=== PATIENT | female | born 1960 | race Caucasian/White ===

== ENCOUNTER 2016-09-03 09:36 | Outpatient (CLI) | payer MEDICAID | END 2016-09-03 23:59 | DX: E11.9 Type 2 diabetes mellitus without complications (principal); Z79.4 Long term (current) use of insulin; E78.5 Hyperlipidemia, unspecified; E03.9 Hypothyroidism, unspecified ==

== ENCOUNTER 2016-09-18 08:30 | Outpatient (CLI) | payer MEDICAID | END 2016-09-18 08:45 | disposition home or self-care (01) | DX: I20.8 Other forms of angina pectoris (principal); I10 Essential (primary) hypertension ==

== ENCOUNTER 2016-09-28 10:34 | Outpatient (CLI) | payer MEDICAID | END 2016-09-28 10:35 | disposition home or self-care (01) | DX: R19.7 Diarrhea, unspecified (principal) ==

== ENCOUNTER 2016-09-29 04:00 | Outpatient (CLI) | payer MEDICAID | END 2016-09-29 04:01 | disposition home or self-care (01) | LOC: LAB.R 04:00 | PROVIDERS: ATTEND Nurse Practitioner Gerontology | DX: R19.7 Diarrhea, unspecified (principal) | CPT/HCPCS: 83630; 87015; 87045; 87046; 87077; 87272; 87329; 87493 ==

== ENCOUNTER 2016-10-26 10:52 | Outpatient (CLI) | payer MEDICAID | END 2016-10-26 10:53 | disposition home or self-care (01) | LOC: LAB.N 10:52 | PROVIDERS: ATTEND Nurse Practitioner Gerontology | DX: E03.9 Hypothyroidism, unspecified (principal) | CPT/HCPCS: 36415; 84443 ==

== ENCOUNTER 2016-12-25 10:28 | Outpatient (CLI) | payer MEDICAID ==
--- NOTE | 2016-12-25 12:38 | XRAY Report ---
THREE-VIEW RIGHT SHOULDER: 12/25/2016 CLINICAL INDICATION: Pain. FINDINGS: Internal and external rotational views and a scapular Y view of the right shoulder demonst rate no evidence of fracture or dislocation. The joint spaces are preserved. No radiopaque foreign body is seen in the soft tissues. IMPRESSION: NORMAL RIGHT SHOULDER. JOB #: [id number] EXT JOB #:[id number]
== END 2016-12-25 10:29 | disposition home or self-care (01) ==
LOC: DI.N 10:28
PROVIDERS: ATTEND Family Medicine
DX: M25.511 Pain in right shoulder (principal)

== ENCOUNTER 2017-02-01 09:11 | Outpatient (CLI) | payer MEDICAID ==
[2017-02-01 13:57] LABS: BASOPHILS % (AUTO) 0.7 %; EOSINOPHILS # (AUTO) 0.3 10^3/uL (0.0-0.7); EOSINOPHILS % (AUTO) 5.1 %; HCT - HEMATOCRIT 36.2 % (37.0-47.0); HGB - HEMOGLOBIN 12.1 g/dL (12.0-16.0); LYMPHOCYTES # (AUTO) 1.8 10^3/uL (1.5-3.5); LYMPHOCYTES % (AUTO) 28.2 %; MEAN CORPUSCULAR HEMOGLOBIN 30.5 pg (27.0-31.0); MEAN CORPUSCULAR HGB CONC 33.4 g/dL (32.0-36.0); MEAN CORPUSCULAR VOLUME 91.3 fL (81.0-99.0); MEAN PLATELET VOLUME 8.4 fL (7.9-10.8); MONOCYTES # (AUTO) 0.6 10^3/uL (0.0-1.0); MONOCYTES % (AUTO) 9.1 %; NEUTROPHILS # (AUTO) 3.6 10^3/uL (1.5-6.6); NEUTROPHILS % (AUTO) 56.9 %; NUCLEATED RED BLOOD CELLS AUTO 0.1 /100WBC; RED BLOOD COUNT 3.96 10^6/uL (4.20-5.40); RED CELL DISTRIBUTION WIDTH 14.7 % (12.0-15.0); UNCORRECTED WHITE BLOOD COUNT 6.4 x10^3/uL; WHITE BLOOD COUNT 6.4 x10^3/uL (4.8-10.8)
[2017-02-01 14:13] LABS: BUN - BLOOD UREA NITROGEN 20 mg/dL (6-20); CALCIUM 8.9 mg/dL (8.5-10.3); CARBON DIOXIDE - CO2 21 mmol/L (21-32); CHLORIDE 109 mmol/L (101-111); CHOL/HDL RATIO 4.1 (<4.4); CHOLESTEROL 157 mg/dL; CREATININE 1.1 mg/dL (0.4-1.0); GFR - MDRD 52 (>89); GLUCOSE 125 mg/dL (70-100); HDL CHOLESTEROL 38 mg/dL; LDL/HDL RATIO 2.1 (<4.4); POTASSIUM 3.9 mmol/L (3.5-5.0); SODIUM 139 mmol/L (135-145); TRIGLYCERIDES 190 mg/dL; VLDL CHOLESTEROL 38 mg/dL
[2017-02-01 14:15] LABS: HEMOGLOBIN A1C 0.56 g/dL
== END 2017-02-01 09:12 | disposition home or self-care (01) ==
LOC: LAB.N 09:11
PROVIDERS: ATTEND Internal Medicine Cardiovascular Disease
DX: I10 Essential (primary) hypertension (principal); R07.9 Chest pain, unspecified; E11.319 Type 2 diabetes mellitus with unspecified diabetic retinopathy without macular edema; Z79.4 Long term (current) use of insulin; E78.5 Hyperlipidemia, unspecified; F17.200 Nicotine dependence, unspecified, uncomplicated; R00.2 Palpitations
CPT/HCPCS: 36415; 80048; 80061; 82043; 82570; 83036; 85025

== ENCOUNTER 2017-02-19 09:04 | Outpatient (CLI) | payer MEDICAID | END 2017-02-19 09:05 | disposition EMS.NT | LOC: EMS 09:04 | PROVIDERS: ATTEND Surgery | DX: E16.2 Hypoglycemia, unspecified (principal) ==

== ENCOUNTER 2017-06-15 03:00 | Outpatient (CLI) | payer MEDICAID ==
[2017-06-15 13:18] LABS: H. PYLORIS ANTIGEN STL NEGATIVE (Negative)
== END 2017-06-15 03:01 | disposition home or self-care (01) ==
LOC: LAB.R 03:00
PROVIDERS: ATTEND Nurse Practitioner Gerontology
DX: K21.9 Gastro-esophageal reflux disease without esophagitis (principal)
CPT/HCPCS: 87338

== ENCOUNTER 2017-06-18 10:12 | Outpatient (CLI) | payer MEDICAID ==
[2017-06-18 12:46] LABS: BASOPHILS # (AUTO) 0.1 10^3/uL (0.0-0.1); BASOPHILS % (AUTO) 1.1 %; EOSINOPHILS # (AUTO) 0.2 10^3/uL (0.0-0.7); EOSINOPHILS % (AUTO) 3.1 %; HGB - HEMOGLOBIN 13.1 g/dL (12.0-16.0); LYMPHOCYTES # (AUTO) 1.7 10^3/uL (1.5-3.5); MEAN CORPUSCULAR HEMOGLOBIN 30.2 pg (27.0-31.0); MEAN CORPUSCULAR HGB CONC 33.8 g/dL (32.0-36.0); MEAN CORPUSCULAR VOLUME 89.3 fL (81.0-99.0); MONOCYTES # (AUTO) 0.5 10^3/uL (0.0-1.0); MONOCYTES % (AUTO) 9.4 %; NEUTROPHILS # (AUTO) 3.3 10^3/uL (1.5-6.6); NEUTROPHILS % (AUTO) 57.4 %; PLT - PLATELET COUNT 170 10^3/uL (130-450); RED BLOOD COUNT 4.34 10^6/uL (4.20-5.40); RED CELL DISTRIBUTION WIDTH 15.1 % (12.0-15.0); WHITE BLOOD COUNT 5.8 x10^3/uL (4.8-10.8)
[2017-06-18 13:19] LABS: ALBUMIN 4.3 g/dL (3.2-5.5); ALBUMIN/GLOBULIN RATIO 1.2 (1.0-2.2); ALKALINE PHOSPHATASE 75 IU/L (42-121); ALT ALANINE AMINOTRANSFERASE 16 IU/L (10-60); AST ASPARTATE AMINOTRANSFERASE 20 IU/L (10-42); BILIRUBIN,TOTAL 0.4 mg/dL (0.2-1.0); BUN - BLOOD UREA NITROGEN 15 mg/dL (6-20); CALCIUM 8.8 mg/dL (8.5-10.3); CARBON DIOXIDE - CO2 21 mmol/L (21-32); CHLORIDE 109 mmol/L (101-111); CHOL/HDL RATIO 2.6 (<4.4); CHOLESTEROL 135 mg/dL; CREATININE 0.9 mg/dL (0.4-1.0); GFR - MDRD 65 (>89); GLUCOSE 98 mg/dL (70-100); HDL CHOLESTEROL 52 mg/dL; LDL CHOLESTEROL,CALCULATED 74 mg/dL; LDL/HDL RATIO 1.4 (<4.4); SODIUM 136 mmol/L (135-145); TOTAL PROTEIN 7.9 g/dL (6.7-8.2); VLDL CHOLESTEROL 9 mg/dL
[2017-06-18 13:26] LABS: HB2 TOTAL 14.6 g/dL; HEMOGLOBIN A1C 0.65 g/dL; HEMOGLOBIN A1C % 6.2 % (4.6-6.2)
== END 2017-06-18 10:13 | disposition home or self-care (01) ==
LOC: LAB.N 10:12
PROVIDERS: ATTEND Nurse Practitioner Gerontology
DX: I10 Essential (primary) hypertension (principal); E78.5 Hyperlipidemia, unspecified; E11.9 Type 2 diabetes mellitus without complications; E03.9 Hypothyroidism, unspecified
CPT/HCPCS: 36415; 80053; 80061; 83036; 83721; 84443; 85025

== ENCOUNTER 2017-07-28 10:49 | Emergency (ER) | payer MEDICAID ==
--- NOTE | 2017-07-28 12:38 | ED Physician Documentation ---
PD HPI UPPER EXT INJURY - Stated complaint Stated Complaint: R SHOULDER PX - Chief complaint Chief Complaint: Ext Problem - History obtained from History obtained from: Patient, Friend - History of Present Illness Location: Right, Shoulder Type of injury: Other (For the last 6 weeks and to a lesser extent even longer she has had pinching right shoulder pain that is worse with any motion. She had x-rays in December that were negative. She points to basically the whole right side of the neck and shoulder as the source of her pain. She was on Vicodin which helped but not completely. Despite being listed as an allergy she is not allergic to gabapentin she says. She actually takes it on a daily basis. Her blood sugars have been well controlled. She denies fevers or shortness of breath.) Review of Systems Constitutional: denies: Fever, Chills Cardiac: denies: Chest pain / pressure, Palpitations Respiratory: denies: Dyspnea, Cough PD PAST MEDICAL HISTORY - Past Medical History Cardiovascular: High cholesterol Respiratory: Other Neuro: Seizure disorder Endocrine/Autoimmune: Type 2 diabetes GI: GERD, Hiatal hernia, Chronic diarrhea, Chronic constipation, Pancreatitis, Hepatitis : Incontinence, Nocturia, Frequency HEENT: Glaucoma, Dental implants Psych: Depression, Anxiety Musculoskeletal: Osteoarthritis - Past Surgical History Past Surgical History: Yes General: 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 hernia 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 Cardiovascular: Lobectomy - Present Medications Home Medications: Ambulatory Orders Medication Instructions Recorded Confirmed Oxybutynin [Ditropan] 20 mg PO BID 01/19/13 03/22/17 Simvastatin 20 mg PO DAILY 01/19/13 03/22/17 Levothyroxine [Synthroid] 50 mcg PO DAILY 12/03/13 03/22/17 Lisinopril 5 mg PO DAILY 01/25/14 03/22/17 Alendronate Sodium 5 mg PO Q7D 03/18/15 03/22/17 Omeprazole 20 mg PO QPM 03/18/15 03/22/17 Gabapentin 400 mg PO TID 06/19/15 03/22/17 Insulin Glulisine [Apidra] 1 - 11 unit SQ TID PRN 06/19/15 03/22/17 Insulin Glargine [Lantus Solostar] 20 unit SUBQ BID 10/31/15 03/22/17 Empagliflozin [Jardiance] 10 mg PO DAILY 03/23/16 03/22/17 Topiramate 200 mg PO BID 03/23/16 03/22/17 Gabapentin 600 mg PO TID #30 tablet 07/28/17 HYDROcod/ACETAM 5/325 [[place] 5/325] 1 - 2 ea PO Q6H PRN #15 tablet 07/28/17 - Allergies Allergies/Adverse Reactions: Allergies Allergy/AdvReac Type Severity Reaction Status Date / Time hydromorphone HCl * Allergy Intermediate Edema Verified 08/24/14 09:00 [From Dilaudid] metformin Allergy Intermediate vomiting Verified 08/24/14 09:00 and diarrhea Penicillins Allergy Intermediate Rash Verified 08/24/14 09:00 Sulfa (Sulfonamide Allergy Intermediate Rash Verified 08/24/14 09:00 Antibiotics) carbamazepine [From Tegretol] Allergy Mild Rash Verified 08/24/14 09:00 amoxicillin [Amoxicillin] Allergy Rash Verified 08/24/14 09:00 gabapentin [From Neurontin] AdvReac Intermediate Nausea Verified 07/28/17 10:59 - Social History Does the pt smoke?: Yes Smoking Status: Current every day smoker Does the pt drink ETOH?: No Does the pt have substance abuse?: No - Immunizations Immunizations are current?: Yes - POLST Patient has POLST: No PD ED PE NORMAL - Vitals Vital signs reviewed: Yes - General General: Alert and oriented X 3, No acute distress - Neck Neck: Other (About the right side of the neck, shoulder, and upper back she has basically diffuse tenderness kind of in a fibromyalgia type pattern. She can only abduct about 10 and has pain with internal and external rotation as well. She does have diminished sensation in the C7-C8 distribution on the right. I am really unable to check strength because of limitations due to pain.) - Neuro Neuro: Alert and oriented X 3, Normal speech Results - Vitals Vitals: Vital Signs - 24 hr 07/28/17 10:55 Temperature 36 C L Heart Rate 91 Respiratory 16 Rate Blood Pressure 120/80 O2 Saturation 95 Oxygen O2 Source Room air Departure - Departure Disposition: 01 Home, Self Care Clinical Impression: Cervical radiculopathy at C8 Condition: Good Record reviewed to determine appropriate education?: Yes Instructions: ED Cervical Radiculopathy Prescriptions: Gabapentin 600 mg PO TID #30 tablet HYDROcod/ACETAM 5/325 [[place] 5/325] 1 - 2 ea PO Q6H PRN #15 tablet PRN Reason: Pain Comments: As discussed your history and physical exam suggests that the problem is actually radiated from your neck. Talk with your doctor about an MRI of your neck if this continues. Return if worse or if new symptoms develop.
[2017-07-28 12:46] VITALS: BP 126/107
== END 2017-07-28 12:52 | disposition home or self-care (01) ==
LOC: ED 10:49
DX: M54.12 Radiculopathy, cervical region (principal); F17.200 Nicotine dependence, unspecified, uncomplicated; E78.00 Pure hypercholesterolemia, unspecified; E11.9 Type 2 diabetes mellitus without complications; Z79.4 Long term (current) use of insulin
CPT/HCPCS: 99283

== ENCOUNTER 2017-08-04 09:45 | Emergency (ER) | payer MEDICAID ==
[2017-08-04] MEDS ORDERED: LIDOCAINE PATCH 5% TOP STA (10:07)
[2017-08-04] MEDS ORDERED: KETOROLAC 60 MG/2 ML VIAL IM STA (10:07)
--- NOTE | 2017-08-04 10:11 | ED Physician Documentation ---
History of Present Illness - Stated complaint Stated Complaint: RT SHOULDER PX - Chief complaint Chief Complaint: Ext Problem - Additonal information Additional information: hx from pt 57 f hx stage 1 lunhg cancer 2009 txed surgically followed at [facility] for annual surveillance s recurrence this far to ER today for R shoulder pain - pain from R side of neck into her shoulder with radiation down the lateral upper arm and numbness to her hand diffusely - no weakness seen for same in ED last week - seen by Dr Erickson who txed sx and rec pt fup PMD to discuss MRI pt states she cannot get in to see her PMD and sx persist also states she has had diarrhea and sig wt loss over last 6 months - has seen PMD about that, had stool studies which were reportedly neg, and pMD is considering a colonoscopy no fever cough Review of Systems Constitutional: denies: Fever Respiratory: denies: Dyspnea, Cough GI: reports: Diarrhea. denies: Abdominal Pain Musculoskeletal: reports: Neck pain, Joint pain Neurologic: reports: Numbness. 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 Cardiovascular: Lobectomy - Present Medications Home Medications: Ambulatory Orders Medication Instructions Recorded Confirmed Oxybutynin [Ditropan] 20 mg PO BID 01/19/13 03/22/17 Simvastatin 20 mg PO DAILY 01/19/13 03/22/17 Levothyroxine [Synthroid] 50 mcg PO DAILY 12/03/13 03/22/17 Lisinopril 5 mg PO DAILY 01/25/14 03/22/17 Alendronate Sodium 5 mg PO Q7D 03/18/15 03/22/17 Omeprazole 20 mg PO QPM 03/18/15 03/22/17 Gabapentin 400 mg PO TID 06/19/15 03/22/17 Insulin Glulisine [Apidra] 1 - 11 unit SQ TID PRN 06/19/15 03/22/17 Insulin Glargine [Lantus Solostar] 20 unit SUBQ BID 10/31/15 03/22/17 Empagliflozin [Jardiance] 10 mg PO DAILY 03/23/16 03/22/17 Topiramate 200 mg PO BID 03/23/16 03/22/17 Gabapentin 600 mg PO TID #30 tablet 07/28/17 HYDROcod/ACETAM 5/325 [[place] 5/325] 1 - 2 ea PO Q6H PRN #15 tablet 07/28/17 Lidocaine Patch 5% [Lidoderm Patch] 1 each TOP DAILY PRN #10 patch 08/04/17 predniSONE [Deltasone] 20 mg PO [id number] #21 tab 08/04/17 - Allergies Allergies/Adverse Reactions: Allergies Allergy/AdvReac Type Severity Reaction Status Date / Time hydromorphone HCl * Allergy Intermediate Edema Verified 08/24/14 09:00 [From Dilaudid] metformin Allergy Intermediate vomiting Verified 08/24/14 09:00 and diarrhea Penicillins Allergy Intermediate Rash Verified 08/24/14 09:00 Sulfa (Sulfonamide Allergy Intermediate Rash Verified 08/24/14 09:00 Antibiotics) carbamazepine [From Tegretol] Allergy Mild Rash Verified 08/24/14 09:00 amoxicillin [Amoxicillin] Allergy Rash Verified 08/24/14 09:00 - Social History Does the pt smoke?: Yes Smoking Status: Current every day smoker Does the pt drink ETOH?: No Does the pt have substance abuse?: No - Immunizations Immunizations are current?: Yes - POLST Patient has POLST: No PD ED PE NORMAL - Vitals Vital signs reviewed: Yes - General General: Alert and oriented X 3 - HEENT HEENT: PERRL - Neck Neck: No bony TTP - Cardiac Cardiac: RRR - Respiratory Respiratory: No respiratory distress, Clear bilaterally - Abdomen Abdomen: Soft, Non tender - Derm Derm: Normal color - Extremities Extremities: Other (R shoulder in a sling, no deformity, no redness no warmth, limited ROM 2/2 pain nicole ABD and ext, pt has dec sensation to hand, good 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 No: No sensory deficit Results - Vitals Vitals: Vital Signs - 24 hr 08/04/17 09:50 Temperature 36.7 C Heart Rate 91 Respiratory 18 Rate Blood Pressure 128/65 O2 Saturation 96 Oxygen O2 Source Room air - Labs Labs: Laboratory Tests 08/04/17 08/04/17 10:48 10:48 WBC 6.6 RBC 4.38 Hgb 13.5 Hct 40.1 MCV 91.5 MCH 30.8 MCHC 33.6 RDW 15.2 H Plt Count 161 MPV 7.6 L Neut # 4.1 Lymph # 1.8 [place] # 0.5 Eos # 0.2 Baso # 0.1 Absolute Nucleated RBC 0.00 Nucleated RBC % 0.0 Sodium 136 Potassium 3.8 Chloride 108 Carbon Dioxide 19 L Anion Gap 9.0 BUN 10 Creatinine 0.8 Estimated GFR (MDRD) 74 L Glucose 68 L Calcium 8.9 PD MEDICAL DECISION MAKING - ED course ED course: MRI has an opening in schedule today and with a hx of cancer and new radiculopathy this is a prudent test to get done so ordered from the ER Departure - Departure Disposition: Home, Self Care Clinical Impression: Cervical radiculopathy Shoulder pain, right Qualifiers: Chronicity: chronic Qualified Code(s): M25.511 - Pain in right shoulder; G89.29 - Other chronic pain; G89.29 - Other chronic pain Condition: Good Instructions: ED Cervical Radiculopathy Follow-Up: Jhonny Love MD [Provider Admit Priv/Credential] - Prescriptions: Lidocaine Patch 5% [Lidoderm Patch] 1 each TOP DAILY PRN #10 patch PRN Reason: Pain predniSONE [Deltasone] 20 mg PO [id number] #21 tab Comments: The MRI of your neck was fine - no sign of recurrent cancer. There are some degenerative changes but nothing severe The xray of your chest was fine - no pneumonia or cancer to cause shoulder pain And the shoulder xray was fine too I am not sure why the shoulder is hurting but it seems to be nerve pain. I recommend your try a course of tapering steroids to decrease nerve inflammation and lidocaine patches. You can wear the sling if needed but be sure to take your arm out and do range of motion exercises at least every 4 hours If you have had diarrhea for 6 months and lost a lot of weight you need a colonoscopy - I have referred you to the surgical office to arrange that procedure
[2017-08-04] MEDS ORDERED: GADOBUTROL 7.5 MMOL/7.5 ML VIAL ONE (10:35)
--- NOTE | 2017-08-04 10:51 | XRAY Report ---
EXAM: RIGHT SHOULDER RADIOGRAPHY EXAM DATE: 08/04/2017 10:34 AM. CLINICAL HISTORY: Hx lung cancer R shoulder pain. COMPARISON: None. TECHNIQUE: 3 views. FINDINGS: Bones: Normal. No fracture or bone lesion. Joints: The glenohumeral and acromioclavicular joints are anatomically aligned. No significant degene rative changes.. Soft tissues: The included hemithorax is unremarkable. No soft tissue calcification. IMPRESSION: Unremarkable right shoulder radiography. [facility] Referring Provider Line: [phone] SITE ID: [id number]
[2017-08-04 10:55] LABS: BASOPHILS # (AUTO) 0.1 10^3/uL (0.0-0.1); EOSINOPHILS # (AUTO) 0.2 10^3/uL (0.0-0.7); EOSINOPHILS % (AUTO) 2.5 %; HGB - HEMOGLOBIN 13.5 g/dL (12.0-16.0); LYMPHOCYTES # (AUTO) 1.8 10^3/uL (1.5-3.5); LYMPHOCYTES % (AUTO) 27.9 %; MEAN CORPUSCULAR HEMOGLOBIN 30.8 pg (27.0-31.0); MEAN CORPUSCULAR HGB CONC 33.6 g/dL (32.0-36.0); MEAN CORPUSCULAR VOLUME 91.5 fL (81.0-99.0); MEAN PLATELET VOLUME 7.6 fL (7.9-10.8); MONOCYTES # (AUTO) 0.5 10^3/uL (0.0-1.0); MONOCYTES % (AUTO) 7.2 %; NEUTROPHILS # (AUTO) 4.1 10^3/uL (1.5-6.6); NEUTROPHILS % (AUTO) 61.4 %; PLT - PLATELET COUNT 161 10^3/uL (130-450); RED BLOOD COUNT 4.38 10^6/uL (4.20-5.40); RED CELL DISTRIBUTION WIDTH 15.2 % (12.0-15.0); WHITE BLOOD COUNT 6.6 x10^3/uL (4.8-10.8)
--- NOTE | 2017-08-04 10:55 | XRAY Report ---
EXAM: CHEST RADIOGRAPHY EXAM DATE: 08/04/2017 10:32 AM. CLINICAL HISTORY: Hx cancer, R shoulder pain. COMPARISON: 03/19/2017 chest x-ray and chest CT 03/24/2016. TECHNIQUE: 2 views. FINDINGS: Lungs/Pleura: Postsurgical changes left upper lobe. No focal opacities evident. No pleural effusion. No pneumothorax. Normal volumes. Mediastinum: Heart and mediastinal contours are unremarkable. Other: Surgical clips right upper quadrant. Slight height loss one midthoracic vertebral body. IMPRESSION: No acute findings 2-view chest radiography. Stable left upper lobe postsurgical change. [facility] Referring Provider Line: [phone] SITE ID: [id number]
[2017-08-04 11:03] LABS: CALCIUM 8.9 mg/dL (8.5-10.3); CREATININE 0.8 mg/dL (0.4-1.0)
[2017-08-04] MEDS ORDERED: oxyCODONE 5 MG TABLET PO STA (11:21)
[2017-08-04] MEDS ORDERED: GADOBUTROL 7.5 MMOL/7.5 ML VIAL IVP ONE (11:48)
--- NOTE | 2017-08-04 12:12 | MRI Report ---
EXAM: MRI CERVICAL SPINE WITHOUT AND WITH CONTRAST EXAM DATE: 08/04/2017 11:52 AM. CLINICAL HISTORY: Hx lung cancer new R arm radiculopathy. COMPARISON: None. TECHNIQUE: Multiplanar, multisequence T1-weighted and fluid-sensitive sequences of the cervical spine before and after administration of intravenous contrast. Other: None. IV contrast: 7.5 cc gadavist. FINDINGS: Neurologic Structures: The visualized posterior fossa structures are unremarkable. No signal abnormal ity in the visualized spinal cord. Alignment: No scoliosis or spondylolisthesis. Bone Marrow: No gross fractures or bone lesions. Small amount of endplate edema at C6-C7 anteriorly. No destructive bone lesions. Interspace Levels/Facets: C1-C2: Unremarkable. C2-C3: Unremarkable. C3-C4: Unremarkable. C4-C5: Small broad-based central, left paracentral and foraminal disk protrusion. Mild facet arthropa thy. Mild central canal stenosis. Mild left foraminal stenosis. Annular fissure. C5-C6: Annular disk bulge with broad-based central protrusion. Mild central canal stenosis. Mild left foraminal narrowing. C6-C7: Disk height loss. Annular disk bulge with broad-based central protrusion and facet hypertrophy . Mild facet arthropathy. Mild central canal stenosis. Moderate left and mild right foraminal stenosi s. C7-T1: Unremarkable. No stenosis. Spinal Canal: No enhancing lesions within the spinal canal. No epidural abscess. Musculature: Normal. No edema, enhancement, or fatty atrophy. Other: The paravertebral and prevertebral soft tissues are normal. IMPRESSION: 1. No evidence of metastatic disease within the [id number]. 2. Mild cervical degenerative disk and facet arthropathy. 3. C4-C5 mild central canal stenosis. Mild left foraminal stenosis. 4. C5-C6 mild central canal stenosis. Mild left foraminal narrowing. 5. C6-C7 mild central canal stenosis. Moderate left and mild right foraminal stenosis. [facility] Referring Provider Line: [phone] SITE ID: [id number]
--- NOTE | 2017-08-04 12:12 | MRI Preliminary Report ---
Exam: MRI CERVICAL SPINE W/WO IMPRESSION: 1. No evidence of metastatic disease within the [id number]. 2. Mild cervical degenerative disk and facet arthropathy. 3. C4-C5 mild central canal stenosis. Mild left foraminal stenosis. 4. C5-C6 mild central canal stenosis. Mild left foraminal narrowing. 5. C6-C7 mild central canal stenosis. Moderate left and mild right foraminal stenosis. [facility] SITE ID: [id number]
[2017-08-04 13:42] VITALS: BP 114/67
== END 2017-08-04 13:32 | disposition home or self-care (01) ==
LOC: ED 09:45
DX: M54.12 Radiculopathy, cervical region (principal); M25.511 Pain in right shoulder; G89.29 Other chronic pain; E78.00 Pure hypercholesterolemia, unspecified; Z85.118 Personal history of other malignant neoplasm of bronchus and lung; F17.200 Nicotine dependence, unspecified, uncomplicated
CPT/HCPCS: 36415; 71046; 72156; 73030; 80048; 85025; 96372; 99283; A9270; A9585

== ENCOUNTER 2017-08-17 11:06 | Outpatient (CLI) | payer MEDICAID ==
[2017-08-17 18:51] LABS: ALBUMIN 4.2 g/dL (3.2-5.5); ALBUMIN/GLOBULIN RATIO 1.3 (1.0-2.2); ALKALINE PHOSPHATASE 58 IU/L (42-121); ALT ALANINE AMINOTRANSFERASE 16 IU/L (10-60); AST ASPARTATE AMINOTRANSFERASE 16 IU/L (10-42); BILIRUBIN,TOTAL 0.6 mg/dL (0.2-1.0); BUN - BLOOD UREA NITROGEN 24 mg/dL (6-20); CALCIUM 8.8 mg/dL (8.5-10.3); CARBON DIOXIDE - CO2 24 mmol/L (21-32); CHLORIDE 106 mmol/L (101-111); CREATININE 0.9 mg/dL (0.4-1.0); GFR - MDRD 65 (>89); GLUCOSE 107 mg/dL (70-100); SODIUM 136 mmol/L (135-145); TOTAL PROTEIN 7.4 g/dL (6.7-8.2)
[2017-08-17 19:19] LABS: HB2 TOTAL 13.7 g/dL; HEMOGLOBIN A1C 0.61 g/dL; HEMOGLOBIN A1C % 6.2 % (4.6-6.2)
== END 2017-08-17 11:07 | disposition home or self-care (01) ==
LOC: LAB.N 11:06
PROVIDERS: ATTEND Nurse Practitioner Gerontology
DX: E11.9 Type 2 diabetes mellitus without complications (principal); E03.9 Hypothyroidism, unspecified
CPT/HCPCS: 36415; 80053; 83036; 84443

== ENCOUNTER 2017-09-01 08:00 | Outpatient (CLI) | payer MEDICAID | END 2017-09-01 23:59 | LOC: LAB.WCP 08:00 | PROVIDERS: ATTEND Physician Assistant | DX: R63.4 Abnormal weight loss (principal); R19.7 Diarrhea, unspecified | CPT/HCPCS: 81599; 82270; 83630; 87045; 87046; 87177; 87209; 87329; 87493 ==

== ENCOUNTER 2017-09-03 08:00 | Outpatient (CLI) | payer MEDICAID | END 2017-09-03 08:01 | disposition home or self-care (01) | LOC: LAB.WCP 08:00 | PROVIDERS: ATTEND Physician Assistant | DX: R19.7 Diarrhea, unspecified (principal); R63.4 Abnormal weight loss | CPT/HCPCS: 83630; 87493 ==

== ENCOUNTER 2017-09-07 05:58 | Day surgery (SDC) | payer MEDICAID ==
[2017-09-07] MEDS: LACTATED RINGERS 1,000 ML IV ONE (06:28)
[2017-09-07 06:33] VITALS: BP 106/63
== END 2017-09-07 05:59 | disposition home or self-care (01) ==
LOC: SDS 05:58
PROVIDERS: ATTEND Orthopaedic Surgery
DX: Z53.8 Procedure and treatment not carried out for other reasons (principal); M75.01 Adhesive capsulitis of right shoulder

== ENCOUNTER 2017-09-08 10:05 | Outpatient (CLI) | payer MEDICAID ==
--- NOTE | 2017-09-09 16:40 | Mammography Report ---
DIGITAL SCREENING MAMMOGRAM: 09/08/2017 CLINICAL INDICATION: A 57-year-old for screening. COMPARISON: 01/2014, 05/2011, 11/2009. TECHNIQUE: Routine CC and MLO projections were obtained of the breasts. Positioning on the right is limited by the patient's right shoulder immobility. FINDINGS: The breasts demonstrate fatty replacement bilaterally. Coarse and punctate, typically benign calcifications are present. No suspicious masses, clustered microcalcifications, or regions of architectural distortion are identified. IMPRESSION: BENIGN FINDINGS. RECOMMENDATION: Routine annual screening unless otherwise clinically indicated. BIRADS CATEGORY 2 BENIGN FINDINGS. STANDARD QUALIFYING STATEMENTS: 1. This examination was reviewed with the aid of Computer-Aided Detection (CAD). 2. A negative or benign imaging report should not delay biopsy if clinically suspicious findings are present. Consider surgical consultation if warranted. More than 5% of cancers are not identified by imaging. 3. Dense breasts may obscure an underlying neoplasm. TD: 09/09/2017 16:38
== END 2017-09-08 10:06 | disposition home or self-care (01) ==
LOC: DI.N 10:05
PROVIDERS: ATTEND Nurse Practitioner Gerontology
DX: Z12.39 Encounter for other screening for malignant neoplasm of breast (principal)
CPT/HCPCS: 77067

== ENCOUNTER 2017-09-16 08:36 | Outpatient (CLI) | payer MEDICAID ==
--- NOTE | 2017-09-16 11:33 | Ultrasound Report ---
COMPLETE ABDOMINAL ULTRASOUND: 09/16/2017 CLINICAL INDICATION: Weight loss, history of lung cancer. COMPARISON: 10/01/2014. TECHNIQUE: Real-time scanning was performed with field representatives director static images obtained. FINDINGS: The liver measures 14.9 cm. Hepatic echogenicity is normal. No intrahepatic biliary dilatation or focal parenchymal lesion is appreciated. The common bile duct measures 4 mm. The patient is status post cholecystectomy. The pancreas is obscured by bowel gas. The kidneys are normal, with the right measuring 10.0 cm and the left measuring 10.4 cm. The spleen measures 9.9 cm, and demonstrates normal echotexture. The abdominal aorta is normal in caliber. The inferior vena cava is unremarkable. No free fluid is present. IMPRESSION: CHANGES OF CHOLECYSTECTOMY. NO SIGNIFICANT INTERVAL CHANGE. IF THERE IS A CONCERN FOR A PALPABLE ABNORMALITY IN THE LEFT LOWER QUADRANT, CT WOULD PROVIDE A BETTER EVALUATION. TD: 09/16/2017 11:32
== END 2017-09-16 08:37 | disposition home or self-care (01) ==
LOC: DI 08:36
PROVIDERS: ATTEND Physician Assistant
DX: R19.04 Left lower quadrant abdominal swelling, mass and lump (principal); R63.4 Abnormal weight loss
CPT/HCPCS: 76700

== ENCOUNTER 2017-10-07 06:38 | Day surgery (SDC) | payer MEDICAID ==
[2017-10-07] MEDS ORDERED: LACTATED RINGERS 1,000 ML IV ONE ×2 (06:51→09:56)
[2017-10-07] MEDS ORDERED: LIDO GARGLE 30 ML BOTTLE ONE (07:19)
[2017-10-07] MEDS ORDERED: fentaNYL 250 MCG/5 ML VIAL IVP ONE (08:30)
[2017-10-07] MEDS ORDERED: MIDAZOLAM 2 MG/2 ML VIAL IVP ONE (08:30)
[2017-10-07] MEDS ORDERED: LIDO GARGLE 30 ML BOTTLE TOP ONE (08:35)
[2017-10-07 09:57] VITALS: BP 124/68
== END 2017-10-07 06:39 | disposition home or self-care (01) ==
LOC: SDS 06:38
PROVIDERS: ATTEND Internal Medicine Gastroenterology
PROC: 0DB68ZX Excision of Stomach, Via Natural or Artificial Opening Endoscopic, Diagnostic (ICD-10-PCS; 2017-10-07)
PROC: 0DB38ZX Excision of Lower Esophagus, Via Natural or Artificial Opening Endoscopic, Diagnostic (ICD-10-PCS; 2017-10-07)
PROC: 0DBP8ZX Excision of Rectum, Via Natural or Artificial Opening Endoscopic, Diagnostic (ICD-10-PCS; principal; 2017-10-07 08:00)
PROC: 0DB98ZX Excision of Duodenum, Via Natural or Artificial Opening Endoscopic, Diagnostic (ICD-10-PCS; 2017-10-07 08:00)
DX: K62.1 Rectal polyp (principal); R19.7 Diarrhea, unspecified; K57.30 Diverticulosis of large intestine without perforation or abscess without bleeding; K22.70 Barrett's esophagus without dysplasia; K31.9 Disease of stomach and duodenum, unspecified; K63.89 Other specified diseases of intestine; K29.50 Unspecified chronic gastritis without bleeding; E11.9 Type 2 diabetes mellitus without complications; Z79.4 Long term (current) use of insulin; Z79.82 Long term (current) use of aspirin
CPT/HCPCS: 43239; 45380; 87081; A9270; J3010; J7120

== ENCOUNTER 2017-11-01 | Outpatient (CLI) | END 2017-11-01 03:18 | disposition critical access hospital (66) | CPT/HCPCS: A0425; A0429 ==

== ENCOUNTER 2017-11-01 03:31 | Emergency (ER) | payer MEDICAID ==
--- NOTE | 2017-11-01 03:56 | ED Physician Documentation ---
PD HPI LOWER EXT INJURY - Stated complaint Stated Complaint: RIGHT FOOT CRAMP - Chief complaint Chief Complaint: Trauma Ext - History obtained from History obtained from: Patient - History of Present Illness PD HPI LOW EXT INJURY LOCATION: Right, Ankle Type of injury: Twist Where injury occurred: Home Timing - onset: Today Timing - details: Abrupt onset, Still present Improved by: Immobilization Worsened by: Moving, Palpating Associated symptoms: Swelling, Discolored Contributing factors: No: Anticoagulated Similar symptoms before: Has not had sx before Recently seen: Not recently seen - Additional information Additional information: Patient is a 57 year old female with multiple medical problems including osteoporosis who is presenting to the emergency department for ankle pain. patient states that she felt like her leg was cramping so she tried to stretch out her ankle, In stretching her ankle she felt it pop. Patient called ems who brought the patient in. there is tenderness and swelling to medial and lateral maleolus regions. 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 Cardiovascular: Lobectomy - Present Medications Home Medications: Ambulatory Orders Medication Instructions Recorded Confirmed Oxybutynin [Ditropan] 20 mg PO BID 01/19/13 11/01/17 Simvastatin 20 mg PO DAILY 01/19/13 11/01/17 Levothyroxine [Synthroid] 50 mcg PO DAILY 12/03/13 11/01/17 Lisinopril 5 mg PO DAILY 01/25/14 11/01/17 Alendronate Sodium 5 mg PO Q7D 03/18/15 10/07/17 Insulin Glulisine [Apidra] 1 - 11 unit SQ TID PRN MDD 30 06/19/15 11/01/17 Insulin Glargine [Lantus Solostar] 20 unit SUBQ BID 10/31/15 11/01/17 Topiramate 200 mg PO BID 03/23/16 11/01/17 Aspirin 81 mg PO DAILY 09/06/17 11/01/17 Cholecalciferol (Vitamin D3) 2,000 unit PO DAILY 09/06/17 11/01/17 [Vitamin D] Gabapentin 300 mg PO TID 09/06/17 11/01/17 lamoTRIgine [LaMICtal] 100 mg PO BID 09/06/17 11/01/17 Hydrocodone/Acetaminophen [Vicodin 1 each PO Q6H PRN #10 tablet 11/01/17 5-300 mg Tablet] - Allergies Allergies/Adverse Reactions: Allergies Allergy/AdvReac Type Severity Reaction Status Date / Time hydromorphone HCl * Allergy Intermediate Edema Verified 11/01/17 03:35 [From Dilaudid] metformin Allergy Intermediate vomiting Verified 11/01/17 03:35 and diarrhea Penicillins Allergy Intermediate Rash Verified 11/01/17 03:35 Sulfa (Sulfonamide Allergy Intermediate Rash Verified 11/01/17 03:35 Antibiotics) carbamazepine [From Tegretol] Allergy Mild Rash Verified 11/01/17 03:35 amoxicillin [Amoxicillin] Allergy Rash Verified 11/01/17 03:35 - Social History Does the pt smoke?: Yes Smoking Status: Current every day smoker Does the pt drink ETOH?: No Does the pt have substance abuse?: No - Immunizations Immunizations are current?: Yes - POLST Patient has POLST: No PD ED PE NORMAL - Vitals Vital signs reviewed: Yes - General General: Alert and oriented X 3 - HEENT HEENT: Atraumatic - Cardiac Cardiac: RRR - Respiratory Respiratory: No respiratory distress - Abdomen Abdomen: Non distended - Neuro Eye Opening: Spontaneous PD ED PE EXPANDED - Cardiac Cardiac: Radial strong equal - Extremities Extremities: Right ankle (tenderness and swelling of right ankle), Pedal Pulses Present, Sensory intact, Vascular intact. 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 patient was found to have bilateral maleolus fractures but good alignment. Case was discussed with proposal consultant ortho who recommended posterior and sugar tong splints. Splints were made. Patient required no further inpatient work up and was stable for discharge with outpatient follow up. - Sepsis Event Vital Signs: Vital Signs - 24 hr 11/01/17 11/01/17 03:40 05:21 Temperature 36.8 C Heart Rate 89 88 Respiratory 18 18 Rate Blood Pressure 104/59 L 110/60 O2 Saturation 94 96 Oxygen O2 Source Room air Departure - Departure Disposition: Home, Self Care Clinical Impression: Bimalleolar ankle fracture Condition: Good Instructions: ED Fx Ankle Lateral Malleolus Follow-Up: Eric Shay MD [Provider Admit Priv/Credential] - Tomorrow Prescriptions: Hydrocodone/Acetaminophen [Vicodin 5-300 mg Tablet] 1 each PO Q6H PRN #10 tablet PRN Reason: Pain Comments: Your symptoms today are being caused by ankle fracture. You have fractures in two different parts of your ankle. You will need to ice your ankle at least 4 times a day and keep it elevated. You have been placed in a temporary splint today but will need to follow up with the orthopedic doctor (Dr. Shay) for more definitive care. You can take tylenol for pain and vicodin for breakthrough pain. You should not take it with any other sedatives and you should not drive or operate heavy machinery while taking it. Discharge Date/Time: 11/01/17 05:21
--- NOTE | 2017-11-01 04:31 | XRAY Report ---
Procedure Date: 11/01/2017 Accession Number: [id number] / [id number] Procedure: XR - Ankle 3 View RT CPT Code: FULL RESULT: EXAM: RIGHT ANKLE RADIOGRAPHY EXAM DATE: 11/01/2017 04:06 AM. CLINICAL HISTORY: Ankle pain and swelling. COMPARISON: None. TECHNIQUE: 3 views. FINDINGS: Bones: Fractures of the medial and lateral malleoli, possibly subacute. There is demineralization which is most pronounced in the distal fibula. This could represent localized osteopenia but underlying lytic or permeative process not excluded. Joints: No dislocation seen. No joint effusion. Soft Tissues: Soft tissue swelling. IMPRESSION: 1. Fractures of the medial and lateral malleoli, possibly subacute. 2. Cannot exclude underlying lytic process, especially in the distal fibula. Consider MRI if clinically indicated. [facility]
[2017-11-01] MEDS ORDERED: HYDROcod/ACET 5/325 Prepack 4 PO STA (04:53)
[2017-11-01] MEDS ORDERED: HYDROcod/ACETAM 5/325 MG TABLET PO STA (04:53)
[2017-11-01 05:23] VITALS: BP 110/60
== END 2017-11-01 05:21 | disposition home or self-care (01) ==
LOC: EDUNIT# → ED 03:31
DX: S82.841A Displaced bimalleolar fracture of right lower leg, initial encounter for closed fracture (principal); X50.1XXA Overexertion from prolonged static or awkward postures, initial encounter; Y92.009 Unspecified place in unspecified non-institutional (private) residence as the place of occurrence of the external cause; M81.0 Age-related osteoporosis without current pathological fracture; E78.00 Pure hypercholesterolemia, unspecified; E11.9 Type 2 diabetes mellitus without complications; Z79.4 Long term (current) use of insulin; I10 Essential (primary) hypertension; R52 Pain, unspecified; K21.9 Gastro-esophageal reflux disease without esophagitis; K75.9 Inflammatory liver disease, unspecified; M19.90 Unspecified osteoarthritis, unspecified site; Z79.82 Long term (current) use of aspirin; F17.200 Nicotine dependence, unspecified, uncomplicated
CPT/HCPCS: 36415; 73610; 80053; 83735; 85025; 99283; A9270; 84550

== ENCOUNTER 2017-11-01 09:49 | Outpatient (CLI) | payer MEDICAID ==
[2017-11-01 12:38] LABS: BASOPHILS # (AUTO) 0.1 10^3/uL (0.0-0.1); BASOPHILS % (AUTO) 0.4 %; EOSINOPHILS # (AUTO) 0.1 10^3/uL (0.0-0.7); EOSINOPHILS % (AUTO) 0.9 %; HGB - HEMOGLOBIN 13.6 g/dL (12.0-16.0); LYMPHOCYTES # (AUTO) 2.3 10^3/uL (1.5-3.5); MEAN CORPUSCULAR HEMOGLOBIN 31.7 pg (27.0-31.0); MEAN CORPUSCULAR HGB CONC 33.4 g/dL (32.0-36.0); MEAN CORPUSCULAR VOLUME 95.1 fL (81.0-99.0); MEAN PLATELET VOLUME 8.6 fL (7.9-10.8); MONOCYTES # (AUTO) 1.1 10^3/uL (0.0-1.0); MONOCYTES % (AUTO) 8.4 %; NEUTROPHILS # (AUTO) 9.1 10^3/uL (1.5-6.6); NEUTROPHILS % (AUTO) 72.3 %; PLT - PLATELET COUNT 206 10^3/uL (130-450); RED BLOOD COUNT 4.29 10^6/uL (4.20-5.40); RED CELL DISTRIBUTION WIDTH 14.2 % (12.0-15.0); WHITE BLOOD COUNT 12.6 x10^3/uL (4.8-10.8)
[2017-11-01 12:51] LABS: ALBUMIN 4.5 g/dL (3.2-5.5); ALBUMIN/GLOBULIN RATIO 1.2 (1.0-2.2); BILIRUBIN,TOTAL 0.5 mg/dL (0.2-1.0); CALCIUM 9.4 mg/dL (8.5-10.3); CREATININE 1.5 mg/dL (0.4-1.0); MAGNESIUM 2.4 mg/dL (1.7-2.8); TOTAL PROTEIN 8.3 g/dL (6.7-8.2)
== END 2017-11-01 09:50 | disposition home or self-care (01) ==
LOC: LAB.WCP 09:49
PROVIDERS: ATTEND Physician Assistant
DX: E11.9 Type 2 diabetes mellitus without complications (principal); I10 Essential (primary) hypertension; R52 Pain, unspecified
CPT/HCPCS: 36415; 80053; 83735; 84550; 85025

== ENCOUNTER 2017-11-05 11:19 | Outpatient (CLI) | payer MEDICAID ==
[2017-11-05 19:16] LABS: CALCIUM 8.5 mg/dL (8.5-10.3); CREATININE 0.9 mg/dL (0.4-1.0)
== END 2017-11-05 11:20 | disposition home or self-care (01) ==
LOC: LAB.WCP 11:19
PROVIDERS: ATTEND Physician Assistant
DX: R94.4 Abnormal results of kidney function studies (principal)
CPT/HCPCS: 36415; 80048

== ENCOUNTER 2017-11-08 15:00 | Outpatient (CLI) | END 2017-11-08 15:01 | disposition home or self-care (01) ==

== ENCOUNTER 2017-11-11 12:07 | Outpatient (CLI) | payer MEDICAID ==
--- NOTE | 2017-11-12 11:52 | DEXA Report ---
Procedure Date: 11/11/2017 Accession Number: [id number] / [id number] Procedure: DEX - Dexa Spine and/or Hip CPT Code: FULL RESULT: EXAM: Dexa Spine and/or Hip DATE: 11/11/2017 12:50 PM CLINICAL HISTORY: OSTEOPOROSIS TECHNIQUE: Dual energy x-ray absorptiometry (DXA) was performed on a Lumeta System. Regions measured are the AP Spine, femoral neck, and if needed forearm. COMPARISON: None. In accordance with the International Society for Clinical Densitometry (ISCD) guidelines, data from previous exams may be reanalyzed using current recommendations and techniques. This is done to allow a more accurate basis for comparison with the current study. FINDINGS: The data for the lumbar spine is as follows: BMD (g/cm/cm) T-SCORE Z-SCORE REGION L1 0.983 -1.2 -0.4 L2 0.959 -2.0 -1.2 L3 0.972 -1.9 -1.1 L4 1.049 -1.3 -0.4 TOTAL 0.995 -1.5 -0.7 NOTE: All evaluable vertebrae are used for classification The data for the hip is as follows: BMD (g/cm/cm) T-SCORE Z-SCORE REGION Neck 0.836 -1.4 -0.4 TOTAL 0.857 -1.2 -0.5 NOTE: The femoral neck or total proximal femur, whichever is lowest, is used for classification. IMPRESSION: THE WHO CLASSIFICATION BASED ON THE INTERNATIONAL REFERENCE STANDARD IS OSTEOPENIA. THE FRACTURE RISK IS INCREASED. RECOMMENDATION: Patients with diagnosis of osteoporosis or osteopenia should have regular bone mineral density assessment. For those eligible for Medicare, routine testing is allowed once every 2 years. Testing frequency can be increased for patients who have rapidly progressing disease or for those who are receiving medical therapy to restore bone mass. COMMENT: World Health Organization (WHO) definitions for osteoporosis and osteopenia: NORMAL BMD: T-score at -1.0 or higher, fracture risk is low OSTEOPENIA BMD: T-score between -1.0 and -2.5, fracture risk is increased. OSTEOPOROSIS BMD: T-score at -2.5 or lower, fracture risk is high. National Osteoporosis Foundation recommends: 1. Obtain adequate dietary calcium (at least 1200 mg per day) and vitamin D (400-800 international units per day). 2. Participate, as appropriate, in regular weightbearing and muscle-strengthening exercise. 3. Avoid tobacco use and reduce alcohol and caffeine intake. 4. For more detailed information see the website at www.NOF.org.
== END 2017-11-11 12:08 | disposition home or self-care (01) ==
LOC: DI 12:07
PROVIDERS: ATTEND Physician Assistant
DX: M85.89 Other specified disorders of bone density and structure, multiple sites (principal)
CPT/HCPCS: 77080

== ENCOUNTER 2017-12-03 09:54 | Outpatient (CLI) | payer MEDICAID ==
[2017-12-03] MEDS ORDERED: IOPAMIDOL-300 100 ML VIAL ONE (10:10)
[2017-12-03] MEDS ORDERED: IOPAMIDOL-300 50 ML VIAL ONE (10:10)
[2017-12-03] MEDS: IOPAMIDOL-300 100 ML VIAL IVP ONE (11:02)
[2017-12-03] MEDS: IOPAMIDOL-300 50 ML VIAL PO ONE (11:03)
--- NOTE | 2017-12-03 17:11 | CT Report ---
Procedure Date: 12/03/2017 Accession Number: [id number] / [id number] Procedure: CT - Abdomen/Pelvis W/ CPT Code: FULL RESULT: EXAM: Chest W/, Abdomen/Pelvis W/ DATE: 12/03/2017 11:05 AM CLINICAL HISTORY: WEIGHT LOSS ABNORMAL COMPARISON: CT chest 03/24/2016. TECHNIQUE: Routine helical CT imaging was performed through the chest. IV contrast: 100 mL Isovue 300. Reconstructions: Coronal and sagittal. In accordance with CT protocol optimization, one or more of the following dose reduction techniques were utilized for this exam: automated exposure control, adjustment of mA and/or KV based on patient size, or use of iterative reconstructive technique. FINDINGS: CHEST: Lungs/Pleura: Postoperative changes in the left upper lobe, stable. Upper lobe predominant emphysematous changes. No new lung nodules or masses. Mediastinum: Normal. No adenopathy or masses. The heart and great vessels are normal. Bones: No aggressive osseous lesions. Visualized Abdomen: Unremarkable. Other: Sliding hiatal hernia. ABDOMEN/PELVIS: The patient is status post cholecystectomy. The pancreas is atrophied with calcifications, correlate to chronic pancreatitis. The liver, spleen, adrenal glands, right and left kidney are unremarkable with the exception of a right renal cortical defect. There is no bowel obstruction, extraintestinal gas or free fluid. There is no pelvic mass. There is no abdominal, pelvic or retroperitoneal lymphadenopathy. IMPRESSION: No evidence of metastatic disease. Stable postoperative changes of the lung. Pancreatic atrophy. RADIA
--- NOTE | 2017-12-03 17:11 | CT Report ---
Procedure Date: 12/03/2017 Accession Number: [id number] / [id number] Procedure: CT - Chest W/ CPT Code: FULL RESULT: EXAM: Chest W/, Abdomen/Pelvis W/ DATE: 12/03/2017 11:05 AM CLINICAL HISTORY: WEIGHT LOSS ABNORMAL COMPARISON: CT chest 03/24/2016. TECHNIQUE: Routine helical CT imaging was performed through the chest. IV contrast: 100 mL Isovue 300. Reconstructions: Coronal and sagittal. In accordance with CT protocol optimization, one or more of the following dose reduction techniques were utilized for this exam: automated exposure control, adjustment of mA and/or KV based on patient size, or use of iterative reconstructive technique. FINDINGS: CHEST: Lungs/Pleura: Postoperative changes in the left upper lobe, stable. Upper lobe predominant emphysematous changes. No new lung nodules or masses. Mediastinum: Normal. No adenopathy or masses. The heart and great vessels are normal. Bones: No aggressive osseous lesions. Visualized Abdomen: Unremarkable. Other: Sliding hiatal hernia. ABDOMEN/PELVIS: The patient is status post cholecystectomy. The pancreas is atrophied with calcifications, correlate to chronic pancreatitis. The liver, spleen, adrenal glands, right and left kidney are unremarkable with the exception of a right renal cortical defect. There is no bowel obstruction, extraintestinal gas or free fluid. There is no pelvic mass. There is no abdominal, pelvic or retroperitoneal lymphadenopathy. IMPRESSION: No evidence of metastatic disease. Stable postoperative changes of the lung. Pancreatic atrophy. RADIA
== END 2017-12-03 09:55 | disposition home or self-care (01) ==
LOC: DI 09:54
PROVIDERS: ATTEND Physician Assistant
DX: K86.89 Other specified diseases of pancreas (principal)
CPT/HCPCS: 71260; 74177; Q9967

== ENCOUNTER 2018-02-23 10:21 | Outpatient (CLI) | payer MEDICAID ==
--- NOTE | 2018-02-27 15:20 | Ultrasound Report ---
Reason: ELEVATED CREATININE Procedure Date: 02/23/2018 Accession Number: [id number] / [id number] Procedure: US - Retroperitoneal CPT Code: FULL RESULT: EXAM: RENAL ULTRASOUND EXAM DATE: 02/23/2018 11:59 AM. CLINICAL HISTORY: ELEVATED CREATININE. COMPARISON: ABDOMEN COMPLETE 09/16/2017 8:39 AM. TECHNIQUE: Real-time scanning was performed with static images obtained. FINDINGS: Right Kidney: 10.4 x 3.2 x 5.2 cm. Normal echotexture with no stones, contour-deforming masses, or hydronephrosis. Left Kidney: 10.6 x 4.9 x 5.1 cm. Normal echotexture with no stones, contour-deforming masses, or hydronephrosis. Bladder: Bilateral jets seen. The prevoid bladder volume was 382 cc. The postvoid bladder volume was 65 cc. Other: None. IMPRESSION: Normal renal ultrasound. RADIA
== END 2018-02-23 10:22 | disposition home or self-care (01) ==
LOC: DI 10:21
PROVIDERS: ATTEND Physician Assistant
DX: R79.89 Other specified abnormal findings of blood chemistry (principal)
CPT/HCPCS: 76770

== ENCOUNTER 2018-04-26 05:54 | Day surgery (SDC) | payer MEDICAID ==
[2018-04-26] MEDS ORDERED: LACTATED RINGERS 1,000 ML IV ONE ×2 (07:00→09:08)
--- NOTE | 2018-04-26 07:06 | ANESTHESIA ---
Pre-Anesthesia VS, & Labs - Diagnosis right bimalleolar ankle fracture - Procedure orif of right ankle bimalleolar fx Vital Signs: Temp Pulse Resp BP Pulse Ox 36.8 C 82 16 106/67 96 04/26/18 06:43 04/26/18 06:43 04/26/18 06:43 04/26/18 06:43 04/26/18 06:43 Height 5 ft 5 in Weight (kg) 64.5 kg Body Mass Index 25.8 - NPO >8 hours - Is Patient ?: Not Applicable Home Medications and Allergies Oxybutynin [Ditropan] 20 mg PO BID 01/19/13 Simvastatin 20 mg PO DAILY 01/19/13 Levothyroxine [Synthroid] 50 mcg PO DAILY 12/03/13 Lisinopril 5 mg PO DAILY 01/25/14 Alendronate Sodium 5 mg PO Q7D 03/18/15 Insulin Glulisine [Apidra] 1 - 11 unit SQ TID PRN MDD 30 06/19/15 Insulin Glargine [Lantus Solostar] 10 unit SUBQ BID 10/31/15 Topiramate 200 mg PO BID 03/23/16 Aspirin 81 mg PO DAILY 09/06/17 Cholecalciferol (Vitamin D3) [Vitamin D] 2,000 unit PO DAILY 09/06/17 Gabapentin 300 mg PO TID 09/06/17 lamoTRIgine [LaMICtal] 100 mg PO BID 09/06/17 Allergies/Adverse Reactions: Allergies Allergy/AdvReac Type Severity Reaction Status Date / Time hydromorphone HCl * Allergy Intermediate Edema Verified 04/25/18 11:08 [From Dilaudid] metformin Allergy Intermediate vomiting Verified 04/25/18 11:08 and diarrhea Penicillins Allergy Intermediate Rash Verified 04/25/18 11:08 Sulfa (Sulfonamide Allergy Intermediate Rash Verified 04/25/18 11:08 Antibiotics) carbamazepine [From Tegretol] Allergy Mild Rash Verified 04/25/18 11:08 amoxicillin [Amoxicillin] Allergy Rash Verified 04/25/18 11:08 Anes History & Medical History - Anesthetic History Anesthesia Complications: reports: No previous complications Family history of Anesthesia Complications: Denies Family history of Malignant Hyperthermia: Denies - Medical History Cardiovascular: reports: Hypertension, High cholesterol Pulmonary: reports: Emphysema, Shortness of breath Gastrointestinal: reports: GERD, Hiatal hernia, Chronic diarrhea, Chronic constipation, Pancreatitis, Hepatitis, Cholelithiasis Urinary: reports: Incontinence, Nocturia, Frequency Musculoskeletal: reports: Osteoarthritis Endocrine/Autoimmune: reports: Type 2 diabetes, HyPOthyroidism Skin: reports: None Smoking Status: Current every day smoker - Surgical History General: Cholecystectomy, Hiatal hernia repair Eyes Ears Nose Throat (EENT): Tonsil/Adenoidectomy Cardiothoracic:  Gynecologic: section Orthopedic: Other Exam General: Alert, Oriented x3, Cooperative, No acute distress Dental: Dentures full Upper Mouth Openin Fingerbreadth Neck Mobility: Normal Mallampati classification: II Thyromental Distance: greater than 6 cm Respiratory: Lungs clear, Normal breath sounds, No respiratory distress, No accessory muscle use Cardiovascular: Regular rate, Normal S1, Normal S2, No murmurs Plan Anesthesia Type: General Regional Block: Per Surgeon's request for Post Op pain control Consent for Procedure(s) Verified and Reviewed: Yes Code Status: Attempt Resuscitation ASA classification: 2-Mild systemic disease Is this case an emergency?: No
--- NOTE | 2018-04-26 07:47 | ANESTHESIA PROCEDURE NOTE ---
Procedure: Right adductor canal block Consent for Procedure(s) Verified and Reviewed: Yes Height and Weight: Height 5 ft 5 in Weight (kg) 64.5 kg Body Mass Index 25.8 Vital Signs: Temp Pulse Resp BP Pulse Ox 36.8 C 82 16 106/67 96 04/26/18 06:43 04/26/18 06:43 04/26/18 06:43 04/26/18 06:43 04/26/18 06:43 Allergies hydromorphone HCl * [From Dilaudid] Allergy (Intermediate, Verified 04/25/18 11:08) Edema could't talk metformin Allergy (Intermediate, Verified 04/25/18 11:08) vomiting and diarrhea Penicillins Allergy (Intermediate, Verified 04/25/18 11:08) Rash Sulfa (Sulfonamide Antibiotics) Allergy (Intermediate, Verified 04/25/18 11:08) Rash carbamazepine [From Tegretol] Allergy (Mild, Verified 04/25/18 11:08) Rash reno with sun exposure. amoxicillin [Amoxicillin] Allergy (Verified 04/25/18 11:08) Rash Requesting Provider: Dr. Cordoba requested for post-op pain ASA classification: 2-Mild systemic disease Is this case an emergency?: No Anes. Monitoring and Equipment: Pulse oximetery Anes. Procedure Start Time: 07:18 Anes. Procedure Stop Time: 07:28 Procedure Notes: Risks and benefits of adductor canal block were discussed with patient and she agrees to proceed. Patient was placed in a supine position and the right thigh was prepped with chloroprep. A total of 2mg versed and 100mcg fentanyl was given for sedation and meaningful contact was maintained throughout. The right adductor canal was visualized and a 22G stimiplex was guided to the canal using ultrasound. A total of 20ml of 0.5% Ropivicaine with 4mg decadron was injected and adequate spread was visualized. Patient tolerated well. Full evaluation was pending.
[2018-04-26] MEDS ORDERED: LIDOCAINE 1%-EPI 1:100000 20 ML MDV SUBQ ONE ×2 (08:12)
[2018-04-26] MEDS ORDERED: MIDAZOLAM 2 MG/2 ML VIAL IVP ONE (08:24)
[2018-04-26] MEDS ORDERED: PHENYLEPHRINE 50 MG/5 ML VIAL IV ONE (08:24)
[2018-04-26] MEDS ORDERED: ePHEDrine 50 MG/ML VIAL IVP ONE (08:24)
[2018-04-26] MEDS ORDERED: fentaNYL 100 MCG/2 ML VIAL IVP ONE (08:24)
[2018-04-26] MEDS ORDERED: ROPIVACAINE 0.5% PF 20 ML AMPULE EP ONE (08:24)
[2018-04-26] MEDS ORDERED: DEXAMETHASONE 4 MG/ML VIAL IVP ONE (08:24)
[2018-04-26] MEDS ORDERED: PROPOFOL 200 MG/20 ML VIAL IVP ONE (08:24)
[2018-04-26] MEDS ORDERED: SODIUM CHLORIDE 0.9% 10 ML VIAL IV ONE (08:24)
[2018-04-26] MEDS ORDERED: HYDROcod/ACETAM 5/325 MG TABLET PO PRN (08:50)
[2018-04-26] MEDS ORDERED: ONDANSETRON 4 MG/2 ML VIAL IVP PRN (08:50)
[2018-04-26] MEDS: fentaNYL 100 MCG/2 ML VIAL ONE ×2 (08:58→09:06)
[2018-04-26] MEDS ORDERED: HYDROcod/ACETAM 5/325 MG TABLET ONE ×2 (09:38→11:37)
[2018-04-26] MEDS ORDERED: KETOROLAC 30 MG/ML VIAL ONE (10:00)
[2018-04-26 10:24] VITALS: BP 106/68
--- NOTE | 2018-04-26 11:25 | XRAY Report ---
Reason: RIGHT ANKLE FRACTURE Procedure Date: 04/26/2018 Accession Number: [id number] / [id number] Procedure: FL - OR C-Arm Procedure CPT Code: FULL RESULT: EXAM: FLUOROSCOPIC GUIDANCE EXAM DATE: 04/26/2018 08:30 AM. CLINICAL HISTORY: RIGHT ANKLE FRACTURE. COMPARISON: None. FINDINGS: No images are submitted for review. IMPRESSION: Fluoroscopic guidance provided for operative internal fixation of the right ankle. Total fluoroscopy time: 0.4 minutes. Number of images: 0. RADIA
--- NOTE | 2018-04-26 22:32 | OPERATIVE REPORT ---
DATE OF SERVICE: 04/26/2018 Physician: Iker Cordoba MD PREOPERATIVE DIAGNOSIS: Right ankle nonunion of medial malleolus. POSTOPERATIVE DIAGNOSIS: Right ankle nonunion of medial malleolus. PROCEDURE: Operative open reduction internal fixation of right ankle fracture. OPERATING SURGEON: Iker Cordoba MD ANESTHESIA: General by Vidal. INDICATIONS FOR SURGERY: The patient is a 57-year-old female who is approximately four months status post a closed fracture of her right ankle, which has been managed with cast fixation with originally a nondisplaced medial malleolus fracture and a type B fibula fracture. The patient's fibula has uni neyda. The patient's medial side remains suspicious for a nonunion. Recommendation is that she underg o surgical open reduction internal fixation. FINDINGS AT SURGERY: The patient's ankle was examined while she was under anesthesia and the C-arm i mages confirmed that the patient had gross instability of her medial malleolus and no instability of her fibula. With this evidence, open surgery was indicated for debridement and screw fixation. DESCRIPTION OF OPERATIVE PROCEDURE: The patient was taken to the operating room and was given a gene ral anesthetic, after in a supine position. The patient's ankle was examined and the C-arm was moved into position and valgus stress produced a gapping of the medial malleolus fragment without any gross instability of the syndesmosis. The fibula appeared healed to exam. Following this, the limb was s terilely prepped and draped in standard fashion. The surgical timeout was held. The incision area a long the medial malleolus was infiltrated with 1% lidocaine with epinephrine followed by inflation of the tourniquet and then a skin incision and dissection down to the patient's bone. The ankle joint was entered with a medial arthrotomy. The sural vein was protected. The nonunion site was identifie d, taken down and curetted and a rongeur was used to clean the fragments, which then were fitted back into place and fixed with K wires, followed by 4 mm partially threaded screws. The fixation gain wa s excellent with the screws engaging the far tibial cortex. Following this, the ankle was again plac ed through stress and examined and was stable. The wound was irrigated, tourniquet was deflated. Carlene sure was with interrupted Vicryl subcutaneous and with Monocryl suture in the skin. Sterile dressing s were applied, after which the patient was put in a well-padded posterior leg splint and taken to [facility] recovery room in stable condition. The estimated blood loss for the procedure was minimal. COMPLICATIONS: None. COUNTS: Sponge and needle counts correct. TD: 04/26/2018 14:03
== END 2018-04-26 05:55 | disposition home or self-care (01) ==
LOC: SDS 05:54
PROVIDERS: ATTEND Orthopaedic Surgery
PROC: 0QSG04Z Reposition Right Tibia with Internal Fixation Device, Open Approach (ICD-10-PCS; principal; 2018-04-26 07:30)
DX: S82.51XK Displaced fracture of medial malleolus of right tibia, subsequent encounter for closed fracture with nonunion (principal); G40.909 Epilepsy, unspecified, not intractable, without status epilepticus; I10 Essential (primary) hypertension; E11.319 Type 2 diabetes mellitus with unspecified diabetic retinopathy without macular edema; E11.40 Type 2 diabetes mellitus with diabetic neuropathy, unspecified; J43.9 Emphysema, unspecified; F17.210 Nicotine dependence, cigarettes, uncomplicated; Z79.4 Long term (current) use of insulin; Z79.899 Other long term (current) drug therapy
CPT/HCPCS: 27720; A9270; J7120

== ENCOUNTER 2019-04-19 11:47 | Outpatient (CLI) | payer MEDICAID ==
--- NOTE | 2019-04-20 18:51 | CT Report ---
Reason: LUNG CA Procedure Date: 04/19/2019 Accession Number: [id number] / [id number] Procedure: CT - CHEST WO CPT Code: Final Report FULL RESULT: EXAM: CT CHEST EXAM DATE: 04/19/2019 12:28 PM. CLINICAL HISTORY: Lung carcinoma. Posttreatment. Follow-up COMPARISONS: CHEST W/O 04/06/2018 11:25 AM. TECHNIQUE: Routine helical CT imaging was performed through the chest. IV contrast: None. Reconstructions: Coronal and sagittal. In accordance with CT protocol optimization, one or more of the following dose reduction techniques were utilized for this exam: automated exposure control, adjustment of mA and/or KV based on patient size, or use of iterative reconstructive technique. FINDINGS: Lungs/Pleura: 1. There is a left apical scar, consistent with prior surgery, unchanged since the prior study. There are no new lung nodules to suggest disease recurrence. There is moderate centrilobular emphysema. There is bilateral lower lobe subpleural, wedge-shaped foci of groundglass change suggestive of superimposed infection. Mediastinum: Normal. No adenopathy or masses. The heart and great vessels are normal. Bones: Unremarkable. Visualized Abdomen: There is a line of surgical clips at the gastroesophageal junction, which may indicate prior fundoplication. Prior cholecystectomy. The liver, adrenal glands, pancreas and spleen appear unremarkable. Other: None. IMPRESSION: 1. Bilateral subpleural groundglass change suggestive of superimposed infection. 2. No new lesions to suggest neoplastic recurrence or metastases. RADIA
== END 2019-04-19 11:48 | disposition home or self-care (01) ==
LOC: DI 11:47
PROVIDERS: ATTEND Internal Medicine Hematology & Oncology
DX: C34.90 Malignant neoplasm of unspecified part of unspecified bronchus or lung (principal)
CPT/HCPCS: 71250

== ENCOUNTER 2019-07-14 09:30 | Outpatient (CLI) | payer MEDICAID ==
--- NOTE | 2019-07-14 15:55 | XRAY Report ---
Reason: LEFT SHOULDER PAIN Procedure Date: 07/14/2019 Accession Number: [id number] / [id number] Procedure: WCP - Shoulder 3 View LT CPT Code: Final Report FULL RESULT: EXAM: LEFT SHOULDER RADIOGRAPHY 3 VIEWS EXAM DATE: 07/14/2019. CLINICAL HISTORY: Left shoulder pain. COMPARISON: None. TECHNIQUE: AP internal and external rotation and scapular Y views. Very little difference in position between the internal and the external rotation views. FINDINGS: Bones: Normal. No fracture or bone lesion. Joints: The glenohumeral and acromioclavicular joints appear normal. Soft tissues: No calcifications. Multiple surgical clips in the left upper lung. IMPRESSION: Normal examination of the left shoulder. RADIA
== END 2019-07-14 23:59 | disposition home or self-care (01) ==
LOC: DI.WCP 09:30
PROVIDERS: ATTEND Physician Assistant
DX: M25.512 Pain in left shoulder (principal)

== ENCOUNTER 2019-10-20 07:00 | Outpatient (CLI) | payer MEDICAID ==
[2019-10-20 12:17] LABS: ALBUMIN 4.5 g/dL (3.2-5.5); ALBUMIN/GLOBULIN RATIO 1.2 (1.0-2.2); ALKALINE PHOSPHATASE 71 IU/L (42-121); ALT ALANINE AMINOTRANSFERASE 17 IU/L (10-60); AST ASPARTATE AMINOTRANSFERASE 18 IU/L (10-42); BILIRUBIN,TOTAL 0.6 mg/dL (0.2-1.0); BUN - BLOOD UREA NITROGEN 36 mg/dL (6-20); CALCIUM 9.1 mg/dL (8.5-10.3); CARBON DIOXIDE - CO2 23 mmol/L (21-32); CHLORIDE 108 mmol/L (101-111); CHOL/HDL RATIO 3.1 (<4.4); CHOLESTEROL 208 mg/dL; GLUCOSE 155 mg/dL (70-100); HDL CHOLESTEROL 68 mg/dL; LDL CHOLESTEROL,CALCULATED 127 mg/dL; LDL/HDL RATIO 1.9 (<4.4); SODIUM 138 mmol/L (135-145); TOTAL PROTEIN 8.2 g/dL (6.7-8.2); VLDL CHOLESTEROL 13 mg/dL
[2019-10-20 12:19] LABS: HB2 TOTAL 13.5 g/dL; HEMOGLOBIN A1C 0.93 g/dL; HEMOGLOBIN A1C % 8.5 % (4.6-6.2)
== END 2019-10-20 23:59 | disposition home or self-care (01) ==
LOC: LAB.WCP 07:00
PROVIDERS: ATTEND Nurse Practitioner Family
DX: E11.9 Type 2 diabetes mellitus without complications (principal); E03.9 Hypothyroidism, unspecified
CPT/HCPCS: 36415; 80053; 80061; 82043; 83036; 83721; 84443

== ENCOUNTER 2019-10-23 09:00 | Outpatient (CLI) | payer MEDICAID | END 2019-10-23 23:59 | disposition home or self-care (01) | LOC: LAB.R 09:00 | PROVIDERS: ATTEND Nurse Practitioner Family | DX: E11.9 Type 2 diabetes mellitus without complications (principal) | CPT/HCPCS: 82043 ==

== ENCOUNTER 2020-01-24 13:30 | Outpatient (CLI) | payer MEDICAID ==
--- NOTE | 2020-01-24 15:21 | MRI Report ---
PROCEDURE: Shoulder LT W/O INDICATIONS: PAIN IN LT SHOULDER TECHNIQUE: Noncontrast oblique coronal T2 fast spin echo with fat saturation, oblique sagittal T1 spin echo and T2 fast spin echo with fat saturation, axial T1 spin echo and T2 fast spin echo with fat saturation t hrough the shoulder. COMPARISON: None. FINDINGS: Image quality: Excellent. Rotator cuff: Tendinosis and low-grade articular and bursal surface partial-thickness tear involving distal supraspinatus at its insertion on the humeral head is seen extending to the musculotendinous j unction. Distal infraspinatus and subscapularis tendons are grossly intact. Mild supraspinatus muscle atrophy is seen on sagittal images. Bones and bursae: No bone marrow contusions or fractures. Mild to moderate acromioclavicular joint o steoarthritic changes are seen with downward osteophyte formation depressing on the musculotendinous junction of supraspinatus. No pathologic subacromial/subdeltoid bursal fluid is present. Capsule and soft tissues: In the absence of intra-articular contrast, the labrum and glenohumeral li gaments appear intact. The long head of the biceps tendon demonstrates normal location and morpholog y. The rotator interval appears normal, without fibrosis. The coracohumeral ligament is normal in t hickness. IMPRESSION: 1. Tendinosis and low-grade articular and bursal surface partial-thickness tear involving distal supr aspinatus extending to musculotendinous junction. No full-thickness rotator cuff tendon rupture. Mild supraspinatus muscle atrophy. 2. Mild to moderate acromioclavicular joint osteoarthritis. 3. No evidence of focal labral tear. Reviewed by: Estrada Colbert MD on 01/24/2020 3:20 PM PDT Approved by: Estrada Colbert MD on 01/24/2020 3:20 PM PDT Station ID: [id number]
== END 2020-01-24 13:31 | disposition home or self-care (01) ==
LOC: DI 13:30
PROVIDERS: ATTEND Physician Assistant
DX: S46.012A Strain of muscle(s) and tendon(s) of the rotator cuff of left shoulder, initial encounter (principal); M19.012 Primary osteoarthritis, left shoulder

== ENCOUNTER 2020-02-20 13:57 | Outpatient (CLI) | payer MEDICAID | END 2020-02-20 13:58 | disposition home or self-care (01) | LOC: COV 13:57 | PROVIDERS: ATTEND Physician Assistant | DX: Z01.812 Encounter for preprocedural laboratory examination (principal); Z20.828 Contact with and (suspected) exposure to other viral communicable diseases ==

== ENCOUNTER 2020-03-05 09:19 | Outpatient (CLI) | payer MEDICAID ==
--- NOTE | 2020-03-06 12:01 | Mammography Report ---
BILATERAL DIGITAL SCREENING MAMMOGRAM 3D/2D: 03/05/2020 CLINICAL: Routine screening. Comparison is made to exams dated: 09/08/2017 mammogram and 09/07/2013 mammogram - [facility]. There are scattered fibroglandular elements in both breasts. No significant masses, calcifications, or other findings are seen in either breast. There has been no significant interval change. IMPRESSION: NEGATIVE There is no mammographic evidence of malignancy. A 1 year screening mammogram is recommended. This exam was interpreted at Station ID: [id number]. NOTE: For mammograms, a report in lay terms will be sent to the patient. Approximately 15% of breast malignancies will not be visualized mammographically. In the management of a palpable breast mass, a negative mammogram must not discourage biopsy of a clinically suspicious lesion. Electronically Signed By: Breezy eli/singh:03/05/2020 10:06:12 ACR BI-RADS Category 1: Negative 3341F PARENCHYMAL PATTERN: (A) - The breast(s) demonstrate(s) scattered fibroglandular densities. BI-RADS CATEGORY: (1) - 1 RECOMMENDATION: (ANNUAL) - Recommend routine annual screening mammography. [id number] 1 year screening LATERALITY: (B)
== END 2020-03-05 09:20 | disposition home or self-care (01) ==
LOC: DI.N 09:19
DX: Z12.31 Encounter for screening mammogram for malignant neoplasm of breast (principal)
CPT/HCPCS: 77063; 77067

== ENCOUNTER 2020-03-28 11:14 | Outpatient (CLI) | payer MEDICAID ==
[2020-03-28] MEDS ORDERED: IOVERSOL 320 100 ML VIAL IVP ONE (11:25)
[2020-03-28] MEDS ORDERED: IOVERSOL 320 50 ML VIAL ONE (11:25)
[2020-03-28 11:54] LABS: CALCIUM 9.8 mg/dL (8.5-10.3)
--- NOTE | 2020-03-28 17:45 | CT Report ---
PROCEDURE: CHEST W INDICATIONS: WEIGHT LOSS, HX OF LUNG CA CONTRAST: IV CONTRAST: Optiray 320 ml: 100 PO CONTRAST: Optiray 320 ml50 TECHNIQUE: After the administration of intravenous contrast, 5 mm thick sections acquired from the pulmonary api bert to the posterior costophrenic angles. 7 mm thick coronal MIP reformats were acquired. For radia tion dose reduction, the following was used: automated exposure control, adjustment of mA and/or kV according to patient size. COMPARISON: None. FINDINGS: Image quality: Excellent. Lungs and pleura: No acute air space opacities. The lungs have centrilobular emphysematous changes. Left apical scarring with calcifications are unchanged, consistent with prior surgery. There are no new lung nodules. No pleural effusions or pneumothorax. Central and peripheral airways are patent an d normal in caliber. Mediastinum: Heart size is normal. No pericardial effusion. No mediastinal or hilar adenopathy by size criteria. Thoracic aorta and central pulmonary arteries are normal in size. Bones and chest wall: No suspicious bony lesions. No vertebral body compression fractures. No axil thad or supraclavicular adenopathy by size criteria. The thyroid gland has a normal appearance. Abdomen: Visualized upper abdominal solid organs appear normal. Upper abdominal bowel loops are nor mal in caliber. Surgical clips at the gastroesophageal junction are seen. IMPRESSION: 1. Postoperative changes in the left upper lobe with no evidence of recurrent neoplasm or metastasis. 2. Centrilobular emphysema. Reviewed by: Zack Thompson on 03/28/2020 5:43 PM PST Approved by: Zack Thompson on 03/28/2020 5:43 PM PST Station ID: [id number]
--- NOTE | 2020-03-28 17:55 | CT Report ---
PROCEDURE: Abdomen/Pelvis W INDICATIONS: WEIGHT LOSS, HX OF LUNG CA CONTRAST: IV CONTRAST: Optiray 320 ml: 100 PO CONTRAST: Optiray 320 ml50 TECHNIQUE: After the administration of iodine contrast, 5 mm thick sections acquired from the diaphragms to the symphysis. 5 mm thick coronal and sagittal reformats were acquired. For radiation dose reduction, the following was used: automated exposure control, adjustment of mA and/or kV according to patient size. COMPARISON: None. FINDINGS: Image quality: Excellent. ABDOMEN: Lung bases: Lung bases are clear. Heart size is normal. Solid organs: Liver and spleen are normal in size and enhancement. The patient is status post mary ann cystectomy. The pancreas is atrophic with calcifications, possibly due to prior pancreatitis. Biliar y system is non dilated. No adrenal nodules. Kidneys demonstrate normal size and enhancement, witho ut hydronephrosis. Peritoneum and bowel: Postoperative changes in the Bowel loops demonstrate normal wall thickness and caliber. No free fluid or air. Nodes and vessels: No retroperitoneal or mesenteric adenopathy by size criteria. The aorta has ather osclerotic calcifications with no aneurysmal dilatation. PELVIS: Genitourinary: Bladder wall thickness is normal. Miscellaneous: No inguinal hernias or adenopathy. Bones: No suspicious bony lesions. No vertebral body compression fractures. IMPRESSION: 1. No evidence of metastatic disease to the abdomen or pelvis. 2. Pancreatic atrophy. Reviewed by: Zack Thompson on 03/28/2020 5:53 PM PST Approved by: Zack Thompson on 03/28/2020 5:53 PM PST Station ID: [id number]
== END 2020-03-28 11:15 | disposition home or self-care (01) ==
LOC: LAB 11:14 → DI 11:15
PROVIDERS: ATTEND Physician Assistant
DX: J43.2 Centrilobular emphysema (principal); K86.9 Disease of pancreas, unspecified; Z90.49 Acquired absence of other specified parts of digestive tract; R63.4 Abnormal weight loss; Z85.118 Personal history of other malignant neoplasm of bronchus and lung
CPT/HCPCS: 36415; 71260; 74177; 80048; Q9967

== ENCOUNTER 2020-04-10 10:52 | Outpatient (CLI) | payer MEDICAID ==
--- NOTE | 2020-04-10 14:20 | XRAY Report ---
PROCEDURE: Cervical Spine 2 View INDICATIONS: NECK PX TECHNIQUE: 2 view(s) of the cervical spine were acquired. COMPARISON: None. FINDINGS: Bones: No fractures or dislocations to the T1 level. No odontoid view provided. C1 not assessed. No suspicious bony lesions. There is multilevel spondylitic change. There is chronic disc height loss a t C6-C7 with uncovertebral joint hypertrophy. There is multilevel facet arthropathy, left greater christiano n right. Soft tissues: No prevertebral soft tissue swelling. IMPRESSION: Cervical spondylitic change. Comment: Cervical spine MRI may potentially be helpful Reviewed by: Elliot Muñoz MD on 04/10/2020 2:19 PM PST Approved by: Elliot Muñoz MD on 04/10/2020 2:19 PM PST Station ID: [id number]
== END 2020-04-10 10:53 | disposition home or self-care (01) ==
LOC: DI.N 10:52
PROVIDERS: ATTEND Physician Assistant
DX: M47.812 Spondylosis without myelopathy or radiculopathy, cervical region (principal); M50.323 Other cervical disc degeneration at C6-C7 level
CPT/HCPCS: 72040

== ENCOUNTER 2020-09-09 10:55 | Outpatient (CLI) | payer MEDICAID ==
--- NOTE | 2020-09-09 17:18 | DEXA Report ---
PROCEDURE: Dexa Spine and/or Hip INDICATIONS: OSTEOPENIA. It is noted forearm was imaged secondary to hyperparathyroidism. TECHNIQUE: Dual energy x-ray absorptiometry (DXA) was performed on a [employer] System. Regions measur ed are the AP Spine, femoral neck, and if needed forearm. COMPARISON: DEXA 11/11/2017. FINDINGS: Lumbar Spine: Bone Mineral Density 0.949 g/cm/cm,T score -1.9, compared to -1.5 Left Hip: Bone Mineral Density 0.810 g/cm/cm,T score -1.6, compared to -1.2 Left Femoral Neck: Bone Mineral Density 0.842 g/cm/cm, T score -1.4, compared to -1.4 Left forearm: Bone Mineral Density 0.628 g/cm/cm, T score -0.8, without priors available for comparison. (T score greater or equal to -1.0: NORMAL) (T score from -1.1 to -2.4: OSTEOPENIA) (T score less than or equal to -2.5 to: OSTEOPOROSIS) Impression: 1. Progressive osteopenia within the lumbar spine and left hip as above. 2. Normal bone mineral density within the left forearm. Patients with diagnosis of osteoporosis or osteopenia should have regular bone mineral density assess ment. For those eligible for Medicare, routine testing is allowed once every 2 years. Testing frequ ency can be increased for patients who have rapidly progressing disease or for those who are receivin g medical therapy to restore bone mass. Reviewed by: Fariba Fernando MD on 09/09/2020 4:16 PM SABAS Approved by: Fariba Fernando MD on 09/09/2020 4:16 PM SABAS Station ID: [id number]
== END 2020-09-09 10:56 | disposition home or self-care (01) ==
LOC: DI 10:55
PROVIDERS: ATTEND Physician Assistant
DX: M85.89 Other specified disorders of bone density and structure, multiple sites (principal)

== ENCOUNTER 2020-10-09 15:25 | Outpatient (CLI) | payer MEDICAID ==
--- NOTE | 2020-10-09 15:37 | ONCOLOGY CONSULT ---
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 status post wedge excision in 2008 who presents for further follow-up and establishment of care and for lung cancer surveillance Patient was originally diagnosed in 2008 after being evaluated for upper respiratory tract symptoms and a persistent dry cough with chest x-ray revealing a left upper lobe nodule Subsequent CT scan revealed a nodule measuring 11 mm x 12 mm in the left upper lobe which was biopsy positive for adenocarcinoma She underwent wedge resection on 05/14/2009 with pathology confirming a 1.3 x 1.2 x 1.2 cm mass, adenocarcinoma, acinar type, pT1a, N0MX She has been followed annually with CT chest sense with no evidence of recurrence on most recent report of CT chest abdomen pelvis from 03/2020 which continue to show no evidence of recurrent neoplasm or metastasis in the lung draper with centrilobular emphysema and no evidence of metastatic disease in the abdomen or pelvis The patient was previously seen in the [facility] clinic by Dr. Walker Stevenson, last seen 04/24/2019 for initial consultation but has not had any follow-up since Patient presents back to clinic for initial consultation due to unintentional weight loss over the course of the last several months to a year, as well as persistent shortness of breath with central chest tightness which she feels has been going on for the last 4 years at least She is unable to note whether or not there has been a significant worsening of her symptoms over the last several months, and she continues to smoke due to her underlying mental health issues She recently had a colonoscopy and endoscopy per patient report due to diarrhea and constipation and other GI issues with no concerning findings per patient Oncology History: 1. Stage I adenocarcinoma of left upper lobe of lung since 2008 -Status post left upper lobe wedge excision 04/2009 -On expectant management with yearly CT scans Review of Systems: All other systems negative. ECO-1 Past Medical/Surgical/Family/Social History: Past medical history significant for epilepsy, insulin-dependent diabetes, history of hepatitis, bipolar disease, chronic Galdino, IBS Past surgical history is significant for left upper lobe wedge resection 2008 Social history: Patient lives alone, but has a caregiver who comes in several times per week she manages her ADLs and IADLs, however does not cook very much and generally does not eat well. She continues to smoke daily and has been a l pooja-term smoker, has children but does not speak to them Physical Examination: General: No acute distress. HEENT: No sclera icterus. Extremities: No cyanosis, clubbing; legs no pitting edema. Skeletal: Nontender to percussion and palpation over spine, ribs, costovertebral angle.. Skin: No petechiae, or purpura. No Rash. Neuro: Alert, oriented, appropriate, able to participate in discussion and decisions. Cranial nerves 3, 4, 6, 7, 9, 10, 11, and 12 intact. Gait normal. LAB/PATHOLOGY REVIEW: Available labs/pathology reviewed. Pathology Gender: F Age: 48 Date of : 1960 CASE: [id number] PATIENT: Chery Rodriguez FINAL DIAGNOSIS: A. Lung, Left Upper Lobe, Wedge Excision: Adenocarcinoma of lung, with the following features: Histologic type: Acinar type. Size: 1.3 x 1.2 x 1.2 cm. Histologic Grade: Moderately differentiated (G2). Extent of Invasion: Lung parenchyma invasion: Present Visceral pleura invasion: Absent (tumor is 0.3 cm from pleura). Margins: Negative (tumor is 2.5 cm from staple line margin). Lymphovascular Invasion: Absent. Regional Lymph Nodes: See part B below. Pathological Stage: pT1a , pN0, pMX (AJCC/UICC 7th edition) Additional Findings: Emphysema. B. Lymph Node, Level 5, Excisional Biopsy: No metastatic carcinoma identified in any of the lymph node pieces. CLINICAL INFORMATION: Left upper lobe cancer. ICD-9 Code: 162.3. GROSS DESCRIPTION: A. Received in formalin, labeled "Chery Rodriguez", and designated "wedge left upper lobe lung", is a 50-gram, 8.5 x 5.5 x 4.5 cm wedge of pulmonary tissue. There are multiple surgical staple lines along one edge. The staple lines are removed and the tissue directly beneath them is inked black. The pleura is dusky with streaks of anthracosis. The cut surfaces are red and spongy. There is a 1.3 x 1.2 x 1.2 cm ill-defined, stark tumor 2.5 cm from the staple margin and 0.3 cm from the pleura. One edge of the tumor is partially hemorrhagic/cystic. No other nodules are identified. The parenchyma does have scattered cystic areas (approximately 3-5% of parenchyma). These cystic spaces are up to 1 cm. Manager [employer] sections are submitted as follows: A1-A4 ??? tumor; A5 ??? cystic parenchyma; A6 ??? market survey representative staple line. B. Received in formalin, labeled "Chery Rodriguez", and designated "level 5 lymph node", are two irregular pieces of black-stark tissue 1 x 0.7 x 0.4 cm, and 0.9 x 0.8 x 0.5 cm. Each piece is differentially inked and bisected. The tissue is entirely submitted in B1. ([facility]) IMAGING: Available imaging reviewed. ASSESSMENT AND PLAN: 1. History of left upper lobe adenocarcinoma status post left upper lobe wedge resection-patient's most recent imaging from 03/2020 shows ongoing evidence of centrilobular emphysema but no other evidence of recurrent disease. While she is well over 5 years out from initial time of recurrence with lower risk of relapse of her original cancer, as she is an ongoing active smoker, she is at risk for further lung malignancy and as such should be screened at least annually with CT imaging. Given the patient's subacute constitutional symptoms with weight loss and ongoing shortness of breath symptoms would be prudent to repeat imaging now -Order CT chest abdomen pelvis -Could consider brain MRI depending on findings on CT chest 2. Tobacco dependence-- Strongly recommend quitting smoking, with patient reporting fear that if she quit smoking her cancer will come back. We discussed today that regardless of whether she quit smoking or not today, her risk of a new lung cancer is much higher compared to the average population and that quitting smoking would be beneficial to improve her general health, manage future cardiovascular risk, and if she were to develop another lung cancer, would allow her to tolerate therapy better -Could consider Chantix for therapy 3. Intermittent dizziness-patient seen by neurology, diagnosed with diabetic neuropathy, could have autonomic dysfunction in the setting of poorly controlled diabetes, unclear what her A1c is -Consider MRI brain depending on other findings from CT chest as above TIME SPENT: E/M code was selected based on 60 minutes spent on the date of encounter reviewing pertinent history and previous diagnostics, performing medically appropriate examination and evaluation, ordering diagnostic tests and/or medications, counseling and education to patient/family/caregiver. This excludes activities performed by clinical staff Clinical Data: Allergies hydromorphone HCl * [From Dilaudid] Allergy (Intermediate, Verified 04/24/19 10:25) Edema metformin Allergy (Intermediate, Verified 04/24/19 10:25) vomiting and diarrhea Penicillins Allergy (Intermediate, Verified 04/24/19 10:25) Rash Sulfa (Sulfonamide Antibiotics) Allergy (Intermediate, Verified 04/24/19 10:25) Rash carbamazepine [From Tegretol] Allergy (Mild, Verified 04/24/19 10:25) Rash amoxicillin [Amoxicillin] Allergy (Verified 04/24/19 10:25) Rash Home Medications Oxybutynin [Ditropan] 20 mg PO BID 01/19/13 [History Last Taken 04/25/18] Simvastatin 20 mg PO DAILY 01/19/13 [History Last Taken 04/25/18] Levothyroxine [Synthroid] 50 mcg PO DAILY 12/03/13 [History Last Taken 04/25/18] lisinopriL [Lisinopril] 5 mg PO DAILY 01/25/14 [History Last Taken 04/25/18] Alendronate Sodium 5 mg PO Q7D 03/18/15 [History Last Taken 04/25/18] Insulin Glulisine [Apidra] 1 - 11 unit SQ TID PRN MDD 30 06/19/15 [History Last Taken 04/25/18 22:00] Insulin Glargine [Lantus Solostar] 10 unit SUBQ BID 10/31/15 [History Last Taken 04/25/18] Topiramate 200 mg PO BID 03/23/16 [History Last Taken 04/25/18] Aspirin 81 mg PO DAILY 09/06/17 [History Last Taken 04/23/18] Cholecalciferol (Vitamin D3) [Vitamin D] 2,000 unit PO DAILY 09/06/17 [History Last Taken 04/25/18] Gabapentin 300 mg PO TID 09/06/17 [History Last Taken 04/25/18] lamoTRIgine [LaMICtal] 100 mg PO BID 09/06/17 [History Last Taken 04/25/18]
[2020-10-09 15:57] VITALS: BP 115/64
== END 2020-10-09 15:26 | disposition home or self-care (01) ==
LOC: MAC.MOP 15:25
PROVIDERS: ATTEND Internal Medicine
DX: Z08 Encounter for follow-up examination after completed treatment for malignant neoplasm (principal); Z85.118 Personal history of other malignant neoplasm of bronchus and lung; R63.4 Abnormal weight loss; R06.02 Shortness of breath; R07.89 Other chest pain; J43.2 Centrilobular emphysema; F17.200 Nicotine dependence, unspecified, uncomplicated; E11.40 Type 2 diabetes mellitus with diabetic neuropathy, unspecified; F31.9 Bipolar disorder, unspecified; Z79.4 Long term (current) use of insulin; Z79.899 Other long term (current) drug therapy; Z90.2 Acquired absence of lung [part of]; Z68.1 Body mass index [BMI] 19.9 or less, adult
CPT/HCPCS: 99205; 99212

== ENCOUNTER 2020-10-16 13:59 | Outpatient (CLI) | payer MEDICAID ==
[2020-10-16] MEDS ORDERED: IOPAMIDOL-300 50 ML VIAL ONE (14:10)
[2020-10-16] MEDS ORDERED: IOVERSOL 320 100 ML VIAL IVP ONE ×2 (14:10→21:26)
[2020-10-16 14:25] LABS: CREATININE 1.3 mg/dL (0.4-1.0)
--- NOTE | 2020-10-16 15:52 | CT Report ---
PROCEDURE: Abdomen/Pelvis W INDICATIONS: LUNG CA CONTRAST: IV CONTRAST: Optiray 320 ml: 100 PO CONTRAST: Isovue 300 ml50 TECHNIQUE: After the administration of IV and oral contrast, 5 mm thick sections acquired from the diaphragms to the symphysis. 5 mm thick coronal and sagittal reformats were acquired. For radiation dose reducti on, the following was used: automated exposure control, adjustment of mA and/or kV according to yazan ent size. COMPARISON: 03/28/2020 CT FINDINGS: Image quality: Excellent. ABDOMEN: Lung bases: Lung bases are clear. Heart size is normal. Solid organs: Liver and spleen are normal in size and enhancement. Gallbladder is surgically absent Biliary system is non dilated. Pancreas is atrophic and images multiple calcifications, as before. No adrenal nodules. Kidneys demonstrate normal size and enhancement, without hydronephrosis. Peritoneum and bowel: Bowel loops demonstrate normal wall thickness and caliber. No free fluid or a ir. Nodes and vessels: No retroperitoneal or mesenteric adenopathy by size criteria. Aorta and inferior vena cava are normal in size. There are portosystemic venous collaterals within the anterior abdome n and upper pelvis. Miscellaneous: No ventral hernias. PELVIS: Genitourinary: Bladder wall thickness is normal. Miscellaneous: No inguinal hernias or adenopathy. Bones: No suspicious bony lesions. No vertebral body compression fractures. IMPRESSION: 1. No evidence of malignancy. 2. Chronic pancreatitis sequelae. 3. Portal hypertension. Reviewed by: Dionisio Borja MD on 10/16/2020 3:51 PM PDT Approved by: Dionisio Borja MD on 10/16/2020 3:51 PM PDT Station ID: [id number]
--- NOTE | 2020-10-16 16:02 | CT Report ---
PROCEDURE: CHEST W INDICATIONS: LUNG CA CONTRAST: IV CONTRAST: Optiray 320 ml: 100 PO CONTRAST: Isovue 300 ml50 TECHNIQUE: After the administration of intravenous contrast, 5 mm thick sections acquired from the pulmonary api bert to the posterior costophrenic angles. 7 mm thick coronal MIP reformats were acquired. For radia tion dose reduction, the following was used: automated exposure control, adjustment of mA and/or kV according to patient size. COMPARISON: 03/28/2020 CT examination FINDINGS: Image quality: Excellent. Lungs and pleura: No acute air space opacities. Scarring within the left upper lung posteriorly. Mo derate apical predominant emphysema. There is a new multilobular mass within the right lower lobe med ially measuring 17 mm. No pleural effusions or pneumothorax. Central and peripheral airways are salter nt and normal in caliber. Mediastinum: Heart size is normal. No pericardial effusion. No mediastinal or hilar adenopathy by size criteria. Thoracic aorta and central pulmonary arteries are normal in size. Esophagus is sully l in caliber. No hiatal hernia. Bones and chest wall: No suspicious bony lesions. No vertebral body compression fractures. No axil thad or supraclavicular adenopathy by size criteria. The thyroid is normal in size and there are no incidental findings.. Abdomen: Visualized portions of the upper abdomen demonstrate portosystemic collateral vessels as we ll as pancreatic calcifications and atrophy. Upper abdominal bowel loops are normal in caliber. IMPRESSION: 1. New right lower lobe nodular density, suspicious for malignancy. PET/CT examination is recommended for further assessment. 2. Postsurgical sequelae. CLINICAL RECOMMENDATION STATEMENTS: In patients <35 years with an ITN detected on CT, MRI, or extrathyroidal ultrasound, the Committee re commends further evaluation with dedicated thyroid ultrasound if the nodule is ?1 cm and has no suspi cious imaging features, and if the patient has normal life expectancy. In patients ?35 years with an ITN detected on CT, MRI, or extrathyroidal ultrasound, the Committee re commends further evaluation with dedicated thyroid ultrasound if the nodule is ?1.5 cm and has no analilia picious imaging features, and if the patient has normal life expectancy. (ACR, 2014) Reviewed by: Dionisio Borja MD on 10/16/2020 4:00 PM PDT Approved by: Dionisio Borja MD on 10/16/2020 4:00 PM PDT Station ID: [id number]
[2020-10-16] MEDS ORDERED: IOPAMIDOL-300 50 ML VIAL PO ONE (21:27)
== END 2020-10-16 14:00 | disposition home or self-care (01) ==
LOC: LAB 13:59
PROVIDERS: ATTEND Internal Medicine
DX: Z85.118 Personal history of other malignant neoplasm of bronchus and lung (principal)
CPT/HCPCS: 36415; 71260; 74177; 82565; Q9967

== ENCOUNTER 2020-11-19 12:40 | Outpatient (CLI) | payer MEDICAID ==
[2020-11-19] MEDS ORDERED: GADOBUTROL 10 MMOL/10 ML VIAL ONE (13:07)
--- NOTE | 2020-11-19 14:42 | MRI Report ---
PROCEDURE: Brain W/WO INDICATIONS: Lung cancer staging CONTRAST: IV CONTRAST: Gadavist ml: 5 TECHNIQUE: Noncontrast axial T1 spin echo, axial T2 fast spin echo, sagittal and axial FLAIR, coronal T2 fast sp in echo, axial gradient echo, axial diffusion and ADC through the brain. After the administration of contrast, axial and coronal T1 spin echo with fat saturation through the brain. COMPARISON: MRI brain 04/05/2017 FINDINGS: Image quality: Excellent. CSF spaces: Basal cisterns are patent. No extra-axial fluid collections. Ventricles are normal in size and shape. Brain: No midline shift. No intracranial bleeds or masses. No abnormal intracranial enhancement. There is cerebral volume loss for age. There is periventricular white matter chronic small vessel is chemic change. The brainstem appears normal. Diffusion-weighted images demonstrate no acute ischemi c insults. No chronic ischemic insults. Normal intravascular flow voids are present. Skull and face: Calvarial marrow is normal in signal. Orbits appear normal. Sinuses: Sinuses and mastoids appear clear. IMPRESSION: No evidence of intracranial metastatic disease. Reviewed by: Edgardo Langley MD on 11/19/2020 2:41 PM PDT Approved by: Edgardo Langley MD on 11/19/2020 2:41 PM PDT Station ID: [id number]
[2020-11-19] MEDS ORDERED: GADOBUTROL 10 MMOL/10 ML VIAL IVP ONE (16:27)
== END 2020-11-19 12:41 | disposition home or self-care (01) ==
LOC: DI 12:40
PROVIDERS: ATTEND Internal Medicine
DX: C34.12 Malignant neoplasm of upper lobe, left bronchus or lung (principal)
CPT/HCPCS: 70553; A9585

== ENCOUNTER 2020-12-04 09:19 | Outpatient (CLI) | payer MEDICAID ==
[2020-12-04] MEDS ORDERED: ALBUTEROL 1 PUFF INH STA (11:12)
== END 2020-12-04 09:20 | disposition home or self-care (01) ==
LOC: RT 09:19
PROVIDERS: ATTEND Internal Medicine
DX: C34.91 Malignant neoplasm of unspecified part of right bronchus or lung (principal)
CPT/HCPCS: 94060; 94729

== ENCOUNTER 2021-01-01 09:43 | Emergency (ER) | payer MEDICAID ==
[2021-01-01 09:52] VITALS: BP 110/55
--- NOTE | 2021-01-01 11:11 | ED Physician Documentation ---
PD HPI UPPER EXT INJURY - Stated complaint Stated Complaint: LT FINGER INJ - Chief complaint Chief Complaint: Ext Problem - History obtained from History obtained from: Patient - Additonal information Additional information: Pt c/o L middle finger pain, swelling and bruising after twisting injury yesterday. No other injuries. No hand swelling. Review of Systems Ten Systems: 10 systems reviewed and negative Constitutional: reports: Reviewed and negative Eyes: reports: Reviewed and negative Ears: reports: Reviewed and negative Nose: reports: Reviewed and negative Throat: reports: Reviewed and negative Cardiac: reports: Reviewed and negative Respiratory: reports: Reviewed and negative GI: reports: Reviewed and negative : reports: Reviewed and negative Skin: reports: Reviewed and negative Musculoskeletal: reports: Joint pain, Joint swelling Neurologic: reports: Reviewed and negative Psychiatric: reports: Reviewed and negative Endocrine: reports: Reviewed and negative Immunocompromised: reports: Reviewed and negative PD PAST MEDICAL HISTORY - Past Medical History Cardiovascular: Hypertension, High cholesterol Respiratory: Emphysema, Shortness of breath Endocrine/Autoimmune: Type 2 diabetes, HyPOthyroidism GI: GERD, Hiatal hernia, Chronic diarrhea, Chronic constipation, Pancreatitis, Hepatitis, Cholelithiasis : Incontinence, Nocturia, Frequency HEENT: Glaucoma, Dental implants, Other Psych: Depression, Anxiety, Bipolar disorder Musculoskeletal: Osteoarthritis Derm: None - Past Surgical History Past Surgical History: Yes General: Cholecystectomy, Hiatal hernia repair 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: 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 Cardiovascular:  HEENT: Tonsil/Adenoidectomy - Present Medications Home Medications: Ambulatory Orders Medication Instructions Recorded Confirmed Oxybutynin [Ditropan] 20 mg PO BID 01/19/13 01/01/21 Simvastatin 1 tab PO DAILY 01/19/13 01/01/21 Levothyroxine [Synthroid] 50 mcg PO DAILY 12/03/13 01/01/21 lisinopriL [Lisinopril] 1 tab PO DAILY 01/25/14 01/01/21 Alendronate Sodium 5 mg PO Q7D 03/18/15 01/01/21 Insulin Glulisine [Apidra] 1 - 11 unit SQ TID PRN MDD 30 06/19/15 01/01/21 Insulin Glargine [Lantus Solostar] 10 unit SUBQ BID 10/31/15 01/01/21 Topiramate 2 tab PO BID 03/23/16 01/01/21 Aspirin 81 mg PO DAILY 09/06/17 01/01/21 Cholecalciferol (Vitamin D3) 2,000 unit PO DAILY 09/06/17 01/01/21 [Vitamin D] Gabapentin 300 mg PO TID 09/06/17 01/01/21 lamoTRIgine [LaMICtal] 200 mg PO DAILY 09/06/17 01/01/21 Empagliflozin [Jardiance] 25 mg PO DAILY 10/09/20 01/01/21 Quetiapine Fumarate [Seroquel] 300 mg PO DAILY 10/09/20 01/01/21 hydrOXYzine pamoate [Vistaril] 50 mg PO DAILY 10/09/20 01/01/21 - Allergies Allergies/Adverse Reactions: Allergies Allergy/AdvReac Type Severity Reaction Status Date / Time hydromorphone HCl * Allergy Intermediate Edema Verified 01/01/21 11:29 [From Dilaudid] metformin Allergy Intermediate vomiting Verified 01/01/21 11:29 and diarrhea Penicillins Allergy Intermediate Rash Verified 01/01/21 11:29 Sulfa (Sulfonamide Allergy Intermediate Rash Verified 01/01/21 11:29 Antibiotics) carbamazepine [From Tegretol] Allergy Mild Rash Verified 01/01/21 11:29 amoxicillin [Amoxicillin] Allergy Rash Verified 01/01/21 11:29 - Social History Does the pt smoke?: Yes Smoking Status: Current every day smoker Does the pt drink ETOH?: No Does the pt have substance abuse?: No - Immunizations Immunizations are current?: Yes - POLST Patient has POLST: No PD ED PE NORMAL - Vitals Vital signs reviewed: Yes - General General: Alert and oriented X 3, No acute distress, Well developed/nourished - HEENT HEENT: Atraumatic, PERRL, EOMI, Moist mucous membranes - Neck Neck: Supple, no meningeal sign - Cardiac Cardiac: Strong equal pulses - Respiratory Respiratory: No respiratory distress - Derm Derm: Normal color, Warm and dry, No rash - Extremities Extremities: No deformity, Other (moderate edema, contusion of L middle finger, especially at PIP joint. Limited ROM, secondary to pain.) - Neuro Neuro: Alert and oriented X 3 - Psych Psych: Normal mood, Normal affect Results - Vitals Vitals: Oxygen O2 Source Room air - Rads (name of study) XR digits L Radiology: Final report received, EMP read indepedently, See rad report (neg) PD MEDICAL DECISION MAKING - ED course Complexity details: reviewed results, re-evaluated patient, considered differential, d/w patient ED course: XR was obtained and negative. We have discussed removable splint for comfort and pt would like to do this. We have discussed the usual indications for return. Departure - Departure Disposition: 01 Home, Self Care Clinical Impression: Finger sprain Qualifiers: Encounter type: initial encounter Finger: middle finger Sprain of finger site: unspecified site Laterality: left Qualified Code(s): S63.613A - Unspecified sprain of left middle finger, initial encounter Condition: Stable Instructions: ED Sprain Finger Discharge Date/Time: 01/01/21 11:16
--- NOTE | 2021-01-01 11:22 | XRAY Report ---
PROCEDURE: Hand 3 View LT INDICATIONS: injury TECHNIQUE: 3 views of the hand(s) acquired. COMPARISON: None FINDINGS: Bones: Cortical irregularity at the base of the third middle phalanx is noted along the volar surface . The osseous structures are well mineralized and unremarkable. Soft tissues:Third digit soft tissue swelling without radiopaque foreign body. IMPRESSION: Cortical irregularity involving the base of the third middle phalanx with associated soft tissue swel ling. Correlate with point tenderness for traumatic injury Reviewed by: Carlin Vaca MD on 01/01/2021 10:21 AM SABAS Approved by: Carlin Vaca MD on 01/01/2021 10:21 AM AKCHERY[facility] Station ID: [id number]
== END 2021-01-01 11:16 | disposition home or self-care (01) ==
LOC: ED 09:43
DX: S63.613A Unspecified sprain of left middle finger, initial encounter (principal); X50.1XXA Overexertion from prolonged static or awkward postures, initial encounter; I10 Essential (primary) hypertension; E11.39 Type 2 diabetes mellitus with other diabetic ophthalmic complication; H42 Glaucoma in diseases classified elsewhere; Z79.4 Long term (current) use of insulin; F17.200 Nicotine dependence, unspecified, uncomplicated
CPT/HCPCS: 99282; 99283

== ENCOUNTER 2021-01-24 11:23 | Emergency (ER) | payer MEDICAID ==
--- NOTE | 2021-01-24 12:46 | XRAY Report ---
PROCEDURE: Chest 2 View X-Ray INDICATIONS: cough; recent pneumo TECHNIQUE: 2 view(s) of the chest. COMPARISON: CT chest 10/16/2020 FINDINGS: Surgical changes and devices: None. Lungs and pleura: Moderate right pleural effusion appears the right hemidiaphragm. Left lung and pleu ral space clear. Mediastinum: Mediastinal contours are normal. Heart size is normal. Bones and chest wall: No suspicious bony abnormalities. Soft tissues appear unremarkable. Surgical clips present right upper quadrant. IMPRESSION: Moderate right pleural effusion, new from the prior. Reviewed by: Carlin Vaca MD on 01/24/2021 11:44 AM SABAS Approved by: Carlin Vaca MD on 01/24/2021 11:44 AM SABAS Station ID: [id number]
--- NOTE | 2021-01-24 13:06 | ED Physician Documentation ---
History of Present Illness - Stated complaint Stated Complaint: SOA - Chief complaint Chief Complaint: General - Additonal information Additional information: 60-year-old female presents to the emergency department for evaluation of worsening shortness of air. 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 Followed with yearly CT scan. 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 She did undergo a right lobectomy 01/02/2021. That course was complicated by a right-sided pneumothorax. She has also been hospitalized again at [facility] for the right sided pneumothorax status post chest tube. She was discharged early January from that hospitalization. She is expecting to start a new round of chemotherapy in late January with the plan for a left chest port to be placed in a few weeks. She reports that over the last 2 days she has had increasing shortness of air. She has had subjective fevers and chills. Some dyspnea on exertion. Mild dry cough. She is also endorsing that she has had soft sometimes watery black stools. Also reports to this provider that her continuous glucose meter is reading sugars too high to register. She is a very poor and tangential historian. Much of the history obtained from the chart. Review of Systems Constitutional: reports: Chills, Myalgias Eyes: reports: Reviewed and negative Ears: reports: Reviewed and negative Nose: reports: Reviewed and negative Throat: reports: Reviewed and negative Cardiac: denies: Chest pain / pressure, Palpitations, Pedal edema, Calf pain Respiratory: reports: Dyspnea, Cough GI: reports: Diarrhea, Bloody / black stool. denies: Nausea, Vomiting : reports: Reviewed and negative Skin: reports: Reviewed and negative Musculoskeletal: denies: Neck pain, Back pain, Extremity pain Neurologic: reports: Reviewed and negative PD PAST MEDICAL HISTORY - Past Medical History Cardiovascular: Hypertension, High cholesterol Respiratory: Emphysema, Shortness of breath Endocrine/Autoimmune: Type 2 diabetes, HyPOthyroidism GI: GERD, Hiatal hernia, Chronic diarrhea, Chronic constipation, Pancreatitis, Hepatitis, Cholelithiasis : Incontinence, Nocturia, Frequency HEENT: Glaucoma, Dental implants, Other Psych: Depression, Anxiety, Bipolar disorder Musculoskeletal: Osteoarthritis Derm: None - Past Surgical History Past Surgical History: Yes General: Cholecystectomy, Hiatal hernia repair 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 Cardiovascular:  HEENT: Tonsil/Adenoidectomy - Present Medications Home Medications: Ambulatory Orders Medication Instructions Recorded Confirmed Oxybutynin [Ditropan] 5 mg PO BID 01/19/13 01/24/21 Simvastatin 1 tab PO DAILY 01/19/13 01/24/21 lisinopriL [Lisinopril] 1 tab PO DAILY 01/25/14 01/24/21 Alendronate Sodium 35 mg PO Q7D 03/18/15 01/24/21 Topiramate 2 tab PO BID 03/23/16 01/24/21 lamoTRIgine [LaMICtal] 200 mg PO DAILY 09/06/17 01/24/21 Empagliflozin [Jardiance] 25 mg PO DAILY 10/09/20 01/24/21 Quetiapine Fumarate [Seroquel] 300 mg PO DAILY 10/09/20 01/24/21 hydrOXYzine pamoate [Vistaril] 50 mg PO DAILY 10/09/20 01/24/21 Sertraline HCl 150 mg PO DAILY PM 01/24/21 01/24/21 - Allergies Allergies/Adverse Reactions: Allergies Allergy/AdvReac Type Severity Reaction Status Date / Time hydromorphone HCl * Allergy Intermediate Edema Verified 01/24/21 11:45 [From Dilaudid] metformin Allergy Intermediate vomiting Verified 01/24/21 11:45 and diarrhea Penicillins Allergy Intermediate Rash Verified 01/24/21 11:45 Sulfa (Sulfonamide Allergy Intermediate Rash Verified 01/24/21 11:45 Antibiotics) carbamazepine [From Tegretol] Allergy Mild Rash Verified 01/24/21 11:45 amoxicillin [Amoxicillin] Allergy Rash Verified 01/24/21 11:45 - Social History Does the pt smoke?: Yes Smoking Status: Current every day smoker Does the pt drink ETOH?: No Does the pt have substance abuse?: No - Immunizations Immunizations are current?: Yes - POLST Patient has POLST: No PD ED PE EXPANDED - General General: Alert, No acute distress, Other (Thin cachectic and chronically ill appearance) - Cardiac Cardiac: Regular Rate, Radial strong equal, Pedal strong equal, Cap refill < 2 sec - Respiratory Respiratory: Clear to ausultation julissa. No: Distress, Labored - Abdomen Abdomen: Normal Bowel sounds. No: Tender to palpation - Rectal Rectal: Flux Mixer present, Other (Digital rectal exam reveals brown stool in the vault. No hematochezia. No melena) - Back Back: Normal exam, Vertebral tenderness - Derm Derm: Normal color, Warm and dry. No: Rash - Neuro Neuro: Alert and Oriented X 3, CNII-XII intact, Normal gait, Normal speech - GCS Eye Opening: Spontaneous Motor: Obeys Commands Verbal: Oriented Total: 15 Results - Vitals Vitals: Vital Signs - 24 hr 01/24/21 01/24/21 01/24/21 11:38 13:30 15:00 Temperature 36.1 C L 36.7 C 36.6 C Heart Rate 83 66 73 Respiratory 16 22 20 Rate Blood Pressure 118/66 110/83 H 120/67 O2 Saturation 96 100 100 Oxygen O2 Source Room air - EKG (time done) 1309 Rate: Rate (enter#) (68) Rhythm: NSR [place]: Normal Intervals: Normal MT QRS: Normal Ischemia: Normal ST segments Compare to prior EKG: Old EKG unavailable Computer interpretation: Agree with computer - Labs Labs: Microbiology 01/24/21 13:06 Occult Blood - Final Stool Laboratory Tests 01/24/21 01/24/21 01/24/21 13:06 13:06 13:06 WBC 4.6 L RBC 3.65 L Hgb 11.5 L Hct 34.3 L MCV 94.0 MCH 31.5 H MCHC 33.5 RDW 13.3 Plt Count 211 MPV 10.0 Neut # (Auto) 2.9 Lymph # (Auto) 1.2 L Rhea # (Auto) 0.5 Eos # (Auto) 0.1 Baso # (Auto) 0.0 Absolute Nucleated RBC 0.00 Nucleated RBC % 0.0 Sodium 134 L Potassium 4.2 Chloride 101 Carbon Dioxide 21 Anion Gap 12.0 BUN 26 H Creatinine 0.8 Estimated GFR (MDRD) 73 L Glucose 380 H Calcium 9.4 Total Bilirubin 0.5 AST 23 ALT 28 Alkaline Phosphatase 79 B-Natriuretic Peptide 49 Total Protein 7.9 Albumin 4.4 Globulin 3.5 Albumin/Globulin Ratio 1.3 Lipase 28 Serum Ketones NEGATIVE - Rads (name of study) CXR Radiology: Final report received (Moderate right pleural effusion, new from the prior) CT angio chest Radiology: Final report received (No evidence of pulmonary embolism, aortic dissection or aneurysm. Moderate right pleural effusion with associated mild atelectasis/consolidation.) PD MEDICAL DECISION MAKING - ED course Complexity details: reviewed results, d/w patient, d/w property consultant (Susan Mayes Oncologist ) ED course: 60-year-old female who has a history of right lung adenocarcinoma status post wedge resection complicated by recurrent pneumothorax presents to the emergency department for evaluation of worsening shortness of air over the last 2 days. She was discharged from [facility] on 20 January after being treated for a pneumothorax. She has plans to begin chemotherapy at the end of this month with also plans to have a port placed in a few weeks to facilitate chemotherapy infusions. Patient's 2 view chest x-ray shows a moderate right pleural effusion. No previous for comparison. She is reporting shortness of air but clinically does not appear labored and there is no hypoxia. I discussed this case with her oncologist Dr. Carmel Mayes. He was able to review x-ray images from [facility] at the time of her discharge which indicated that she had a small right-sided pleural effusion which appears to have progressed to moderate effusion today. At this time given the lack of significant hypoxia or respiratory distress Dr. Mayes does not feel that she would benefit from a thoracentesis to drain this effusion. The patient is followed by Dr. Durant cardiothoracic surgeon at [facility] and will be seeing her in follow-up on the next week. Dr. Mayes did request a pulmonary angiogram to rule out a pulmonary embolus which was completed and does not show findings of such. We again do see the moderate right-sided effusion. Patient had also expressed concerned that she had melena or black stools. Screening hemoglobin is rather stable at 11. Digital rectal exam revealed brown stool in the vault which was guaiac negative. She had also reported hyperglycemia on her continuous glucose monitor and with recent treatments at [facility] has had difficulty managing her diabetes. Today her ketones were negative though her initial glucose here was 380. Patient was repleted with 1 L of IV fluids and given 10 units of regular insulin with a resultant decrease in blood glucose to 220. The plan and findings were discussed with the patient and her caregiver at length. Patient is advised that if she has worsening shortness of air before she sees her cardiothoracic surgeon she is to return immediately to the ER however we discussed that some of her care is likely best completed at [facility] where she has received all of her treatment to date. Departure - Departure Disposition: 01 Home, Self Care Clinical Impression: Pleural effusion on right, Adenocarcinoma, Poorly controlled diabetes mellitus Condition: Stable Record reviewed to determine appropriate education?: Yes Instructions: ED Effusion Pleural Follow-Up: Gris Cerda MD [Physician No Access] - CARMEL MAYES MD [Provider Admit Priv/Credential] - Comments: Chery albarran were seen in the emergency department today for increased shortness of air. The CT imaging of your chest as well as the chest x-ray shows a right-sided pleural effusion. This can cause the shortness of air. You will most definitely require treatment for this effusion over the next few weeks however we do not need to drain it today. It is very important that you discuss the development of this pleural effusion with Dr. Cerda your cardiothoracic surgeon. She may want to repeat a chest x- ray sooner than the 17th when you are scheduled to see her. If at any point over the weekend you are having increasing shortness of air and cannot catch her breath you can return to the emergency department. However as we discussed some of your care may be best completed at [facility] as they have the specialist there who have already treated you. Your glucose is very elevated today. It is important that you pay close attention to your blood sugars with a continuous glucose monitor and continue to use your sliding scale insulin. If at any point your blood sugars are higher than 425, you become weak, fatigued have difficulty breathing or uncontrolled vomiting or develop fevers then again please return immediately to the emergency department
[2021-01-24 13:15] LABS: BASOPHILS % (AUTO) 0.6 %; EOSINOPHILS # (AUTO) 0.1 10^3/uL (0.0-0.7); EOSINOPHILS % (AUTO) 1.3 %; HCT - HEMATOCRIT 34.3 % (37.0-47.0); HGB - HEMOGLOBIN 11.5 g/dL (12.0-16.0); LYMPHOCYTES # (AUTO) 1.2 10^3/uL (1.5-3.5); LYMPHOCYTES % (AUTO) 25.2 %; MEAN CORPUSCULAR HEMOGLOBIN 31.5 pg (27.0-31.0); MEAN CORPUSCULAR HGB CONC 33.5 g/dL (32.0-36.0); MONOCYTES # (AUTO) 0.5 10^3/uL (0.0-1.0); MONOCYTES % (AUTO) 9.7 %; NEUTROPHILS # (AUTO) 2.9 10^3/uL (1.5-6.6); PLT - PLATELET COUNT 211 10^3/uL (130-450); RED BLOOD COUNT 3.65 10^6/uL (4.20-5.40); RED CELL DISTRIBUTION WIDTH 13.3 % (12.0-15.0); WHITE BLOOD COUNT 4.6 x10^3/uL (4.8-10.8)
[2021-01-24] MEDS ORDERED: IOPAMIDOL-300 100 ML VIAL ONE (13:55)
[2021-01-24 13:58] LABS: KETONES, SERUM (ACETEST) NEGATIVE (NEGATIVE)
[2021-01-24 14:21] LABS: ALBUMIN 4.4 g/dL (3.2-5.5); ALBUMIN/GLOBULIN RATIO 1.3 (1.0-2.2); ALKALINE PHOSPHATASE 79 IU/L (42-121); ALT ALANINE AMINOTRANSFERASE 28 IU/L (10-60); AST ASPARTATE AMINOTRANSFERASE 23 IU/L (10-42); BILIRUBIN,TOTAL 0.5 mg/dL (0.2-1.0); BUN - BLOOD UREA NITROGEN 26 mg/dL (6-20); CALCIUM 9.4 mg/dL (8.5-10.3); CARBON DIOXIDE - CO2 21 mmol/L (21-32); CHLORIDE 101 mmol/L (101-111); CREATININE 0.8 mg/dL (0.4-1.0); GFR - MDRD 73 (>89); GLUCOSE 380 mg/dL (70-100); LIPASE 28 U/L (22-51); POTASSIUM 4.2 mmol/L (3.5-5.0); SODIUM 134 mmol/L (135-145); TOTAL PROTEIN 7.9 g/dL (6.7-8.2)
[2021-01-24] MEDS ORDERED: SODIUM CHLORIDE 0.9% 1,000 ML IV STA (14:22)
[2021-01-24] MEDS ORDERED: INSULIN REGULAR HUMAN 100 UNIT/1 ML 10 ML MDV IVP STA (14:22)
[2021-01-24] MEDS ORDERED: IOPAMIDOL-300 100 ML VIAL IVP ONE (14:40)
[2021-01-24 15:11] VITALS: BP 120/67
--- NOTE | 2021-01-24 15:14 | CT Report ---
PROCEDURE: ANGIO CHEST W/WO INDICATIONS: cancer; pleural effusion; r/o PE CONTRAST: IV CONTRAST: Isovue 300 ml: 80 PO CONTRAST: *NO PO CONTRAST TECHNIQUE: After the administration of intravenous contrast, images were acquired from the pulmonary apices to t he posterior costophrenic angles. 3-dimensional maximum intensity projection (MIP) coronal and sagit mounika reformats were then acquired through the thorax. For radiation dose reduction, the following was used: automated exposure control, adjustment of mA and/or kV according to patient size. COMPARISON: 10/16/2020 FINDINGS: Image quality: Excellent. Pulmonary arteries: Pulmonary arteries are normal in size, and demonstrate no intraluminal filling d efects to suggest central pulmonary embolism. Lungs and pleura: Emphysematous changes noted in both lung apices. There is scarring and calcificatio n in the left lung apex. There is a moderate right pleural effusion has an appearance of right lower lobe surgical intervention. Previous described mass in the right lower lobe in the azygous recess is no longer present. Mediastinum: Heart size is normal, without pericardial effusion. No mediastinal or hilar adenopathy . Thoracic aorta is normal in caliber and enhancement. Esophagus is normal in caliber, without hiat al hernia. Bones and chest wall: No suspicious bony lesions. Ribs and thoracic spine appear intact throughout. No axillary or supraclavicular adenopathy. The thyroid is normal in size and there are no incident al findings. Abdomen: Visualized upper abdominal solid organs appear normal in the early arterial phase of enhanc ement. IMPRESSION: 1. No evidence of pulmonary embolism, aortic dissection or aneurysm. 2. Moderate right pleural effusion with associated mild atelectasis/consolidation. There is evidence of prior surgical intervention, and the previously described right lower lobe mass lesion is no longe r identified. It is unclear if it has been resected or is obscured by right lower lobe effusion, atel ectasis and/or consolidation. 3. Moderate biapical pulmonary emphysema Reviewed by: Carlin Vaca MD on 01/24/2021 2:13 PM AKDT Approved by: Carlin Vaca MD on 01/24/2021 2:13 PM AKDT Station ID: [id number]
== END 2021-01-24 15:48 | disposition home or self-care (01) ==
LOC: ED 11:23
DX: J90 Pleural effusion, not elsewhere classified (principal); E11.65 Type 2 diabetes mellitus with hyperglycemia; Z79.84 Long term (current) use of oral hypoglycemic drugs; Z85.118 Personal history of other malignant neoplasm of bronchus and lung; Z90.2 Acquired absence of lung [part of]; J43.9 Emphysema, unspecified; F17.200 Nicotine dependence, unspecified, uncomplicated; I10 Essential (primary) hypertension
CPT/HCPCS: 36415; 71046; 71275; 80053; 82009; 82272; 83690; 83880; 85025; 93005; 96360; 99284; Q9967; 84484

== ENCOUNTER 2021-02-11 16:25 | Outpatient (CLI) | payer MEDICAID | END 2021-02-11 16:26 | disposition home or self-care (01) | LOC: COV 16:25 | PROVIDERS: ATTEND Surgery | DX: Z01.812 Encounter for preprocedural laboratory examination (principal); C34.91 Malignant neoplasm of unspecified part of right bronchus or lung; Z20.822 Contact with and (suspected) exposure to COVID-19 ==

== ENCOUNTER 2021-02-14 07:13 | Day surgery (SDC) | payer MEDICAID ==
[2021-02-14] MEDS ORDERED: LACTATED RINGERS 1,000 ML IV ONE ×2 (07:20→08:58)
[2021-02-14] MEDS ORDERED: LIDOCAINE-MPF 2% 5 ML VIAL ONE (07:59)
[2021-02-14] MEDS ORDERED: PROPOFOL 500 MG/50 ML 500 MG/50 ML VIAL ONE (07:59)
[2021-02-14] MEDS ORDERED: PROPOFOL 200 MG/20 ML VIAL IVP ONE (08:00)
[2021-02-14] MEDS ORDERED: BUPIVACAINE 0.5% PF 10 ML VIAL ONE (08:01)
[2021-02-14] MEDS ORDERED: LIDOCAINE 2%-EPI 1:100000 20 ML MDV ONE (08:01)
[2021-02-14] MEDS ORDERED: METOCLOPRAMIDE 10 MG/2 ML VIAL IVP PRN (08:03)
[2021-02-14] MEDS ORDERED: ATROPINE ABBOJECT 1 MG/10 ML SYRINGE IVP PRN (08:03)
[2021-02-14] MEDS ORDERED: ePHEDrine 50 MG/ML VIAL IVP PRN (08:03)
[2021-02-14] MEDS ORDERED: ONDANSETRON 4 MG/2 ML VIAL IVP PRN (08:03)
[2021-02-14] MEDS ORDERED: NALOXONE 0.4 MG/ML VIAL IVP PRN (08:03)
[2021-02-14] MEDS ORDERED: fentaNYL 100 MCG/2 ML VIAL IVP PRN (08:03)
--- NOTE | 2021-02-14 08:03 | ANESTHESIA ---
Pre-Anesthesia VS, & Labs - Diagnosis R lung CA - Procedure L port a cath placement Vital Signs: Temp Pulse Resp BP Pulse Ox 36.4 C L 85 18 107/59 L 98 02/14/21 07:25 02/14/21 07:25 02/14/21 07:25 02/14/21 07:25 02/14/21 07:25 Height: 5 ft 7 in Weight (kg): 46 kg Body Mass Index: 15.8 BMI Classification: Underweight - NPO >8 hours - Is Patient ?: No - Lab Results Current Lab Results: Laboratory Tests 02/14/21 07:43: POC Whole Bld Glucose 189 H Lab results reviewed: Yes Home Medications and Allergies Home Medications: Ambulatory Orders Insulin Glargine [Lantus Solostar] 20 units SQ DAILY 02/04/21 Insulin Lispro [Humalog] 4 unit SQ TID PRN MDD 24 units 02/04/21 Oxybutynin [Ditropan] 5 mg PO BID 01/19/13 Simvastatin 20 mg PO DAILY 01/19/13 lisinopriL [Lisinopril] 5 mg PO DAILY 01/25/14 Topiramate 200 mg PO BID 03/23/16 lamoTRIgine [LaMICtal] 200 mg PO DAILY 09/06/17 Empagliflozin [Jardiance] 25 mg PO DAILY 10/09/20 Quetiapine Fumarate [Seroquel] 300 mg PO DAILY 10/09/20 hydrOXYzine pamoate [Vistaril] 25 mg PO DAILY 10/09/20 Sertraline HCl 150 mg PO DAILY PM 01/24/21 Insulin Glargine [Lantus Solostar] 20 units SQ DAILY 02/04/21 Insulin Lispro [Humalog] 4 unit SQ TID PRN MDD 24 units 02/04/21 Allergies/Adverse Reactions: Allergies Allergy/AdvReac Type Severity Reaction Status Date / Time hydromorphone HCl * Allergy Intermediate Edema Verified 01/24/21 11:45 [From Dilaudid] metformin Allergy Intermediate vomiting Verified 01/24/21 11:45 and diarrhea Penicillins Allergy Intermediate Rash Verified 01/24/21 11:45 Sulfa (Sulfonamide Allergy Intermediate Rash Verified 01/24/21 11:45 Antibiotics) carbamazepine [From Tegretol] Allergy Mild Rash Verified 01/24/21 11:45 amoxicillin [Amoxicillin] Allergy Rash Verified 01/24/21 11:45 Anes History & Medical History - Anesthetic History Anesthesia Complications: reports: No previous complications Family history of Anesthesia Complications: Denies Family history of Malignant Hyperthermia: Denies - Medical History Cardiovascular: reports: Hypertension, High cholesterol Pulmonary: reports: Emphysema, Shortness of breath Gastrointestinal: reports: GERD, Hiatal hernia, Chronic diarrhea, Chronic constipation, Pancreatitis, Hepatitis, Cholelithiasis Urinary: reports: Incontinence, Nocturia, Frequency Musculoskeletal: reports: Osteoarthritis Endocrine/Autoimmune: reports: Type 2 diabetes, HyPOthyroidism Skin: reports: None Smoking Status: Current every day smoker - Surgical History General: reports: Cholecystectomy, Hiatal hernia repair Eyes Ears Nose Throat (EENT): reports: Tonsil/Adenoidectomy Cardiothoracic: Gynecologic: reports: section Orthopedic: reports: Other Exam General: Alert, Oriented x3, Cooperative Dental: Dentures full Upper, Dentures full Lower Mouth Openin Fingerbreadth Neck Mobility: Normal Mallampati classification: I Thyromental Distance: 4-6 cm Respiratory: Lungs clear, Normal breath sounds, No respiratory distress Cardiovascular: Regular rate Mental/Cognitive Status: Alert/Oriented X3, Normal for patient Cognitive Status: Within normal limits Plan Anesthesia Type: Total IV Consent for Procedure(s) Verified and Reviewed: Yes Code Status: Attempt Resuscitation ASA classification: 3-Severe systemic disease Is this case an emergency?: No
[2021-02-14] MEDS ORDERED: MIDAZOLAM 2 MG/2 ML VIAL ONE (08:23)
[2021-02-14] MEDS ORDERED: LIDOCAINE 2%-EPI 1:100000 20 ML MDV SUBQ ONE ×2 (08:26)
[2021-02-14] MEDS ORDERED: ePHEDrine 50 MG/ML VIAL IVP ONE (08:26)
[2021-02-14] MEDS ORDERED: BUPIVACAINE 0.5% PF 30 ML VIAL SUBQ ONE ×2 (08:26)
[2021-02-14] MEDS ORDERED: PHENYLEPHRINE 10 MG/ML VIAL ONE (08:37)
--- NOTE | 2021-02-14 08:54 | OPERATIVE REPORT ---
Operative Report - General Procedure Date: 02/14/21 Planned Procedure: Left subclavian Port-A-Cath Pre-Op Diagnosis: Right lower lobe lung cancer Procedure Performed: Left subclavian Port-A-Cath Post Op Diagnosis: Right lower lobe lung cancer - Procedure Note Primary Surgeon: Aiyana Anesthesia Provider: ANGIE Lujan Anesthesia Technique: MAC Pathology: None Estimated Blood Loss (mL): 5 Findings: Port in good position in the superior vena cava Complications: None apparent - Other Other Information/Narrative: After obtaining informed consent, the patient is brought to the operating room and placed in supine position on the operating table. Following successful induction of sedation with monitored anesthesia care and appropriate padding of all bony prominences, the left chest and neck were prepped and draped in the standard surgical fashion. A timeout was held per scope protocol. All elements of the surgical safety checklist were followed before, during, and after the p rocedure. Following infiltration with local anesthetic to create a field block, the left subclavian vein was accessed in the deltopectoral groove. The J-wire was gently placed into the vein. Fluoroscopy was used to confirm the position of the wire and in the subclavian vein. We anesthetized the existing healed scar in the area around it for placement of the port itself. An incision was created here and carried down through the skin and subcutaneous tissue. A pocket was created with blunt dissection. The port tubing was attached to the tunneling device and passed from the access site of the vein into the pocket. It was trimmed to an appropriate length and the port attached. The port was sewn into place in the pocket. The dilator and introducer were then passed over the J-wire that was in the subclavian vein. The J-wire and dilator were removed leaving only the introducer. The tubing was then passed through the introducer and the introducer cracked and removed per ferry boat captain's directions. The port was then checked for function and flushed and adalberto easily. Additional local anesthetic was applied to the chest wall. The port pocket was closed with interrupted Vicryl sutures and Monocryl stitches were placed in both skin incision sites. All sponge, needle, and instrument counts were correct at the conclusion of the case. Chest x-ray in the postanesthesia care unit revealed the port in good position in the superior vena cava without evidence of pneumothorax.
[2021-02-14] MEDS ORDERED: LACTATED RINGERS 1,000 ML IV SCH (09:00)
[2021-02-14 09:11] VITALS: BP 98/52
--- NOTE | 2021-02-14 09:26 | XRAY Report ---
PROCEDURE: Chest for Line Placement INDICATIONS: port TECHNIQUE: One view of the chest was acquired. COMPARISON: 01/24/2021 FINDINGS: Surgical changes and devices: Left chest wall Port-A-Cath tip is projecting in the expected location of SVC. Postsurgical changes are again seen in left upper lung field. Lungs and pleura: Small to moderate right pleural effusion is again seen not significantly changed fr om prior study. Right basilar atelectasis is noted. There is mild pulmonary vascular congestion. No p neumothorax. Mediastinum: Mediastinal contours appear normal. Heart size is normal. Bones and chest wall: No suspicious bony lesions. Overlying soft tissues appear unremarkable. IMPRESSION: Left chest wall Port-A-Cath tip is in the region of SVC. Persistent small to moderate right pleural effusion with right basilar atelectasis. No gross pneumoth orax. Reviewed by: Estrada Colbert MD on 02/14/2021 9:25 AM PDT Approved by: Estrada Colbert MD on 02/14/2021 9:25 AM PDT Station ID: [id number]
--- NOTE | 2021-02-14 09:29 | XRAY Report ---
PROCEDURE: OR Port-A-Cath INDICATIONS: port/ post port x-ray to follow TECHNIQUE: Single intraoperative fluoroscopic images of upper chest. COMPARISON: None. FINDINGS: Intraoperative fluoroscopic image of left upper chest shows left-sided central venous catheter placem ent. Exact catheter position cannot be determined based on the image given. IMPRESSION: Fluoroscopy guidance was provided intraoperatively for left chest wall Port-A-Cath placement. Reviewed by: Estrada Colbert MD on 02/14/2021 9:27 AM PDT Approved by: Estrada Colbert MD on 02/14/2021 9:27 AM PDT Station ID: [id number]
--- NOTE | 2021-02-14 10:28 | ANESTHESIA POST OP EVALUATION ---
Anesthesia Post Eval - Post Anesthesia Eval Vitals: Last Vital Signs Temp 36.9 C 02/14/21 09:10 Pulse 82 02/14/21 09:10 Resp 16 02/14/21 09:10 BP 98/52 L 02/14/21 09:10 Pulse Ox 99 02/14/21 09:10 CV Function Including HR & BP: Stable Pain Control: Satisfactory Nausea & Vomiting: Negative Mental Status: Baseline Respiratory Status: Airway Patent Hydration Status: Satisfactory Anesthesia Complications: None
== END 2021-02-14 07:14 | disposition home or self-care (01) ==
LOC: SDS 07:13
PROVIDERS: ATTEND Surgery
DX: C34.91 Malignant neoplasm of unspecified part of right bronchus or lung (principal); F17.210 Nicotine dependence, cigarettes, uncomplicated; J43.9 Emphysema, unspecified; I10 Essential (primary) hypertension
CPT/HCPCS: 36561; 71045; C1788; J7120

== ENCOUNTER 2021-02-19 08:34 | Outpatient (CLI) | payer MEDICAID ==
--- NOTE | 2021-02-19 15:41 | CONSULTATION NOTE ---
Palliative Care Consultation - Referral Referring Provider: Eri Flores PA-C Time of Visit: 10:00 75 min Referral setting: MAC Referral Reason: Medication adherence/Anxiety/Wt. loss/ - Information Sources Records reviewed: Previous records reviewed History/Review of Systems obtained from: Patient, Caregiver Exam limitations: Clinical condition (patient with mild cog deficits/anxiety) - History of Present Illness Brief History of Present Illness: This is a 60-year-old woman with a complex history in the context of new second primary lung cancer Of the right lung. She underwent a right lobectomy on 01/02/2021 with a course complicated for right-sided pneumothorax, s/p chest tube. 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 She has since had an ED visit for increased shortness of breath, found to have a moderate pleural effusion, given her history of pneumothorax, currently is on surveillance for this. She has received her first dose of chemotherapy of carboplatinum/etoposide last week. 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 Patient needs assist to navigate medical system, does not have any family or community support, is supported by [facility] and caregivers from the [employer] program. Patient does have a provider Taya [phone], who has known her over the years, recently has returned to the area and is helping her navigate, she and her sister are independent providers for [employer]. Patient does live alone with caregiver support, but complexity is high with patient's complicated diabetes, she has been on a continuous monitor, she reports this started about 2 months ago. Has been challenged with navigating her blood sugars, she is cachectic, anorexic, hypotensive, and with high anxiety. Patient is a poor historian, particularly in the context of putting together time to events. She did give me permission to speak with Taya, who has some awareness of patient's ongoing history. Taya identifies herself both as a friend, and an independent provider caregiver for [employer] program. What is first seen as a significant challenge will be her medication adherence. [facility] does oversee because of her meds for her bipolar and anxiety disorder, she does have med management. She does have poor memory though and when asked further about her antiemetics and how she is managing, unclear about her follow-through. Patient does not have 24-hour supervision, the caregivers do try and remind her to take her meds, she does have a med dispensing system. They do deliver her meds every 2 weeks, unfortunately her pill pack she brought in still has her lisinopril and it. She does not remember being instructed to stop this. I did reach out to [facility], they do have a prescriber who is providing medications, she has a PCP Ama Flores PA-C who recently reviewed her meds, will try and coordinate and make a home visit to reconcile and problem solve regarding this issue. She also receives medications from [facility], unclear how these are managed without being in the home. Medical/Surgical History - Past Medical History Cardiovascular: reports: Hypertension, High cholesterol Respiratory: reports: Emphysema, Shortness of breath, Other (lung cancer) Neuro: Seizure disorder, Other ([facility]) Endocrine/Autoimmune: reports: Type 2 diabetes, HyPOthyroidism GI: reports: GERD, Hiatal hernia, Chronic diarrhea, Chronic constipation, Pancreatitis, Hepatitis, Cholelithiasis : reports: Incontinence, Nocturia, Frequency HEENT: reports: Glaucoma, Dental implants, Other Psych: reports: Depression, Anxiety, Bipolar disorder Musculoskeletal: reports: Osteoarthritis, Osteoporosis, Fatigue Derm: reports: None MRSA Hx?: No - Past Surgical History General: reports: Cholecystectomy, Hiatal hernia repair, Other (portacath placement 02/14) Ortho: reports: Other (left rotator 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 She does have support through [facility] for her psychiatric issues, and medication management. She is serviced by [employer] [facility], her oil field caser is Layla. She does have 2 children, 1 son in [place], she does have a daughter nearby but is estranged. Family History - Family History Family History: Mother: , Father: Medications/Allergies - Medications Home Medications: Ambulatory Orders Medication Instructions Recorded Confirmed Oxybutynin [Ditropan] 5 mg PO BID 01/19/13 02/20/21 Simvastatin 20 mg PO DAILY 01/19/13 02/20/21 Topiramate 200 mg PO BID 03/23/16 02/20/21 lamoTRIgine [LaMICtal] 200 mg PO DAILY 09/06/17 02/20/21 Empagliflozin [Jardiance] 25 mg PO DAILY 10/09/20 02/20/21 Quetiapine Fumarate [Seroquel] 300 mg PO QPM 10/09/20 02/20/21 hydrOXYzine pamoate [Vistaril] 50 mg PO QPM 10/09/20 02/20/21 Sertraline HCl 150 mg PO DAILY 01/24/21 02/20/21 Insulin Glargine [Lantus Solostar] 20 units SQ BID 02/04/21 02/20/21 Insulin Lispro [Humalog] 4 unit SQ TID PRN MDD 24 units 02/04/21 02/20/21 Lidocaine/Prilocain 2.5% Cream 5 applic TOP UD #1 gm 02/11/21 02/20/21 [Emla 2.5% Cream] OLANZapine [Zyprexa] 5 mg PO UD #16 tablet 02/11/21 02/20/21 Ondansetron HCl [Zofran] 4 mg PO Q6HR PRN #30 tab 02/11/21 02/20/21 oxyCODONE [Roxicodone] 5 mg PO Q6H PRN #7 tablet 02/14/21 02/20/21 Acetaminophen [Acetaminophen Extra 1,000 mg PO TID PRN 02/20/21 02/20/21 Strength] Alendronate Sodium 35 mg PO .WEEKLY 02/20/21 02/20/21 Gabapentin [Neurontin] 600 mg PO . 1 AM 1 1400 1.5 PM MDD 02/20/21 02/20/21 2100 mg LORazepam [Lorazepam] 2 mg PO BID PRN 02/20/21 02/20/21 Levothyroxine Sodium 50 mcg PO DAILY 02/20/21 02/20/21 [Levothyroxine] Tiotropium Taylor [Spiriva 2 puffs INH DAILY 02/20/21 02/20/21 Respimat] - Allergies Allergies/Adverse Reactions: Allergies Allergy/AdvReac Type Severity Reaction Status Date / Time hydromorphone HCl * Allergy Intermediate Edema Verified 02/19/21 10:50 [From Dilaudid] metformin Allergy Intermediate vomiting Verified 02/19/21 10:50 and diarrhea Penicillins Allergy Intermediate Rash Verified 02/19/21 10:50 Sulfa (Sulfonamide Allergy Intermediate Rash Verified 02/19/21 10:50 Antibiotics) carbamazepine [From Tegretol] Allergy Mild Rash Verified 02/19/21 10:50 amoxicillin [Amoxicillin] Allergy Rash Verified 02/19/21 10:50 Review of Systems - Constitutional Constitutional: reports: Fatigue (worsening), Weakness, Weight loss (In speaking with caregiver, who met her in 2014, reports her weight was 250 at that time, in 2019 when she saw the oncologist it was 138, today she presents). denies: Fever, Chills - Eyes Eyes: reports: Vision loss - Ears, Nose & Throat Ears, Nose & Throat: reports: Hearing loss (mild), Dry mouth - Cardiovascular Cardiovascular: reports: Lightheadedness, Decr. exercise tolerance. denies: Chest pain - Respiratory Respiratory: reports: Cough (intermittent), SOB with exertion (feels is worse), Pleuritic pain (right side). denies: SOB at rest - Gastrointestinal Gastrointestinal: reports: Constipation, Diarrhea (describes alternating; cg reports with fecal/urinary incontinence), Reflux/heartburn, Poor appetite, Early satiety. denies: Nausea, Vomiting - Genitourinary Genitourinary: reports: Incontinence - Musculoskeletal Musculoskeletal: reports: Back pain, Muscle aches, Stiffness, Joint pain - Integumentary Integumentary: reports: Dryness, Hair changes (thinning) - Neurological Neurological: reports: General weakness, Memory problems - Psychiatric Psychiatric: reports: Depression, Anxiety - Endocrine Endocrine: reports: Diabetes type 2 (concern currently meter not working for 2 days; cg helping to correct;), Hypothyroidism - Hematologic/Lymphatic Hematologic/Lymph: reports: Anemia (8.8) - All Other Systems All Other Systems: reports: Other (patient poor historian) Physical Exam - Vital Signs Pulse Rate: 77 Respiratory Rate: 20 O2 Saturation: 100 Blood Pressure: 95/54 - Physical Exam General Appearance: positive: Alert, Anxious, Cachetic Eyes Bilateral: positive: Normal inspection Neck: positive: Trachea midline Cardiovascular: positive: Regular rate & rhythm Respiratory: positive: Diminished throughout, Rales (RLL dull to percussion 1/3 up; mild exp crackles right side;). negative: No respiratory distress (breathlessness with activity/conversation) Abdomen: positive: Soft Skin: positive: Pallor, Dryness Extremities: positive: No pedal edema Neurologic/Psychiatric: positive: Mood/affect nml, Disoriented to time Palliative Care - POLST Patient has POLST: No POLST Status: Full Code Pain: Pain worsening, Location (RLL; and multiple joints), Severity (3/10) Tiredness/Fatigue: Moderate (4-6) Drowsiness/Sedation: Moderate (4-6) Nausea: Moderate (4-6) Anorexia: Moderate (4-6) Dyspnea: Moderate (4-6) Depression: Moderate (4-6) Anxiety: Severe (7-10) Feelings of wellbeing/Perceived Quality of Life: Fair, Worsening Sleep: Sleeps poorly, Variable sleep pattern Constipation: Yes, Intermittent constipation Performance Status: Patient has had a decline in functional status, she is ambulatory though, does walk down to the mailbox which is about a half a block. She is able to manage her ADLs. She does get winded and does have significant fatigue. In follow-up with caregiver Taya, reports patient does fall frequently, she does have a lifeline. - Palliative Care Discussion: Patient is very much worried about her lung cancer, and about dying. She is very tangential and her history, and sharing of her concerns and worries. Unclear the extent of her understanding as far as processing her diagnosis, but is committed to taking treatment, but needing assistance to navigate. Unfortunately patient has a very complex mental health history as well of social history, and is unable to identify other than Taya, someone to be able to speak for her if she were unable to speak for herself. In follow-up with Taya, though she is a friend, she is independent provider she is unclear if she is able to be the advocate nor does she know if she wants that responsibility. Her observation is patient's status fluctuates, if she is consistent with her meds she does fairly well, if not she has increased paranoia and difficulty managing her mood swings. Results - Lab Results Lab results reviewed: Yes Impression and Recommendations - Palliative Care Impression: This is a 60-year-old woman with right lower lobe stage IIb lung cancer, receiving chemotherapy. Patient presents with failure to thrive, malignant cachexia, poor control diabetes, and complex mental health and social situation. Patient will need significant support over the next several months to navigate her treatment plan. Palliative care to provide support for symptom management, medication adherence, and anticipatory guidance. Recommendations/Counseling Done: 1. Medication adherence. Multiple phone calls to follow-up on how patient managing medications, [facility] does distribute them in bubble packs and patient has a medication dispenser. When asked about how she is managing as ne eded medications, particularly antiemetics prescribed by oncology, patient is somewhat flustered. Patient showed me a Medi-Pack, that does still have lisinopril in it. Instructed both patient and caregiver to remove lisinopril from packets, patient is hypotensive. Call into prescriber for accurate list and to coordinate care, will follow up with PCP as well. Plan for home visit next week to help reconcile medication management. 2. Dyspnea. This is multifactorial, patient did have a chest x-ray that does show continued moderate pleural effusion, and presents with anemia. Patient high risk for thoracentesis, currently is managing but is limited by her dyspnea. We will continue to monitor. 3. Anxiety. Patient with long-term bipolar disorder, complex social situation, and fluctuating anxiety. Patient presents is fairly tangential, difficult historian, but does have support from her caregivers, but unfortunately they are not able to be responsible ultimately. Counseling in the context of palliative care support, setting up of rapport, and will continue to work with patient to help navigate what she perceives is fairly overwhelming situation. 4. Cachexia. Patient with poor financial resources, having difficulty obtaining nutritional support supplements. Call into roll forming machine operator Layla, to help facilitate through Meals on Wheels. Patient does feel like she is doing better, but remains quite thin and with anorexia. 5. Diabetes type 2. Patient with new continuous monitor, does seem much overwhelmed by management, has not been doing corrective dosing in the context o f no numbers to work with, really in force need to follow-up on meter, caregiver to assist. Will follow up with home visit patient's current tracking system and hopefully can figure out what she is doing. 6. Generalized discomfort. Patient complaining of multiple joint pain, as well as right lower lobe discomfort. Reports she has no acetaminophen, will send prescription to [facility], unclear if will be covered by her insurance, will continue to follow-up with part of medication reconciliation. 7. Advanced care planning. Patient has been able to participate in decision- making, and clear in the context of the nuances of complex decision making if she understands. Does not have a DPOA, will continue to explore options regarding this. Patient is at high risk for sequela of complications from treatment, presents with high symptom burden, and complex psychosocial situation. 75 minutes review of chart, scans, labs, coordination of care with [facility], recheck to PCP, oncology. [id number] for evaluation and setting of rapport, and anticipatory guidance.
== END 2021-02-19 08:35 | disposition home or self-care (01) ==
LOC: PC 08:34
PROVIDERS: ATTEND Nurse Practitioner Adult Health
DX: Z51.5 Encounter for palliative care (principal); C34.31 Malignant neoplasm of lower lobe, right bronchus or lung; C7A.1 Malignant poorly differentiated neuroendocrine tumors; C77.1 Secondary and unspecified malignant neoplasm of intrathoracic lymph nodes; E11.9 Type 2 diabetes mellitus without complications; R64 Cachexia; R63.0 Anorexia; I95.9 Hypotension, unspecified; F41.9 Anxiety disorder, unspecified; F31.9 Bipolar disorder, unspecified; J43.9 Emphysema, unspecified; E03.9 Hypothyroidism, unspecified; R32 Unspecified urinary incontinence; R35.1 Nocturia; R35.0 Frequency of micturition; R53.83 Other fatigue; H54.7 Unspecified visual loss; H91.90 Unspecified hearing loss, unspecified ear; R06.00 Dyspnea, unspecified; J90 Pleural effusion, not elsewhere classified; D64.9 Anemia, unspecified; R52 Pain, unspecified; Z91.14 Patient's other noncompliance with medication regimen; Z79.4 Long term (current) use of insulin; Z79.899 Other long term (current) drug therapy
CPT/HCPCS: 99205

== ENCOUNTER 2021-02-28 10:15 | Outpatient (CLI) | payer MEDICAID ==
--- NOTE | 2021-02-28 14:13 | CONSULTATION NOTE ---
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 Patient is supported through [facility], but significant concerns regarding patient's medication adherence and understanding, Palliative care making home visit to try and navigate current situation. Patient is a poor historian, and is having difficulty understanding the complexity of her diagnosis and care. Patient lives alone with [place] [facility] support, but they cannot provide any medical oversight, assist with meds, but can do reminders. Patient is currently on a continuous monitor for her blood sugars, unfortunately this malfunction, has just come back into working condition over the last 2 or 3 days. In review of her sugars and records, she appears to have too high of baseline insulin, and was hypoglycemic on arrival with hypoglycemic episode that was symptomatic. He does appear she is "chasing" her blood sugars. Patient presents with fairly high symptom burden, has fairly severe peripheral neuropathy, does take gabapentin 600 mg, appears to be 3 times daily though these are not in her medications that she takes them "as needed" though does states she takes all 3 in a day. There is no way to really track this, she reports the pain gets very bad, and then uses acetaminophen though unfortunately her insurance does not pay for this, when ordered they only cover certain brand. We did find some in her home that had not . She is trying to maintain her weight, she has had significant weight loss over the last couple years, prior to my arrival she had just had an appointment with Dr. Cerda. She is quite confused whether she "has cancer or does not have cancer" as she told her she "got it all". Patient also has a history of stage I left upper lobe cancer 02/2019 with a VATS wedge resection, and had been receiving ongoing yearly lung cancer screening until over the last few years due to lack of a consistent caregiver. Patient does need some assistance in navigating the medical system, her friend/[place] [facility] provider Taya recently came back into the picture and has been helping her set appointments and navigate. Past Medical History: Hypertension, high cholesterol, emphysema, lung cancer, MCI, type 2 diabetes, hypothyroidism, GERD, hiatal hernia, chronic diarrhea, chronic constipation, pancreatitis, hepatitis, cholelithiasis, incontinence, nocturia, frequency, glaucoma, dental implants, depression, anxiety, bipolar disorder, osteoarthritis, osteoporosis, fatigue past surgical history cholecystectomy, hiatal hernia repair, Port-A-Cath placement 02/14/2021, left rotator cuff repair, section, tonsil/adenectomy Social History - Living Situation Living arrangement: At home Living Situation: Alone Support System: Patient lives at home in a ector apartment, it is quite clean and well-kept. She is quite dependent on her caregivers for managing her schedule and navigating her appointments. She does have support through [facility] for her psychiatric issues and they deliver her medications from [employer] a service which she pays for. She is serviced by [facility], her case work aide is Layla, she does have 2 children 1 son in [place] she does have a daughter nearby but they are estranged Medications/Allergies - Medications Home Medications: Ambulatory Orders Medication Instructions Recorded Confirmed Simvastatin 20 mg PO DAILY 01/19/13 02/28/21 Topiramate 200 mg PO BID 03/23/16 02/28/21 lamoTRIgine [LaMICtal] 200 mg PO DAILY 09/06/17 02/28/21 Empagliflozin [Jardiance] 25 mg PO DAILY 10/09/20 02/28/21 Quetiapine Fumarate [Seroquel] 300 mg PO QPM 10/09/20 02/28/21 hydrOXYzine pamoate [Vistaril] 50 mg PO QPM 10/09/20 02/28/21 Sertraline HCl 150 mg PO DAILY 01/24/21 02/28/21 Insulin Glargine [Lantus Solostar] 15 units SQ BID 02/04/21 02/28/21 Insulin Lispro [Humalog] 0 - 4 unit SQ TID PRN MDD 24 units 02/04/21 02/28/21 Lidocaine/Prilocain 2.5% Cream 5 applic TOP UD #1 gm 02/11/21 02/28/21 [Emla 2.5% Cream] OLANZapine [Zyprexa] 5 mg PO UD #16 tablet 02/11/21 02/28/21 Ondansetron HCl [Zofran] 4 mg PO Q6HR PRN #30 tab 02/11/21 02/28/21 Acetaminophen [Acetaminophen Extra 1,000 mg PO TID PRN 02/20/21 02/28/21 Strength] Alendronate Sodium 35 mg PO .WEEKLY 02/20/21 02/28/21 Gabapentin [Neurontin] 600 mg PO TID MDD 1800 02/20/21 02/28/21 Levothyroxine Sodium 50 mcg PO DAILY 02/20/21 02/28/21 [Levothyroxine] Tiotropium [place] [Spiriva 2 puffs INH DAILY 02/20/21 02/28/21 Respimat] - Allergies Allergies/Adverse Reactions: Allergies Allergy/AdvReac Type Severity Reaction Status Date / Time hydromorphone HCl * Allergy Intermediate Edema Verified 02/19/21 10:50 [From Dilaudid] metformin Allergy Intermediate vomiting Verified 02/19/21 10:50 and diarrhea Penicillins Allergy Intermediate Rash Verified 02/19/21 10:50 Sulfa (Sulfonamide Allergy Intermediate Rash Verified 02/19/21 10:50 Antibiotics) carbamazepine [From Tegretol] Allergy Mild Rash Verified 02/19/21 10:50 amoxicillin [Amoxicillin] Allergy Rash Verified 02/19/21 10:50 Review of Systems - Constitutional Constitutional: reports: Fatigue (improved), Weakness (with low blood sugar), Poor appetite, Weight loss. denies: Fever, Chills - Cardiovascular Cardiovascular: reports: Exertional dyspnea, Decr. exercise tolerance. denies: Chest pain, Edema - Respiratory Respiratory: reports: Cough (improved), SOB with exertion. denies: Wheezing, SOB at rest - Gastrointestinal Gastrointestinal: reports: Constipation, Diarrhea (alternating; inc at times), Bloating, Early satiety. denies: Nausea, Reflux/heartburn - Genitourinary Genitourinary: reports: Frequency, Incontinence - Musculoskeletal Musculoskeletal: reports: Muscle aches, Stiffness, Limited range of motion, Muscle weakness - Integumentary Integumentary: reports: Dryness, Hair changes (thinning) - Neurological Neurological: reports: General weakness, Numbness (hands and feet; shelter), Memory problems (poor historian) - Psychiatric Psychiatric: reports: Depression, Anxiety. denies: Suicidal - Endocrine Endocrine: reports: Diabetes type 2 (many low blood sugars on records/reader 63; eating in response then swings 200s+; does get symptomatic and had episode while present) - Hematologic/Lymphatic Hematologic/Lymph: reports: Anemia (8.8) - All Other Systems All Other Systems: reports: Other (lilmited ROS with patient's poor recall) Physical Exam - Vital Signs Temperature: 97.0 C Pulse Rate: 90 Respiratory Rate: 18 O2 Saturation: 99 (ra @ rest) Blood Pressure: 112/82 - Physical Exam General Appearance: positive: Alert, Anxious, Cachetic Eyes Bilateral: positive: Normal inspection ENT: positive: No signs of dehydration. negative: Oral lesions Neck: positive: Trachea midline Cardiovascular: positive: Regular rate & rhythm Respiratory: positive: Diminished throughout, Other (decreased RLL;). negative: Wheezes Abdomen: positive: Soft Skin: positive: Dryness Extremities: positive: No pedal edema Neurologic/Psychiatric: positive: Mood/affect nml, Disoriented to time Palliative Care - POLST Patient has POLST: No POLST Status: Full Code Pain: Pain unchanged, Severity (mod-severe peripheral neuropathy in hands and feet; 12/24) Feelings of wellbeing/Perceived Quality of Life: Fair, Acceptable, Improved Sleep: Variable sleep pattern Constipation: Yes, Intermittent constipation Performance Status: Patient is limited by her dyspnea as far as her activity tolerance. She can walk in her apartment without difficulty. She can only ambulate short distances of about 50 to 100 feet without needing to rest. She is able to bathe but needs supervision in the context of safety. She does need reminders to eat and take her medications. - Palliative Care Discussion: Patient has a ector apartment, seems more easily engaged in her own setting. She does get quite anxious around medical providers and trying to manage her medical affairs. She is also very dependent on Taya, and this may get complicated as she may no longer be able to be her catherine provider because of vaccination status. Taya is going to try and help her navigate though new [place] [facility] provider, and continued to help organize her as her friend. Patient's goals are to stay independent and in her apartment, had spoke with Layla regarding possible increased hours for supervision particularly around medications and meals. Patient is quite confused regarding prognosis, and intent of chemotherapy. Will get Dr. Marie's note and clarify with Dr. Mayes to be able to further help her navigate understanding regarding this. 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 Patient has presented with failure to thrive, malignant cachexia, and poorly controlled diabetes and complex mental health and social situation. Palliative care making home visit to assist with medication adherence, coordination of care, and help her navigate her treatment plan. We will continue to follow patient on a regular basis until more stable. Recommendations/Counseling Done: 1. Diabetes type 2. Unfortunately patient was having hypoglycemic episode during our appointment. She did take appropriate steps though needed cueing for eating, and continue to check. Call to Dr. PERDOMO, who is patient's mobile application developer. Discussed through nurse, and decreasing Lantus to 15 mg twice daily, and decreasing Humalog to less than 100 0 units, 101 to 152 units, 151 to 203 units, greater than 200 4 units. Update given to mobile application developer regarding home management. Patient is unable to share her program given the limitations and understanding of her smart phone. She is though able to query it and respond appropriately. Written instructions were provided. 2. Medication adherence patient receives a delivery of "packets" from [employer]. These do not contain all her medications, though in review it looks like the only one missing is the levothyroxine. She would prefer to take the gabapentin out of the bottle, though suspect she may be under overdosing with this. Found multiple loose bottles of sertraline, lamotrigine, simvastatin, patient supposedly taking her medications from the bottles, though some of the bottles are . Did speak with [employer], can add more medications to her packets. These do happen every 2 weeks, next is due 03/04. Will follow up with PCP regarding discontinuing oxybutynin, there were multiple bottles in home. Patient is not taking other than in Mediset, though does not feel it is helping. Suspect simplifying her decreasing pill burden more appropriate. Patient has ongoing leaking and incontinence, and has found no benefit. Did follow-up on acetaminophen, and [facility] not have the "brand" that insurance covers, will send prescription to [facility] was well, may be able to obtained covered medication. She does place the alendronate when Hanane from [facility] comes. Hanane comes and puts in her pill dispenser. Patient's pill dispenser still had lisinopril and, did remove this. Suspect this will take a few rounds to get more organized. Did have patient remove all bottles. Patient does have Spiriva on the shelf, though unclear if is taking it. As well as some proair though this appears . 3. Anxiety. Patient with long-term bipolar disorder, complex social situation, and fluctuating anxiety. Has been exacerbated with recent conversation Dr. Cerda. Patient is fairly tangential, and a difficult historian, will try and tease out information patient is seeking regarding long-term plan, treatment and prognosis. Will write this out for patient to be able to manage information. 4. Cachexia. Patient with poor financial resources, has had difficulty obtaining nutritional support supplements Layla is trying to facilitate this through [employer]. She remains quite thin with anorexia, though is getting more supervision around eating on a regular basis. 5. Peripheral neuropathy. Does sound like patient at baseline has peripheral neuropathy both in the context of pain and numbness. She does feel like the gabapentin helps, but is also having some joint discomfort. Did find a bottle of acetaminophen in home, will continue to evaluate how best to dispense this. 6. Advanced care planning. Did follow-up with Layla through the state, she does not know if they have available guardians if patient needed a DPOA. Taya thinks daughter may be the most appropriate, though has been estranged. We will continue to explore patient's resources and look at enlisting palliative care medical specialist when available. 7. Right lower lobe large cell neuroendocrine lung cancer, T1 N1 M0, stage IIb. Concern regarding patient's antiemetic regimen, is written out, patient able to identify olanzapine on ondansetron. Patient able to verbalize instructions, caregivers are calling to help remind her. We will continue to monitor. May need to do pill count to check adherence. 90 minutes with greater than 50% of this done in counseling and follow-up on medication adherence, calls with Ty, PCP, mobile application developer, and [facility]. We will continue to work on this. Patient at high risk for sequela of hypoglycemia, as well as concerns regarding appropriate use of medications.
== END 2021-02-28 10:16 | disposition home or self-care (01) ==
LOC: PC 10:15
PROVIDERS: ATTEND Nurse Practitioner Adult Health
DX: Z51.5 Encounter for palliative care (principal); C34.31 Malignant neoplasm of lower lobe, right bronchus or lung; C7A.1 Malignant poorly differentiated neuroendocrine tumors; R06.00 Dyspnea, unspecified; F31.9 Bipolar disorder, unspecified; F41.9 Anxiety disorder, unspecified; E11.42 Type 2 diabetes mellitus with diabetic polyneuropathy; E11.649 Type 2 diabetes mellitus with hypoglycemia without coma; J43.9 Emphysema, unspecified; E03.9 Hypothyroidism, unspecified; K59.09 Other constipation; K52.9 Noninfective gastroenteritis and colitis, unspecified; R35.0 Frequency of micturition; R32 Unspecified urinary incontinence; R62.7 Adult failure to thrive; R64 Cachexia; Z91.14 Patient's other noncompliance with medication regimen; Z79.4 Long term (current) use of insulin; Z79.899 Other long term (current) drug therapy
CPT/HCPCS: 99350

== ENCOUNTER 2021-03-03 14:43 | Outpatient (CLI) | payer MEDICAID ==
[2021-03-03] MEDS ORDERED: IOVERSOL 320 100 ML VIAL IVP ONE ×2 (15:00→20:07)
[2021-03-03] MEDS ORDERED: IOVERSOL 320 50 ML VIAL ONE (15:00)
--- NOTE | 2021-03-03 16:54 | CT Report ---
PROCEDURE: CHEST W INDICATIONS: RT LUNG CA CONTRAST: IV CONTRAST: Optiray 320 ml: 100 PO CONTRAST: Optiray 320 ml50 TECHNIQUE: After the administration of intravenous contrast, 1 mm axial images were acquired from the pulmonary apices through the posterior costophrenic angles. Axial 5 mm soft tissue kernel reconstructions were performed as well as 8 mm axial MIP and coronal and sagittal 5 mm reformations. For radiation dose reduction, the following was used: automated exposure control, adjustment of mA and/or kV according to patient size. COMPARISON: 10/16/2020 and 01/24/2021. FINDINGS: Image quality: Excellent. Lungs and pleura: Small to moderate right pleural effusion is seen slightly decreased in size compare d to previous CT angiogram of chest study. No left-sided pleural effusion. No pneumothorax. Biapical scarring is seen. Moderate centrilobular emphysema is noted. No discrete pulmonary nodule or mass is seen in bilateral aerated lung draper. Central and peripheral airways are patent and normal in calibe r. Mediastinum: Heart size is normal. No pericardial effusion. No mediastinal or hilar adenopathy by size criteria. Thoracic aorta and central pulmonary arteries are normal in size. Esophagus is sully l in caliber. No hiatal hernia. Bones and chest wall: No suspicious bony lesions. No vertebral body compression fractures. No axil thad or supraclavicular adenopathy by size criteria. The thyroid is normal in size and there are no incidental findings.. Left chest wall Port-A-Cath tip is in SVC. Abdomen: Visualized upper abdominal solid organs appear normal. Upper abdominal bowel loops are nor mal in caliber. IMPRESSION: 1. Small to moderate right pleural effusion slightly decreased compared to previous study. No pulmona ry nodule or mass is seen in bilateral aerated lung draper on the current study. Moderate centrilobul ar emphysema and biapical scarring. Airway is patent. 2. No mediastinal or hilar lymphadenopathy by size criteria. CLINICAL RECOMMENDATION STATEMENTS: In patients <35 years with an ITN detected on CT, MRI, or extrathyroidal ultrasound, the Committee re commends further evaluation with dedicated thyroid ultrasound if the nodule is "e1 cm and has no susp icious imaging features, and if the patient has normal life expectancy. In patients "e35 years with an ITN detected on CT, MRI, or extrathyroidal ultrasound, the Committee r ecommends further evaluation with dedicated thyroid ultrasound if the nodule is "e1.5 cm and has no s uspicious imaging features, and if the patient has normal life expectancy. (ACR, 2014) Reviewed by: Estrada Colbert MD on 03/03/2021 4:53 PM PDT Approved by: Estrada Colbert MD on 03/03/2021 4:53 PM PDT Station ID: [id number]
--- NOTE | 2021-03-03 17:04 | CT Report ---
PROCEDURE: Abdomen/Pelvis W INDICATIONS: RT LUNG CA CONTRAST: IV CONTRAST: Optiray 320 ml: 100 PO CONTRAST: Optiray 320 ml50 TECHNIQUE: After the administration of IV and oral contrast, 5 mm thick sections acquired from the diaphragms to the symphysis. 5 mm thick coronal and sagittal reformats were acquired. For radiation dose reducti on, the following was used: automated exposure control, adjustment of mA and/or kV according to yazan ent size. COMPARISON: 10/16/2020, 03/28/2020 FINDINGS: Image quality: Excellent. ABDOMEN: Lung bases: Small to moderate right-sided pleural effusion is again seen. Heart size is normal. Solid organs: Liver is normal in size. There is interval development of at least 6 hypodense lesions in left and right hepatic lobe and measures up to 7.5 mm in size in left hepatic lobe series 4 image 20, 1 cm in size in posterior segment of right hepatic dome series 4 image 16 and 1 cm in size in mor e inferior aspect of posterior segment right hepatic lobe series 4 image 24. Gallbladder is surgically absent. Biliary system is non dilated. Spleen is normal in size and show normal enhancement. Atrophic appearing pancreas is again seen with multiple calcifications suggestive of chronic pancreatitis sequela.. No adrenal nodules. Kidneys demonstrate normal size and enhancem ent, without hydronephrosis. Peritoneum and bowel: There is no bowel obstruction or abnormal bowel wall thickening. Marked fecal s tasis in the colon is seen. No abscess collection. No free fluid of free air. Nodes and vessels: No retroperitoneal or mesenteric adenopathy by size criteria. Aorta and inferior vena cava are normal in size. Moderate atherosclerotic calcifications in the abdominal aorta and bi lateral iliac arteries are seen. Miscellaneous: No ventral hernias. PELVIS: Genitourinary: Bladder wall thickness is normal. Miscellaneous: No inguinal hernias or adenopathy. Bones: No suspicious bony lesions. No vertebral body compression fractures. IMPRESSION: 1. Interval development of multiple hypodense lesions scattered in the liver parenchyma and measures up to 1 cm in size concerning for early metastatic disease. Dedicated MRI of abdomen without and with contrast can be done for further indication of these areas. 2. No abdominal or pelvic lymphadenopathy by size criteria. 3. Significant constipation. No bowel obstruction or abnormal bowel wall thickening. No free fluid of free air. Reviewed by: Estrada Colbert MD on 03/03/2021 5:02 PM PDT Approved by: Estrada Colbert MD on 03/03/2021 5:02 PM PDT Station ID: [id number]
[2021-03-03] MEDS ORDERED: IOVERSOL 320 50 ML VIAL PO ONE (20:08)
== END 2021-03-03 14:44 | disposition home or self-care (01) ==
LOC: MAC.MOP 14:43
PROVIDERS: ATTEND Internal Medicine
DX: C34.91 Malignant neoplasm of unspecified part of right bronchus or lung (principal); J90 Pleural effusion, not elsewhere classified; J43.2 Centrilobular emphysema; R93.2 Abnormal findings on diagnostic imaging of liver and biliary tract; K59.00 Constipation, unspecified
CPT/HCPCS: 71260; 74177; Q9967

== ENCOUNTER 2021-03-05 10:44 | Outpatient (CLI) | payer MEDICAID ==
--- NOTE | 2021-03-05 17:17 | CONSULTATION NOTE ---
Palliative Care Follow Up - Referral Referring Provider: Eri Flores PA-C Time of Visit: 12:00 noon 60 minutes Referral setting: MAC Referral Reason: Medication adherence/FTT/Lung CA - Information Sources Records reviewed: RN notes reviewed, Previous records reviewed History/Review of Systems obtained from: Patient, Caregiver (Taya present) Exam limitations: Clinical condition (patient with STM issues/anxiety) - History of Present Illness Update Brief HPI Update: This is a 60-year-old woman who has adenocarcinoma the right lower lung, originally diagnosis T1 N1 M0 stage IIb. 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 She was also seen to have significant constipation. She has met with oncologist, who does not want to treat today, in the context of being able to get an urgent liver biopsy to drive further treatment decisions and staging. Patient has limited health literacy, complex social and mental health situation, and is visibly upset. She also is experiencing severe dysuria, she has ongoing incontinence of both bowel and bladder, but presents with most likely a urinary tract infection. She is afebrile at the time. Palliative care is trying to help patient navigate along with her paid caregivers for through [facility], her complex care needs, had made a home visit regarding medication adherence, will most likely need to do this several times before can feel confident patient is taking appropriate medications. She reports she is currently not having any hypoglycemic episodes, though unfortunately her current reader is not working well, but does not feel like she is chasing her blood sugars currently. We will continue to monitor. Patient at baseline has fairly high symptom burden with severe peripheral neuropathy, she does take gabapentin for this 3 times a day though this is not in her medication dispenser and patient takes "as needed" though admits to taking 3 times a day, but not always remembering if she is taking it or not. She is very anxious about losing her hair, does not have resources for wigs, was able to access her wig closet and she is thrilled regarding this. Patient also has a history of stage I left upper lobe cancer When he 20, where she received a VATS wedge resection, had been receiving ongoing yearly lung cancer screening until few years back to lack of a consistent caregiver missed multiple appointments. Patient does need assistance in navigating the medical system, her friend/[facility] provider Taya recently came back into the picture and has been helping her set up appointments and navigate, though she is not wanting to take responsibility in the context of patient's medical care but is willing to support her as best she can Past Medical History: Hypertension, high cholesterol, emphysema, lung cancer, MCI, type 2 diabetes, hypothyroidism, GERD, hiatal hernia, chronic diarrhea, chronic constipation, pancreatitis hepatitis cholelithiasis incontinence, nocturia, frequency, glaucoma, dental implants, depression, anxiety, bipolar disorder, osteoarthritis, osteoarthritis porosis, fatigue Past surgical history cholecystectomy, hiatal hernia repair, Port-A-Cath placement 02/14/2021, left rotator cuff repair, section, tonsillectomy/adenectomy Social History - Living Situation Living arrangement: At home Living Situation: Alone Support System: Patient lives in a home in a ector apartment, and is quite clean and well-kept. She is dependent on her caregivers for managing her schedule and navigating appointments, as well as medication reminders. She has support through [facility] for her psychiatric issues and they deliver her medications from [employer] service that she pays for. She is serviced by [facility], her case briefer is Layla, she does have 2 children 1 son in [place] who has said he does not want thing to do with her, and a daughter nearby but they too are estranged. Given the seriousness of her illness, I did receive encouragement both from myself and her [facility] caregiver to consider reaching out. I also offered to facilitate this conversation as well. Medications/Allergies - Medications Home Medications: Ambulatory Orders Medication Instructions Recorded Confirmed Simvastatin 20 mg PO DAILY 01/19/13 03/07/21 Topiramate 200 mg PO BID 03/23/16 03/07/21 lamoTRIgine [LaMICtal] 200 mg PO DAILY 09/06/17 03/07/21 Empagliflozin [Jardiance] 25 mg PO DAILY 10/09/20 03/07/21 Quetiapine Fumarate [Seroquel] 300 mg PO QPM 10/09/20 03/07/21 hydrOXYzine pamoate [Vistaril] 50 mg PO QPM 10/09/20 03/07/21 Sertraline HCl 150 mg PO DAILY 01/24/21 03/07/21 Insulin Glargine [Lantus Solostar] 15 units SQ BID 02/04/21 03/07/21 Insulin Lispro [Humalog] 0 - 4 unit SQ TID PRN MDD 24 units 02/04/21 03/07/21 Lidocaine/Prilocain 2.5% Cream 5 applic TOP UD #1 gm 02/11/21 03/07/21 [Emla 2.5% Cream] OLANZapine [Zyprexa] 5 mg PO UD #16 tablet 02/11/21 03/07/21 Ondansetron HCl [Zofran] 4 mg PO Q6HR PRN #30 tab 02/11/21 03/07/21 Acetaminophen [Acetaminophen Extra 1,000 mg PO TID PRN 02/20/21 03/07/21 Strength] Alendronate Sodium 35 mg PO .WEEKLY 02/20/21 03/07/21 Gabapentin [Neurontin] 600 mg PO TID MDD 1800 02/20/21 03/07/21 Levothyroxine Sodium 50 mcg PO DAILY 02/20/21 03/07/21 [Levothyroxine] Tiotropium [place] [Spiriva 2 puffs INH DAILY 02/20/21 03/07/21 Respimat] Ciprofloxacin HCl [Cipro] 500 mg PO BID MDD 7 days 03/07/21 03/07/21 Phenazopyridine HCl [Pyridium] 200 mg PO TID MDD 2 days 03/07/21 03/07/21 Senna [Senokot] 2 tab PO BID MDD 2 days or longer 03/07/21 03/07/21 if no good bm - Allergies Allergies/Adverse Reactions: Allergies Allergy/AdvReac Type Severity Reaction Status Date / Time hydromorphone HCl * Allergy Intermediate Edema Verified 02/19/21 10:50 [From Dilaudid] metformin Allergy Intermediate vomiting Verified 02/19/21 10:50 and diarrhea Penicillins Allergy Intermediate Rash Verified 02/19/21 10:50 Sulfa (Sulfonamide Allergy Intermediate Rash Verified 02/19/21 10:50 Antibiotics) carbamazepine [From Tegretol] Allergy Mild Rash Verified 02/19/21 10:50 amoxicillin [Amoxicillin] Allergy Rash Verified 02/19/21 10:50 Review of Systems - Constitutional Constitutional: reports: Fatigue (worsening), Weakness, Poor appetite, Weight loss (46.2; no further wt. loss today; working hard to keep calories) - Eyes Eyes: reports: Blurred vision, Vision loss - Ears, Nose & Throat Ears, Nose & Throat: reports: Hearing loss, Dry mouth - Cardiovascular Cardiovascular: reports: Exertional dyspnea, Decr. exercise tolerance - Respiratory Respiratory: reports: Cough, SOB with exertion. denies: SOB at rest - Gastrointestinal Gastrointestinal: reports: Constipation (CT scan shows "fecal stasis" reports alternating hard stool with watery; concern for impaction), Diarrhea, Bloating, Early satiety. denies: Nausea - Genitourinary Genitourinary: reports: Dysuria (last couple of days; UA foul smelling and cloudy; needs assistance to obtain AB; multiple allergies), Frequency, Incontinence - Musculoskeletal Musculoskeletal: reports: Muscle aches, Stiffness, Limited range of motion, Muscle weakness - Integumentary Integumentary: reports: Dryness, Hair changes (worried about losing her hair; limited resources for wigs etc.) - Neurological Neurological: reports: General weakness, Numbness (hands and fingers/ feet at baseline), Memory problems (anxiety and medication management makes it worse) - Psychiatric Psychiatric: reports: Depression, Anxiety - Endocrine Endocrine: reports: Diabetes type 2 (reports no further hypoglycemic episodes; still having problems with reading device), Hypothyroidism - Hematologic/Lymphatic Hematologic/Lymph: reports: Anemia (9.4), Recurrent infections (dx with UTI) - All Other Systems All Other Systems: reports: Other Physical Exam - Vital Signs Pulse Rate: 78 Respiratory Rate: 18 O2 Saturation: 99 (ra @ rest) Blood Pressure: 105/67 - Physical Exam General Appearance: positive: Alert, Anxious, Cachetic (temporal wasting; UE and LE muscle wasting) Eyes Bilateral: positive: Normal inspection ENT: positive: No signs of dehydration Neck: positive: Trachea midline Cardiovascular: positive: Regular rate & rhythm Respiratory: positive: Diminished throughout Abdomen: positive: Soft, Tenderness (lower abd over pubic area). negative: Mass Skin: positive: Dryness Extremities: positive: No pedal edema, Other (gait slightly ataxic) Neurologic/Psychiatric: positive: Disoriented to time, Depressed mood/affect, Flat affect, Other (high anxiety/stress with oncology news of possible Stage IV dx) Palliative Care - POLST Patient has POLST: No POLST Status: Full Code Pain: Pain unchanged, Pain worsening (dysuria), Location (peripheral neuropathy of hands/feet uses gabapentin 600 mg TID as PRN; unclear amount taking daily not in medisets) Tiredness/Fatigue: Moderate (4-6) Drowsiness/Sedation: Mild (1-3) Nausea: None Anorexia: Moderate (4-6) Dyspnea: Moderate (4-6) Depression: Moderate (4-6) Anxiety: Severe (7-10) Feelings of wellbeing/Perceived Quality of Life: Fair, Worsening Sleep: Variable sleep pattern Constipation: Yes, Unmanaged Performance Status: Patient is limited in her activity tolerance, can walk short distances but needs frequent rest because of her dyspnea. She does need standby assistance and oversight for bathing but also with mental health issues, needs reminding of the pills, eating, and cueing for most household tasks and follow-through. - Palliative Care Discussion: Patient is visibly upset, worried about not being will get treatment, and she ma y be worse than she thought. She "does not want to ", is feeling quite overwhelmed. Did initiate conversation I was worried that we needed a family member to know what is going on, at this point in time she wants to wait until there is more clarity or things that we know for sure. She is worried about being "blown off". she will consider this. Patient is at high risk for complications given her frailty, complex social situation and memory/mental illness, as well as difficulties with medication adherence and health literacy. Results - Lab Results Lab results reviewed: Yes Impression and Recommendations - Palliative Care Impression: This is a 60-year-old woman with right lower lobe large cell neuro endocrine cancer, now with restaging scans 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 She is pending urgent liver biopsy, for further staging and definition for treatment plan. Patient continues to present with failure to thrive, malignant cachexia, poorly controlled diabetes, constipation, UTI, and complex mental health and social situation. Palliative care continue provide support to assist with medication adherence, coordination of care, and help her navigate her treatment plan. We will continue to follow the patient on a weekly basis until more stable. Recommendations/Counseling Done: 1. Diabetes type 2. Patient reports no further hypoglycemic episodes with decrease of Lantus to 15 units twice daily, has not needed a significant mount of sliding scale. Unfortunately her monitor is not working today, but does feel like she has been in better range. She reports she is following the directions that are on the wall above the bookcase that we had put out at her home visit with the new changes from her oracle application architect. 2. Medication adherence. This will be continued to be a challenge, now we need to add medications, unfortunately Marivel was sent levothyroxine and Acetaminophen to the home as instructed, but patient did not understand what the medications were for. She has been taking the levothyroxine from Wednesday to , they were to initiate in her packets. Will need to oversee if this is correct with home visit next week. Patient now with UTI, caregiver reports she can pick this up after I get initial results. 3. Anxiety. Patient has long-term bipolar disorder, complex social situation, and fluctuating anxiety. She is feeling quite overwhelmed with the findings from her scans and interactions with the oncologist. She is trying to process to come to some understanding of her current condition, though at this point in time we have limited information until the liver biopsy. Reassured that I will see her on a regular basis. 4. Lung cancer. Patient's treatment will be held today, patient is quite anxious regarding her hair is falling out. We were able to locate a wig that she likes, as well as a couple hats. This really lifted her spirits. She does understand that she will not be getting treatment today, pending outcome of her liver biopsy. She is quite frustrated with this, as the last time she got treated and she was "okay". 5. Peripheral neuropathy. Patient does have very significant peripheral neuropathy at baseline both with pain and numbness, will need to continue to watch with concern for worsening with side effects of treatment. Patient is taking gabapentin with good results, but as needed, will continue to try and monitor. 6. Advanced care planning. Left Layla another follow-up regarding her [facility] program patient is in need of increased support particular around medication adherence support for meals, transportation and follow-up given her declining functional status and increasing symptom burden. Did approach patient again regarding concerns for need for DPOA, offered to bridge relationship to daughter to help engage in current situation. She would like to wait for outcome of final treatment plan. 7. UTI. Patient's initial urine did come back at greater than 100,000, we will go ahead and treat patient with multiple allergies and suppressed immune system will initiate Cipro 500 mg twice daily, caregiver will brain picker today. Patient also complaining of severe dysuria and pain, did order Pyridium 200 mg 3 times daily for 2 days, this will be available tomorrow. 60 minutes review of scans, labs, follow-up with oncology regarding treatment plan and concerns, [id number] with patient and caregiver counseling for symptom management, coordination of care regarding infection and UTI, follow-up on antibiotics and patient medication adherence.
== END 2021-03-05 10:45 | disposition home or self-care (01) ==
LOC: PC 10:44
PROVIDERS: ATTEND Nurse Practitioner Adult Health
DX: Z51.5 Encounter for palliative care (principal); C34.31 Malignant neoplasm of lower lobe, right bronchus or lung; C7A.1 Malignant poorly differentiated neuroendocrine tumors; K76.9 Liver disease, unspecified; E11.42 Type 2 diabetes mellitus with diabetic polyneuropathy; N39.0 Urinary tract infection, site not specified; K59.00 Constipation, unspecified; R62.7 Adult failure to thrive; F41.9 Anxiety disorder, unspecified; F31.9 Bipolar disorder, unspecified; Z91.14 Patient's other noncompliance with medication regimen
CPT/HCPCS: 99215

== ENCOUNTER 2021-03-10 21:59 | Outpatient (CLI) | payer MEDICAID | END 2021-03-10 22:00 | disposition critical access hospital (66) | LOC: EMS 21:59 | DX: R55 Syncope and collapse (principal) | CPT/HCPCS: A0425; A0427; A0999 ==

== ENCOUNTER 2021-03-10 22:15 | Observation (INO) | payer MEDICAID ==
--- NOTE | 2021-03-10 22:33 | ED Physician Documentation ---
PD HPI FOCAL NEURO - Stated complaint Stated Complaint: STROKE SYMPTOMS - Chief complaint Chief Complaint: Neuro - History obtained from History obtained from: Patient, EMS - History of Present Illness Timing - onset: Other (no definitive time of onset (see narrative below)) Time of symptom onset unknown: Time of onset unknown Severity of deficit: Moderate Weakness: Other (generalized) Associated symptoms: Headache. No: Nausea / vomiting, Syncope, Fall, Head injury, Chest pain, Fever Contributing factors: negative: Anticoagulated Baseline status: positive: A&OX3, ambulatory, indep - Additional information Additional information: BIBA. Per EMS report: patient lives alone, passerby noticed patient's door was open, went to check on patient and found her on floor unresponsive and thus called 911. EMS arrived to find patient on floor of her apartment but responded immediately to verbal. EMS notes slurred speech which persists during transport and is still present on ED arrival. EMS notes hypotension with systolic blood pressure 60s, increased to 70s and then 80s during transport as she is given IV fluids (total of 700cc infused en route, NS). FSBS was 68 for EMS, given 1 amp D50, recheck 299. Per patient: she initially tells me she last felt at her baseline last night, but then tells me she recalls cooking steak today at approximately 3 PM. She says she then went to use the bathroom. She says she then heard the smoke alarm going off because she "forgot" (per patient) that the steak was still cooking. She then found that she was too weak too ambulate and thus lay down on the floor. She eventually heard someone knocking on her door but she was too weak to stand. She says this was at approximately 9:40 PM Review of Systems Constitutional: reports: Fatigue. denies: Fever, Chills, Sweats Eyes: reports: Reviewed and negative Ears: reports: Reviewed and negative Nose: reports: Reviewed and negative Throat: reports: Reviewed and negative Cardiac: reports: Reviewed and negative Respiratory: reports: Dyspnea (chronic (not new)) GI: reports: Constipation. denies: Abdominal Pain, Nausea, Vomiting, Diarrhea : reports: Dysuria Musculoskeletal: denies: Neck pain Neurologic: reports: Generalized weakness, Headache. denies: Focal weakness, Numbness, Head injury Endocrine: denies: Polydypsia, Polyuria, Polyphagia PD PAST MEDICAL HISTORY - Past Medical History Cardiovascular: Hypertension, High cholesterol Respiratory: Emphysema, Shortness of breath Endocrine/Autoimmune: Type 2 diabetes, HyPOthyroidism GI: GERD, Hiatal hernia, Chronic diarrhea, Chronic constipation, Pancreatitis, Hepatitis, Cholelithiasis : Incontinence, Nocturia, Frequency HEENT: Glaucoma, Dental implants, Other Psych: Depression, Anxiety, Bipolar disorder Musculoskeletal: Osteoarthritis Derm: None - Past Surgical History Past Surgical History: Yes General: Cholecystectomy, Hiatal hernia repair Ortho: Other (left rotator cuff) /BR[employer]IP[employer]: section Cardiovascular:  HEENT: Tonsil/Adenoidectomy - Present Medications Home Medications: Ambulatory Orders Medication Instructions Recorded Confirmed Simvastatin 20 mg PO DAILY 01/19/13 03/10/21 Topiramate 200 mg PO BID 03/23/16 03/10/21 lamoTRIgine [LaMICtal] 200 mg PO DAILY 09/06/17 03/10/21 Empagliflozin [Jardiance] 25 mg PO DAILY 10/09/20 03/10/21 Quetiapine Fumarate [Seroquel] 300 mg PO QPM 10/09/20 03/10/21 hydrOXYzine pamoate [Vistaril] 50 mg PO QPM 10/09/20 03/10/21 Sertraline HCl 150 mg PO DAILY 01/24/21 03/10/21 Insulin Glargine [Lantus Solostar] 15 units SQ BID 02/04/21 03/10/21 Insulin Lispro [Humalog] 0 - 4 unit SQ TID PRN MDD 24 units 02/04/21 03/10/21 Lidocaine/Prilocain 2.5% Cream 5 applic TOP UD #1 gm 02/11/21 03/10/21 [Emla 2.5% Cream] OLANZapine [Zyprexa] 5 mg PO UD #16 tablet 02/11/21 03/10/21 Ondansetron HCl [Zofran] 4 mg PO Q6HR PRN #30 tab 02/11/21 03/10/21 Acetaminophen [Acetaminophen Extra 1,000 mg PO TID PRN 02/20/21 03/10/21 Strength] Alendronate Sodium 35 mg PO .WEEKLY 02/20/21 03/10/21 Gabapentin [Neurontin] 600 mg PO TID MDD 1800 02/20/21 03/10/21 Levothyroxine Sodium 50 mcg PO DAILY 02/20/21 03/10/21 [Levothyroxine] Tiotropium [place] [Spiriva 2 puffs INH DAILY 02/20/21 03/10/21 Respimat] Ciprofloxacin HCl [Cipro] 500 mg PO BID MDD 7 days 03/07/21 03/07/21 Phenazopyridine HCl [Pyridium] 200 mg PO TID MDD 2 days 03/07/21 03/07/21 Senna [Senokot] 2 tab PO BID MDD 2 days or longer 03/07/21 03/10/21 if no good bm - Allergies Allergies/Adverse Reactions: Allergies Allergy/AdvReac Type Severity Reaction Status Date / Time hydromorphone HCl * Allergy Intermediate Edema Verified 03/10/21 22:20 [From Dilaudid] metformin Allergy Intermediate vomiting Verified 03/10/21 22:20 and diarrhea Penicillins Allergy Intermediate Rash Verified 03/10/21 22:20 Sulfa (Sulfonamide Allergy Intermediate Rash Verified 03/10/21 22:20 Antibiotics) carbamazepine [From Tegretol] Allergy Mild Rash Verified 03/10/21 22:20 amoxicillin [Amoxicillin] Allergy Rash Verified 03/10/21 22:20 - Social History Does the pt smoke?: Yes Smoking Status: Current every day smoker Does the pt drink ETOH?: No Does the pt have substance abuse?: No - Immunizations Immunizations are current?: Yes - POLST Patient has POLST: No PD ED PE NORMAL - Vitals Vital signs reviewed: Yes - General General: Alert and oriented X 3, No acute distress, Well developed/nourished - HEENT HEENT: Atraumatic, PERRL, EOMI, Moist mucous membranes - Neck Neck: Supple, no meningeal sign - Cardiac Cardiac: RRR, No murmur, No gallop, No rub - Respiratory Respiratory: No respiratory distress, Clear bilaterally - Abdomen Abdomen: Soft, Non tender - Derm Derm: Normal color, Warm and dry - Extremities Extremities: No edema - Neuro Neuro: Alert and oriented X 3, gallery or museum guide 2-12 intact, No motor deficit, No sensory deficit, Other (slurred speech) Eye Opening: Spontaneous Motor: Obeys Commands Verbal: Oriented GCS Score: 15 NIHSS - Level of Consciousness Level of consciousness: (0) Alert, Keenly responsive LOC Questions: (0) Answers both Q's correct LOC Commands: (0) Performs both correctly - Gaze Best Gaze: (0) Normal - Visual Visual: (0) No loss - Facial Palsy Facial Palsy: (0) Normal, symmetrical movement - Motor Arms (both separate) Motor Arm (right): (0) No drift Motor Arm (left): (0) No drift - Motor Legs (both separate) Motor Leg (right): (0) No drift Motor Leg (left): (0) No drift - Limb Ataxia Limb Ataxia: (0) Absent - Sensory Sensory: (0) Normal - Best Language Best Language: (0) No aphasia - Dysarthria Dysarthria: (1) [id number] dysarthria - Extinction and Inattention (formally neg Extinction and inattention: (0) No abnormality - Total Score/Results Total Score/Result: 1 Results - Vitals Vitals: Vital Signs - 24 hr 03/10/21 03/10/21 03/10/21 22:20 22:22 22:52 Temperature 36.4 C L 36.5 C Heart Rate 77 77 79 Heart Rate [ Sitting] Heart Rate [ Standing] Heart Rate [ Supine] Respiratory 18 18 20 Rate Blood Pressure 85/55 L 85/55 L 95/63 Blood Pressure [Sitting] Blood Pressure [Standing] Blood Pressure [Supine] O2 Saturation 100 100 100 03/10/21 03/10/21 03/11/21 23:22 23:30 00:23 Temperature Heart Rate 76 75 74 Heart Rate [ Sitting] Heart Rate [ Standing] Heart Rate [ Supine] Respiratory 20 16 17 Rate Blood Pressure 90/60 90/59 L 92/61 Blood Pressure [Sitting] Blood Pressure [Standing] Blood Pressure [Supine] O2 Saturation 100 100 100 03/11/21 03/11/21 03/11/21 01:07 01:37 01:38 Temperature Heart Rate 73 80 Heart Rate [ 77 Sitting] Heart Rate [ 79 Standing] Heart Rate [ 75 Supine] Respiratory 20 22 Rate Blood Pressure 93/57 L 106/58 L Blood Pressure 100/56 L [Sitting] Blood Pressure 91/56 L [Standing] Blood Pressure 93/57 L [Supine] O2 Saturation 100 100 03/11/21 03/11/21 03/11/21 02:00 02:30 03:00 Temperature Heart Rate 79 70 74 Heart Rate [ Sitting] Heart Rate [ Standing] Heart Rate [ Supine] Respiratory 19 16 15 Rate Blood Pressure 102/60 109/69 93/67 Blood Pressure [Sitting] Blood Pressure [Standing] Blood Pressure [Supine] O2 Saturation 100 97 99 Oxygen O2 Source Room air - EKG (time done) No standard instances Rate: Rate (enter#) (76) Rhythm: NSR [place]: Normal Intervals: Normal [place] QRS: Normal Ischemia: Normal ST segments - Labs Labs: Laboratory Tests 03/10/21 03/10/21 03/10/21 22:50 22:50 22:50 WBC 6.2 RBC 2.64 L Hgb 8.5 L Hct 26.4 L MCV 100.0 H MCH 32.2 H MCHC 32.2 RDW 15.4 H Plt Count 102 L MPV 8.7 Neut # (Auto) 4.6 Lymph # (Auto) 0.[address] [place] # (Auto) 0.6 Eos # (Auto) 0.1 Baso # (Auto) 0.0 Absolute Nucleated RBC 0.00 Nucleated RBC % 0.0 PT INR APTT Sodium Potassium Chloride Carbon Dioxide Anion Gap BUN Creatinine Estimated GFR (MDRD) Glucose Lactic Acid Calcium Total Bilirubin AST ALT Alkaline Phosphatase Troponin I High Sens 3.3 Total Protein Albumin Globulin Albumin/Globulin Ratio Lipase TSH 2.32 Urine Color Urine Clarity Urine pH Ur Specific [place] Urine Protein Urine Glucose (UA) Urine Ketones Urine Occult Blood Urine Nitrite Urine Bilirubin Urine Urobilinogen Ur Leukocyte Esterase Urine RBC Urine WBC Ur Squamous Epith Cells Urine Bacteria Ur Microscopic Review Urine Culture Comments Nasal Adenovirus (PCR) Nasal B. parapertussis DNA (PCR) Nasal Coronavir 229E PCR Nasal Coronavir HKU1 PCR Nasal Coronavir NL63 PCR Nasal Coronavir OC43 PCR Nasal Enterovir/Rhinovir PCR Nasal Influenza B PCR Nasal Influenza A PCR Nasal Parainfluen 1 PCR Nasal Parainfluen 2 PCR Nasal Parainfluen 3 PCR Nasal Parainfluen 4 PCR Nasal RSV (PCR) Nasal B.pertussis DNA PCR Nasal C.pneumoniae (PCR) [place] Human Metapneumo PCR Nasal M.pneumoniae (PCR) Nasal SARS-CoV-2 (PCR) Urine Opiates Screen Ur Oxycodone Screen Urine Methadone Screen Ur Propoxyphene Screen Ur Barbiturates Screen Ur Tricyclics Screen Ur Phencyclidine Scrn Ur Amphetamine Screen U Methamphetamines Scrn U Benzodiazepines Scrn Urine Cocaine Screen U Cannabinoids Screen 1003/10/21 03/10/21 23:15 23:39 23:39 WBC RBC Hgb Hct MCV MCH MCHC RDW Plt Count MPV Neut # (Auto) Lymph # (Auto) [place] # (Auto) Eos # (Auto) Baso # (Auto) Absolute Nucleated RBC Nucleated RBC % PT 12.4 INR 1.1 APTT 30.8 Sodium Potassium Chloride Carbon Dioxide Anion Gap BUN Creatinine Estimated GFR (MDRD) Glucose Lactic Acid 0.6 Calcium Total Bilirubin AST ALT Alkaline Phosphatase Troponin I High Sens Total Protein Albumin Globulin Albumin/Globulin Ratio Lipase TSH Urine Color Urine Clarity Urine pH Ur Specific [place] Urine Protein Urine Glucose (UA) Urine Ketones Urine Occult Blood Urine Nitrite Urine Bilirubin Urine Urobilinogen Ur Leukocyte Esterase Urine RBC Urine WBC Ur Squamous Epith Cells Urine Bacteria Ur Microscopic Review Urine Culture Comments Nasal Adenovirus (PCR) NOT DETECTED Nasal B. parapertussis DNA (PCR) NOT DETECTED Nasal Coronavir 229E PCR NOT DETECTED Nasal Coronavir HKU1 PCR NOT DETECTED Nasal Coronavir NL63 PCR NOT DETECTED Nasal Coronavir OC43 PCR NOT DETECTED Nasal Enterovir/Rhinovir PCR NOT DETECTED Nasal Influenza B PCR NOT DETECTED Nasal Influenza A PCR NOT DETECTED Nasal Parainfluen 1 PCR NOT DETECTED Nasal Parainfluen 2 PCR NOT DETECTED Nasal Parainfluen 3 PCR NOT DETECTED Nasal Parainfluen 4 PCR NOT DETECTED Nasal RSV (PCR) NOT DETECTED Nasal B.pertussis DNA PCR NOT DETECTED Nasal C.pneumoniae (PCR) NOT DETECTED [place] Human Metapneumo PCR NOT DETECTED Nasal M.pneumoniae (PCR) NOT DETECTED Nasal SARS-CoV-2 (PCR) NOT DETECTED Urine Opiates Screen Ur Oxycodone Screen Urine Methadone Screen Ur Propoxyphene Screen Ur Barbiturates Screen Ur Tricyclics Screen Ur Phencyclidine Scrn Ur Amphetamine Screen U Methamphetamines Scrn U Benzodiazepines Scrn Urine Cocaine Screen U Cannabinoids Screen 03/10/21 03/11/21 23:40 01:56 WBC RBC Hgb Hct MCV MCH MCHC RDW Plt Count MPV Neut # (Auto) Lymph # (Auto) [place] # (Auto) Eos # (Auto) Baso # (Auto) Absolute Nucleated RBC Nucleated RBC % PT INR APTT Sodium 140 Potassium 3.8 Chloride 108 Carbon Dioxide 21 Anion Gap 11.0 BUN 29 H Creatinine 1.2 H Estimated GFR (MDRD) 46 L Glucose 107 H Lactic Acid Calcium 8.3 L Total Bilirubin 0.6 AST 18 ALT 19 Alkaline Phosphatase 61 Troponin I High Sens Total Protein 6.5 L Albumin 3.8 Globulin 2.7 Albumin/Globulin Ratio 1.4 Lipase 24 TSH Urine Color YELLOW Urine Clarity CLEAR Urine pH 6.0 Ur Specific [place] 1.010 Urine Protein NEGATIVE Urine Glucose (UA) 500 H Urine Ketones NEGATIVE Urine Occult Blood NEGATIVE Urine Nitrite POSITIVE H Urine Bilirubin NEGATIVE Urine Urobilinogen 0.2 (NORMAL) Ur Leukocyte Esterase NEGATIVE Urine RBC None Seen Urine WBC 0-3 Ur Squamous Epith Cells RARE Squamous Urine Bacteria None Seen Ur Microscopic Review INDICATED Urine Culture Comments INDICATED Nasal Adenovirus (PCR) Nasal B. parapertussis DNA (PCR) Nasal Coronavir 229E PCR Nasal Coronavir HKU1 PCR Nasal Coronavir NL63 PCR Nasal Coronavir OC43 PCR Nasal Enterovir/Rhinovir PCR Nasal Influenza B PCR Nasal Influenza A PCR Nasal Parainfluen 1 PCR Nasal Parainfluen 2 PCR Nasal Parainfluen 3 PCR Nasal Parainfluen 4 PCR Nasal RSV (PCR) Nasal B.pertussis DNA PCR Nasal C.pneumoniae (PCR) [place] Human Metapneumo PCR Nasal M.pneumoniae (PCR) Nasal SARS-CoV-2 (PCR) Urine Opiates Screen NEGATIVE Ur Oxycodone Screen NEGATIVE Urine Methadone Screen NEGATIVE Ur Propoxyphene Screen NEGATIVE Ur Barbiturates Screen NEGATIVE Ur Tricyclics Screen POSITIVE H Ur Phencyclidine Scrn NEGATIVE Ur Amphetamine Screen NEGATIVE U Methamphetamines Scrn NEGATIVE U Benzodiazepines Scrn NEGATIVE Urine Cocaine Screen NEGATIVE U Cannabinoids Screen POSITIVE H - Rads (name of study) CT head Radiology: Prelim report reviewed, See rad report CTA head Radiology: Prelim report reviewed, See rad report CTA neck Radiology: Prelim report reviewed, See rad report chest xray Radiology: Prelim report reviewed, See rad report PD MEDICAL DECISION MAKING - ED course Complexity details: reviewed old records, reviewed results, re-evaluated patient, considered differential, d/w patient ED course: chief complaint of generalized weakness and found to be hypotensive by EMS and with new-onset of slurred speech. She has no other focal neurologic complaints nor findings on exam. Her blood pressure improved with IV fluids although even late in ED stay her systolic blood pressure readings were lower/mid 90s with some readings in 100s. CTH, CTA head, and CTA neck do not demonstrate emergent findings. I discussed the case with Dr. Young, neurology valuation consultant for telestroke; Dr. Young recommends NOT giving tPA due to lack of clear time of onset, also considering lack of findings on CTH/CTA head/CTA neck and HPI not strongly suggestive of CVA. D/W Dr. Granados, will admit to [facility] for observation and likely MRI later today. - Consults Consults: Consulted (name) (Dr. Young) - TPA CVA checklist Inclusion crititeria: positive: Sig neuro deficit, CT no bleed. negative: Onset know < 4.5 hr Relative contraindications: positive: Too mild Absolute contraindications if 3-4.5 hr: negative: Coumadin (any INR), Age > 80, Combo prior CVA & DM Departure - Departure Disposition: ED Place in Observation Clinical Impression: Slurred speech Hypotension Qualifiers: Hypotension type: unspecified hypotension type Qualified Code(s): I95.9 - Hypotension, unspecified Condition: Stable Discharge Date/Time: 03/11/21 03:30
[2021-03-10] MEDS ORDERED: SODIUM CHLORIDE 0.9% 1,000 ML IV STA (22:36)
[2021-03-10 23:22] LABS: BASOPHILS % (AUTO) 0.6 %; EOSINOPHILS # (AUTO) 0.1 10^3/uL (0.0-0.7); EOSINOPHILS % (AUTO) 1.1 %; HCT - HEMATOCRIT 26.4 % (37.0-47.0); HGB - HEMOGLOBIN 8.5 g/dL (12.0-16.0); LYMPHOCYTES # (AUTO) 0.8 10^3/uL (1.5-3.5); LYMPHOCYTES % (AUTO) 13.3 %; MEAN CORPUSCULAR HEMOGLOBIN 32.2 pg (27.0-31.0); MEAN CORPUSCULAR HGB CONC 32.2 g/dL (32.0-36.0); MEAN PLATELET VOLUME 8.7 fL (7.9-10.8); MONOCYTES # (AUTO) 0.6 10^3/uL (0.0-1.0); MONOCYTES % (AUTO) 10.3 %; NEUTROPHILS # (AUTO) 4.6 10^3/uL (1.5-6.6); NEUTROPHILS % (AUTO) 74.4 %; PLT - PLATELET COUNT 102 10^3/uL (130-450); RED BLOOD COUNT 2.64 10^6/uL (4.20-5.40); RED CELL DISTRIBUTION WIDTH 15.4 % (12.0-15.0); WHITE BLOOD COUNT 6.2 x10^3/uL (4.8-10.8)
[2021-03-11 00:02] LABS: INR 1.1 (0.8-1.2); PT - PROTHROMBIN TIME 12.4 secs (9.9-12.6)
[2021-03-11 00:08] LABS: ALBUMIN 3.8 g/dL (3.2-5.5); ALBUMIN/GLOBULIN RATIO 1.4 (1.0-2.2); BILIRUBIN,TOTAL 0.6 mg/dL (0.2-1.0); CALCIUM 8.3 mg/dL (8.5-10.3); CREATININE 1.2 mg/dL (0.4-1.0); POTASSIUM 3.8 mmol/L (3.5-5.0); TOTAL PROTEIN 6.5 g/dL (6.7-8.2)
--- NOTE | 2021-03-11 00:09 | CT Report ---
PROCEDURE: Head W/O Stroke Protocol INDICATIONS: slurred speech TECHNIQUE: Noncontrast 4.5 mm thick angled axial sections acquired from the foramen magnum to the vertex, with c oronal reformats. For radiation dose reduction, the following was used: automated exposure control, adjustment of mA and/or kV according to patient size. COMPARISON: None. FINDINGS: Image quality: Excellent. CSF spaces: Basal cisterns are patent. There is a arachnoid cyst versus related foramen magnum. [place] tricles are normal in size and shape. Brain: No midline shift. No intracranial masses or hemorrhage. Mild cerebral volume loss and perive ntricular white matter chronic small vessel ischemic changes. Skull and face: Calvarium and visualized facial bones are intact, without suspicious lesions. Sinuses: Visualized sinuses and mastoids are clear. IMPRESSION: 1. No acute intracranial abnormalities. This study fulfills neurological imaging criteria for inclusion or exclusion of acute stroke therapie s based on available published neurological imaging guidelines. Reviewed by: Eunice Paige MD on 03/11/2021 12:07 AM PDT Approved by: Eunice Paige MD on 03/11/2021 12:07 AM PDT Station ID: [id number]
[2021-03-11 00:10] LABS: PARTIAL THROMBOPLASTIN TIME 30.8 secs (24.9-33.3)
--- NOTE | 2021-03-11 00:13 | XRAY Report ---
PROCEDURE: Chest 1 View X-Ray INDICATIONS: slurred speech,hypotension TECHNIQUE: One view of the chest was acquired. COMPARISON: Chest x-ray one view, 02/14/2021. Chest CT with contrast, 03/03/2021. FINDINGS: Surgical changes and devices: There is a Port-A-Cath on the left with the tip in the area of SVC. Lungs and pleura: Moderate right pleural effusion and right basilar atelectasis, unchanged from the last exam. No pneumothorax. Mediastinum: Mediastinal contours appear normal. Heart size is normal. Bones and chest wall: No suspicious bony lesions. Overlying soft tissues appear unremarkable. Ther e is artifact over the left shoulder. IMPRESSION: 1. Moderate right pleural effusion and right basilar atelectasis, unchanged from the last exam. Reviewed by: Eunice Paige MD on 03/11/2021 12:12 AM PDT Approved by: Eunice Paige MD on 03/11/2021 12:12 AM PDT Station ID: [id number]
[2021-03-11 00:21] LABS: B. PARAPERTUSSIS- RESP PCR PAN NOT DETECTED; B. PERTUSSIS- RESP PCR PANEL NOT DETECTED; C. PNEUMONIAE- RESP PCR PANEL NOT DETECTED; CORONAVIRUS 229E-RESP PCR NOT DETECTED; CORONAVIRUS HKU1-RESP PCR NOT DETECTED; CORONAVIRUS NL63-RESP PCR NOT DETECTED; CORONAVIRUS OC43-RESP PCR NOT DETECTED; HUMAN METAPNEUMOVIRUS NOT DETECTED; INFLUENZA A- RESP PCR PANEL NOT DETECTED; INFLUENZA B - RESP PCR PANEL NOT DETECTED; M. PNEUMONIAE- RESP PCR PANEL NOT DETECTED; PARAINFLUENZA VIRUS 1 NOT DETECTED; PARAINFLUENZA VIRUS 2 NOT DETECTED; PARAINFLUENZA VIRUS 3 NOT DETECTED; PARAINFLUENZA VIRUS 4 NOT DETECTED; RHINOVIRUS/ENTEROVIRUS NOT DETECTED; RSV- RESP PCR PANEL NOT DETECTED; SARS-CoV-2 -RESP PCR PANEL NOT DETECTED
[2021-03-11] MEDS ORDERED: IOVERSOL 320 100 ML VIAL IVP ONE ×2 (00:27→00:32)
[2021-03-11 02:01] LABS: MUDS CUTOFF CONCENTRATIONS CUTOFF CONC BELOW:
[2021-03-11 02:03] LABS: BILIRUBIN,URINE NEGATIVE (NEGATIVE); GLUCOSE, URINE (UA) 500 mg/dL (NEGATIVE); KETONES,URINE (UA) NEGATIVE (NEGATIVE); LEUKOCYTE ESTERASE, URINE NEGATIVE (NEGATIVE); NITRITE,URINE POSITIVE (NEGATIVE); OCCULT BLOOD,URINE NEGATIVE (NEGATIVE); PROTEIN,URINE NEGATIVE (NEGATIVE); UROBILINOGEN,URINE 0.2 (NORMAL) E.U./dL (NORMAL)
[2021-03-11 02:09] LABS: BACTERIA,URINE None Seen /HPF (None Seen); CLARITY,URINE CLEAR (CLEAR); RBC,URINE None Seen /HPF (0-5); SQUAMOUS EPITHELIAL CELL,UR RARE Squamous (<= Few); WBC,URINE 0-3 /HPF (0-5)
[2021-03-11 02:13] LABS: AMPHETAMINE SCREEN,URINE NEGATIVE (NEGATIVE); BARBITURATE SCREEN,UR NEGATIVE (NEGATIVE); BENZODIAZEPINES SCREEN, URINE NEGATIVE (NEGATIVE); COCAINE SCREEN URINE NEGATIVE (NEGATIVE); METHADONE SCREEN, URINE NEGATIVE (NEGATIVE); METHAMPHETAMINES SCREEN, URINE NEGATIVE (NEGATIVE); OPIATE SCREEN, URINE NEGATIVE (NEGATIVE); OXYCODONE SCREEN, URINE NEGATIVE (NEGATIVE); PROPOXYPHENE SCREEN, URINE NEGATIVE (NEGATIVE); THC CANNABINOID SCREEN, URINE POSITIVE (NEGATIVE); TRICYCLIC ANTIDEPRESSANT,URINE POSITIVE (NEGATIVE)
[2021-03-11] MEDS ORDERED: SODIUM CHLORIDE 0.9% 1,000 ML IV STA (02:30)
[2021-03-11] MEDS ORDERED: SODIUM CHLORIDE FLUSH 0.9% 10 ML SYRINGE IVP PRN (03:11)
[2021-03-11] MEDS ORDERED: ACETAMINOPHEN 500 MG TABLET PO PRN (03:14)
--- NOTE | 2021-03-11 03:30 | HISTORY & PHYSICAL EXAMINATION ---
Chief Complaint - Chief Complaint Chief Complaint: Found down in her aprtment, brought in by ambulance History of Present Illness - Admitted From Admitted From:: ED - History Obtained From History obtained from: ED provider and the patient - History of Present Illness HPI Comment/Other: This is a 60-year-old white female with history of adenocarcinoma of the right lung undergoing chemotherapy. She is also undergoing evaluation for possible metastasis since liver masses have been found. She is followed by a palliative care provider Sarah Tinsley NP and Dr Breezy Mayes in the [facility]. The patient also has a prior history of left-upper lung cancer for which she had a wedge resection. She has a history of diabetes on insulin, severe peripheral neuropathy on gabapentin 3 times daily, bipolar disorder on several medications, anxiety, hypertension, COPD, hypothyroidism, GERD, chronic constipation, prior pancreatitis and hepatitis, urinary incontinence and currently has a UTI. The patient lives alone (she is estranged from 2 children). Today passerslakshmi found the door to her apartment opened and saw her on the ground and they called 911. Ambulance personnel arrived and found her on the floor however when they spoke to her she was able to answer. Initial blood pressure was 60 systolic and glucose was 62. The patient is able to report some of the history to the ED provider: Per patient: she last rem,embers being at her baseline last night, but then says she recalls cooking steak at approximately 3 PM. She says she then went to use the bathroom. She says she then heard the smoke alarm going off because she "forgot" that the steak was still cooking. She then found that she was too weak too ambulate and thus lay down on the floor. She eventually heard someone knocking on her door but she was too weak to stand. She says this was at approximately 9:40 PM. In the ED she had no focal neurologic signs except had slurred speech. Blood pressure was 70 systolic. She received 700 cc of saline by ambulance and another 1 L in the ED. Her blood pressure is currently 112 systolic and her speech has normalized per, Dr. Ryan, who is seeing her as I am with her in the ED. Patient denies any pain but complains of full bladder. She says this is never happened to her before but she gets dizziness and remembers being dizzy let this last evening. Apparently,because of frequent dizziness she has a medic medic alert button on a necklace around her neck, which she did not use. Labs done in the ED show mildly elevated BUN and creatinine consistent with prer enal azotemia. Her head CT was negative. Her head and neck CTA was also negative. Her tox screen was positive for tricyclics and marijuana. The patient is being placed in Observation status to evaluate for causes of syncope, hypoglycemia versus a possible TIA. In review of her record, she had a consult done by FOOD PREPARATION KITCHEN AIDE Sarah Tinsley on 03/06/2021, and they had discussion about "not having low glucoses on the lower dose of insulin". History - Past Medical History Cardiovascular: reports: Hypertension, High cholesterol Respiratory: reports: Emphysema, Shortness of breath Endocrine/Autoimmune: reports: Type 2 diabetes, HyPOthyroidism GI: reports: GERD, Hiatal hernia, Chronic diarrhea, Chronic constipation, Pancreatitis, Hepatitis, Cholelithiasis : reports: Incontinence, Nocturia, Frequency HEENT: reports: Glaucoma, Dental implants, Other Psych: reports: Depression, Anxiety, Bipolar disorder Musculoskeletal: reports: Osteoarthritis Derm: reports: None MRSA Hx?: No - Past Surgical History General: reports: Cholecystectomy, Hiatal hernia repair Ortho: reports: Other /DIRECTOR OF BANDS: reports: section Cardiovascular: reports: Lobectomy HEENT: reports: Tonsil/Adenoidectomy - Family & Social History Living arrangement: At home Living Situation: Alone Social History Notes: She lives alone. She has [employer] caregivers. She is estranged from 2 daughters. She denies any alcohol use. She still continues to smoke cigarettes and uses cannibis. - Substance History Use: Uses substance without health or social issues: Tobacco - POLST Patient has POLST: No Meds/Allgy - Home Medications Home Medications: Ambulatory Orders Medication Instructions Recorded Confirmed Simvastatin 20 mg PO DAILY 01/19/13 03/10/21 Topiramate 200 mg PO BID 03/23/16 03/10/21 lamoTRIgine [LaMICtal] 200 mg PO DAILY 09/06/17 03/10/21 Empagliflozin [Jardiance] 25 mg PO DAILY 10/09/20 03/10/21 Quetiapine Fumarate [Seroquel] 300 mg PO QPM 10/09/20 03/10/21 hydrOXYzine pamoate [Vistaril] 50 mg PO QPM 10/09/20 03/10/21 Sertraline HCl 150 mg PO DAILY 01/24/21 03/10/21 Insulin Glargine [Lantus Solostar] 15 units SQ BID 02/04/21 03/10/21 Insulin Lispro [Humalog] 0 - 4 unit SQ TID PRN MDD 24 units 02/04/21 03/10/21 Lidocaine/Prilocain 2.5% Cream 5 applic TOP UD #1 gm 02/11/21 03/10/21 [Emla 2.5% Cream] OLANZapine [Zyprexa] 5 mg PO UD #16 tablet 02/11/21 03/10/21 Ondansetron HCl [Zofran] 4 mg PO Q6HR PRN #30 tab 02/11/21 03/10/21 Acetaminophen [Acetaminophen Extra 1,000 mg PO TID PRN 02/20/21 03/10/21 Strength] Alendronate Sodium 35 mg PO .WEEKLY 02/20/21 03/10/21 Gabapentin [Neurontin] 600 mg PO TID MDD 1800 02/20/21 03/10/21 Levothyroxine Sodium 50 mcg PO DAILY 02/20/21 03/10/21 [Levothyroxine] Tiotropium [place] [Spiriva 2 puffs INH DAILY 02/20/21 03/10/21 Respimat] Ciprofloxacin HCl [Cipro] 500 mg PO BID MDD 7 days 03/07/21 03/07/21 Phenazopyridine HCl [Pyridium] 200 mg PO TID MDD 2 days 03/07/21 03/07/21 Senna [Senokot] 2 tab PO BID MDD 2 days or longer 03/07/21 03/10/21 if no good bm - Allergies Allergies/Adverse Reactions: Allergies Allergy/AdvReac Type Severity Reaction Status Date / Time hydromorphone HCl * Allergy Intermediate Edema Verified 03/10/21 22:20 [From Dilaudid] metformin Allergy Intermediate vomiting Verified 03/10/21 22:20 and diarrhea Penicillins Allergy Intermediate Rash Verified 03/10/21 22:20 Sulfa (Sulfonamide Allergy Intermediate Rash Verified 03/10/21 22:20 Antibiotics) carbamazepine [From Tegretol] Allergy Mild Rash Verified 03/10/21 22:20 amoxicillin [Amoxicillin] Allergy Rash Verified 03/10/21 22:20 Exam - Vital Signs Reviewed Vital Signs: Yes Vital Signs: Vital Signs x48h Temp Pulse Pulse Pulse Pulse Resp BP 03/11/21 03:00 74 15 93/67 03/11/21 02:30 70 16 109/69 03/11/21 02:00 79 19 102/60 03/11/21 01:38 77 79 75 03/11/21 01:37 80 22 106/58 L 03/11/21 01:07 73 20 93/57 L 03/11/21 00:23 74 17 92/61 03/10/21 23:30 75 16 90/59 L 03/10/21 23:22 76 20 90/60 03/10/21 22:52 79 20 95/63 03/10/21 22:22 36.5 C 77 18 85/55 L 03/10/21 22:20 36.4 C L 77 18 85/55 L BP BP BP Pulse Ox 03/11/21 03:00 99 03/11/21 02:30 97 03/11/21 02:00 100 03/11/21 01:38 100/56 L 91/56 L 93/57 L 03/11/21 01:37 100 03/11/21 01:07 100 03/11/21 00:23 100 03/10/21 23:30 100 03/10/21 23:22 100 03/10/21 22:52 100 03/10/21 22:22 100 03/10/21 22:20 100 - Physical Exam General Appearance: positive: No acute distress, Alert, Other (Cachectic) Eyes Bilateral: positive: Normal inspection, EOMI ENT: positive: ENT inspection nml, No signs of dehydration Neck: positive: Nml inspection, No JVD, Trachea midline Respiratory: positive: No respiratory distress, Other (decreased breath sounds R side) Cardiovascular: positive: Regular rate & rhythm Abdomen: positive: Non-tender, No distention Skin: positive: Warm, Dry, Other ((+) skin tenting) Extremities: positive: Non-tender, No pedal edema Neurologic/Psychiatric: positive: Oriented x3 (Non-focal) Conclusion/Plan - Problem List (1) Syncope Conclusion/Plan: Patient reports being dizzy before the event and has a history of being dizzy and because of this wears a medic alert necklace. She may have been dizzy from hypoglycemia since that was a point of discussion that she had with Sarah Tinsley just several days ago. In addition she had documented low blood pressure and is clinically dehydrated which also would have caused the syncope. Will evaluate by placing her on telemetry, obtaining an echo and doing orthostatic vital sign checks after continuing fluids for several hours. (2) Dehydration Conclusion/Plan: Patient has labs showing prerenal azotemia and had documented hypotension which is improved with IV hydration. This may be the cause of the syncopal event. Continue with IV fluids. Follow her BUN and creatinine and electrolytes (3) Slurred speech Conclusion/Plan: She may have had a neurologic event or the slurred speech may have been a result of hypotension causing brain hypoperfusion. She also may have been groggy with slurred speech from the marijuana and gabapentin use. Will evaluate for TIA by ordering telemetry, echo with bubble study and a brain MRI (4) Diabetes mellitus with insulin therapy Conclusion/Plan: Will decrease her Lantus doses given that her glucose on the scene was 62 and that there has been recent discussion about low glucoses with Sarah Tinsley. Start carb controlled diet, fingerstick glucose checks and sliding scale insulin coverage. Check A1c (5) Cancer of right lung Conclusion/Plan: As per history. (6) Anemia Conclusion/Plan: This may have also partly added to the low blood pressure. Will review if she has had B12, folate levels or iron stores checked recently by the [facility] and replace if low (7) UTI (urinary tract infection) Conclusion/Plan: She is currently on treatment for a UTI and needs 2 more days of treatment which will be continued while she is here - Lab Results Fish Bones: 03/10/21 22:50 03/10/21 23:40
[2021-03-11] MEDS ORDERED: SODIUM CHLORIDE 0.9% 1,000 ML IV SCH ×3 (04:00→07:50)
[2021-03-11] MEDS: ACETAMINOPHEN 325 MG TABLET PO PRN ×2 (04:54→23:51)
[2021-03-11] MEDS ORDERED: PHENAZOPYRIDINE HCL 200 MG PO SCH (06:00)
[2021-03-11] MEDS ORDERED: GABAPENTIN 600 MG PO SCH (06:00)
[2021-03-11] MEDS: PHENAZOPYRIDINE 100 MG TABLET PO SCH ×3 (06:41→21:14)
[2021-03-11] MEDS: GABAPENTIN 300 MG CAPSULE PO SCH ×3 (06:41→21:14)
[2021-03-11] MEDS: LEVOTHYROXINE 25 MCG TABLET PO SCH (06:42)
[2021-03-11] MEDS: INSULIN ASPART 300 UNIT/3 ML PEN SUBQ SCH ×4 (08:38→21:17)
[2021-03-11] MEDS: INSULIN GLARGINE 300 UNIT/3 ML PEN SUBQ SCH ×2 (08:38→21:18)
[2021-03-11] MEDS: CIPROFLOXACIN 250 MG TABLET PO SCH ×2 (08:39→21:14)
[2021-03-11] MEDS: TOPIRAMATE 100 MG TABLET PO SCH ×2 (08:39→21:14)
[2021-03-11] MEDS: lamoTRIgine 100 MG TABLET PO SCH (08:40)
[2021-03-11] MEDS: LIDOCAINE/PRILOCAINE 2.5% CREAM 5 GM TUBE TOP SCH (08:40)
[2021-03-11] MEDS: SENNA 8.6 MG TABLET PO SCH ×2 (08:40→21:15)
--- NOTE | 2021-03-11 08:45 | CT Report ---
PROCEDURE: ANGIO HEAD W/WO INDICATIONS: slurred speech CONTRAST: IV CONTRAST: Optiray 320 ml: 80 PO CONTRAST: *NO PO CONTRAST TECHNIQUE: Precontrast 4.5 mm thick angled axial sections acquired from the foramen magnum to the vertex. Afte r the administration of intravenous contrast, 1 mm thick sections acquired through the [place] of [place] is. Postcontrast 4.5 mm thick sections then re-acquired from the foramen magnum to the vertex. 3-di mensional iulhpkk-npsajoiwk-ezmjzqbynk (MIP) and/or volume rendering reformats were acquired of the c entral intracranial vasculature. For radiation dose reduction, the following was used: automated ex posure control, adjustment of mA and/or kV according to patient size. COMPARISON: CT head 03/10/2021. FINDINGS: Image quality: Excellent. Anterior circulation: Intracranial internal carotid arteries are normal in flow. After static consul tation is noted in the cavernous segments of the internal carotid arteries bilaterally which cause mi ld narrowing of the vessels. The flow within the paired anterior cerebral arteries is normal and sym metric. The flow within the middle cerebral arteries is normal and symmetric. The anterior communic ating artery is seen. No aneurysms are seen. Posterior circulation: Visualized portions of the vertebral arteries demonstrate normal caliber, and join to form a normal appearing basilar artery. Flow within the posterior cerebral arteries is norm al and symmetric. No aneurysms are seen. Dural sinuses imaging normal postcontrast enhancement. CSF spaces: Ventricles are normal in size and shape. Basal cisterns are patent. No extra-axial flu id collections. Brain: No midline shift. No intracranial bleeds or masses. Velez-white matter interface appears int act. Skull and face: Calvarium and facial bones appear intact, without suspicious lesions. Sinuses: Visualized sinuses and mastoids are clear. IMPRESSION: 1. No acute intracranial disease process. 2. No large vessel occlusion, hemodynamically significant vascular stenosis, vascular dissection or a neurysm. Reviewed by: Mónica Ayala MD, PhD on 03/11/2021 8:44 AM PDT Approved by: Mónica Ayala MD, PhD on 03/11/2021 8:44 AM PDT Station ID: [id number]
--- NOTE | 2021-03-11 08:49 | CT Report ---
PROCEDURE: ANGIO NECK W INDICATIONS: slurred speech CONTRAST: IV CONTRAST: Optiray 320 ml: 80 PO CONTRAST: *NO PO CONTRAST TECHNIQUE: After the administration of intravenous contrast, 1.5 mm axial sections acquired from the aortic arch to the [place] of [place]. Coronal 3-D maximum intensity projection (MIP) and/or volume rendering ref ormats were then performed. For radiation dose reduction, the following was used: automated exposur e control, adjustment of mA and/or kV according to patient size. COMPARISON: None. FINDINGS: Image quality: Excellent. Carotid system: The great vessels demonstrate a conventional anatomy as they arise from the aortic a [facility]. The origins of the common carotid arteries appear patent. The common carotid arteries demonstr ate normal calibers and courses. The bifurcation regions appear normal bilaterally. Minimal atelecta tic constipation noted in the origin of the right internal carotid artery which does not cause measur able stenosis. Left internal carotid artery is fully patent. Posterior circulation: The origins of the vertebral arteries appear patent. The more superior porti ons of the vertebral arteries demonstrate normal course and caliber. They join to form a normal appe aring basilar artery. Soft tissues: Visualized neck soft tissues demonstrate no suspicious abnormalities. The thyroid is normal in size and there are no incidental findings. Bones: No suspicious bony lesions. Spine degenerative disc disease and facet arthropathy are noted. Visualized cervical spine appears normally aligned. Postsurgical changes noted in the left lung ape x. IMPRESSION: 1. Minimal atherosclerotic plaque in the origin of the right internal carotid artery without measurab le stenosis. 2. Left internal carotid artery is fully patent. 3. Vertebral arteries are fully patent. The estimate of stenosis included in the report of the imaging study was calculated using the NASCET method Reviewed by: Mónica Ayala MD, PhD on 03/11/2021 8:48 AM PDT Approved by: Mónica Ayala MD, PhD on 03/11/2021 8:48 AM PDT Station ID: [id number]
[2021-03-11] MEDS ORDERED: OLANZAPINE 5 MG PO SCH (09:00)
[2021-03-11] MEDS ORDERED: CIPROFLOXACIN HCL 500 MG PO SCH (09:00)
[2021-03-11] MEDS ORDERED: INSULIN GLARGINE 300 UNIT/3 ML PEN SUBQ SCH (09:00)
[2021-03-11] MEDS ORDERED: LEVOTHYROXINE SODIUM 50 MCG PO SCH (09:00)
[2021-03-11] MEDS: SODIUM CHLORIDE FLUSH 0.9% 10 ML SYRINGE IVP SCH ×3 (09:00→23:51)
--- NOTE | 2021-03-11 10:46 | PHARMACY PROGRESS NOTE ---
- Best Possible Medication History Admit Date and Time: 03/11/21 0310 Processed by: Nursing Medication History completed: Yes Med list confirmed by nursing - per insurance records, patient was prescribed ciprofloxacin 500 mg bid x 7 days on 03/10 and phenazopyridine 200 mg tid x 2 days on 03/06 and again on 03/10 As the person ultimately responsible for medication therapy, providers are able to order a medication from an existing home medication list in [facility] via the "Reconcile Routine" prior to Confirmation of that medication by behaviour support teacher. Such practice is discouraged except when the physician, in their clinical judgment, deems that a medical need exists for a medication without regard to previous use.
[2021-03-11 11:25] LABS: BASOPHILS % (AUTO) 0.6 %; EOSINOPHILS # (AUTO) 0.1 10^3/uL (0.0-0.7); HCT - HEMATOCRIT 28.6 % (37.0-47.0); HGB - HEMOGLOBIN 9.3 g/dL (12.0-16.0); LYMPHOCYTES # (AUTO) 1.3 10^3/uL (1.5-3.5); LYMPHOCYTES % (AUTO) 38.3 %; MEAN CORPUSCULAR HEMOGLOBIN 32.3 pg (27.0-31.0); MEAN CORPUSCULAR HGB CONC 32.5 g/dL (32.0-36.0); MEAN CORPUSCULAR VOLUME 99.3 fL (81.0-99.0); MEAN PLATELET VOLUME 8.9 fL (7.9-10.8); MONOCYTES # (AUTO) 0.4 10^3/uL (0.0-1.0); MONOCYTES % (AUTO) 11.7 %; NEUTROPHILS # (AUTO) 1.5 10^3/uL (1.5-6.6); NEUTROPHILS % (AUTO) 46.1 %; PLT - PLATELET COUNT 110 10^3/uL (130-450); RED BLOOD COUNT 2.88 10^6/uL (4.20-5.40); RED CELL DISTRIBUTION WIDTH 15.5 % (12.0-15.0); WHITE BLOOD COUNT 3.3 x10^3/uL (4.8-10.8)
[2021-03-11 11:33] LABS: ABSOLUTE RETICS # AUTO 0.084 10^6/uL (0.020-0.110); RED BLOOD COUNT 2.85 10^6/uL (4.20-5.40); RETICULOCYTE COUNT % (AUTO) 2.96 % (0.5-2.3)
[2021-03-11 11:45] LABS: CALCIUM 8.8 mg/dL (8.5-10.3); CREATININE 0.9 mg/dL (0.4-1.0); MAGNESIUM 2.1 mg/dL (1.7-2.8); POTASSIUM 3.6 mmol/L (3.5-5.0)
[2021-03-11 11:55] LABS: % IRON SATURATION 21 % (20-50); IRON 65 ug/dL (28-170); TOTAL IRON BINDING CAPACITY 305 ug/dL (250-450); TRANSFERRIN 218 mg/dL (192-382)
--- NOTE | 2021-03-11 11:57 | CONSULTATION NOTE ---
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 She was awaiting liver biopsy, to further direct both prognosis and treatment plan. Patient is quite limited in the context of her mental health issues, complex social situation, health literacy, and baseline complex health issues. 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 She presented with hypoglycemia, hypotension, slurred speech, and concern for smoke alarm going off. She did appears to have passed out, given her ongoing issues with hy poglycemia, suspect this was underlying etiology. She did have an abnormal finding on her CT scan of her head, awaiting results of MRI at time of visit. Patient has underlying severe anxiety, bipolar on multiple medications and managed by [facility], presents with abdominal pain and discomfort and urinary retention today. She is incontinent at baseline, and most recently treated for a UTI with 2 days left on her antibiotics. Palliative care started following her on 02/19/2021, is attempting to address concerns regarding medication adherence, high symptom burden, need for advanced care planning, as well as coordination of care. Past Medical History: Hypertension, high cholesterol, emphysema, lung cancer, MCI, type 2 diabetes, hypothyroidism, GERD, hiatal hernia, chronic diarrhea, alternating with chronic constipation, pancreatitis, hepatitis, cholelithiasis, incontinence, nocturia, frequency, glaucoma, dental implants, depression, anxiety, bipolar disorder, osteoarthritis, osteoarthritis psoriasis, fatigue past surgical history includes cholecystectomy, hiatal hernia repair, Port-A-Cath placement 02/14/2021 left rotator cuff repair , tonsillectomy/adenectomy, wedge resection Social History - Living Situation Living arrangement: At home Living Situation: Alone Support System: Patient has been living at home, with [place] support, she does have a caregiver Taya who has been in and out of her life, is currently helping her navigate her phone numbers [phone]. She does have a son in [place] whom she is not in contact with, as well as an estranged daughter though has reached out given her worsening health issues. All of her other relatives including parents, siblings are . She has been managed and supported by [facility], psychiatry. She does receive some medication management support through them, though it is very difficult to make adjustments. She also has [place] P[place] and could definitely use more hours given her worsening health. Medications/Allergies - Medications Active Medication List: Active Medications Acetaminophen (Acetaminophen 325 Mg Tablet) 650 mg PO Q4HR PRN PRN Reason: Pain or Fever > 38C (100.4F) Last Admin: 03/11/21 04:54 Dose: 650 mg Documented by: Acetaminophen (Acetaminophen 500 Mg Tablet) 1,000 mg PO TID PRN PRN Reason: PAIN Ciprofloxacin (Ciprofloxacin 250 Mg Tablet) 500 mg PO BID [facility] Last Admin: 03/11/21 08:39 Dose: 500 mg Documented by: Gabapentin (Gabapentin 300 Mg Capsule) 600 mg PO TID [facility] Last Admin: 03/11/21 06:41 Dose: 600 mg Documented by: Sodium Chloride (Normal Saline 0.9%) 1,000 mls @ 100 mls/hr IV .Q10H [facility] Stop: 03/12/21 03:49 Last Infusion: 03/11/21 10:30 Dose: 100 mls/hr Documented by: Insulin Aspart (Insulin Aspart 300 Unit/3 Ml Pen) 1 - 5 unit SUBQ 0800,1200,1700,2100 [facility]; Protocol Last Admin: 03/11/21 08:38 Dose: Not Given Documented by: Insulin Glargine (Insulin Glargine 300 Unit/3 Ml Pen) 10 unit SUBQ BID [facility] Last Admin: 03/11/21 08:38 Dose: 10 unit Documented by: Lamotrigine (Lamotrigine 100 Mg Tablet) 200 mg PO DAILY [facility] Last Admin: 03/11/21 08:40 Dose: 200 mg Documented by: Levothyroxine Sodium (Levothyroxine 25 Mcg Tablet) 50 mcg PO QDAC [facility] Last Admin: 03/11/21 06:42 Dose: 50 mcg Documented by: Lidocaine/Prilocaine (Lidocaine/Prilocaine 2.5% Cream 5 Gm Tube) 5 applic TOP UD [facility] Last Admin: 03/11/21 08:40 Dose: Not Given Documented by: Phenazopyridine HCl (Phenazopyridine 100 Mg Tablet) 200 mg PO TID [facility] Last Admin: 03/11/21 06:41 Dose: 200 mg Documented by: Quetiapine Fumarate (Quetiapine 100 Mg Tablet) 300 mg PO QPM [facility] Senna (Senna 8.6 Mg Tablet) 17.2 mg PO BID [facility] Last Admin: 03/11/21 08:40 Dose: 17.2 mg Documented by: Sodium Chloride (Sodium Chloride Flush 0.9% 10 Ml Syringe) 10 ml IVP PRN PRN PRN Reason: NEEDED PER PROVIDER ORDERS Sodium Chloride (Sodium Chloride Flush 0.9% 10 Ml Syringe) 10 ml IVP 0100,0900,1700 [facility] Last Admin: 03/11/21 09:00 Dose: 10 ml Documented by: Topiramate (Topiramate 100 Mg Tablet) 200 mg PO BID [facility] Last Admin: 03/11/21 08:39 Dose: 200 mg Documented by: Simvastatin 20 mg PO DAILY 01/19/13 Topiramate 200 mg PO BID 03/23/16 lamoTRIgine [LaMICtal] 200 mg PO DAILY 09/06/17 Empagliflozin [Jardiance] 25 mg PO DAILY 10/09/20 Quetiapine Fumarate [Seroquel] 300 mg PO QPM 10/09/20 hydrOXYzine pamoate [Vistaril] 50 mg PO QPM 10/09/20 Sertraline HCl 150 mg PO DAILY 01/24/21 Insulin Glargine [Lantus Solostar] 15 units SQ BID 02/04/21 Insulin Lispro [Humalog] 0 - 4 unit SQ TID PRN MDD 24 units 02/04/21 Acetaminophen [Acetaminophen Extra Strength] 1,000 mg PO TID PRN 02/20/21 Alendronate Sodium 35 mg PO .WEEKLY 02/20/21 Gabapentin [Neurontin] 600 mg PO TID MDD 1800 02/20/21 Levothyroxine Sodium [Levothyroxine] 50 mcg PO DAILY 02/20/21 Tiotropium R[place] [Spiriva Respimat] 2 puffs INH DAILY 02/20/21 Ciprofloxacin HCl [Cipro] 500 mg PO BID MDD 7 days 03/07/21 Phenazopyridine HCl [Pyridium] 200 mg PO TID MDD 2 days 03/07/21 Senna [Senokot] 2 tab PO BID MDD 2 days or longer if no good bm 03/07/21 - Allergies Allergies/Adverse Reactions: Allergies Allergy/AdvReac Type Severity Reaction Status Date / Time hydromorphone HCl * Allergy Intermediate Edema Verified 03/10/21 22:20 [From Dilaudid] metformin Allergy Intermediate vomiting Verified 03/10/21 22:20 and diarrhea Penicillins Allergy Intermediate Rash Verified 03/10/21 22:20 Sulfa (Sulfonamide Allergy Intermediate Rash Verified 03/10/21 22:20 Antibiotics) carbamazepine [From Tegretol] Allergy Mild Rash Verified 03/10/21 22:20 amoxicillin [Amoxicillin] Allergy Rash Verified 03/10/21 22:20 Review of Systems - Constitutional Constitutional: reports: Fatigue, Weakness, Poor appetite, Weight loss (46.2; no further wt. loss today; working hard to keep calories) - Eyes Eyes: reports: Blurred vision, Vision loss - Ears, Nose & Throat Ears, Nose & Throat: reports: Dry mouth - Cardiovascular Cardiovascular: reports: Lightheadedness, Exertional dyspnea, Decr. exercise tolerance. denies: Edema - Respiratory Respiratory: reports: Cough, SOB with exertion. denies: SOB at rest - Gastrointestinal Gastrointestinal: reports: Constipation (CT scan shows "fecal stasis" reports alternating hard stool with watery; concern for impaction), Diarrhea, Bloating, Early satiety. denies: Nausea - Genitourinary Genitourinary: reports: Dysuria (last couple of days; UA foul smelling and cloudy; needs assistance to obtain AB; multiple allergies), Frequency, Incontinence, Other (new symptom retention) - Musculoskeletal Musculoskeletal: reports: Muscle aches, Stiffness, Limited range of motion, Muscle weakness - Integumentary Integumentary: reports: Dryness, Hair changes (losing hair as result of chemo; did obtain wig last visit to [facility] [place]) - Neurological Neurological: reports: General weakness, Numbness (hands and fingers/ feet at [facility]), Memory problems (anxiety and medication management makes it worse; patient aware of her memory issues) - Psychiatric Psychiatric: reports: Depression, Anxiety, Aggitation - Endocrine Endocrine: reports: Diabetes type 2 (reports no further hypoglycemic episodes; still having problems with reading device), Hypothyroidism - Hematologic/Lymphatic Hematologic/Lymph: reports: Anemia (9.4), Recurrent infections (dx with UTI) - All Other Systems All Other Systems: reports: Other (often difficult ROS related to timeline) Physical Exam - Vital Signs Vital Signs: Vital Signs x48h Temp Pulse Resp BP Pulse Ox 03/11/21 11:45 36.7 C 71 16 110/59 L 100 03/11/21 07:30 37.0 C 79 18 123/63 100 03/11/21 04:17 36.6 C 77 17 97/52 L 99 - Physical Exam General Appearance: positive: Alert, Anxious, Cachetic (temporal wasting; UE and LE muscle wasting) Eyes Bilateral: positive: Normal inspection Neck: positive: Trachea midline Cardiovascular: positive: Regular rate & rhythm Respiratory: positive: Diminished throughout Abdomen: positive: Soft, Tenderness (lower abd over pubic area). negative: Mass Skin: positive: Dryness Extremities: positive: No pedal edema Neurologic/Psychiatric: positive: Disoriented to time, Depressed mood/affect, Flat affect, Other (high anxiety/stress with hospitalization; makes her very nervous; difficulty understanding medical information) Palliative Care - POLST Patient has POLST: No POLST Status: Full Code Pain: Pain worsening, Location (mid abdominal; RUQ; peripheral neuropathy), Severity (11/23) Feelings of wellbeing/Perceived Quality of Life: Fair, Worsening Sleep: Sleeps poorly (wanting something for sleep; feeling to anxious; identifiies hydroxyine as giving EPS reaction; had recently decreased dosing per her report; awaiting confirmation from psychiatrist) Constipation: Yes, Unmanaged, Intermittent constipation, Comment (recevied lactulose over w/e reports "cleaned out") Performance Status: Patient has been having trouble with her apartment, they have not fixed the water for her, she reports the toilet does flush but has been without for over 3 weeks, having trouble getting support to get it taken care. There are other issues, but difficult figuring out as patient is talking in circles, had hand tool filer come out as well. She has been doing "sponge baths". Patient is incontinent at baseline. - Palliative Care Discussion: Reviewed with Chery my concerns regarding needing more support, she reports she has reached out to her daughter, though is not feeling very confident that she will be able to be able to provide her the support she needs particularly on DPOA. She is very very frightened about dying, she is waiting "for the other shoe to drop", reports she gets really anxious with this. She reports she remembers parts of conversations and then forgets some, and is very worried about her care overall. We did discuss we need a little bit more information to be able to plan for the future, particularly around the liver biopsy and what to expect. She is appropriately angry that she has now got serious illness again, she is reflective of how hard her life has been, and has found this very difficult to navigate. Palliative care will continue to work with patient regarding advance care planning documents, but need further information to be more realistic though patient is very frail and most likely is can continue to deteriorate. Results - Lab Results Lab results reviewed: Yes Fish Bones: 03/11/21 11:17 03/11/21 11:17 Lab and Imaging Results: Lab Results x24hrs 03/11/21 03/11/21 03/11/21 Range/Units 11:17 11:17 11:17 WBC (4.8-10.8) x10^3/uL RBC 2.85 L (4.20-5.40) 10^6/uL Hgb (12.0-16.0) g/dL Hct (37.0-47.0) % MCV (81.0-99.0) fL MCH (27.0-31.0) pg MCHC (32.0-36.0) g/dL RDW (12.0-15.0) % Plt Count (130-450) 10^3/uL MPV (7.9-10.8) fL Reticulocyte % (Auto) 2.96 H (0.5-2.3) % Neut # (Auto) (1.5-6.6) 10^3/uL Lymph # (Auto) (1.5-3.5) 10^3/uL [place] # (Auto) (0.0-1.0) 10^3/uL Eos # (Auto) (0.0-0.7) 10^3/uL Baso # (Auto) (0.0-0.1) 10^3/uL Absolute Nucleated RBC x10^3/uL Nucleated RBC % /100WBC Absolute Retic 0.084 (0.020-0.110) 10^6/uL PT (9.9-12.6) secs INR (0.8-1.2) APTT (24.9-33.3) secs Sodium (135-145) mmol/L Potassium (3.5-5.0) mmol/L Chloride (101-111) mmol/L Carbon Dioxide (21-32) mmol/L Anion Gap (6-13) BUN (6-20) mg/dL Creatinine (0.4-1.0) mg/dL Estimated GFR (MDRD) (>89) Glucose (70-100) mg/dL Lactic Acid (0.5-2.2) mmol/L Calcium (8.5-10.3) mg/dL Magnesium (1.7-2.8) mg/dL Total Bilirubin (0.2-1.0) mg/dL AST (10-42) IU/L ALT (10-60) IU/L Alkaline Phosphatase (42-121) IU/L Lactate Dehydrogenase 119 (91-225) IU/L Troponin I High Sens 3.1 (2.3-14.8) ng/L Total Protein (6.7-8.2) g/dL Albumin (3.2-5.5) g/dL Globulin (2.1-4.2) g/dL Albumin/Globulin Ratio (1.0-2.2) Lipase (22-51) U/L TSH (0.34-5.60) uIU/mL Urine Color Urine Clarity (CLEAR) Urine pH (5.0-7.5) PH Ur Specific [place] (1.002-1.030) Urine Protein (NEGATIVE) mg/dL Urine Glucose (UA) (NEGATIVE) mg/dL Urine Ketones (NEGATIVE) mg/dL Urine Occult Blood (NEGATIVE) Urine Nitrite (NEGATIVE) Urine Bilirubin (NEGATIVE) Urine Urobilinogen (NORMAL) E.U./dL Ur Leukocyte Esterase (NEGATIVE) Urine RBC (0-5) /HPF Urine WBC (0-5) /HPF Ur Squamous Epith Cells (<= Few) Urine Bacteria (None Seen) /HPF Ur Microscopic Review Urine Culture Comments Nasal Adenovirus (PCR) Nasal B. parapertussis DNA (PCR) Nasal Coronavir 229E PCR Nasal Coronavir HKU1 PCR Nasal Coronavir NL63 PCR Nasal Coronavir OC43 PCR Nasal Enterovir/Rhinovir PCR Nasal Influenza B PCR Nasal Influenza A PCR Nasal Parainfluen 1 PCR Nasal Parainfluen 2 PCR Nasal Parainfluen 3 PCR Nasal Parainfluen 4 PCR Nasal RSV (PCR) Nasal B.pertussis DNA PCR Nasal C.pneumoniae (PCR) [place] Human Metapneumo PCR Nasal M.pneumoniae (PCR) Nasal SARS-CoV-2 (PCR) Urine Opiates Screen (NEGATIVE) Ur Oxycodone Screen (NEGATIVE) Urine Methadone Screen (NEGATIVE) Ur Propoxyphene Screen (NEGATIVE) Ur Barbiturates Screen (NEGATIVE) Ur Tricyclics Screen (NEGATIVE) Ur Phencyclidine Scrn (NEGATIVE) Ur Amphetamine Screen (NEGATIVE) U Methamphetamines Scrn (NEGATIVE) U Benzodiazepines Scrn (NEGATIVE) Urine Cocaine Screen (NEGATIVE) U Cannabinoids Screen (NEGATIVE) 03/11/21 03/11/21 03/11/21 Range/Units 11:17 11:17 07:14 WBC 3.3 L (4.8-10.8) x10^3/uL RBC 2.88 L (4.20-5.40) 10^6/uL Hgb 9.3 L (12.0-16.0) g/dL Hct 28.6 L (37.0-47.0) % MCV 99.3 H (81.0-99.0) fL MCH 32.3 H (27.0-31.0) pg MCHC 32.5 (32.0-36.0) g/dL RDW 15.5 H (12.0-15.0) % Plt Count 110 L (130-450) 10^3/uL MPV 8.9 (7.9-10.8) fL Reticulocyte % (Auto) (0.5-2.3) % Neut # (Auto) 1.5 (1.5-6.6) 10^3/uL Lymph # (Auto) 1.3 L (1.5-3.5) 10^3/uL [place] # (Auto) 0.4 (0.0-1.0) 10^3/uL Eos # (Auto) 0.1 (0.0-0.7) 10^3/uL Baso # (Auto) 0.0 (0.0-0.1) 10^3/uL Absolute Nucleated RBC 0.00 x10^3/uL Nucleated RBC % 0.0 /100WBC Absolute Retic (0.020-0.110) 10^6/uL PT (9.9-12.6) secs INR (0.8-1.2) APTT (24.9-33.3) secs Sodium 141 (135-145) mmol/L Potassium 3.6 (3.5-5.0) mmol/L Chloride 110 (101-111) mmol/L Carbon Dioxide 23 (21-32) mmol/L Anion Gap 8.0 (6-13) BUN 26 H (6-20) mg/dL Creatinine 0.9 (0.4-1.0) mg/dL Estimated GFR (MDRD) 64 L (>89) Glucose 105 H (70-100) mg/dL Lactic Acid (0.5-2.2) mmol/L Calcium 8.8 (8.5-10.3) mg/dL Magnesium 2.1 (1.7-2.8) mg/dL Total Bilirubin (0.2-1.0) mg/dL AST (10-42) IU/L ALT (10-60) IU/L Alkaline Phosphatase (42-121) IU/L Lactate Dehydrogenase (91-225) IU/L Troponin I High Sens 2.8 (2.3-14.8) ng/L Total Protein (6.7-8.2) g/dL Albumin (3.2-5.5) g/dL Globulin (2.1-4.2) g/dL Albumin/Globulin Ratio (1.0-2.2) Lipase (22-51) U/L TSH (0.34-5.60) uIU/mL Urine Color Urine Clarity (CLEAR) Urine pH (5.0-7.5) PH Ur Specific [place] (1.002-1.030) Urine Protein (NEGATIVE) mg/dL Urine Glucose (UA) (NEGATIVE) mg/dL Urine Ketones (NEGATIVE) mg/dL Urine Occult Blood (NEGATIVE) Urine Nitrite (NEGATIVE) Urine Bilirubin (NEGATIVE) Urine Urobilinogen (NORMAL) E.U./dL Ur Leukocyte Esterase (NEGATIVE) Urine RBC (0-5) /HPF Urine WBC (0-5) /HPF Ur Squamous Epith Cells (<= Few) Urine Bacteria (None Seen) /HPF Ur Microscopic Review Urine Culture Comments Nasal Adenovirus (PCR) Nasal B. parapertussis DNA (PCR) Nasal Coronavir 229E PCR Nasal Coronavir HKU1 PCR Nasal Coronavir NL63 PCR Nasal Coronavir OC43 PCR Nasal Enterovir/Rhinovir PCR Nasal Influenza B PCR Nasal Influenza A PCR Nasal Parainfluen 1 PCR Nasal Parainfluen 2 PCR Nasal Parainfluen 3 PCR Nasal Parainfluen 4 PCR Nasal RSV (PCR) Nasal B.pertussis DNA PCR Nasal C.pneumoniae (PCR) [place] Human Metapneumo PCR Nasal M.pneumoniae (PCR) Nasal SARS-CoV-2 (PCR) Urine Opiates Screen (NEGATIVE) Ur Oxycodone Screen (NEGATIVE) Urine Methadone Screen (NEGATIVE) Ur Propoxyphene Screen (NEGATIVE) Ur Barbiturates Screen (NEGATIVE) Ur Tricyclics Screen (NEGATIVE) Ur Phencyclidine Scrn (NEGATIVE) Ur Amphetamine Screen (NEGATIVE) U Methamphetamines Scrn (NEGATIVE) U Benzodiazepines Scrn (NEGATIVE) Urine Cocaine Screen (NEGATIVE) U Cannabinoids Screen (NEGATIVE) 03/11/21 03/10/21 03/10/21 Range/Units 01:56 23:40 23:39 WBC (4.8-10.8) x10^3/uL RBC (4.20-5.40) 10^6/uL Hgb (12.0-16.0) g/dL Hct (37.0-47.0) % MCV (81.0-99.0) fL MCH (27.0-31.0) pg MCHC (32.0-36.0) g/dL RDW (12.0-15.0) % Plt Count (130-450) 10^3/uL MPV (7.9-10.8) fL Reticulocyte % (Auto) (0.5-2.3) % Neut # (Auto) (1.5-6.6) 10^3/uL Lymph # (Auto) (1.5-3.5) 10^3/uL [place] # (Auto) (0.0-1.0) 10^3/uL Eos # (Auto) (0.0-0.7) 10^3/uL Baso # (Auto) (0.0-0.1) 10^3/uL Absolute Nucleated RBC x10^3/uL Nucleated RBC % /100WBC Absolute Retic (0.020-0.110) 10^6/uL PT (9.9-12.6) secs INR (0.8-1.2) APTT (24.9-33.3) secs Sodium 140 (135-145) mmol/L Potassium 3.8 (3.5-5.0) mmol/L Chloride 108 (101-111) mmol/L Carbon Dioxide 21 (21-32) mmol/L Anion Gap 11.0 (6-13) BUN 29 H (6-20) mg/dL Creatinine 1.2 H (0.4-1.0) mg/dL Estimated GFR (MDRD) 46 L (>89) Glucose 107 H (70-100) mg/dL Lactic Acid 0.6 (0.5-2.2) mmol/L Calcium 8.3 L (8.5-10.3) mg/dL Magnesium (1.7-2.8) mg/dL Total Bilirubin 0.6 (0.2-1.0) mg/dL AST 18 (10-42) IU/L ALT 19 (10-60) IU/L Alkaline Phosphatase 61 (42-121) IU/L Lactate Dehydrogenase (91-225) IU/L Troponin I High Sens (2.3-14.8) ng/L Total Protein 6.5 L (6.7-8.2) g/dL Albumin 3.8 (3.2-5.5) g/dL Globulin 2.7 (2.1-4.2) g/dL Albumin/Globulin Ratio 1.4 (1.0-2.2) Lipase 24 (22-51) U/L TSH (0.34-5.60) uIU/mL Urine Color YELLOW Urine Clarity CLEAR (CLEAR) Urine pH 6.0 (5.0-7.5) PH Ur Specific [place] 1.010 (1.002-1.030) Urine Protein NEGATIVE (NEGATIVE) mg/dL Urine Glucose (UA) 500 H (NEGATIVE) mg/dL Urine Ketones NEGATIVE (NEGATIVE) mg/dL Urine Occult Blood NEGATIVE (NEGATIVE) Urine Nitrite POSITIVE H (NEGATIVE) Urine Bilirubin NEGATIVE (NEGATIVE) Urine Urobilinogen 0.2 (NORMAL) (NORMAL) E.U./dL Ur Leukocyte Esterase NEGATIVE (NEGATIVE) Urine RBC None Seen (0-5) /HPF Urine WBC 0-3 (0-5) /HPF Ur Squamous Epith Cells RARE Squamous (<= Few) Urine Bacteria None Seen (None Seen) /HPF Ur Microscopic Review INDICATED Urine Culture Comments INDICATED Nasal Adenovirus (PCR) Nasal B. parapertussis DNA (PCR) Nasal Coronavir 229E PCR Nasal Coronavir HKU1 PCR Nasal Coronavir NL63 PCR Nasal Coronavir OC43 PCR Nasal Enterovir/Rhinovir PCR Nasal Influenza B PCR Nasal Influenza A PCR Nasal Parainfluen 1 PCR Nasal Parainfluen 2 PCR Nasal Parainfluen 3 PCR Nasal Parainfluen 4 PCR Nasal RSV (PCR) Nasal B.pertussis DNA PCR Nasal C.pneumoniae (PCR) [place] Human Metapneumo PCR Nasal M.pneumoniae (PCR) Nasal SARS-CoV-2 (PCR) Urine Opiates Screen NEGATIVE (NEGATIVE) Ur Oxycodone Screen NEGATIVE (NEGATIVE) Urine Methadone Screen NEGATIVE (NEGATIVE) Ur Propoxyphene Screen NEGATIVE (NEGATIVE) Ur Barbiturates Screen NEGATIVE (NEGATIVE) Ur Tricyclics Screen POSITIVE H (NEGATIVE) Ur Phencyclidine Scrn NEGATIVE (NEGATIVE) Ur Amphetamine Screen NEGATIVE (NEGATIVE) U Methamphetamines Scrn NEGATIVE (NEGATIVE) U Benzodiazepines Scrn NEGATIVE (NEGATIVE) Urine Cocaine Screen NEGATIVE (NEGATIVE) U Cannabinoids Screen POSITIVE H (NEGATIVE) 03/10/21 03/10/21 03/10/21 Range/Units 23:39 23:15 22:50 WBC (4.8-10.8) x10^3/uL RBC (4.20-5.40) 10^6/uL Hgb (12.0-16.0) g/dL Hct (37.0-47.0) % MCV (81.0-99.0) fL MCH (27.0-31.0) pg MCHC (32.0-36.0) g/dL RDW (12.0-15.0) % Plt Count (130-450) 10^3/uL MPV (7.9-10.8) fL Reticulocyte % (Auto) (0.5-2.3) % Neut # (Auto) (1.5-6.6) 10^3/uL Lymph # (Auto) (1.5-3.5) 10^3/uL [place] # (Auto) (0.0-1.0) 10^3/uL Eos # (Auto) (0.0-0.7) 10^3/uL Baso # (Auto) (0.0-0.1) 10^3/uL Absolute Nucleated RBC x10^3/uL Nucleated RBC % /100WBC Absolute Retic (0.020-0.110) 10^6/uL PT 12.4 (9.9-12.6) secs INR 1.1 (0.8-1.2) APTT 30.8 (24.9-33.3) secs Sodium (135-145) mmol/L Potassium (3.5-5.0) mmol/L Chloride (101-111) mmol/L Carbon Dioxide (21-32) mmol/L Anion Gap (6-13) BUN (6-20) mg/dL Creatinine (0.4-1.0) mg/dL Estimated GFR (MDRD) (>89) Glucose (70-100) mg/dL Lactic Acid (0.5-2.2) mmol/L Calcium (8.5-10.3) mg/dL Magnesium (1.7-2.8) mg/dL Total Bilirubin (0.2-1.0) mg/dL AST (10-42) IU/L ALT (10-60) IU/L Alkaline Phosphatase (42-121) IU/L Lactate Dehydrogenase (91-225) IU/L Troponin I High Sens 3.3 (2.3-14.8) ng/L Total Protein (6.7-8.2) g/dL Albumin (3.2-5.5) g/dL Globulin (2.1-4.2) g/dL Albumin/Globulin Ratio (1.0-2.2) Lipase (22-51) U/L TSH (0.34-5.60) uIU/mL Urine Color Urine Clarity (CLEAR) Urine pH (5.0-7.5) PH Ur Specific [place] (1.002-1.030) Urine Protein (NEGATIVE) mg/dL Urine Glucose (UA) (NEGATIVE) mg/dL Urine Ketones (NEGATIVE) mg/dL Urine Occult Blood (NEGATIVE) Urine Nitrite (NEGATIVE) Urine Bilirubin (NEGATIVE) Urine Urobilinogen (NORMAL) E.U./dL Ur Leukocyte Esterase (NEGATIVE) Urine RBC (0-5) /HPF Urine WBC (0-5) /HPF Ur Squamous Epith Cells (<= Few) Urine Bacteria (None Seen) /HPF Ur Microscopic Review Urine Culture Comments Nasal Adenovirus (PCR) NOT DETECTED Nasal B. parapertussis DNA (PCR) NOT DETECTED Nasal Coronavir 229E PCR NOT DETECTED Nasal Coronavir HKU1 PCR NOT DETECTED Nasal Coronavir NL63 PCR NOT DETECTED Nasal Coronavir OC43 PCR NOT DETECTED Nasal Enterovir/Rhinovir PCR NOT DETECTED Nasal Influenza B PCR NOT DETECTED Nasal Influenza A PCR NOT DETECTED Nasal Parainfluen 1 PCR NOT DETECTED Nasal Parainfluen 2 PCR NOT DETECTED Nasal Parainfluen 3 PCR NOT DETECTED Nasal Parainfluen 4 PCR NOT DETECTED Nasal RSV (PCR) NOT DETECTED Nasal B.pertussis DNA PCR NOT DETECTED Nasal C.pneumoniae (PCR) NOT DETECTED [place] Human Metapneumo PCR NOT DETECTED Nasal M.pneumoniae (PCR) NOT DETECTED Nasal SARS-CoV-2 (PCR) NOT DETECTED Urine Opiates Screen (NEGATIVE) Ur Oxycodone Screen (NEGATIVE) Urine Methadone Screen (NEGATIVE) Ur Propoxyphene Screen (NEGATIVE) Ur Barbiturates Screen (NEGATIVE) Ur Tricyclics Screen (NEGATIVE) Ur Phencyclidine Scrn (NEGATIVE) Ur Amphetamine Screen (NEGATIVE) U Methamphetamines Scrn (NEGATIVE) U Benzodiazepines Scrn (NEGATIVE) Urine Cocaine Screen (NEGATIVE) U Cannabinoids Screen (NEGATIVE) 03/10/21 03/10/21 Range/Units 22:50 22:50 WBC 6.2 (4.8-10.8) x10^3/uL RBC 2.64 L (4.20-5.40) 10^6/uL Hgb 8.5 L (12.0-16.0) g/dL Hct 26.4 L (37.0-47.0) % MCV 100.0 H (81.0-99.0) fL MCH 32.2 H (27.0-31.0) pg MCHC 32.2 (32.0-36.0) g/dL RDW 15.4 H (12.0-15.0) % Plt Count 102 L (130-450) 10^3/uL MPV 8.7 (7.9-10.8) fL Reticulocyte % (Auto) (0.5-2.3) % Neut # (Auto) 4.6 (1.5-6.6) 10^3/uL Lymph # (Auto) 0.8 L (1.5-3.5) 10^3/uL [place] # (Auto) 0.6 (0.0-1.0) 10^3/uL Eos # (Auto) 0.1 (0.0-0.7) 10^3/uL Baso # (Auto) 0.0 (0.0-0.1) 10^3/uL Absolute Nucleated RBC 0.00 x10^3/uL Nucleated RBC % 0.0 /100WBC Absolute Retic (0.020-0.110) 10^6/uL PT (9.9-12.6) secs INR (0.8-1.2) APTT (24.9-33.3) secs Sodium (135-145) mmol/L Potassium (3.5-5.0) mmol/L Chloride (101-111) mmol/L Carbon Dioxide (21-32) mmol/L Anion Gap (6-13) BUN (6-20) mg/dL Creatinine (0.4-1.0) mg/dL Estimated GFR (MDRD) (>89) Glucose (70-100) mg/dL Lactic Acid (0.5-2.2) mmol/L Calcium (8.5-10.3) mg/dL Magnesium (1.7-2.8) mg/dL Total Bilirubin (0.2-1.0) mg/dL AST (10-42) IU/L ALT (10-60) IU/L Alkaline Phosphatase (42-121) IU/L Lactate Dehydrogenase (91-225) IU/L Troponin I High Sens (2.3-14.8) ng/L Total Protein (6.7-8.2) g/dL Albumin (3.2-5.5) g/dL Globulin (2.1-4.2) g/dL Albumin/Globulin Ratio (1.0-2.2) Lipase (22-51) U/L TSH 2.32 (0.34-5.60) uIU/mL Urine Color Urine Clarity (CLEAR) Urine pH (5.0-7.5) PH Ur Specific [place] (1.002-1.030) Urine Protein (NEGATIVE) mg/dL Urine Glucose (UA) (NEGATIVE) mg/dL Urine Ketones (NEGATIVE) mg/dL Urine Occult Blood (NEGATIVE) Urine Nitrite (NEGATIVE) Urine Bilirubin (NEGATIVE) Urine Urobilinogen (NORMAL) E.U./dL Ur Leukocyte Esterase (NEGATIVE) Urine RBC (0-5) /HPF Urine WBC (0-5) /HPF Ur Squamous Epith Cells (<= Few) Urine Bacteria (None Seen) /HPF Ur Microscopic Review Urine Culture Comments Nasal Adenovirus (PCR) Nasal B. parapertussis DNA (PCR) Nasal Coronavir 229E PCR Nasal Coronavir HKU1 PCR Nasal Coronavir NL63 PCR Nasal Coronavir OC43 PCR Nasal Enterovir/Rhinovir PCR Nasal Influenza B PCR Nasal Influenza A PCR Nasal Parainfluen 1 PCR Nasal Parainfluen 2 PCR Nasal Parainfluen 3 PCR Nasal Parainfluen 4 PCR Nasal RSV (PCR) Nasal B.pertussis DNA PCR Nasal C.pneumoniae (PCR) [place] Human Metapneumo PCR Nasal M.pneumoniae (PCR) Nasal SARS-CoV-2 (PCR) Urine Opiates Screen (NEGATIVE) Ur Oxycodone Screen (NEGATIVE) Urine Methadone Screen (NEGATIVE) Ur Propoxyphene Screen (NEGATIVE) Ur Barbiturates Screen (NEGATIVE) Ur Tricyclics Screen (NEGATIVE) Ur Phencyclidine Scrn (NEGATIVE) Ur Amphetamine Screen (NEGATIVE) U Methamphetamines Scrn (NEGATIVE) U Benzodiazepines Scrn (NEGATIVE) Urine Cocaine Screen (NEGATIVE) U Cannabinoids Screen (NEGATIVE) Impression and Recommendations - Palliative Care Impression: This is a 60-year-old woman with 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 She presented yesterday with symptoms of a stroke, of slurred speech, weakness, hypoglycemia and hypotension. Patient continues to present as failure to thrive, with malignant cachexia, poorly controlled diabetes, intermittent constipation resolving UTI and complex mental health and social situation. Palliative care continue provide support to assist with medication adherence, coordination of care, addressing her moderate to severe symptom burden, and navigate her treatment plan. Recommendations/Counseling Done: 1. Diabetes type 2. Patient presents with hypoglycemic episode, had worked with endocrinology and decrease Lantus to 15 units twice daily, she will need further titration down, currently is on 10 units twice daily. Patient does have a sliding scale at home, she continues with difficulty with her monitor. She will need instructions written out for her to follow, will continue to work with endocrinology and home program. Patient would benefit from home health services to provide further support. 2. Medication adherence. This continues to be a challenge, she does have a med dispenser, but these are done every 2 weeks. Unfortunately every time there is a med change or something comes in bottles this causes more confusion and risk for unsafe medication use. Patient has support from [facility] with this, had walked him through getting the antibiotics, Pyridium, and lactulose started. 3. Insomnia. Patient has hydroxyzine in her Mediset, patient perceives she is having EPS symptoms from this, had had it decreased. I do have a call into psychiatry, to see if there is another medication she would tolerate. She perceives her anxiety with her worsening cancer is impacting her ability to sleep. 4. Anxiety. In review of patient's medication record, patient had been distributed 60-2 mg of lorazepam, did not see evidence of this in the home when made home visit last week. She reports she used those up quite quickly, and does not have those available anymore. She does report it was an effective medication, though patient is not appropriate for self administration. This is confirmed by her caregiver Taya, concern regarding patient's access to medications that could cause more harm than good. Will talk to the psychiatrist, may be titrating one of her other medications will provide her better support for her underlying anxiety. Patient does need further support overall, though has limited access. 5. Dysarthria. This appears to have resolved. Patient does remember and recognize that she did have slurred speech. She is awaiting results of MRI, speech is clear currently. Patient does not present with any other residual effects. 6. Lung cancer. Patient's treatment has been held, she is quite anxious regarding her treatment plan. She is awaiting outcome of liver biopsy for further treatment planning and prognosis. She does have difficulty with her health literacy understanding the complexities of all that is going on. 7. Advanced care planning. Patient does need further increase in her [place] PES hours, did speak with the medical care evaluation specialist on the floor, she will contact Layla as well again to see if we can get a reassessment. Patient does need and identify DPOA, unable to identify anyone other than her daughter, unclear if this is going to be a helpful support for her. Did offer to speak with her or have a family meeting. 8. Urinary retention. Patient has long-term had incontinence, is continuing treatment for antibiotics for UTI, if patient does need Curry catheter this would be preferable over straight cathing. Patient would not be able to do this independently. Patient would benefit from home health support. 60 minutes with greater than 50% of this done in counseling versus current hospitalization, navigating current information, and coordination of care with hospitalist and hospital team
[2021-03-11 12:00] LABS: FERRITIN 297.1 ng/mL (11.0-306.8)
[2021-03-11 12:09] LABS: ESTIMATED AVERAGE GLUCOSE 171 mg/dL (70-100); HEMOGLOBIN A1c% 7.6 % (4.27-6.07)
--- NOTE | 2021-03-11 12:23 | MRI Report ---
PROCEDURE: Brain W/O INDICATIONS: Poss TIA TECHNIQUE: Noncontrast axial T1 spin echo, axial T2 fast spin echo, sagittal and axial FLAIR, coronal T2 fast sp in echo, axial gradient echo, axial diffusion and ADC through the brain. COMPARISON: 11/19/2020. Correlation is also made with head and neck angiogram, 03/11/2021. FINDINGS: Image quality: Motion artifact is noted. CSF Spaces: Basal cisterns are patent. No extra-axial fluid collections. Ventricles are normal in size and shape. Brain: No intracranial masses or hemorrhage. Velez/white matter interface is normal. Brainstem appe ars normal. Diffusion-weighted images demonstrate no acute ischemic insult. No chronic ischemic ins ults. Normal intravascular flow voids are present. Skull and face: Calvarium has normal marrow signal. Orbits appear normal. Sinuses: Sinuses and mastoids are clear. IMPRESSION: No findings of acute or subacute infarction are seen. Age-appropriate brain parenchymal volume loss and chronic small vessel ischemic change can be seen. Reviewed by: Baljinder Morrell MD on 03/11/2021 11:22 AM SABAS Approved by: Baljinder Morrell MD on 03/11/2021 11:22 AM SABAS Station ID: [id number]
[2021-03-11] MEDS: ASPIRIN CHEW 81 MG TABLET PO SCH (18:36)
[2021-03-11] MEDS: ENOXAPARIN 40 MG/0.4 ML SYRINGE SUBQ SCH (18:37)
[2021-03-11] MEDS ORDERED: QUEtiapine 100 MG TABLET PO SCH (21:00)
[2021-03-11] MEDS ORDERED: QUETIAPINE FUMARATE 200 MG PO SCH (21:00)
[2021-03-12] MEDS: LEVOTHYROXINE 25 MCG TABLET PO SCH (06:06)
[2021-03-12] MEDS: PHENAZOPYRIDINE 100 MG TABLET PO SCH (06:06)
[2021-03-12] MEDS: GABAPENTIN 300 MG CAPSULE PO SCH (06:06)
[2021-03-12] MEDS: ACETAMINOPHEN 325 MG TABLET PO PRN (06:06)
[2021-03-12 06:14] LABS: BASOPHILS % (AUTO) 1.2 %; EOSINOPHILS # (AUTO) 0.1 10^3/uL (0.0-0.7); EOSINOPHILS % (AUTO) 3.1 %; HCT - HEMATOCRIT 28.7 % (37.0-47.0); HGB - HEMOGLOBIN 9.3 g/dL (12.0-16.0); LYMPHOCYTES # (AUTO) 1.1 10^3/uL (1.5-3.5); LYMPHOCYTES % (AUTO) 34.8 %; MEAN CORPUSCULAR HGB CONC 32.4 g/dL (32.0-36.0); MEAN CORPUSCULAR VOLUME 98.6 fL (81.0-99.0); MEAN PLATELET VOLUME 8.8 fL (7.9-10.8); MONOCYTES # (AUTO) 0.4 10^3/uL (0.0-1.0); MONOCYTES % (AUTO) 11.4 %; NEUTROPHILS # (AUTO) 1.6 10^3/uL (1.5-6.6); NEUTROPHILS % (AUTO) 49.2 %; PLT - PLATELET COUNT 114 10^3/uL (130-450); RED BLOOD COUNT 2.91 10^6/uL (4.20-5.40); RED CELL DISTRIBUTION WIDTH 15.7 % (12.0-15.0); WHITE BLOOD COUNT 3.3 x10^3/uL (4.8-10.8)
[2021-03-12 06:20] LABS: CALCIUM 9.2 mg/dL (8.5-10.3); CREATININE 0.8 mg/dL (0.4-1.0); POTASSIUM 4.5 mmol/L (3.5-5.0)
[2021-03-12 06:29] LABS: CHOL/HDL RATIO 2.5 (<4.4); CHOLESTEROL 135 mg/dL; HDL CHOLESTEROL 53 mg/dL; LDL CHOLESTEROL,CALCULATED 70 mg/dL; LDL/HDL RATIO 1.3 (<4.4); TRIGLYCERIDES 58 mg/dL; VLDL CHOLESTEROL 12 mg/dL
[2021-03-12 07:28] VITALS: BP 108/59
[2021-03-12] MEDS: INSULIN ASPART 300 UNIT/3 ML PEN SUBQ SCH (07:53)
[2021-03-12] MEDS: lamoTRIgine 100 MG TABLET PO SCH (08:20)
[2021-03-12] MEDS: SENNA 8.6 MG TABLET PO SCH (08:21)
[2021-03-12] MEDS: CIPROFLOXACIN 250 MG TABLET PO SCH (08:21)
[2021-03-12] MEDS: TOPIRAMATE 100 MG TABLET PO SCH (08:21)
[2021-03-12] MEDS: LIDOCAINE/PRILOCAINE 2.5% CREAM 5 GM TUBE TOP SCH (08:22)
[2021-03-12] MEDS: SODIUM CHLORIDE FLUSH 0.9% 10 ML SYRINGE IVP SCH (08:22)
[2021-03-12] MEDS: ASPIRIN CHEW 81 MG TABLET PO SCH (08:22)
[2021-03-12] MEDS: ENOXAPARIN 40 MG/0.4 ML SYRINGE SUBQ SCH (08:23)
--- NOTE | 2021-03-12 09:24 | Discharge Plan ---
Discharge Plan Problem Reviewed?: Yes Disposition: Home, Self Care Condition: Stable Prescriptions: Insulin Glargine [Lantus Solostar] 5 unit SQ BID #2 pe Diet: Regular Activity Restrictions: Activity as Tolerated Shower Restrictions: No (fall precaution) Instruction Topics: Hypoglycemia, TIA, Dehydration Health Concerns: dehydration, hypoglycemia. Plan of Treatment: You may keep hydration and good nutrition at home. MRI of brain reveals no acute finding. your home Lantus insulin is reduced to 5 unit bid now from previous 15 unit bid because of your poor appetite and concerning of your hypoglycemia. Your palliative care will followup with you on tomorrow and adjust your insulin dosage as needed. You may followup diabetes education and instruction to monitor your glucose level and keep nutrition at home. You may follow-up your lead painter In 1 week. You may follow-up with your oncologist and have liver biopsy. Your ECHO study reveal normal EF but show patent foraman ovale versus atrial septal defect with left to right shunting. You may followup with nailing machine feeder as out-patient. Care Goals: Stabilization and improvement of your medical condition Assessment: Discussed the care plan with you, answered your questions, you understood Additional Instructions or Follow Up instructions: You may follow-up with your lead painter and your PCP in one week, May follow-up with your palliative care as outpatient, Follow-up with your oncologist and nailing machine feeder as outpatient. Should your symptoms return or worse, you may present to ER or call 911 for help. Follow-Up Care: [facility] - Diabetes Ed No Smoking: If you smoke, Please STOP! Call for help. Follow-up with: Provider,Other [Primary Care Provider] -
--- NOTE | 2021-03-12 09:26 | DISCHARGE SUMMARY ---
Discharge Summary Admit Date: 03/11/21 Discharge Date: 03/12/21 Discharging Provider: Flip Ribeiro Condition at Discharge: Stable Discharge Disposition: 01 Home, Self Care Discharge Facility Name: home - DIAGNOSES Discharge Diagnoses with Status of Each Condition: (1) Syncope pt has no more syncope at hospital. It was likely caused by pt's dehydration, hypotension and hypoglycemia. ECHO reveal unremarkable except patent foraman ovale which is likely chronic. Troponin and EKG both do not reveal acute Myocardial ischemia. pt has no orthostatic hypotension after hydration. (2) Dehydration Patient showed prerenal azotemia and had documented hypotension which is improved with IV hydration. Encourage pt keep hydration as home (3) Slurred speech resolved. pt has no other Neurological deficits. Patient's MRI of brain, CTA of brain and neck Are unremarkable. It is likely caused by patient's hypoglycemia and hypotension and dehydration. (4) Diabetes mellitus with insulin therapy A1c 7.6. Patient has poor appetite now which could be caused by Recently chemotherapy and lesions in her liver, And lung cancers. Reduce the patient home Lantus from 15 units twice daily to 5 units twice daily. Discussed with patient how to prevent hypoglycemia in the home. Palliative care provide will see patient on tomorrow per palliative care provider's advise, she will adjust pt's insulin as needed. Patient may follow-up with her PCP engineering equipment operator in 1 week. (5) Cancer of right lung Patient has a history of lung cancer and had chemotherapy recently, patient also had right lung lower loberectomy in 2020. Patient also had lesions in her liver per her last abdomen image study. Patient is following up with her oncologist to have liver biopsy. (6) Anemia Patient had stable hemoglobin at 9.3. Patient is asymptomatic for her anemia. Patient had recently chemotherapy Which could contribute to her anemia. Patient may continue follow-up with her oncologist to manage for her anemia. (7) UTI (urinary tract infection) resume home antibiotics to finish the treatment course (8)patent foraman ovale pt's ECHO study reveal normal EF but show patent foraman ovale versus atrial septal defect with left to right shunting. called homogenizer operator Dr. Castillo, who read pt's ECHO. advise until pt had second time embolic stroke, then will consider to close her PFO, now it is not Necessarily for antiplatelets or other Anticoagulations, no further intervention needed as this time. Patient may follow-up with homogenizer operator as outpatient (9)hypoglycemia resolved. Because of the patient's poor appetite, Patient's home Lantus dosage is reduced above explained. (10)Bipolar stable, Resume patient home meds. pt had hydroxyzine in her home meds list. patient perceives she is having EPS symptoms from this. pt declined to take and asked me stop her this home meds hydroxyzine. Advised the patient may continue to follow-up with her psychiatrist as outpatient pt can urinate by her self now, she had no obvious urine retention. pt also had hx of UTI, so no Curry is needed for pt now. Patient may continue follow-up with her primary care and palliative care to manage if it become a medical issue for her. Discussed patient's this condition with her palliative care provider. Also discussed the care plan with pt as well. - HPI History of Present Illness: refer from Joan Hansen's HPI on 03/11/21 This is a 60-year-old white female with history of adenocarcinoma of the right lung undergoing chemotherapy. She is also undergoing evaluation for possible metastasis since liver masses have been found. She is followed by a palliative care provider Sarah Tinsley NP and Dr Breezy Mayes in the [facility]. The patient also has a prior history of left-upper lung cancer for which she had a wedge resection. She has a history of diabetes on insulin, severe peripheral neuropathy on gabapentin 3 times daily, bipolar disorder on several medications, anxiety, hypertension, COPD, hypothyroidism, GERD, chronic constipation, prior pancreatitis and hepatitis, urinary incontinence and currently has a UTI. The patient lives alone (she is estranged from 2 children). Today mavis found the door to her apartment opened and saw her on the ground and they called 911. Ambulance personnel arrived and found her on the floor however when they spoke to her she was able to answer. Initial blood pressure was 60 systolic and glucose was 62. The patient is able to report some of the history to the ED provider: Per patient: she last rem,embers being at her baseline last night, but then says she recalls cooking steak at approximately 3 PM. She says she then went to use the bathroom. She says she then heard the smoke alarm going off because she "forgot" that the steak was still cooking. She then found that she was too weak too ambulate and thus lay down on the floor. She eventually heard someone knocking on her door but she was too weak to stand. She says this was at approximately 9:40 PM. In the ED she had no focal neurologic signs except had slurred speech. Blood pressure was 70 systolic. She received 700 cc of saline by ambulance and another 1 L in the ED. Her blood pressure is currently 112 systolic and her speech has normalized per, Dr. Ryan, who is seeing her as I am with her in the ED. Patient denies any pain but complains of full bladder. She says this is never happened to her before but she gets dizziness and remembers being dizzy let this last evening. Appar ently,because of frequent dizziness she has a medic medic alert button on a necklace around her neck, which she did not use. Labs done in the ED show mildly elevated BUN and creatinine consistent with prerenal azotemia. Her head CT was negative. Her head and neck CTA was also negative. Her tox screen was positive for tricyclics and marijuana. The patient is being placed in Observation status to evaluate for causes of syncope, hypoglycemia versus a possible TIA. In review of her record, she had a consult done by COMBINE OPERATOR Sarah Tinsley on 03/06/2021, and they had discussion about "not having low glucoses on the lower dose of insulin". - ALLERGIES Allergies/Adverse Reactions: Allergies Allergy/AdvReac Type Severity Reaction Status Date / Time hydromorphone HCl * Allergy Intermediate Edema Verified 03/10/21 22:20 [From Dilaudid] metformin Allergy Intermediate vomiting Verified 03/10/21 22:20 and diarrhea Penicillins Allergy Intermediate Rash Verified 03/10/21 22:20 Sulfa (Sulfonamide Allergy Intermediate Rash Verified 03/10/21 22:20 Antibiotics) carbamazepine [From Tegretol] Allergy Mild Rash Verified 03/10/21 22:20 amoxicillin [Amoxicillin] Allergy Rash Verified 03/10/21 22:20 - MEDICATIONS Home Medications: Ambulatory Orders Medication Instructions Recorded Confirmed Simvastatin 20 mg PO DAILY 01/19/13 03/10/21 Topiramate 200 mg PO BID 03/23/16 03/10/21 lamoTRIgine [LaMICtal] 200 mg PO DAILY 09/06/17 03/10/21 Empagliflozin [Jardiance] 25 mg PO DAILY 10/09/20 03/10/21 Quetiapine Fumarate [Seroquel] 300 mg PO QPM 10/09/20 03/10/21 Sertraline HCl 150 mg PO DAILY 01/24/21 03/10/21 Insulin Lispro [Humalog] 0 - 4 unit SQ TID PRN MDD 24 units 02/04/21 03/10/21 Lidocaine/Prilocain 2.5% Cream 5 applic TOP UD #1 gm 02/11/21 03/10/21 [Emla 2.5% Cream] OLANZapine [Zyprexa] 5 mg PO UD #16 tablet 02/11/21 03/10/21 Ondansetron HCl [Zofran] 4 mg PO Q6HR PRN #30 tab 02/11/21 03/10/21 Acetaminophen [Acetaminophen Extra 1,000 mg PO TID PRN 02/20/21 03/10/21 Strength] Alendronate Sodium 35 mg PO .WEEKLY 02/20/21 03/10/21 Gabapentin [Neurontin] 600 mg PO TID MDD 1800 02/20/21 03/10/21 Levothyroxine Sodium 50 mcg PO DAILY 02/20/21 03/10/21 [Levothyroxine] Tiotropium [place] [Spiriva 2 puffs INH DAILY 02/20/21 03/10/21 Respimat] Ciprofloxacin HCl [Cipro] 500 mg PO BID MDD 7 days 03/07/21 03/11/21 Phenazopyridine HCl [Pyridium] 200 mg PO TID MDD 2 days 03/07/21 03/11/21 Senna [Senokot] 2 tab PO BID MDD 2 days or longer 03/07/21 03/10/21 if no good bm Insulin Glargine [Lantus Solostar] 5 unit SQ BID #2 pe 03/12/21 - PHYSICAL EXAM AT DISCHARGE General Appearance: positive: No acute distress, Alert. negative: Lethargic Eyes Bilateral: positive: Normal inspection, PERRL, No lid inflammation ENT: positive: ENT inspection nml, No signs of dehydration Neck: positive: Nml inspection, Trachea midline. negative: Thyromegaly, Tracheal deviation Respiratory: positive: Chest non-tender, No respiratory distress. negative: Wheezes Cardiovascular: positive: Regular rate & rhythm, No murmur. negative: Tachycardia, Bradycardia, Systolic murmur, Diastolic murmur Peripheral Pulses: positive: 2+ Abdomen: positive: Non-tender, Nml bowel sounds, No distention. negative: Tenderness Back: positive: Nml inspection Skin: positive: Color nml, Warm, Dry. negative: Cyanosis Extremities: positive: Non-tender, Full ROM, Nml appearance. negative: Calf tenderness Neurologic/Psychiatric: positive: Motor nml, Sensation nml. negative: Weakness, Sensory loss, Facial droop, Slurred/abnml speech, Depressed mood/affect - LABS Result Diagrams: 03/12/21 05:50 03/12/21 05:50 - FOLLOW UP Follow Up: You may keep hydration and good nutrition at home. MRI of brain reveals no acute finding. your home Lantus insulin is reduced to 5 unit bid now from previous 15 unit bid because of your poor appetite and concerning of your hypoglycemia. Your palliative care will followup with you on tomorrow and adjust your insulin dosage as needed. You may followup diabetes education and instruction to monitor your glucose level and keep nutrition at home. You may follow-up your engineering equipment operator In 1 week. You may follow-up with your oncologist and have liver biopsy. Your ECHO study reveal normal EF but show patent foraman ovale versus atrial septal defect with left to right shunting. You may followup with homogenizer operator as out-patient. You may follow-up with your engineering equipment operator and your PCP in one week, May fol low-up with your palliative care as outpatient, Follow-up with your oncologist and homogenizer operator as outpatient. Should your symptoms return or worse, you may present to ER or call 911 for help. - TIME SPENT Time Spent in Discharge (Minutes): 30
[2021-03-12] MEDS ORDERED: INSULIN GLARGINE 300 UNIT/3 ML PEN SUBQ SCH (21:00)
== END 2021-03-12 12:00 | disposition home or self-care (01) ==
LOC: EDUNIT# → EDBD → ED 22:15 → MS2 03-11 03:10
PROVIDERS: ADMIT Internal Medicine; ATTEND Nurse Practitioner Gerontology
DX: R55 Syncope and collapse (principal); E86.0 Dehydration; I95.9 Hypotension, unspecified; E11.649 Type 2 diabetes mellitus with hypoglycemia without coma; E11.42 Type 2 diabetes mellitus with diabetic polyneuropathy; Z79.4 Long term (current) use of insulin; C34.91 Malignant neoplasm of unspecified part of right bronchus or lung; D64.9 Anemia, unspecified; N39.0 Urinary tract infection, site not specified; Q21.1 Atrial septal defect; F31.9 Bipolar disorder, unspecified; Z20.822 Contact with and (suspected) exposure to COVID-19; J44.9 Chronic obstructive pulmonary disease, unspecified; E03.9 Hypothyroidism, unspecified; K21.9 Gastro-esophageal reflux disease without esophagitis; K59.09 Other constipation; R32 Unspecified urinary incontinence; F17.210 Nicotine dependence, cigarettes, uncomplicated; R47.81 Slurred speech; K76.9 Liver disease, unspecified; Z51.5 Encounter for palliative care
CPT/HCPCS: 0202U; 36415; 51701; 70450; 70496; 70498; 70551; 71045; 80048; 80053; 80061; 80175; 80306; 81001; 82550; 82607; 82728; 83036; 83540; 83605; 83615; 83690; 83735; 84443; 84466; 84484; 85025; 85045; 85610; 85730; 87086; 93005; 93306; 96360; 96361; 96372; 99284; 99285; A9270; G0378; J1650; J1815; Q9967; 81003; 83721; 99233

== ENCOUNTER 2021-03-14 13:25 | Outpatient (CLI) | payer MEDICAID ==
--- NOTE | 2021-03-14 16:39 | CONSULTATION NOTE ---
Palliative Care Follow Up - Referral Referring Provider: Eri Flores PA-C Time of Visit: [id number] Referral setting: Home Referral Reason: S/p hospitalization/EPS symptoms/Diabetes Mellitus on Insulin/Constipation - Information Sources Records reviewed: Previous records reviewed (hospitalization notes reviewed from 03/10-03/12/21) History/Review of Systems obtained from: Patient, Caregiver (caregivers Lida and Taya present) Exam limitations: Clinical condition (STM impairment and underlying anxiety) - History of Present Illness Update Brief HPI Update: This is a 60 year old woman who is seen and evaluated in her home for follow-up after recent hospitalization for hypoglycemia and syncope in the setting of adenocarcinoma of the right lower lung with complaints of constipation today and desire to stop hydroxyzine. Provider wore N95 mask. Seen at the request of patient's primary palliative care provider ALIYAH Tinsley for oversight of medication management as patient has complex health issues and caregivers within the home her not able to adjust patient's medications and her metastatic. She was recently hospitalized at [facility] from 03/10-03/09 due to hypoglycemia and syncope. 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 Malloy was consulted and continue to monitor with no further interventions at this time. Upon review of patient's Mediset in the home lisinopril is in her medication set. She denies headaches or dizziness. Request for her to continue to monitor her blood pressure within the home setting and determine need for dose reduction versus discontinuation moving forward. While hospitalized she also had urinary retention. She presently is reporting that she is voiding approximately 4-5 times per day. While hospitalized her Lantus dosage was reduced to 5 units twice daily. Pending further recommendations from Dr. Jon who is the patient's instruments sales representative at the time of this visit additional recommendations were not available. Patient's blood glucose level at the time of visit was 148. Review of the last several days the patient's average blood glucose level was in the mid two hundreds. Given her recent episode of hypoglycemia likely better to be on the higher end to reduce use recurrent hypoglycemic event. Patient reports awareness when she has hypo or hyperglycemia. Typically with hyperglycemia she will have a dry mouth. She will begin to shake when she has hypoglycemia. Patient reports that she has a "scratchy feeling" that she attributes to hydroxyzine. She takes hydroxyzine 50 mg in the evening and wishes to have this discontinued and removed from her Mediset. She wishes to determine about this being removed if she will have resolutions of these sensations. Patient's medication management is complicated as she has assistance with pill packs that are then placed in a alarmed Mediset. But if there are any new medications that are prescribed we will do not fit into the twice daily dosing the patient is administering herself. In discussion with the patient today she has been taking levothyroxine 50 mcg separately but noted that this is also in the Mediset. Taped bottle of levothyroxine and set it aside to the patient will no longer take separately. She has a history of neuropathy due to her insulin-dependent diabetes and this is controlled with her taking gabapentin 3 times daily. She is consistent and was able to articulate the plan appropriately. The patient reports a feeling of fullness to her lower abdomen with some hyperactivity. She took a tube 2.5 mL dose of lactulose approximately 5 hours ago With out positive response. She reports that she has not had a good bowel movement since returning home. Advised to take additional dose of lactulose to day and will continue to monitor moving forward. Patient is well groomed, high energy, thin and articulate. No evidence of acute distress. Past Medical History: Hypertension, high cholesterol, emphysema, lung cancer, MCI, type 2 diabetes, hypothyroidism, GERD, hiatal hernia, chronic diarrhea alternating with chronic constipation, pancreatitis, hepatitis, cholelithiasis, incontinence, nocturia, frequency, glaucoma, dental implants, depression, anxiety, bipolar disorder, osteoarthritis, osteoarthritis psoriasis, fatigue past surgical history includes cholecystectomy, hiatal hernia repair, Port-A-Cath placement 02/14/2021 left rotator cuff repair, , tonsillectomy/adenectomy, wedge resection Social History - Living Situation Living arrangement: At home Living Situation: Alone Support System: Patient has been living at home, with [place] [employer] support, she does have a caregiver Taya who has been in and out of her life, is currently helping her navigate her phone numbers [phone]. Estranged from her son and daughter. She has been managed and supported by [facility], psychiatry. She does receive some medication management support through them and Hanane fills her medication set that has a reminder every 2 weeks on Fridays. Some of her medications are not in the mediset that she takes separately such as her gabapentin. Taya is working with [employer] manager ecommerceLayla to see about patient getting more [employer] hours such as 6 hours per day given her declining health and need for more oversight. Patient felt in the spirit of Blessing when she was discharged from the hospital and she and her caregivers set up her [place] tree and hung lights in her apartment today. Medications/Allergies - Medications Home Medications: Ambulatory Orders Medication Instructions Recorded Confirmed Simvastatin 20 mg PO DAILY 01/19/13 03/10/21 Topiramate 200 mg PO BID 03/23/16 03/10/21 lamoTRIgine [LaMICtal] 200 mg PO DAILY 09/06/17 03/10/21 Empagliflozin [Jardiance] 25 mg PO DAILY 10/09/20 03/10/21 Quetiapine Fumarate [Seroquel] 300 mg PO QPM 10/09/20 03/10/21 Sertraline HCl 150 mg PO DAILY 01/24/21 03/10/21 Insulin Lispro [Humalog] 0 - 4 unit SQ TID PRN MDD 24 units 02/04/21 03/10/21 Lidocaine/Prilocain 2.5% Cream 5 applic TOP UD #1 gm 02/11/21 03/10/21 [Emla 2.5% Cream] OLANZapine [Zyprexa] 5 mg PO UD #16 tablet 02/11/21 03/10/21 Ondansetron HCl [Zofran] 4 mg PO Q6HR PRN #30 tab 02/11/21 03/10/21 Acetaminophen [Acetaminophen Extra 1,000 mg PO TID PRN 02/20/21 03/10/21 Strength] Alendronate Sodium 35 mg PO .WEEKLY 02/20/21 03/10/21 Gabapentin [Neurontin] 600 mg PO TID MDD 1800 02/20/21 03/10/21 Levothyroxine Sodium 50 mcg PO DAILY 02/20/21 03/10/21 [Levothyroxine] Tiotropium Andrews [Spiriva 2 puffs INH DAILY 02/20/21 03/10/21 Respimat] Ciprofloxacin HCl [Cipro] 500 mg PO BID MDD 7 days 03/07/21 03/11/21 Phenazopyridine HCl [Pyridium] 200 mg PO TID MDD 2 days 03/07/21 03/11/21 Senna [Senokot] 2 tab PO BID MDD 2 days or longer 03/07/21 03/10/21 if no good bm Insulin Glargine [Lantus Solostar] 5 unit SQ BID #2 pe 03/12/21 Gabapentin [Neurontin] 300 mg PO .EVENING WITH 600MG 03/14/21 03/14/21 Lactulose 5 ml PO BID PRN 03/14/21 03/14/21 lisinopriL [Zestril] 5 mg PO DAILY 03/14/21 03/14/21 - Allergies Allergies/Adverse Reactions: Allergies Allergy/AdvReac Type Severity Reaction Status Date / Time hydromorphone HCl * Allergy Intermediate Edema Verified 03/10/21 22:20 [From Dilaudid] metformin Allergy Intermediate vomiting Verified 03/10/21 22:20 and diarrhea Penicillins Allergy Intermediate Rash Verified 03/10/21 22:20 Sulfa (Sulfonamide Allergy Intermediate Rash Verified 03/10/21 22:20 Antibiotics) carbamazepine [From Tegretol] Allergy Mild Rash Verified 03/10/21 22:20 amoxicillin [Amoxicillin] Allergy Rash Verified 03/10/21 22:20 Review of Systems - Constitutional Constitutional: reports: Weakness, Weight loss (history of weight loss; takes protein shakes 2-3 times per day). denies: Fever - Ears, Nose & Throat Ears, Nose & Throat: denies: Nasal congestion - Cardiovascular Cardiovascular: reports: Syncope (see HPI), Exertional dyspnea, Decr. exercise tolerance. denies: Edema - Respiratory Respiratory: reports: SOB with exertion - Gastrointestinal Gastrointestinal: reports: Constipation (took 2.5mL of lactulose today without success--advised to take 5mL dose of lactulose now as has had previous positive response), Diarrhea, Bloating, Poor appetite (ate well yesrerday with soup, sub, chicken bake but decreased appetite today and focused on desire for defecation), Early satiety. denies: Nausea - Genitourinary Genitourinary: reports: Incontinence, Other (renetion while hospitalized, voiding 4-5 times per day) - Musculoskeletal Musculoskeletal: reports: Muscle aches, Stiffness, Limited range of motion, Muscle weakness - Integumentary Integumentary: reports: Dryness, Hair changes (losing hair as result of chemo; did obtain wig last visit to [facility] [place]) - Neurological Neurological: reports: General weakness, Numbness (hands and fingers/ feet at baseline controlled with gabapentin), Memory problems (anxiety and medication management makes it worse; patient aware of her memory issues) - Psychiatric Psychiatric: reports: Depression, Anxiety, Aggitation - Endocrine Endocrine: reports: Diabetes type 2 (followed by endocrinology Dr. Jon), Hypothyroidism - Hematologic/Lymphatic Hematologic/Lymph: reports: Anemia, Recurrent infections (dx with UTI) - All Other Systems All Other Systems: reports: Reviewed and negative (additional support supplemented by caregivers Taya and Marge) Physical Exam - Vital Signs Temperature: 37.1 C Pulse Rate: 85 O2 Saturation: 97 (on RA) Blood Pressure: 125/72 - Physical Exam General Appearance: positive: No acute distress, Alert, Anxious, Cachetic (temporal wasting; UE and LE muscle wasting) Eyes Bilateral: positive: Normal inspection ENT: positive: No signs of dehydration Neck: positive: Trachea midline Cardiovascular: positive: Regular rate & rhythm Respiratory: positive: No respiratory distress, Diminished throughout Abdomen: positive: Non-tender, Soft. negative: Nml bowel sounds (hyperactive bowel sounds), Guarding Skin: positive: Dryness Extremities: positive: No pedal edema Neurologic/Psychiatric: positive: Oriented x3, Other (Engaged and articulate today in her homesetting) Palliative Care - POLST Patient has POLST: No Constipation: Intermittent constipation - Palliative Care Discussion: Since returning home from the hospital the patient's caregivers have assisted her with setting up her holiday decorations for [place] and she is in a bright mood this afternoon. Concerns for medication adherence as there are multiple hands in the pocket with starting and stopping medications in caregivers are not able to make adjustments of the patient's medication in her Mediset and concern for medication adherence. Patient was taking levothyroxine 50 mcg double dosed as it was in a separate bottle as well as in her Mediset and this was clarified today. Moving forward, suggestion to take medication bottle caps and turn them over if those medications are already in the patient's metastatic. Would likely be beneficial for palliative care ARTIFICIAL GLASS EYE MAKER to be present during one of the visits that Hanane is present filling the patient's medication Mediset as she receives packets of her medications from [facility] pharmacy. Also removed patient's hydroxyzine and will make request for hydroxyzine to be discontinued from the patient's packets from [email or web address]. Will likely continue to take some time to tease out medication adherence so that there is ease with administration. Patient was able to adequately articulate her taking gabapentin to positive effect. Given her recent hypoglycemic event prefer her to have higher blood glucose levels to avoid an event and both the patient and caregivers in agreement. Pending additional support from patient's instruments sales representative as patient's primary palliative care ARTIFICIAL GLASS EYE MAKER had reached out for additional input. 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 She is status post hospitalization for hyperglycemia and dehydration. Today, she presents with concern for medication adherence due to complex mental health and social situation, constipation and concern for EPS symptoms. Palliative care to continue provide support to assist with medication adherence, care coordination, addressing symptom burden, and anticipatory guidance. Recommendations/Counseling Done: 1. Medication adherence. Continues to be a challenge though she does have a [place] set dispenser completed every 2 weeks. Unfortunately, with bottles that are a new medication this is all way is not always communicated to ensure that the patient is not taking separately from her Mediset. Today, reviewed with patient that her levothyroxine is in her medication set and taped and turned over her levothyroxine bottle to ensure that she is no longer taking a additional dose. Would likely benefit from palliative care ARTIFICIAL GLASS EYE MAKER being present for one of the medication feels that occur every 2 weeks. Has support from [facility] regarding this. Took out the patient's hydroxyzine from her medication set and will discontinue from her [email or web address] pharmacy. We will continue to require oversight for management. 2. Hypertension. Recent episode of syncope. Patient's blood pressure 125/72. Lisinopril 5 mg tablets and her Mediset but not seen on medication list. At the present time continue lisinopril 5 mg and request patient obtain blood pressure in the morning and evening and record. Advised to call if blood pressure less than 110/60. If noted low readings then will either reduce to 2.5 mg versus discontinuation of lisinopril. Patient without cardiac complaints such as dizziness and lightheadedness. Continue to monitor. To follow-up with patient on Wednesday regarding blood pressure readings over the weekend. 3. Insomnia. Patient had no complaints regarding insomnia but persistent in her desire to discontinue hydroxyzine 50 mg. Removed hydroxyzine from medication set. Moving forward if patient reports complaints of insomnia then would defer to psychiatry for input or trial melatonin if patient amenable. 4. Diabetes mellitus type 2. Patient with hypoglycemic episode status post hospitalization. Continue Lantus 5 units twice daily. She does have a sliding scale at home. Blood glucose reading today during the visit 148. Upon review has typically ranged in the mid 200s. Awaiting further input from endocrinology after primary care ARTIFICIAL GLASS EYE MAKER reached out to instruments sales representative. Continue to monitor and would prefer patient to have higher blood glucose readings versus low as she lives alone. She does have a life alert button present. 5. Constipation. Patient took 2.5 mL of lactulose earlier this morning without positive effect. Hyperactive bowel sounds on examination. Advised to take in additional 5 mL of lactulose to day and continue oral hydration and ambulation to stimulate peristalsis. Patient has had positive effect of lactulose previously. Total time spent 60 minutes with greater than 50% of this spent in counseling and coordination of care with patient and caregivers Jin; review of hospitalization; review of mediset dispenser and pill identification; review of symptom management and anticipatory guidance. Disclaimer: The chart note was formulated using voice recognition technology and unfortunately sound alike errors may occur.
== END 2021-03-14 13:26 | disposition home or self-care (01) ==
LOC: PC 13:25
PROVIDERS: ATTEND Nurse Practitioner Family
DX: Z51.5 Encounter for palliative care (principal); C7A.8 Other malignant neuroendocrine tumors; E86.0 Dehydration; K59.00 Constipation, unspecified; G31.84 Mild cognitive impairment of uncertain or unknown etiology; R64 Cachexia; I10 Essential (primary) hypertension; J43.9 Emphysema, unspecified; E11.649 Type 2 diabetes mellitus with hypoglycemia without coma; E03.9 Hypothyroidism, unspecified; R32 Unspecified urinary incontinence; F41.9 Anxiety disorder, unspecified; F31.9 Bipolar disorder, unspecified; R53.1 Weakness; Z87.440 Personal history of urinary (tract) infections; Z79.4 Long term (current) use of insulin; Z79.899 Other long term (current) drug therapy; Z91.14 Patient's other noncompliance with medication regimen
CPT/HCPCS: 99350

== ENCOUNTER 2021-03-20 13:45 | Outpatient (CLI) | payer MEDICAID ==
--- NOTE | 2021-03-20 15:35 | CONSULTATION NOTE ---
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 She was scheduled to have a liver biopsy this Wednesday, radiology had recommended a further scan first. This is made things quite complicated in the context we have already made arrangements for transportation and caregiving support. Patient does have bipolar and underlying generalized anxiety disorder, is quite anxious in the context of her prognosis in future, is having difficulty sleeping and feeling more distressed. Patient was recently hospitalized at [facility] from 03/09-03/10 due to hypoglycemia and syncope, she also experienced urinary retention, and had her Lantus decreased to 5 units twice daily. Her blood sugars have been running fairly high, but no significant lows. Unclear if she is using her NovoLog appropriately, reviewed the 3 times daily dosing, patient does "graze" making it difficult for her to cue when to take appropriately. Given patient is not going to have any support over the weekend, will leave current dosing, but most likely does need to have it increased. Patient does report she is voiding without any difficulty, no further pain or discomfort, does feel like she is emptying her bladder. She is experiencing some constipation issues, unfortunately due to her insurance, we are needing to work with lactulose which is high sugar but does appear to be effective. Chery is using small dosing, very concerned about having incontinence. Unfortunately the woman who is feeling patient's med sets, communication was not clear, and she did not fill her mediset "wheel". It does appear appropriately lisinopril has been removed, and levothyroxine in Medi-Patch. Unfortunately the hydroxyzine was still in as well, this is removed and I helped patient as well as completed filling her Mediset for her. Patient still has the gabapentin, though has 2 full bottles and clear if she is taking appropriately, though does report she is having her neuropathic pain and it is effective. She also has some acetaminophen, 2 bottles and cannot recall how often she is taking this as well, though does know she is only to take 3 doses in 24 hours. She has made contact with her daughter, please see palliative care discussion. Past Medical History: Hypertension, high cholesterol, emphysema, lung cancer MCI, type 2 diabetes on insulin, hypothyroidism, GERD, hiatal hernia, chronic diarrhea alternating with chronic constipation, pancreatitis, hepatitis, cholelithiasis, incontinence, nocturia, frequency, glaucoma, dental implants, depression, anxiety, bipolar disorder, osteoarthritis, psoriasis, past surgical history includes cholecystectomy, hiatal hernia repair, Port-A-Cath placement 02/14/2021, left rotator cuff repair, , tonsillectomy/adenectomy, wedge resection Social History - Living Situation Living arrangement: At home Living Situation: Alone Support System: Patient has been living at home with [place] support, does have caregiver Taya who has been currently helping her navigate her medical appointments and advocate for her needs her phone number is [phone]. She is managing supported by [facility] psychiatry, though missed her appointment last week. She does get some medication management support through [facility] and feels her medication set every 2 weeks on Fridays. She lives in subsidized housing, Layla is her spring encaser. Medications/Allergies - Medications Home Medications: Ambulatory Orders Medication Instructions Recorded Confirmed Simvastatin 20 mg PO DAILY 01/19/13 03/21/21 Topiramate 200 mg PO BID 03/23/16 03/21/21 lamoTRIgine [LaMICtal] 200 mg PO DAILY 09/06/17 03/21/21 Empagliflozin [Jardiance] 25 mg PO DAILY 10/09/20 03/21/21 Quetiapine Fumarate [Seroquel] 300 mg PO QPM 10/09/20 03/21/21 Sertraline HCl 150 mg PO DAILY 01/24/21 03/21/21 Insulin Lispro [Humalog] 0 - 4 unit SQ TID PRN MDD 24 units 02/04/21 03/21/21 Lidocaine/Prilocain 2.5% Cream 5 applic TOP UD #1 gm 02/11/21 03/21/21 [Emla 2.5% Cream] OLANZapine [Zyprexa] 5 mg PO UD #16 tablet 02/11/21 03/21/21 Ondansetron HCl [Zofran] 4 mg PO Q6HR PRN #30 tab 02/11/21 03/21/21 Acetaminophen [Acetaminophen Extra 1,000 mg PO TID PRN 02/20/21 03/21/21 Strength] Alendronate Sodium 35 mg PO .WEEKLY 02/20/21 03/21/21 Gabapentin [Neurontin] 600 mg PO TID MDD 1800 02/20/21 03/21/21 Levothyroxine Sodium 50 mcg PO DAILY 02/20/21 03/21/21 [Levothyroxine] Tiotropium [place] [Spiriva 2 puffs INH DAILY 02/20/21 03/21/21 Respimat] Phenazopyridine HCl [Pyridium] 200 mg PO TID MDD 2 days 03/07/21 03/21/21 Insulin Glargine [Lantus Solostar] 5 unit SQ BID #2 pe 03/12/21 03/21/21 Gabapentin [Neurontin] 300 mg PO .EVENING WITH 600MG 03/14/21 03/21/21 Lactulose 5 ml PO BID PRN 03/14/21 03/21/21 - Allergies Allergies/Adverse Reactions: Allergies Allergy/AdvReac Type Severity Reaction Status Date / Time hydromorphone HCl * Allergy Intermediate Edema Verified 03/10/21 22:20 [From Dilaudid] metformin Allergy Intermediate vomiting Verified 03/10/21 22:20 and diarrhea Penicillins Allergy Intermediate Rash Verified 03/10/21 22:20 Sulfa (Sulfonamide Allergy Intermediate Rash Verified 03/10/21 22:20 Antibiotics) carbamazepine [From Tegretol] Allergy Mild Rash Verified 03/10/21 22:20 amoxicillin [Amoxicillin] Allergy Rash Verified 03/10/21 22:20 Review of Systems - Constitutional Constitutional: reports: Fatigue, Weakness, Weight loss (history of weight loss; takes protein shakes 2-3 times per day). denies: Fever - Eyes Eyes: reports: Blurred vision, Vision loss - Ears, Nose & Throat Ears, Nose & Throat: denies: Nasal congestion - Cardiovascular Cardiovascular: reports: Exertional dyspnea, Decr. exercise tolerance. denies: Edema - Respiratory Respiratory: reports: SOB with exertion, Other (continues to smoke) - Gastrointestinal Gastrointestinal: reports: Constipation (still titrating lactulose; poor recall of effectiveness), Diarrhea, Bloating, Early satiety. denies: Nausea - Genitourinary Genitourinary: reports: Incontinence - Musculoskeletal Musculoskeletal: reports: Muscle aches, Stiffness, Limited range of motion, Muscle weakness - Integumentary Integumentary: reports: Dryness, Hair changes (losing hair as result of chemo; wearing wig) - Neurological Neurological: reports: General weakness, Numbness (hands and fingers/ feet at baseline controlled with gabapentin), Memory problems (anxiety and medication management makes it worse; patient aware of her memory issues) - Psychiatric Psychiatric: reports: Depression, Anxiety, Aggitation - Endocrine Endocrine: reports: Diabetes type 2 (followed by endocrinology Dr. Jon; BS on higher side avg 191), Hypothyroidism - Hematologic/Lymphatic Hematologic/Lymph: reports: Anemia, Recurrent infections (dx with UTI recently completed AB) - All Other Systems All Other Systems: reports: Reviewed and negative (additional support supplemented by caregivers Taya) Physical Exam - Vital Signs Temperature: 97.9 C Pulse Rate: 89 Respiratory Rate: 18 O2 Saturation: 95 (ra @ rest) Blood Pressure: 104/64 (unclear if took lisinopril today) - Physical Exam General Appearance: positive: No acute distress, Alert, Anxious, Cachetic (temporal wasting; UE and LE muscle wasting) Eyes Bilateral: positive: Normal inspection ENT: positive: No signs of dehydration Neck: positive: Trachea midline Cardiovascular: positive: Regular rate & rhythm Respiratory: positive: No respiratory distress, Diminished throughout Abdomen: positive: Non-tender, Soft. negative: Nml bowel sounds (hyperactive bowel sounds), Guarding Skin: positive: Dryness Extremities: positive: No pedal edema Neurologic/Psychiatric: positive: Oriented x3, Other (pacing; anxious when talking about family) Palliative Care - POLST Patient has POLST: No POLST Status: Full Code Pain: Pain unchanged, Location (feet and hands/right upper quadrant) Anxiety: Severe (7-10) Feelings of wellbeing/Perceived Quality of Life: Fair, Worsening Sleep: Sleeps poorly Constipation: Yes, Unmanaged Performance Status: Patient is ambulatory in her apartment, is able to toilet. She does need rem inders for meal prep and to take her medications. She is trying to stay on top of things, but is quite anxious. Her activity tolerance is quite poor, has to rest frequently when walking out to the mailbox. She is able to manage her own ADLs, is thankful her bathroom is fixed. - Palliative Care Discussion: Patient's caregiver Taya, did help facilitate contact with patient's daughter Claudia. She had reached out to her son in [place], though did not share any details regarding patient's illness, but he is coming out in the holidays and she is expecting to have conversation with him. She was able is talk with her daughter, who is aware that she is receiving treatment for cancer, does have contact numbers for her, she is actually in the area in [place]. Patient has mixed feelings regarding this, but we did agree given the uncertainty of the situation, would be helpful to include her daughter and possibly her son and future conversations. She would like to wait for family meeting until more information is known on her prognosis and treatment plan. There is lots of family history and [place] connected to these relationships. Patient had missed her appointment with Dr. EDOUARD CARRENO, encouraged to reschedule. Will reach out though regarding medication adjustments for sleep and anxiety. Patient reports she is pacing quite a bit, racing thoughts and unable to sleep at night. Taya will help her facilitate rescheduling appointment. 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 Patient continues with difficulties with medication adherence due to complex mental health and social situation, fluctuating blood sugars, and challenges with coordination of care. Palliative care to continue provide support to assist for symptom burden, medication adherence, care coordination, and anticipatory guidance. Recommendations/Counseling Done: 1. Medication adherence. This continues to be a challenge in the context of multiple prescribers and a medication set dispenser. Patient has not double dosed her levothyroxine this week, it is in her medications that have arrived, as well as lisinopril discontinuation. Patient is taking gabapentin and acetaminophen separate now only as well as her insulin medications. Caregivers try to assist as far as reminders, but remains quite complicated and will continue to need oversight. Will follow up with general want to make sure hydroxyzine has been discontinued on her list. 2. Hypertension. Patient had been discontinued on her lisinopril and fort unately it remained in her Mediset, now is out. Patient's blood pressure today is 104/64, patient has had recent syncope. Will leave it discontinued. Patient is unable to consistently take blood pressures or interpret this information. 3. Insomnia. Patient is reporting insomnia, increased anxiety, and pacing and difficulty with sleep at night. Was unable to tolerate the hydroxyzine with com plaints of EPS symptoms. Unfortunately her appointment with [facility] psychiatry, got canceled because of hospitalization last week. Taya with help her reschedule, will reach out in meantime for medication adjustments if able. 4. Adenocarcinoma the right lung, with possible liver mets. They have been waiting for scheduling call for liver biopsy, unfortunately this in follow-up from home, has been canceled in the context of recommending a further follow-up test. This was communicated to Chery and her caregiver, as well as [facility] staff will follow up with them directly regarding follow-up on testing recommendations and schedule. 5. Diabetes mellitus type 2. Patient is running on the higher side, with machine showing average around 190. Unclear if she is doing NovoLog appropriately, at this point in time given patient's anxiety and minimal support over the weekend with caregivers, will adjust next week when I see her if continues to run high. Patient is eating better, doing shakes, but still having difficulty with more of a schedule. 6. Constipation. Patient with poor recall of bowels, is using lactulose when feeling uncomfortable or constipated., She denies bloating today, though no BM for couple days. She will take lactulose, she gets very anxious regarding possible bowel incontinence. 7. Advanced care planning. Patient has made contact with her daughter, she would be the most likely person to be a DPOA. She jennifer resistant at this point in time for a family conference, but is willing to consider this in the future. We will continue to work gently with Chery regarding advance care planning, particularly as more information is available prognostically. 45 minutes is greater than 50% of this done in counseling, review of medications, coordination of care, and anticipatory guidance.
== END 2021-03-20 13:46 | disposition home or self-care (01) ==
LOC: PC 13:45
PROVIDERS: ATTEND Nurse Practitioner Adult Health
DX: Z51.5 Encounter for palliative care (principal); C7A.8 Other malignant neuroendocrine tumors; F31.9 Bipolar disorder, unspecified; F41.9 Anxiety disorder, unspecified; J43.9 Emphysema, unspecified; R32 Unspecified urinary incontinence; R35.1 Nocturia; R35.0 Frequency of micturition; K59.00 Constipation, unspecified; R19.7 Diarrhea, unspecified; I10 Essential (primary) hypertension; E11.9 Type 2 diabetes mellitus without complications; E03.9 Hypothyroidism, unspecified; G47.00 Insomnia, unspecified; Z91.14 Patient's other noncompliance with medication regimen; Z79.4 Long term (current) use of insulin; Z79.899 Other long term (current) drug therapy; Z87.440 Personal history of urinary (tract) infections
CPT/HCPCS: 99349

== ENCOUNTER 2021-03-26 11:45 | Outpatient (CLI) | payer MEDICAID ==
--- NOTE | 2021-03-26 14:01 | CONSULTATION NOTE ---
Palliative Care Follow Up - Referral Referring Provider: Dr. 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 She did have a right lobectomy on 01/02/2021 with complicated hospitalization for right pneumothorax. Most recently concern for work-up of possible liver mets, at this point in time her chemotherapy has been put on hold. Patient though even though she has had only when cycle, remains with significant fatigue and continued pancytopenia. This is in the context of her bipolar disorder and severe anxiety, with fluctuating mood, persistent insomnia, and difficult psychosocial dynamics with her biological children. Patient other complexity is her diabetes, reviewed of her blood sugars, they are now running on the higher side, she has been taking Lantus 5 units twice a day, unclear if she has been using much NovoLog, as she has very poor short-term memory and unable to really remember. She does have a continuous meter, so does add to some information. She has not had any further hypoglycemic episodes. She reports she is eating better, she got some new convection oven, and is quite pleased as she is making quiches. Medications continue to be problematic, she reports her med dispenser "broke". I have been trying to get her to put her new dose of quetiapine in her evening spot. We discussed it is not just for his insomnia because she insists is not helping, it was also for her mood and anxiety. In 2 weeks with her next delivery, the new dose will be in it. She is also having continuous trouble with constipation, is using the lactulose with success if taking on a regular basis. Past Medical History: Hypertension, high cholesterol, emphysema, lung cancer, MCI, type 2 diabetes on insulin, hypothyroidism, GERD, hiatal hernia, chronic diarrhea alternating with chronic constipation, pancreatitis, hepatitis, cholelithiasis, incontinence nocturia, glaucoma, dental implants, depression, anxiety, bipolar disorder, osteoarthritis, psoriasis, past surgical history includes cholecystectomy, hiatal hernia repair, Port-A-Cath placement 02/14/2021, left rotator cuff repair, , Tonsillectomy/adenectomy, wedge resection x2 Social History - Living Situation Living arrangement: At home Living Situation: Alone Support System: Patient has been living at home with [place] P[place] support, does have caregiver Taya has been currently helping her navigate medical appointments and advocating for needs her phone numbers [phone]. She is managed and suppo rted by [facility] psychiatry for financial bill payment, Counseling through psychiatry and counselor every other week. She does get medication management through [facility], and meds are filled every 2 weeks on Wednesday from [facility]. This is been quite complex. Patient also reports her Mediset will is currently broken. 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 Medications/Allergies - Medications Home Medications: Ambulatory Orders Medication Instructions Recorded Confirmed Simvastatin 20 mg PO DAILY 01/19/13 03/26/21 Topiramate 200 mg PO BID 03/23/16 03/26/21 lamoTRIgine [LaMICtal] 200 mg PO DAILY 09/06/17 03/26/21 Empagliflozin [Jardiance] 25 mg PO DAILY 10/09/20 03/26/21 Sertraline HCl 150 mg PO DAILY 01/24/21 03/26/21 Insulin Lispro [Humalog] 0 - 4 unit SQ TID PRN MDD 24 units 02/04/21 03/26/21 Lidocaine/Prilocain 2.5% Cream 5 applic TOP UD #1 gm 02/11/21 03/26/21 [Emla 2.5% Cream] OLANZapine [Zyprexa] 5 mg PO UD #16 tablet 02/11/21 03/26/21 Ondansetron HCl [Zofran] 4 mg PO Q6HR PRN #30 tab 02/11/21 03/26/21 Acetaminophen [Acetaminophen Extra 1,000 mg PO TID PRN 02/20/21 03/26/21 Strength] Alendronate Sodium 35 mg PO .WEEKLY 02/20/21 03/26/21 Gabapentin [Neurontin] 600 mg PO TID MDD 1800 02/20/21 03/26/21 Levothyroxine Sodium 50 mcg PO DAILY 02/20/21 03/26/21 [Levothyroxine] Tiotropium Napoleon [Spiriva 2 puffs INH DAILY 02/20/21 03/26/21 Respimat] Gabapentin [Neurontin] 300 mg PO .EVENING WITH 600MG 03/14/21 03/26/21 Lactulose 5 ml PO BID PRN 03/14/21 03/26/21 Insulin Glargine [Lantus Solostar] 8 unit SQ BID 03/26/21 03/26/21 - Allergies Allergies/Adverse Reactions: Allergies Allergy/AdvReac Type Severity Reaction Status Date / Time hydromorphone HCl * Allergy Intermediate Edema Verified 03/10/21 22:20 [From Dilaudid] metformin Allergy Intermediate vomiting Verified 03/10/21 22:20 and diarrhea Penicillins Allergy Intermediate Rash Verified 03/10/21 22:20 Sulfa (Sulfonamide Allergy Intermediate Rash Verified 03/10/21 22:20 Antibiotics) carbamazepine [From Tegretol] Allergy Mild Rash Verified 03/10/21 22:20 amoxicillin [Amoxicillin] Allergy Rash Verified 03/10/21 22:20 Review of Systems - Constitutional Constitutional: reports: Fatigue, Weakness, Weight loss (history of weight loss; takes protein shakes 2-3 times per day). denies: Fever - Eyes Eyes: reports: Blurred vision, Vision loss - Ears, Nose & Throat Ears, Nose & Throat: denies: Nasal congestion - Cardiovascular Cardiovascular: reports: Exertional dyspnea, Decr. exercise tolerance. denies: Edema - Respiratory Respiratory: reports: SOB with exertion, Other (continues to smoke) - Gastrointestinal Gastrointestinal: reports: Constipation (still titrating lactulose; poor recall of effectiveness), Diarrhea, Bloating, Early satiety. denies: Nausea - Genitourinary Genitourinary: reports: Incontinence - Musculoskeletal Musculoskeletal: reports: Muscle aches, Stiffness, Limited range of motion, Muscle weakness - Integumentary Integumentary: reports: Dryness, Hair changes (losing hair as result of chemo; wearing wig) - Neurological Neurological: reports: General weakness, Numbness (hands and fingers/ feet at baseline controlled with gabapentin), Memory problems (anxiety and medication management makes it worse; patient aware of her memory issues) - Psychiatric Psychiatric: reports: Depression, Anxiety, Aggitation - Endocrine Endocrine: reports: Diabetes type 2 (followed by endocrinology Dr. Jon; BS on higher side avg 191), Hypothyroidism - Hematologic/Lymphatic Hematologic/Lymph: reports: Anemia, Recurrent infections (dx with UTI recently completed AB) - All Other Systems All Other Systems: reports: Reviewed and negative (additional support supplemented by caregivers Taya) Physical Exam - Vital Signs Pulse Rate: 88 Respiratory Rate: 18 O2 Saturation: 95 Blood Pressure: 130/72 - Physical Exam General Appearance: positive: No acute distress, Alert, Anxious, Cachetic (temporal wasting; UE and LE muscle wasting) Eyes Bilateral: positive: Normal inspection ENT: positive: No signs of dehydration Neck: positive: Trachea midline Cardiovascular: positive: Regular rate & rhythm Respiratory: positive: No respiratory distress, Diminished throughout Abdomen: positive: Non-tender, Soft. negative: Nml bowel sounds (hyperactive bowel sounds), Guarding Skin: positive: Dryness Extremities: positive: No pedal edema Neurologic/Psychiatric: positive: Oriented x3, Depressed mood/affect, Flat affect, Other (very anxious; pressured speech; some paranoia) Palliative Care - POLST Patient has POLST: No POLST Status: Full Code Pain: Pain unchanged, Location, Severity (neck area; anal pain; bilat peripheral feet and hands) Tiredness/Fatigue: Moderate (4-6) Drowsiness/Sedation: Moderate (4-6) Nausea: Mild (1-3) Anorexia: Severe (7-10) Dyspnea: Moderate (4-6) Depression: Severe (7-10) Anxiety: Severe (7-10) Feelings of wellbeing/Perceived Quality of Life: Fair, Worsening Sleep: Sleeps poorly Constipation: Yes, Intermittent constipation Performance Status: Patient remains limited by her dyspnea, does have poor activity tolerance. She is very cachectic, and does admit to muscle weakness. She is able to manage her ADLs, is enjoying cooking. Continues to struggle with managing her medications independently. - Palliative Care Discussion: Patient remains quite anxious as she is awaiting for final treatment plan, palliative treatment versus curative treatment. She did make contact with her daughter, though reports now this is not a good contact for DURABLE POWER OF MICROBIOLOGY DIRECTOR. That they "got into it", she did start down some paranoid conversations that she has reflected before given their relationship and complexity. She does report her son is coming out from [place], and will have a conversation with him. She does not want me to reach out to her kids until further definition of her treatment plan is known. She continues at high risk due to poor problem-solving and fragile status. 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 Patient continues with difficulties with medication adherence, complex mental health and social situation, fluctuating blood sugars, and challenges with coordination of care. Patient does present with high symptom burden of dyspnea, anorexia, fatigue, anxiety, depression, and most distressing for her insomnia. Palliative care continue provide support to assist with symptom burden, medication adherence, care coordination and anticipatory guidance Recommendations/Counseling Done: 1. Medication adherence. This continues to be a challenge in the context of multiple prescribers, she reports something is "wrong with her Mediset". Did reach out to Hanane, Hanane only oversees patient putting medications in her Mediset, she had not heard it was broken. She is speaking with her on Wednesday, will follow up. Caregiver reports at this point in time she thinks the problem is fixed but patient insistent it is not. Had recommended she put the Seroquel in the evening dose as instructed, reports it is "not working" again reminded her it is both for anxiety and needs to take it on a consistent basis before deems not helpful. 2. Insomnia. Patient continues to have pacing at night, increased anxiety, though in recall in conversation with her this is been a lifelong issue but is more problematic to her with her current situation. Will defer she does have a appointment with Dr. EDOUARD ROQUE from [facility] psychiatry this Wednesday. 3. Adenocarcinoma the right lung, with possible liver mets. Patient has pending MRI on 04/01, and follow-up with oncology on 04/02. Still awaiting final treatment plan and implications for prognosis. Patient is not getting chemo today, though still remains quite pancytopenic so concern regarding bone marrow recovery. 4. Diabetes type 2. Patient is running still significantly on the higher side, will have her increase her insulin to 8 units Lantus twice daily and continue her sliding scale. Enlisted help of caregiver to help patient translate this information on to her piece of paper she uses for a reminder. 5. Constipation. Patient continues with poor recall of bowels, is using lactulose but reports has had no BM for several days, encouraged to increase to 5 mils twice daily until bowel movement. 6. Advanced care planning. At this point in time does not appear daughter is a good fit for DPOA, [facility] if this may be a better resource. She remains resistant at this point in time for family conference but will consider in the future. We will continue to work gently with Chery regarding advance care planning particularly as more information is available prognostically. Patient's anxiety is quite high. 45 minutes review of medications, coordination of care with oncologist, sales project coordinator rdination of care with catherine worker, coordination of care with [facility] follow-up with Hanane. Counseling regarding medication management, will continue to follow weekly given patient's complex situation
== END 2021-03-26 11:46 | disposition home or self-care (01) ==
LOC: PC 11:45
PROVIDERS: ATTEND Nurse Practitioner Adult Health
DX: Z51.5 Encounter for palliative care (principal); C7A.8 Other malignant neuroendocrine tumors; D61.810 Antineoplastic chemotherapy induced pancytopenia; R53.83 Other fatigue; T45.1X5A Adverse effect of antineoplastic and immunosuppressive drugs, initial encounter; F31.9 Bipolar disorder, unspecified; F41.9 Anxiety disorder, unspecified; G47.00 Insomnia, unspecified; R63.0 Anorexia; E11.9 Type 2 diabetes mellitus without complications; K59.00 Constipation, unspecified; J43.9 Emphysema, unspecified; E03.9 Hypothyroidism, unspecified; R32 Unspecified urinary incontinence; R35.1 Nocturia; H40.9 Unspecified glaucoma; Z79.4 Long term (current) use of insulin; Z90.2 Acquired absence of lung [part of]
CPT/HCPCS: 99215

== ENCOUNTER 2021-03-31 09:59 | Outpatient (CLI) | payer MEDICAID | END 2021-03-31 10:00 | disposition EMS.NT | LOC: EMS 09:59 | DX: R41.82 Altered mental status, unspecified (principal); F41.9 Anxiety disorder, unspecified ==

== ENCOUNTER 2021-03-31 10:56 | Observation (INO) | payer MEDICAID ==
[2021-03-31 11:51] LABS: BASOPHILS % (AUTO) 0.9 %; EOSINOPHILS % (AUTO) 1.2 %; HCT - HEMATOCRIT 37.3 % (37.0-47.0); LYMPHOCYTES # (AUTO) 1.4 10^3/uL (1.5-3.5); LYMPHOCYTES % (AUTO) 39.5 %; MEAN CORPUSCULAR HEMOGLOBIN 32.8 pg (27.0-31.0); MEAN CORPUSCULAR HGB CONC 32.2 g/dL (32.0-36.0); MEAN CORPUSCULAR VOLUME 101.9 fL (81.0-99.0); MEAN PLATELET VOLUME 9.3 fL (7.9-10.8); MONOCYTES # (AUTO) 0.5 10^3/uL (0.0-1.0); MONOCYTES % (AUTO) 13.5 %; NEUTROPHILS # (AUTO) 1.5 10^3/uL (1.5-6.6); NEUTROPHILS % (AUTO) 44.3 %; PLT - PLATELET COUNT 212 10^3/uL (130-450); RED BLOOD COUNT 3.66 10^6/uL (4.20-5.40); RED CELL DISTRIBUTION WIDTH 15.8 % (12.0-15.0); WHITE BLOOD COUNT 3.5 x10^3/uL (4.8-10.8)
[2021-03-31 12:10] LABS: ALBUMIN 5.1 g/dL (3.2-5.5); ALBUMIN/GLOBULIN RATIO 1.3 (1.0-2.2); ALKALINE PHOSPHATASE 87 IU/L (42-121); ALT ALANINE AMINOTRANSFERASE 46 IU/L (10-60); AST ASPARTATE AMINOTRANSFERASE 30 IU/L (10-42); BILIRUBIN,TOTAL 0.6 mg/dL (0.2-1.0); BUN - BLOOD UREA NITROGEN 37 mg/dL (6-20); CREATININE 0.7 mg/dL (0.4-1.0); ETOH - ETHANOL < 5.0 mg/dL; GFR - MDRD 86 (>89); TOTAL PROTEIN 8.9 g/dL (6.7-8.2)
[2021-03-31 12:13] LABS: CALCIUM 9.8 mg/dL (8.5-10.3); CARBON DIOXIDE - CO2 22 mmol/L (21-32); CHLORIDE 106 mmol/L (101-111); GLUCOSE 178 mg/dL (70-100); POTASSIUM 4.4 mmol/L (3.5-5.0); SODIUM 139 mmol/L (135-145)
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
[2021-03-31] MEDS ORDERED: ONDANSETRON ODT 4 MG TABLET TL PRN (13:09)
[2021-03-31] MEDS ORDERED: ONDANSETRON 4 MG/2 ML VIAL IVP PRN (13:09)
[2021-03-31] MEDS ORDERED: SODIUM CHLORIDE FLUSH 0.9% 10 ML SYRINGE IVP PRN (13:09)
[2021-03-31 13:10] LABS: CARBOXYHEMOGLOBIN VENOUS 2.9 % (0-1.5); HEMOGLOBIN TOTAL, VENOUS WB 10.9 g/dL (12.0-18.0); METHEMOGLOBIN VENOUS 0.3 % (0-1.5)
--- NOTE | 2021-03-31 13:11 | CT Report ---
PROCEDURE: CT brain without contrast INDICATIONS: Altered mental status TECHNIQUE: Noncontrast 4.5 mm thick angled axial sections acquired from the foramen magnum to the vertex. For r adiation dose reduction, the following was used: automated exposure control, adjustment of mA and/or kV according to patient size. COMPARISON: CT brain 03/10/2021 FINDINGS: Image quality: Excellent. CSF spaces: Basal cisterns are patent. No extra-axial fluid collections. Ventricles are normal in size and shape. Brain: No midline shift. No intracranial masses or hemorrhage. Velez-white matter interface is norm al. Mild cerebral and cerebellar volume loss and multifocal white matter chronic ischemic change. De nse dural calcification noted adjacent to the anterior falx, stable. Skull and face: Calvarium and visualized facial bones are intact, without suspicious lesions. Sinuses: Visualized sinuses and mastoids are clear. IMPRESSION: Mild atrophy and chronic ischemic change without intracranial hemorrhage or mass effect. No change fr om the prior exam. Reviewed by: Carlin Vaca MD on 03/31/2021 12:10 PM AKST Approved by: Carlin Vaca MD on 03/31/2021 12:10 PM AKST Station ID: [id number]
[2021-03-31] MEDS ORDERED: LACTATED RINGERS 1,000 ML IV SCH (14:00)
[2021-03-31 14:15] LABS: B. PARAPERTUSSIS- RESP PCR PAN NOT DETECTED; B. PERTUSSIS- RESP PCR PANEL NOT DETECTED; C. PNEUMONIAE- RESP PCR PANEL NOT DETECTED; CORONAVIRUS 229E-RESP PCR NOT DETECTED; CORONAVIRUS HKU1-RESP PCR NOT DETECTED; CORONAVIRUS NL63-RESP PCR NOT DETECTED; CORONAVIRUS OC43-RESP PCR NOT DETECTED; HUMAN METAPNEUMOVIRUS NOT DETECTED; INFLUENZA A- RESP PCR PANEL NOT DETECTED; INFLUENZA B - RESP PCR PANEL NOT DETECTED; M. PNEUMONIAE- RESP PCR PANEL NOT DETECTED; PARAINFLUENZA VIRUS 1 NOT DETECTED; PARAINFLUENZA VIRUS 2 NOT DETECTED; PARAINFLUENZA VIRUS 3 NOT DETECTED; PARAINFLUENZA VIRUS 4 NOT DETECTED; RHINOVIRUS/ENTEROVIRUS NOT DETECTED; RSV- RESP PCR PANEL NOT DETECTED; SARS-CoV-2 -RESP PCR PANEL NOT DETECTED
[2021-03-31 14:32] LABS: ACETAMINOPHEN < 10 ug/mL (10-30); SALICYLATE < 6.0 mg/dL
[2021-03-31] MEDS: SODIUM CHLORIDE FLUSH 0.9% 10 ML SYRINGE IVP SCH (15:37)
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
--- NOTE | 2021-03-31 17:51 | PHARMACY PROGRESS NOTE ---
- Best Possible Medication History Admit Date and Time: 03/31/21 1306 Processed by: Pharmacy Medication History completed: Yes Secondary Source(s): Physician records, Pharmacy records, Insurance records As the person ultimately responsible for medication therapy, providers are able to order a medication from an existing home medication list in [facility] via the "Reconcile Routine" prior to Confirmation of that medication by applications support engineer. Such practice is discouraged except when the physician, in their clinical judgment, deems that a medical need exists for a medication without regard to previous use.
[2021-03-31] MEDS: ACETAMINOPHEN 325 MG TABLET PO PRN (19:58)
[2021-03-31] MEDS: oxyCODONE 5 MG TABLET PO PRN (19:58)
[2021-04-01] MEDS: SODIUM CHLORIDE FLUSH 0.9% 10 ML SYRINGE IVP SCH ×3 (01:18→17:15)
[2021-04-01 04:54] LABS: MUDS CUTOFF CONCENTRATIONS CUTOFF CONC BELOW:
[2021-04-01 05:05] LABS: AMPHETAMINE SCREEN,URINE NEGATIVE (NEGATIVE); BARBITURATE SCREEN,UR NEGATIVE (NEGATIVE); BENZODIAZEPINES SCREEN, URINE POSITIVE (NEGATIVE); COCAINE SCREEN URINE NEGATIVE (NEGATIVE); METHADONE SCREEN, URINE NEGATIVE (NEGATIVE); METHAMPHETAMINES SCREEN, URINE NEGATIVE (NEGATIVE); OPIATE SCREEN, URINE NEGATIVE (NEGATIVE); OXYCODONE SCREEN, URINE NEGATIVE (NEGATIVE); PROPOXYPHENE SCREEN, URINE NEGATIVE (NEGATIVE); THC CANNABINOID SCREEN, URINE POSITIVE (NEGATIVE); TRICYCLIC ANTIDEPRESSANT,URINE POSITIVE (NEGATIVE)
[2021-04-01 05:51] LABS: CALCIUM 9.1 mg/dL (8.5-10.3); CREATININE 0.7 mg/dL (0.4-1.0); MAGNESIUM 1.8 mg/dL (1.7-2.8)
[2021-04-01] MEDS ORDERED: LACTULOSE 10 GM /15 ML UDC PO PRN (08:46)
[2021-04-01] MEDS ORDERED: INSULIN GLARGINE 300 UNIT/3 ML PEN SUBQ SCH (09:00)
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
[2021-04-01] MEDS: LEVOTHYROXINE 25 MCG TABLET PO SCH ×2 (11:58→15:57)
[2021-04-01] MEDS: lamoTRIgine 100 MG TABLET PO SCH ×2 (11:58→15:57)
[2021-04-01] MEDS: SERTRALINE 50 MG TABLET PO SCH ×2 (11:58→15:56)
[2021-04-01] MEDS: TOPIRAMATE 100 MG TABLET PO SCH ×3 (11:59→21:01)
[2021-04-01] MEDS: INSULIN ASPART 300 UNIT/3 ML PEN SUBQ SCH ×3 (11:59→21:25)
[2021-04-01 12:17] LABS: ESTIMATED AVERAGE GLUCOSE 146 mg/dL (70-100); HEMOGLOBIN A1c% 6.7 % (4.27-6.07)
--- NOTE | 2021-04-01 16:33 | PROVIDER PROGRESS NOTE ---
Assessment/Plan - Problem List (1) Slurred speech Assessment/Plan: 04/01 resolved. pt is alert and oriented plus 4, she has no more slurred speech. Her CT of head is unremarkable for acute finings. it was likely accidentally overdosed on her Ativan again. however, because of pt's social situation, high school social studies tutor was consulted, recommended there is no safety d/c plan on today, hopefully tomorrow pt can be safely d/c (2) Bipolar 1 disorder, manic, mild pt initially refused to take her psychiatric meds, now she take, continue pt's home meds, Seroquel, sertraline, Lamictal as well as Topamax. (3) Neuroendocrine carcinoma of lung pt is following up with her oncologist now and plan to have biopsy for her liver lesions. (4) Diabetes mellitus with insulin therapy Conclusion/Plan: her A1C is 6.7, will resume home Lantus 8 units daily due to her poor appetite, plus slide scale now, hypoglycemia protocol (5)poor appetite pt has hx of malnutrition, also pt has hx of lung cancinoma, and likely metastatic liver lesions. we will consult with director diabetes, encourage to eat - Current Meds Current Meds: Current Medications Generic Name Dose Route Start Last Admin Trade Name Freq PRN Reason Stop Dose Admin Acetaminophen 650 mg 03/31/21 13:09 03/31/21 19:58 Acetaminophen 325 Mg Tablet PO 650 mg Q4HR PRN Administration Pain 1 to 4 Insulin Aspart 1 - 9 unit 04/01/21 12:00 04/01/21 11:59 Insulin Aspart 300 Unit/3 Ml Pen SUBQ Not Given 0800,1200,1700,2100 FRANSISCO Protocol Insulin Glargine 8 unit 04/01/21 09:00 04/01/21 09:30 Insulin Glargine 300 Unit/3 Ml Pen SUBQ Not Given QDBREAKFAST FRANSISCO Lamotrigine 200 mg 04/01/21 09:00 04/01/21 15:57 Lamotrigine 100 Mg Tablet PO 200 mg DAILY FRANSISCO Administration Levothyroxine Sodium 50 mcg 04/01/21 09:00 04/01/21 15:57 Levothyroxine 25 Mcg Tablet PO 50 mcg QDAC FRANSISCO Administration Oxycodone HCl 5 mg 03/31/21 13:09 03/31/21 19:58 Oxycodone 5 Mg Tablet PO 5 mg Q4HR PRN Administration Pain 5 to 7 Sertraline HCl 150 mg 04/01/21 09:00 04/01/21 15:56 Sertraline 50 Mg Tablet PO 150 mg DAILY FRANSISCO Administration Sodium Chloride 10 ml 03/31/21 17:00 04/01/21 11:58 Sodium Chloride Flush 0.9% 10 Ml Syringe IVP Not Given 0100,0900,1700 FRANSISCO Topiramate 200 mg 04/01/21 09:00 04/01/21 15:57 Topiramate 100 Mg Tablet PO 200 mg BID FRANSISCO Administration - Lab Result Fish Bone Diagrams: 03/31/21 11:46 04/01/21 05:25 - Additional Planning My Orders: My Active Orders 04/01/21 Palliative Care Consult [CONS] Routine 04/01/21 05:20 LAMOTRIGINE [REFLAB] Urgent 04/01/21 08:18 Blood Glucose Checks - Eating [RC] 0800,1200,1700,2100 Initiate Hypoglycemia Protocol [RC] .protocol 04/01/21 08:46 Lactulose [Enulose] 3.3333 gm PO BID PRN 04/01/21 09:00 Insulin Glargine [Lantus Solostar] 8 unit SUBQ QDBREAKFAST Levothyroxine [Synthroid] 50 mcg PO QDAC Sertraline [Zoloft] 150 mg PO DAILY Topiramate [Topamax] 200 mg PO BID lamoTRIgine [LaMICtal] 200 mg PO DAILY 04/01/21 12:00 Insulin Aspart [NovoLOG] 1 - 9 unit SUBQ 0800,1200,1700,2100 04/01/21 12:29 Heparin Flush [Heparin Sodium (Beef Lung)] 300 - 500 unit IVP PRN PRN 04/01/21 21:00 Atorvastatin [Lipitor] 10 mg PO QPM QUEtiapine [SEROquel] 100 mg PO QPM 04/02/21 05:00 BMP - BASIC METABOLIC PANEL [CHEM] DAILYLAB CBC - COMP BLD CT W/AUTO DIFF [HEME] DAILYLAB 04/03/21 05:00 BMP - BASIC METABOLIC PANEL [CHEM] DAILYLAB CBC - COMP BLD CT W/AUTO DIFF [HEME] DAILYLAB 04/04/21 05:00 BMP - BASIC METABOLIC PANEL [CHEM] DAILYLAB CBC - COMP BLD CT W/AUTO DIFF [HEME] DAILYLAB 04/05/21 05:00 BMP - BASIC METABOLIC PANEL [CHEM] DAILYLAB CBC - COMP BLD CT W/AUTO DIFF [HEME] DAILYLAB 04/06/21 05:00 BMP - BASIC METABOLIC PANEL [CHEM] DAILYLAB CBC - COMP BLD CT W/AUTO DIFF [HEME] DAILYLAB Subjective - Subjective Patient Reports: Resting Comfortably Objective Vital Signs: Vital Signs - 24 hr 03/31/21 03/31/21 04/01/21 20:19 23:47 04:57 Temperature 36.5 C 36.3 C L 36.7 C Heart Rate [ 65 58 L 69 Brachial] Respiratory 20 21 20 Rate Blood Pressure 120/62 119/52 L 106/55 L [Right Brachial artery] O2 Saturation 100 99 95 04/01/21 07:51 Temperature 36.9 C Heart Rate [ 68 Brachial] Respiratory 17 Rate Blood Pressure 114/63 [Right Brachial artery] O2 Saturation 96 Oxygen O2 Source Room air I&O (Last 24 Hrs): Intake and Output Totals x24h 03/30/21 03/31/21 04/01/21 23:59 23:59 23:59 Intake Total 0 1000 Output Total 0 200 Balance 0 800 General: Alert, Oriented x3, No acute distress HEENT: Atraumatic Neck: Supple Lymphatic: no adenopathy Neuro: Alert, Non Focal, Oriented Times 3 Cardiovascular: Regular rate, Normal S1, Normal S2 Respiratory: Chest non-tender, No respiratory distress Abdomen: Normal bowel sounds, Soft Extremities: Normal pulses - Results Results: Laboratory Results WBC 3.5 x10^3/uL (4.8-10.8) L 03/31/21 11:46 RBC 3.66 10^6/uL (4.20-5.40) L 03/31/21 11:46 Hgb 12.0 g/dL (12.0-16.0) 03/31/21 11:46 Hct 37.3 % (37.0-47.0) 03/31/21 11:46 MCV 101.9 fL (81.0-99.0) H 03/31/21 11:46 MCH 32.8 pg (27.0-31.0) H 03/31/21 11:46 MCHC 32.2 g/dL (32.0-36.0) 03/31/21 11:46 RDW 15.8 % (12.0-15.0) H 03/31/21 11:46 Plt Count 212 10^3/uL (130-450) 03/31/21 11:46 MPV 9.3 fL (7.9-10.8) 03/31/21 11:46 Neut # (Auto) 1.5 10^3/uL (1.5-6.6) 03/31/21 11:46 Lymph # (Auto) 1.4 10^3/uL (1.5-3.5) L 03/31/21 11:46 [place] # (Auto) 0.5 10^3/uL (0.0-1.0) 03/31/21 11:46 Eos # (Auto) 0.0 10^3/uL (0.0-0.7) 03/31/21 11:46 Baso # (Auto) 0.0 10^3/uL (0.0-0.1) 03/31/21 11:46 Absolute Nucleated RBC 0.00 x10^3/uL 03/31/21 11:46 Nucleated RBC % 0.0 /100WBC 03/31/21 11:46 VBG Total Hgb 10.9 g/dL (12.0-18.0) L 03/31/21 13:03 VBG Oxyhemoglobin 58 % (94-100) L 03/31/21 13:03 VBG Carboxyhemoglobin 2.9 % (0-1.5) H 03/31/21 13:03 VBG Methemoglobin 0.3 % (0-1.5) 03/31/21 13:03 Sodium 141 mmol/L (135-145) 04/01/21 05:25 Potassium 4.0 mmol/L (3.5-5.0) 04/01/21 05:25 Chloride 108 mmol/L (101-111) 04/01/21 05:25 Carbon Dioxide 23 mmol/L (21-32) 04/01/21 05:25 Anion Gap 10.0 (6-13) 04/01/21 05:25 BUN 26 mg/dL (6-20) H 04/01/21 05:25 Creatinine 0.7 mg/dL (0.4-1.0) 04/01/21 05:25 Estimated GFR (MDRD) 86 (>89) L 04/01/21 05:25 Glucose 206 mg/dL (70-100) H 04/01/21 05:25 Estimat Average Glucose 146 mg/dL (70-100) H 04/01/21 05:20 Hemoglobin A1c % 6.7 % (4.27-6.07) H 04/01/21 05:20 Calcium 9.1 mg/dL (8.5-10.3) 04/01/21 05:25 Magnesium 1.8 mg/dL (1.7-2.8) 04/01/21 05:25 Total Bilirubin 0.6 mg/dL (0.2-1.0) 03/31/21 11:46 AST 30 IU/L (10-42) 03/31/21 11:46 ALT 46 IU/L (10-60) 03/31/21 11:46 Alkaline Phosphatase 87 IU/L (42-121) 03/31/21 11:46 Ammonia 15.6 umol/L (7-35) 03/31/21 13:03 Total Protein 8.9 g/dL (6.7-8.2) H 03/31/21 11:46 Albumin 5.1 g/dL (3.2-5.5) 03/31/21 11:46 Globulin 3.8 g/dL (2.1-4.2) 03/31/21 11:46 Albumin/Globulin Ratio 1.3 (1.0-2.2) 03/31/21 11:46 TSH 1.97 uIU/mL (0.34-5.60) 03/31/21 13:03 Nasal Adenovirus (PCR) NOT DETECTED 03/31/21 13:10 Nasal B. parapertussis DNA (PCR) NOT DETECTED 03/31/21 13:10 Nasal Coronavir 229E PCR NOT DETECTED 03/31/21 13:10 Nasal Coronavir HKU1 PCR NOT DETECTED 03/31/21 13:10 Nasal Coronavir NL63 PCR NOT DETECTED 03/31/21 13:10 Nasal Coronavir OC43 PCR NOT DETECTED 03/31/21 13:10 Nasal Enterovir/Rhinovir PCR NOT DETECTED 03/31/21 13:10 Nasal Influenza B PCR NOT DETECTED 03/31/21 13:10 Nasal Influenza A PCR NOT DETECTED 03/31/21 13:10 Nasal Parainfluen 1 PCR NOT DETECTED 03/31/21 13:10 Nasal Parainfluen 2 PCR NOT DETECTED 03/31/21 13:10 Nasal Parainfluen 3 PCR NOT DETECTED 03/31/21 13:10 Nasal Parainfluen 4 PCR NOT DETECTED 03/31/21 13:10 Nasal RSV (PCR) NOT DETECTED 03/31/21 13:10 Nasal B.pertussis DNA PCR NOT DETECTED 03/31/21 13:10 Nasal C.pneumoniae (PCR) NOT DETECTED 03/31/21 13:10 [place] Human Metapneumo PCR NOT DETECTED 03/31/21 13:10 Nasal M.pneumoniae (PCR) NOT DETECTED 03/31/21 13:10 Nasal SARS-CoV-2 (PCR) NOT DETECTED 03/31/21 13:10 Salicylates < 6.0 mg/dL 03/31/21 13:03 Urine Opiates Screen NEGATIVE (NEGATIVE) 04/01/21 04:50 Ur Oxycodone Screen NEGATIVE (NEGATIVE) 04/01/21 04:50 Urine Methadone Screen NEGATIVE (NEGATIVE) 04/01/21 04:50 Ur Propoxyphene Screen NEGATIVE (NEGATIVE) 04/01/21 04:50 Acetaminophen < 10 ug/mL (10-30) L 03/31/21 13:03 Ur Barbiturates Screen NEGATIVE (NEGATIVE) 04/01/21 04:50 Ur Tricyclics Screen POSITIVE (NEGATIVE) H 04/01/21 04:50 Ur Phencyclidine Scrn NEGATIVE (NEGATIVE) 04/01/21 04:50 Ur Amphetamine Screen NEGATIVE (NEGATIVE) 04/01/21 04:50 U Methamphetamines Scrn NEGATIVE (NEGATIVE) 04/01/21 04:50 U Benzodiazepines Scrn POSITIVE (NEGATIVE) H 04/01/21 04:50 Urine Cocaine Screen NEGATIVE (NEGATIVE) 04/01/21 04:50 U Cannabinoids Screen POSITIVE (NEGATIVE) H 04/01/21 04:50 Ethyl Alcohol < 5.0 mg/dL 03/31/21 11:46 - Procedures Procedures: Procedures COLONOSCOPY (05/26/13) ESOPHAGOGASTRODUODENOSCOPY [EGD] W/CLOSED BIOPSY (05/26/13) EXCISION OF DUODENUM, ENDO, DIAGN (10/07/17) EXCISION OF LOWER ESOPHAGUS, ENDO, DIAGN (10/07/17) EXCISION OF RECTUM, ENDO, DIAGN (10/07/17) EXCISION OF STOMACH, ENDO, DIAGN (10/07/17) REPOSITION RIGHT TIBIA WITH INT FIX, OPEN APPROACH (04/26/18) ABX Reporting Has patient been on IV antibiotics over the past 48 hours?: No Current Medications - Current Medications Current Medications: Active Medications Acetaminophen (Acetaminophen 325 Mg Tablet) 650 mg PO Q4HR PRN PRN Reason: Pain 1 to 4 Last Admin: 03/31/21 19:58 Dose: 650 mg Documented by: Atorvastatin Calcium (Atorvastatin 10 Mg Tablet) 10 mg PO QPM FRANSISCO Gabapentin (Gabapentin 300 Mg Capsule) 600 mg PO TID [facility] Heparin Sodium (Beef Lung) (Heparin Flush 500 Units/5 Ml Syringe) 300 - 500 u nit IVP PRN PRN PRN Reason: Port Protocol (>24 hours) Insulin Aspart (Insulin Aspart 300 Unit/3 Ml Pen) 1 - 9 unit SUBQ 0800,1200,1700,2100 [facility]; Protocol Last Admin: 04/01/21 11:59 Dose: Not Given Documented by: Insulin Glargine (Insulin Glargine 300 Unit/3 Ml Pen) 8 unit SUBQ BID [facility] Lactulose (Lactulose 10 Gm /15 Ml Udc) 3.3333 gm PO BID PRN PRN Reason: Constipation Lamotrigine (Lamotrigine 100 Mg Tablet) 200 mg PO DAILY [facility] Last Admin: 04/01/21 15:57 Dose: 200 mg Documented by: Levothyroxine Sodium (Levothyroxine 25 Mcg Tablet) 50 mcg PO QDAC [facility] Last Admin: 04/01/21 15:57 Dose: 50 mcg Documented by: Ondansetron HCl (Ondansetron Odt 4 Mg Tablet) 4 mg TL Q6HR PRN PRN Reason: Nausea / Vomiting Ondansetron HCl (Ondansetron 4 Mg/2 Ml Vial) 4 mg IVP Q6HR PRN PRN Reason: Nausea / Vomiting Oxycodone HCl (Oxycodone 5 Mg Tablet) 5 mg PO Q4HR PRN PRN Reason: Pain 5 to 7 Last Admin: 03/31/21 19:58 Dose: 5 mg Documented by: Quetiapine Fumarate (Quetiapine 100 Mg Tablet) 100 mg PO QPM [facility] Sertraline HCl (Sertraline 50 Mg Tablet) 150 mg PO DAILY [facility] Last Admin: 04/01/21 15:56 Dose: 150 mg Documented by: Sodium Chloride (Sodium Chloride Flush 0.9% 10 Ml Syringe) 10 ml IVP PRN PRN PRN Reason: NEEDED PER PROVIDER ORDERS Sodium Chloride (Sodium Chloride Flush 0.9% 10 Ml Syringe) 10 ml IVP 0100,0900,1700 [facility] Last Admin: 04/01/21 11:58 Dose: Not Given Documented by: Topiramate (Topiramate 100 Mg Tablet) 200 mg PO BID [facility] Last Admin: 04/01/21 15:57 Dose: 200 mg Documented by: Simvastatin 20 mg PO QPM 01/19/13 Topiramate 200 mg PO BID 03/23/16 lamoTRIgine [LaMICtal] 200 mg PO DAILY 09/06/17 Empagliflozin [Jardiance] 25 mg PO DAILY 10/09/20 Sertraline HCl 150 mg PO DAILY 01/24/21 Acetaminophen [Acetaminophen Extra Strength] 1,000 mg PO TID PRN 02/20/21 Alendronate Sodium 35 mg PO .WEEKLY 02/20/21 Gabapentin [Neurontin] 600 mg PO TID MDD 1800 02/20/21 Levothyroxine Sodium [Levothyroxine] 50 mcg PO DAILY 02/20/21 Gabapentin [Neurontin] 300 mg PO .EVENING WITH 600MG 03/14/21 Lactulose 5 ml PO BID PRN 03/14/21 Insulin Glargine [Lantus Solostar] 8 unit SQ BID 03/26/21 Lorazepam [Ativan] 2 mg PO BID 03/31/21 QUEtiapine [SEROquel] 100 mg PO QPM 03/31/21
[2021-04-01] MEDS: oxyCODONE 5 MG TABLET PO PRN (17:15)
[2021-04-01] MEDS: ACETAMINOPHEN 325 MG TABLET PO PRN (17:15)
[2021-04-01] MEDS ORDERED: QUEtiapine 100 MG TABLET PO SCH (21:00)
[2021-04-01] MEDS ORDERED: ATORVASTATIN 10 MG TABLET PO SCH (21:00)
[2021-04-01] MEDS: GABAPENTIN 300 MG CAPSULE PO SCH (21:25)
[2021-04-01] MEDS: INSULIN GLARGINE 300 UNIT/3 ML PEN SUBQ SCH (21:25)
[2021-04-02] MEDS: oxyCODONE 5 MG TABLET PO PRN ×4 (00:15→15:06)
[2021-04-02] MEDS: SODIUM CHLORIDE FLUSH 0.9% 10 ML SYRINGE IVP SCH ×3 (00:16→16:47)
[2021-04-02] MEDS: LEVOTHYROXINE 25 MCG TABLET PO SCH (06:14)
[2021-04-02] MEDS: GABAPENTIN 300 MG CAPSULE PO SCH ×2 (06:14→14:55)
[2021-04-02 06:35] LABS: BASOPHILS % (AUTO) 1.7 %; EOSINOPHILS % (AUTO) 2.5 %; HCT - HEMATOCRIT 32.8 % (37.0-47.0); HGB - HEMOGLOBIN 10.7 g/dL (12.0-16.0); LYMPHOCYTES % (AUTO) 34.9 %; MEAN CORPUSCULAR HGB CONC 32.6 g/dL (32.0-36.0); MEAN CORPUSCULAR VOLUME 101.2 fL (81.0-99.0); MEAN PLATELET VOLUME 9.5 fL (7.9-10.8); MONOCYTES % (AUTO) 14.1 %; NEUTROPHILS % (AUTO) 46.8 %; PLT - PLATELET COUNT 185 10^3/uL (130-450); RED BLOOD COUNT 3.24 10^6/uL (4.20-5.40); RED CELL DISTRIBUTION WIDTH 15.3 % (12.0-15.0); WHITE BLOOD COUNT 2.4 x10^3/uL (4.8-10.8)
[2021-04-02 06:38] LABS: ABNORMAL LYMPHS % (MANUAL) 0 %; BAND NEUTROPHILS % (MANUAL) 0 %
[2021-04-02 06:47] LABS: CALCIUM 8.9 mg/dL (8.5-10.3); CREATININE 0.7 mg/dL (0.4-1.0); POTASSIUM 3.5 mmol/L (3.5-5.0)
[2021-04-02 07:49] LABS: BASOPHILS % (MANUAL) 1 %; DIFFERENTIAL COMMENT MANUAL DIFFERENTIAL; EOSINOPHILS # (MANUAL) 0.1 10^3/uL (0-0.7); LYMPHOCYTES # (MANUAL) 0.7 10^3/uL (1.5-3.5); LYMPHOCYTES % (MANUAL) 31 %; MONOCYTES # (MANUAL) 0.2 10^3/uL (0.0-1.0); NEUTROPHILS # (MANUAL) 1.3 10^3/uL (1.5-6.6); PLATELET ESTIMATE, MANUAL NORMAL (130-450,000) (NORMAL); PLATELET MORPHOLOGY NORMAL APPEARANCE (NORMAL); RBC MORPHOLOGY (MULTIPLE) 1+ MACROCYTOSIS (NORMAL); WBC MORPHOLOGY (MULTIPLE) NORMAL APPEARANCE (NORMAL)
[2021-04-02] MEDS: INSULIN ASPART 300 UNIT/3 ML PEN SUBQ SCH ×2 (08:03→11:23)
[2021-04-02] MEDS: INSULIN GLARGINE 300 UNIT/3 ML PEN SUBQ SCH (08:05)
[2021-04-02] MEDS: SERTRALINE 50 MG TABLET PO SCH (08:06)
[2021-04-02] MEDS: lamoTRIgine 100 MG TABLET PO SCH (08:06)
[2021-04-02] MEDS: TOPIRAMATE 100 MG TABLET PO SCH (08:07)
[2021-04-02] MEDS ORDERED: ALBUTEROL NEB 2.5 MG/3 ML INH PRN (11:16)
--- NOTE | 2021-04-02 14:01 | Discharge Plan ---
Discharge Plan Problem Reviewed?: Yes Disposition: Home, Self Care Condition: Stable Diet: Diabetic Activity Restrictions: Activity as Tolerated Shower Restrictions: No (fall precaution) Instruction Topics: ED Altered Loc, ED Confusion Health Concerns: confusion Plan of Treatment: You are alert and oriented, and have clear speech. You are no more confused now. Your confusion was likely caused by your Ativan over dosage intake. Your home Ativan is hold now. You may Follow-up with your psychiatrist as out-pt, And follow-up with your oncologist as outpatient as well. Care Goals: Stabilization and resolve of your confusion Assessment: Discussed the care plan with you, answered your question, you understood Additional Instructions or Follow Up instructions: You may follow-up with your PCP in 1 week. Should your symptoms return or worsen, you may present to ER or call 911 for help No Smoking: If you smoke, Please STOP! Call for help. Follow-up with: Eri Flores PA-C [Primary Care Provider] -
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
[2021-04-02 16:28] VITALS: BP 126/68
[2021-04-02] MEDS ORDERED: INSULIN ASPART 300 UNIT/3 ML PEN SUBQ SCH (17:00)
== END 2021-04-02 16:50 | disposition home or self-care (01) ==
LOC: ED 10:56 → MS2 13:09
PROVIDERS: ADMIT Specialist; ATTEND Nurse Practitioner Gerontology
DX: R41.0 Disorientation, unspecified (principal); F31.89 Other bipolar disorder; C7A.8 Other malignant neuroendocrine tumors; E11.9 Type 2 diabetes mellitus without complications; R63.0 Anorexia; F41.9 Anxiety disorder, unspecified; Z79.4 Long term (current) use of insulin; Z51.5 Encounter for palliative care; Q21.1 Atrial septal defect; D64.9 Anemia, unspecified; I10 Essential (primary) hypertension; E03.9 Hypothyroidism, unspecified; K59.09 Other constipation; F17.210 Nicotine dependence, cigarettes, uncomplicated; R07.9 Chest pain, unspecified; R64 Cachexia; Z68.1 Body mass index [BMI] 19.9 or less, adult; R47.81 Slurred speech; D61.818 Other pancytopenia; G47.00 Insomnia, unspecified; J43.9 Emphysema, unspecified; K21.9 Gastro-esophageal reflux disease without esophagitis; K52.9 Noninfective gastroenteritis and colitis, unspecified; E11.42 Type 2 diabetes mellitus with diabetic polyneuropathy
CPT/HCPCS: 0202U; 36415; 70450; 80048; 80053; 80175; 80306; 80307; 80320; 80329; 82140; 82375; 83036; 83735; 84443; 85025; 87493; 94640; 94664; 96360; 96361; 99283; 99285; A9270; G0378; J1815; J7120

== ENCOUNTER 2021-04-07 07:05 | Outpatient (CLI) | payer MEDICAID ==
[2021-04-07] MEDS ORDERED: GADOBUTROL 7.5 MMOL/7.5 ML VIAL ONE (07:34)
--- NOTE | 2021-04-07 10:49 | MRI Report ---
PROCEDURE: Abdomen W/WO INDICATIONS: LIVER METS CONTRAST: IV CONTRAST: Gadavist ml: 4.7 TECHNIQUE: Coronal ultra fast SE, axial 2D spoiled GE in- and [id number]; axial breath-hold T2 fast SE. Dynam ic axial ultra fast GE during the administration of contrast; post-contrast coronal ultra fast GE or 2D spoiled GE with fat saturation from the hepatic dome to the iliac crests. COMPARISON: CT chest 03/03/2021. CT abdomen and pelvis 03/03/2021, 10/16/2020. FINDINGS: Image quality: Excellent. Lung bases: Small right pleural effusion, similar to before. Heart size is normal. Solid organs: Multiple (at least 10) small hepatic lesions. These demonstrate mild T2 hyperintense si gnal, hypoenhancement with punctate central enhancement in a few of the lesions. These appear similar to the short-term interval compared to CT 03/03/2021. These are not seen on CT from October 2020. A lar srini lesion in the right lobe at the dome measures are 0.9 cm, (801/96). Gallbladder is surgically absent. Biliary system is non dilated. Pancreas is normal in morphology. No splenomegaly. No adrenal nodules. Both kidneys demonstrate normal size and enhancement, without hydronephrosis. Nodes and vessels: No retroperitoneal or mesenteric adenopathy by size criteria. Aorta and inferior vena cava are normal in size. Bowel and peritoneum: Prominent stool the colon. No free fluid. Bones and soft tissues: No ventral hernias. Bone marrow is normal in overall signal. IMPRESSION: 1. Numerous small hepatic lesions which are highly suspicious for metastatic disease. -Recommend liver ultrasound and ultrasound-guided biopsy for tissue diagnosis. 2. Small right pleural effusion. 3. Prominent stool the colon. Reviewed by: Carlos Olivia MD on 04/07/2021 10:47 AM [facility] Approved by: Carlos Olivia MD on 04/07/2021 10:47 AM PST Station ID: [id number]
[2021-04-07] MEDS: GADOBUTROL 7.5 MMOL/7.5 ML VIAL IVP ONE (12:48)
== END 2021-04-07 07:06 | disposition home or self-care (01) ==
LOC: DI 07:05
PROVIDERS: ATTEND Internal Medicine Hematology & Oncology
DX: C34.90 Malignant neoplasm of unspecified part of unspecified bronchus or lung (principal); C78.7 Secondary malignant neoplasm of liver and intrahepatic bile duct; J90 Pleural effusion, not elsewhere classified
CPT/HCPCS: 74183; A9585

== ENCOUNTER 2021-04-09 15:00 | Outpatient (CLI) | payer MEDICAID ==
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
== END 2021-04-09 15:01 | disposition home or self-care (01) ==
LOC: PC 15:00
PROVIDERS: ATTEND Nurse Practitioner Family
DX: Z51.5 Encounter for palliative care (principal); G89.3 Neoplasm related pain (acute) (chronic); C34.90 Malignant neoplasm of unspecified part of unspecified bronchus or lung; J90 Pleural effusion, not elsewhere classified; R93.2 Abnormal findings on diagnostic imaging of liver and biliary tract; F17.210 Nicotine dependence, cigarettes, uncomplicated; K59.00 Constipation, unspecified; Z91.14 Patient's other noncompliance with medication regimen; F31.9 Bipolar disorder, unspecified; Z79.899 Other long term (current) drug therapy; Z60.9 Problem related to social environment, unspecified; Z74.1 Need for assistance with personal care; Z59.89 Other problems related to housing and economic circumstances
CPT/HCPCS: 99215

== ENCOUNTER 2021-04-16 13:45 | Outpatient (CLI) | payer MEDICAID ==
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
== END 2021-04-16 13:46 | disposition home or self-care (01) ==
LOC: PC 13:45
PROVIDERS: ATTEND Nurse Practitioner Family
DX: Z51.5 Encounter for palliative care (principal); C7A.8 Other malignant neuroendocrine tumors; G89.3 Neoplasm related pain (acute) (chronic); M25.511 Pain in right shoulder; C7B.8 Other secondary neuroendocrine tumors; E11.9 Type 2 diabetes mellitus without complications; J43.9 Emphysema, unspecified; E03.9 Hypothyroidism, unspecified; R32 Unspecified urinary incontinence; R35.1 Nocturia; R35.0 Frequency of micturition; H40.9 Unspecified glaucoma; F41.9 Anxiety disorder, unspecified; F31.9 Bipolar disorder, unspecified; Z79.4 Long term (current) use of insulin; Z79.891 Long term (current) use of opiate analgesic; Z79.899 Other long term (current) drug therapy; Z91.14 Patient's other noncompliance with medication regimen
CPT/HCPCS: 99215

== ENCOUNTER 2021-04-22 10:28 | Outpatient (CLI) | payer MEDICAID ==
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
== END 2021-04-22 10:29 | disposition home or self-care (01) ==
LOC: PC 10:28
PROVIDERS: ATTEND Nurse Practitioner Adult Health
DX: Z51.5 Encounter for palliative care (principal); G89.3 Neoplasm related pain (acute) (chronic); C34.90 Malignant neoplasm of unspecified part of unspecified bronchus or lung; E03.9 Hypothyroidism, unspecified; F41.9 Anxiety disorder, unspecified; D70.9 Neutropenia, unspecified; F31.9 Bipolar disorder, unspecified; R41.3 Other amnesia
CPT/HCPCS: 99215

== ENCOUNTER 2021-04-30 11:00 | Outpatient (CLI) | payer MEDICAID ==
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
== END 2021-04-30 11:01 | disposition home or self-care (01) ==
LOC: PC 11:00
PROVIDERS: ATTEND Nurse Practitioner Adult Health
DX: Z51.5 Encounter for palliative care (principal); G89.3 Neoplasm related pain (acute) (chronic); C34.90 Malignant neoplasm of unspecified part of unspecified bronchus or lung; C7A.8 Other malignant neuroendocrine tumors; C78.7 Secondary malignant neoplasm of liver and intrahepatic bile duct; M25.511 Pain in right shoulder; F17.200 Nicotine dependence, unspecified, uncomplicated; R41.3 Other amnesia; Z91.14 Patient's other noncompliance with medication regimen; F41.9 Anxiety disorder, unspecified; Z79.891 Long term (current) use of opiate analgesic
CPT/HCPCS: 99349

== ENCOUNTER 2021-05-14 11:30 | Outpatient (CLI) | payer MEDICAID ==
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
== END 2021-05-14 11:31 | disposition home or self-care (01) ==
LOC: PC 11:30
PROVIDERS: ATTEND Nurse Practitioner Adult Health
DX: Z51.5 Encounter for palliative care (principal); G89.3 Neoplasm related pain (acute) (chronic); R41.3 Other amnesia; Z91.14 Patient's other noncompliance with medication regimen; F41.9 Anxiety disorder, unspecified; R06.02 Shortness of breath; R68.81 Early satiety; E11.9 Type 2 diabetes mellitus without complications; G62.9 Polyneuropathy, unspecified; F17.210 Nicotine dependence, cigarettes, uncomplicated; C7A.8 Other malignant neuroendocrine tumors; Z79.899 Other long term (current) drug therapy; Z79.4 Long term (current) use of insulin; Z74.1 Need for assistance with personal care; Z59.01 Sheltered homelessness
CPT/HCPCS: 99349

== ENCOUNTER 2021-05-21 12:30 | Outpatient (CLI) | payer MEDICAID ==
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
== END 2021-05-21 12:31 | disposition home or self-care (01) ==
LOC: PC 12:30
PROVIDERS: ATTEND Nurse Practitioner Adult Health
DX: Z51.5 Encounter for palliative care (principal); G89.3 Neoplasm related pain (acute) (chronic); F41.9 Anxiety disorder, unspecified; Z91.14 Patient's other noncompliance with medication regimen; R41.3 Other amnesia; R63.4 Abnormal weight loss; F17.200 Nicotine dependence, unspecified, uncomplicated; C7A.8 Other malignant neuroendocrine tumors; C7B.8 Other secondary neuroendocrine tumors; Z59.89 Other problems related to housing and economic circumstances; Z79.899 Other long term (current) drug therapy; E11.9 Type 2 diabetes mellitus without complications; Z79.4 Long term (current) use of insulin; K59.00 Constipation, unspecified; R11.0 Nausea; G62.9 Polyneuropathy, unspecified; R06.09 Other forms of dyspnea; K59.03 Drug induced constipation; T40.2X5A Adverse effect of other opioids, initial encounter
CPT/HCPCS: 99348

== ENCOUNTER 2021-06-02 10:56 | Outpatient (CLI) | payer MEDICAID ==
[2021-06-02] MEDS ORDERED: IOPAMIDOL-300 50 ML VIAL ONE (11:19)
[2021-06-02] MEDS ORDERED: iohexoL-300 100 ML VIAL ONE (11:19)
[2021-06-02] MEDS ORDERED: IOPAMIDOL-300 50 ML VIAL PO ONE (13:21)
[2021-06-02] MEDS ORDERED: iohexoL-300 100 ML VIAL IVP ONE (13:23)
--- NOTE | 2021-06-02 14:23 | CT Report ---
PROCEDURE: CHEST W INDICATIONS: LUNG CA CONTRAST: IV CONTRAST: Isovue 300 ml: 100 PO CONTRAST: Isovue 300 ml50 TECHNIQUE: After the administration of intravenous contrast, 1 mm axial images were acquired from the pulmonary apices through the posterior costophrenic angles. Axial 5 mm soft tissue kernel reconstructions were performed as well as 8 mm axial MIP and coronal and sagittal 5 mm reformations. For radiation dose reduction, the following was used: automated exposure control, adjustment of mA and/or kV according to patient size. COMPARISON: 10/16/2020, 03/03/2021 FINDINGS: Image quality: Excellent. Lungs and pleura: A right lower lobectomy occurred between the 10/16/2020 study and 03/03/2021 study. M ild to moderate right pleural effusion. Moderate centrilobular emphysema. Left apical calcifications or clips with associated nodular scarring, unchanged. No acute air space opacities. No pleural effus ions or pneumothorax. Central and peripheral airways are patent and normal in caliber. Mediastinum: Heart size is normal. No pericardial effusion. No mediastinal or hilar adenopathy by size criteria. Thoracic aorta and central pulmonary arteries are normal in size. Esophagus is sully l in caliber. No hiatal hernia. Bones and chest wall: No suspicious bony lesions. No vertebral body compression fractures. No axil thad or supraclavicular adenopathy by size criteria. The thyroid is normal in size and there are no incidental findings.. Abdomen: Visualized upper abdominal solid organs appear normal. Upper abdominal bowel loops are nor mal in caliber. IMPRESSION: 1. Right lower lobectomy, with unchanged mild to moderate right pleural effusion and no evidence of r esidual or recurrent carcinoma or metastatic. 2. Moderate centrilobular emphysema. CLINICAL RECOMMENDATION STATEMENTS: In patients <35 years with an ITN detected on CT, MRI, or extrathyroidal ultrasound, the Committee re commends further evaluation with dedicated thyroid ultrasound if the nodule is "e1 cm and has no susp icious imaging features, and if the patient has normal life expectancy. In patients "e35 years with an ITN detected on CT, MRI, or extrathyroidal ultrasound, the Committee r ecommends further evaluation with dedicated thyroid ultrasound if the nodule is "e1.5 cm and has no s uspicious imaging features, and if the patient has normal life expectancy. (ACR, 2014) Reviewed by: Elliot Muñoz MD on 06/02/2021 2:22 PM PST Approved by: Elliot Muñoz MD on 06/02/2021 2:22 PM PST Station ID: [id number]
--- NOTE | 2021-06-02 14:36 | CT Report ---
PROCEDURE: Abdomen/Pelvis W INDICATIONS: LUNG CA CONTRAST: IV CONTRAST: Isovue 300 ml: 100 PO CONTRAST: Isovue 300 ml50 TECHNIQUE: After the administration of oral and intravenous contrast, 5 mm thick sections acquired from the diap hragms to the symphysis. 5 mm thick coronal and sagittal reformats were acquired. For radiation dos e reduction, the following was used: automated exposure control, adjustment of mA and/or kV accordin g to patient size. COMPARISON: Liver MR with and without contrast dated 04/07/2021, CT abdomen and pelvis with contrast dated 03/03/2021 FINDINGS: Image quality: Excellent. ABDOMEN: Lung bases: Mild to moderate right basilar pleural effusion with subpulmonic component. Heart size is normal. Solid organs: Numerous small hypodense liver lesions are again noted, consistent with metastatic dise ase. There are no new or increasing lesions. There are multiple lesions which are smaller in size. On previous image 20/[address] and current image 20/3, a lateral segment left lobe liver lesion was previously 8 mm and is currently approximately 4 mm. A previous caudate lobe lesion on prior shailesh ge 24/4 which measures approximately 10 mm, now is vaguely present. A right lobe liver lesion on prev ious image 18/4 and current image 18/3 has decreased from approximately 10 mm to 4 mm. Spleen is unremarkable. Gallbladder is surgically absent. Biliary system is non dilated. Pancreas enhances normally. No ad renal nodules. Kidneys demonstrate normal size and enhancement, without hydronephrosis. Peritoneum and bowel: Bowel loops demonstrate normal wall thickness and caliber. No free fluid or a ir. Large fecal load. Nodes and vessels: No retroperitoneal or mesenteric adenopathy by size criteria. Aorta and inferior vena cava are normal in size. Incidental note made of the presence of a dilated left gonadal vein in dicating left gonadal vein reflux with left greater than right paraovarian varicosities. Miscellaneous: No ventral hernias. PELVIS: Genitourinary: Bladder wall thickness is normal. Miscellaneous: No inguinal hernias or adenopathy. Bones: No suspicious bony lesions. No vertebral body compression fractures. IMPRESSION: 1. Remote right lower lobectomy with mild to moderate pleural effusion. 2. Definite interval response to therapy of hepatic metastatic disease with interval decrease in size of multiple liver lesions. No new or increasing liver lesions are seen. Reviewed by: Elliot Muñoz MD on 06/02/2021 2:35 PM PST Approved by: Elliot Muñoz MD on 06/02/2021 2:35 PM PST Station ID: [id number]
== END 2021-06-02 10:57 | disposition home or self-care (01) ==
LOC: DI 10:56
PROVIDERS: ATTEND Internal Medicine
DX: C34.12 Malignant neoplasm of upper lobe, left bronchus or lung (principal); C34.31 Malignant neoplasm of lower lobe, right bronchus or lung; C78.7 Secondary malignant neoplasm of liver and intrahepatic bile duct; Z90.2 Acquired absence of lung [part of]; J90 Pleural effusion, not elsewhere classified; J43.2 Centrilobular emphysema
CPT/HCPCS: 71260; 74177; Q9967

== ENCOUNTER 2021-06-19 12:52 | Outpatient (CLI) | payer MEDICAID ==
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
== END 2021-06-19 12:53 | disposition home or self-care (01) ==
LOC: PC 12:52
PROVIDERS: ATTEND Nurse Practitioner Adult Health
DX: Z51.5 Encounter for palliative care (principal); M62.81 Muscle weakness (generalized); R41.3 Other amnesia; R53.83 Other fatigue; E11.9 Type 2 diabetes mellitus without complications; K59.00 Constipation, unspecified; G89.3 Neoplasm related pain (acute) (chronic); G62.9 Polyneuropathy, unspecified; F41.9 Anxiety disorder, unspecified; L60.9 Nail disorder, unspecified; C7B.8 Other secondary neuroendocrine tumors; C7A.8 Other malignant neuroendocrine tumors; Z79.4 Long term (current) use of insulin; Z79.891 Long term (current) use of opiate analgesic; Z79.899 Other long term (current) drug therapy; Z60.8 Other problems related to social environment; Z91.14 Patient's other noncompliance with medication regimen; Z74.1 Need for assistance with personal care; Z66 Do not resuscitate
CPT/HCPCS: 99215

== ENCOUNTER 2021-06-26 08:10 | Outpatient (CLI) | payer MEDICAID ==
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
== END 2021-06-26 08:11 | disposition home or self-care (01) ==
LOC: PC 08:10
PROVIDERS: ATTEND Nurse Practitioner Family
DX: Z51.5 Encounter for palliative care (principal); G89.3 Neoplasm related pain (acute) (chronic); R11.0 Nausea; R63.4 Abnormal weight loss; F41.9 Anxiety disorder, unspecified; R41.3 Other amnesia; E11.40 Type 2 diabetes mellitus with diabetic neuropathy, unspecified; L60.9 Nail disorder, unspecified; K59.09 Other constipation; C7A.8 Other malignant neuroendocrine tumors; C7B.8 Other secondary neuroendocrine tumors; Z79.4 Long term (current) use of insulin; Z79.891 Long term (current) use of opiate analgesic; Z79.899 Other long term (current) drug therapy; Z68.1 Body mass index [BMI] 19.9 or less, adult; Z74.1 Need for assistance with personal care; Z63.8 Other specified problems related to primary support group; Z66 Do not resuscitate
CPT/HCPCS: 99349

== ENCOUNTER 2021-07-09 10:30 | Outpatient (CLI) | payer MEDICAID ==
--- NOTE | 2021-07-09 13:00 | CONSULTATION NOTE ---
Palliative Care Follow Up - Referral Referring Provider: Eri Flores PA-C Time of Visit: 1045 75 min Referral setting: MAC Referral Reason: Anxiety/DM2/Met Lung CA - Information Sources Records reviewed: RN notes reviewed, Previous records reviewed History/Review of Systems obtained from: Patient, Caregiver (Lyn and Marge) Exam limitations: Clinical condition (anxiety/STM issues) - History of Present Illness Update Brief HPI Update: This is an anxious 60-year-old woman with stage IV non-small cell lung cancer, large endocrine type, per currently receiving palliative treatment. In follow- up with oncology, will change her to immunotherapy only, patient tolerated the last treatment fairly poorly with increased nausea vomiting and diarrhea, but has very poor recall of her symptoms. She is finally and is stable living situation, but still is most likely not getting her needs met. Evident today is she has not been taking her Lantus, came in with a blood sugar of 525, she is somewhat confused in the context she keeps talking about higher blood sugars better, and she was high 300s, she is also ran out of her gabapentin 12 days prior to when she should with increased dosing, as well as difficulty tracking most things as far as her recall and short-term memory. It has been complicated she does have an APS worker Diana [phone], will give update regarding continued concerns regarding medication adherence, patient is quite frail, though she has doing better with her intake and weight. She very much likes her new apartment, reports less anxiety, is very much watched closely by her caregivers Lyn and Suma, though they are not ultimately responsible. They are finishing up paperwork for her DPOA which is Rhonda Garcia [phone] Past Medical History: Hypertension, high cholesterol, emphysema, lung cancer MCI, type 2 diabetes, hypothyroidism, GERD, hiatal hernia, chronic diarrhea alternating with chronic diet constipation, pancreatitis, hepatitis, cholelithiasis, incontinence, nocturia, frequency, glaucoma, dental implants, depression, anxiety, bipolar disorder, osteoarthritis, psoriasis, past surgical history includes cholecystectomy, hiatal hernia repair, Port-A-Cath placement 03/06, left rotator cuff repair, , tonsillectomy/adenectomy, wedge resection Social History - Living Situation Living arrangement: At home Living Situation: Alone Support System: Patient has moved into her new apartment, it is doing well as far as follow-up. She is getting settled with the help of her caregivers. She is still having so me difficulty settling and particularly around remembering medications and medication adherence. She is estranged from her 2 children, she is working on solidifying her DPOA for healthcare paperwork. She is being followed by [facility] with Hanane her [facility] worker, does bring her medications to put in medic well every 2 weeks. Unclear who will be managing her psych meds, as Dr. Moreno has retired but will continue to receive them through the [facility] Medications/Allergies - Medications Home Medications: Ambulatory Orders Medication Instructions Recorded Confirmed Simvastatin 20 mg PO QPM 01/19/13 07/09/21 Topiramate 200 mg PO BID 03/23/16 07/09/21 lamoTRIgine [LaMICtal] 200 mg PO DAILY 09/06/17 07/09/21 Empagliflozin [Jardiance] 25 mg PO DAILY 10/09/20 07/09/21 Sertraline HCl 150 mg PO DAILY 01/24/21 07/09/21 Lidocaine/Prilocain 2.5% Cream 5 applic TOP UD #1 gm 02/11/21 07/09/21 [Emla 2.5% Cream] ondansetron HCL [Zofran] 4 mg PO Q6HR PRN #30 tab 02/11/21 07/09/21 Acetaminophen [Acetaminophen Extra 1,000 mg PO TID PRN 02/20/21 07/09/21 Strength] Alendronate Sodium 35 mg PO .WEEKLY 02/20/21 07/09/21 Levothyroxine Sodium 50 mcg PO DAILY 02/20/21 07/09/21 [Levothyroxine] Lactulose 5 - 10 ml PO BID PRN 03/14/21 07/09/21 Insulin Glargine [Lantus Solostar] 12 unit SQ BID 03/26/21 07/09/21 QUEtiapine [SEROquel] 400 mg PO QPM 03/31/21 07/09/21 oxyCODONE [Roxicodone] 5 mg PO QPM 04/09/21 07/09/21 Gabapentin [Neurontin] 900 mg PO TID 30 Days #180 tablet 06/18/21 07/09/21 Insulin Lispro [Humalog Kwikpen 4 units SUBQ TID PRN MDD > 250 BS 07/09/21 07/09/21 U-100] - Allergies Allergies/Adverse Reactions: Allergies Allergy/AdvReac Type Severity Reaction Status Date / Time hydromorphone HCl * Allergy Intermediate Edema Verified 03/31/21 11:06 [From Dilaudid] metformin Allergy Intermediate vomiting Verified 03/31/21 11:06 and diarrhea Penicillins Allergy Intermediate Rash Verified 03/31/21 11:06 Sulfa (Sulfonamide Allergy Intermediate Rash Verified 03/31/21 11:06 Antibiotics) carbamazepine [From Tegretol] Allergy Mild Rash Verified 03/31/21 11:06 amoxicillin [Amoxicillin] Allergy Rash Verified 03/31/21 11:06 Review of Systems - Constitutional Constitutional: reports: Fatigue (worsening), Weakness, Poor appetite, Weight loss (improved 44.5 still quite cachetic). denies: Fever - Eyes Eyes: reports: Vision loss - Ears, Nose & Throat Ears, Nose & Throat: reports: Dry mouth. denies: Hearing aids - Cardiovascular Cardiovascular: reports: Lightheadedness (with position changes), Decr. exercise tolerance - Respiratory Respiratory: reports: Cough, SOB with exertion - Gastrointestinal Gastrointestinal: reports: Constipation (intermittent--uses lactulose with positive reponse when needed.), Nausea (intermittent nausea- responds to zofran), Poor appetite, Early satiety, Other (reports light stools) - Genitourinary Genitourinary: reports: Incontinence. denies: Dysuria - Musculoskeletal Musculoskeletal: reports: Stiffness, Muscle weakness, Joint pain (right shoulder). denies: Assistive devices (walker lost in recent move---Taya is following up with [employer] [facility] regarding this), Transfer issues - Integumentary Integumentary: reports: Dryness, Nail changes, Hair changes (Alopecia) - Neurological Neurological: reports: General weakness, Numbness, Memory problems - Psychiatric Psychiatric: reports: Depression, Anxiety - Endocrine Endocrine: reports: Diabetes type 2 (on insulin therapy but hasn't been taking regularly last few days;), Hypothyroidism, Intolerance to cold - Hematologic/Lymphatic Hematologic/Lymph: reports: Anemia (7.7 expected to receive 2 units PRBCs) - All Other Systems All Other Systems: reports: Other (limited by patient STM deficits and supplemented by caregiver, Taya) Physical Exam - Vital Signs Pulse Rate: 77 Respiratory Rate: 14 O2 Saturation: 97 Blood Pressure: 123/70 - Physical Exam General Appearance: positive: Alert, Anxious, Cachetic Eyes Bilateral: positive: Normal inspection ENT: positive: Dry mucous membranes Neck: positive: Trachea midline Cardiovascular: positive: Regular rate & rhythm Respiratory: positive: No respiratory distress, Breath sounds nml Abdomen: positive: Non-tender, Soft, Nml bowel sounds (repor), Other (patient reports to feeling bloating) Skin: positive: Pallor, Dryness, Other (Elongated toenails; greying and "falling" off). negative: Jaundice Extremities: positive: No pedal edema, Other (+muscle wasting, diffuse) Neurologic/Psychiatric: positive: Oriented x3, Mood/affect nml, Flat affect, Other (+anxious) Palliative Care - POLST Patient has POLST: Yes POLST Status: DNR, Selective Treatment Pain: Pain worsening, Location (Bilat feet with sharp shooting pains) Tiredness/Fatigue: Moderate (4-6) Drowsiness/Sedation: Mild (1-3) Nausea: Mild (1-3) Anorexia: Moderate (4-6), Weight loss Dyspnea: Moderate (4-6) Depression: Moderate (4-6) Anxiety: Moderate (4-6) Feelings of wellbeing/Perceived Quality of Life: Fair, Acceptable, Improved Sleep: Variable sleep pattern Constipation: Yes, Opoid induced, Unmanaged Performance Status: Patient continues to have significant fatigue, more shortness of breath with activity. Mostly is around her apartment, though does go with caregivers shopping. She does need some assistance with bathing and shopping. She does need frequent reminders secondary to her cognitive deficits about her medications. - Palliative Care Discussion: Patient continues to struggle with understanding the trajectory of her illness, she does understand that she is getting palliative treatment. She understands today that her treatment will be immunotherapy only, that the chemotherapy she is done with and has done what it can. She does understand at some point treatment can cause more harm than good. She continues to be treatment focus, does still not have a long-term plan for end-of-life, her goals are to be able to in her apartment but this may be challenging without any support in the context of someone to take responsibility. Most likely she will need to be placed, will go ahead and continue to work with caregivers and current situation, there will be a transition point when current situation is no longer safe. Am concerned with recent issues with medication adherence. Results - Lab Results Lab results reviewed: Yes Impression and Recommendations - Palliative Care Impression: This is an anxious 60-year-old female with metastatic non-small cell lung cancer stage IV, large cell neuroendocrine type with known liver mets. She remains on active palliative treatment, no further chemotherapy but will continue with her immunotherapy. She is receiving 2 units of packed red blood cells today, does continue with high symptom burden, and complex social situation. Continues to struggle with medication adherence particularly today with elevated blood sugar 525, confusion about insulin, and needing prescription for gabapentin early. Palliative care continues to provide supportive medication adherence, symptom management, care coordination and anticipatory guidance Recommendations/Counseling Done: 1. Diabetes type 2. Patient has been having difficulty remembering and being compliant with her Lantus schedule. She is supposed to be on 12 units twice daily with breakthrough dosing. Humalog unclear what her current parameters have been, will go ahead and simplify and make it 4 units if greater than 250 as patient is eating and can and tends to eat high sugary foods. Patient's blood sugar today was 525, patient does not remember last time she took her Lantus so no she did not take it this morning and last night, caregiver Taya thinks she did take it yesterday morning. Patient is somewhat confused in the context of higher is better, reviewed again it is better to have higher blood sugars and low blood sugars but patient has been symptomatic with frequent urination and thirst. Instructed to take her blood sugars 3 times a day, she does have a reader, has been reading high per log.For some reason she thought this was not working, caregiver reports she did have a high reading, took some short acting it came down to the 300s. Remains at high risk complex medication management with very little supervision. 2. Pain of neoplastic origin. This continues to be in the right shoulder, she says she is taking acetaminophen 2 tabs 3 times a day, and oxycodone 5 mg nightly with recurrent 7-day supply ordered secondary to safety issues. 3. Neuropathy. Patient ran out of gabapentin, there seems to be some confusion about 1-1/2 tabs, patient of course cannot recall what she has been doing but bottom line she has had none for the next 12 days. To be able to pay neal, needs to be in 300 mg tabs, this is a course of concern. Did write out instructions, reviewed with patient, reviewed with caregivers. Reviewed concern as gabapentin stopping will cause withdrawals. 4. Medication adherence is continues to be a challenge and difficult to provide oversight. Did call and talk to Tammi who had been patient's APS reported before, reports at this point in time case is closed but if concerns can report again. Unclear as far as what might be options, as patient would need to agree to placement. If patient does not present with decision-making capacity then it would be placement with DPOA support. 5. Advanced care planning. Patient has a POLST in place as DN AR/DNI and selective treatments. She has identified DPOA Cherelle garcia phone number [phone], we are still trying to finalize the paperwork, caregivers are somewhat anxious to do this is patient continues to deteriorate they 2 are wondering how long this will be a safe situation. And are concerned about being responsible for patient's oversight. Hopefully with blood transfusion, stopping chemo, and continued oversight with better medication adherence patient will continue to be independent which is her goals, though this remains still complex and suspect 75 minutes review of oncology notes, coordination of care with oncology oncology team, [id number] with patient, in conversation with patient's caregivers, APS, and anticipatory guidance.
== END 2021-07-09 10:31 | disposition home or self-care (01) ==
LOC: PC 10:30
PROVIDERS: ATTEND Nurse Practitioner Adult Health
DX: Z51.5 Encounter for palliative care (principal); E11.65 Type 2 diabetes mellitus with hyperglycemia; E11.40 Type 2 diabetes mellitus with diabetic neuropathy, unspecified; Z79.4 Long term (current) use of insulin; C34.90 Malignant neoplasm of unspecified part of unspecified bronchus or lung; G89.3 Neoplasm related pain (acute) (chronic); C78.7 Secondary malignant neoplasm of liver and intrahepatic bile duct; Z66 Do not resuscitate
CPT/HCPCS: 99215

== ENCOUNTER 2021-07-17 12:45 | Outpatient (CLI) | payer MEDICAID ==
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
== END 2021-07-17 12:46 | disposition home or self-care (01) ==
LOC: PC 12:45
PROVIDERS: ATTEND Nurse Practitioner Adult Health
DX: Z51.5 Encounter for palliative care (principal); E11.65 Type 2 diabetes mellitus with hyperglycemia; G89.3 Neoplasm related pain (acute) (chronic); F41.9 Anxiety disorder, unspecified; R64 Cachexia; G62.9 Polyneuropathy, unspecified; K59.00 Constipation, unspecified; C78.7 Secondary malignant neoplasm of liver and intrahepatic bile duct; C34.90 Malignant neoplasm of unspecified part of unspecified bronchus or lung; Z79.4 Long term (current) use of insulin; Z79.899 Other long term (current) drug therapy; Z60.8 Other problems related to social environment; Z74.1 Need for assistance with personal care; Z66 Do not resuscitate
CPT/HCPCS: 99350

== ENCOUNTER 2021-07-30 10:15 | Outpatient (CLI) | payer MEDICAID ==
--- NOTE | 2021-07-30 17:03 | CONSULTATION NOTE ---
Palliative Care Follow Up - Referral Referring Provider: Eri Flores PA-C Time of Visit: 1015 45 min [place] [facility] [place] Reason: Musculoskeletal Pain s/e immunotherapy/Peripheral neuropathy/Met Lung CA - Information Sources Records reviewed: Previous records reviewed History/Review of Systems obtained from: Patient, Caregiver (Marge present) Exam limitations: Clinical condition (patient with very poor STM) - History of Present Illness Update Brief HPI Update: This is an anxious 60-year-old woman with stage IV non-small cell lung cancer, large endocrine type currently receiving palliative treatment. She is doing better off of chemo, is receiving immunotherapy. Though today she presents with musculoskeletal side effects, with worsening joint pain, stiffness, and flare that feels like arthritis. Patient does have also underlying severe peripheral neuropathy both in her hands and feet, worsened both by treatment as well as her underlying diabetes.She has recently moved, continues with a complex social situation, and distress related to her moving with her staff as things were damaged as well as her new neighbors. She continues to perseverate rightly so on the multiple things that continue to happen for her.She reports she is eating better, her blood sugars widely from 69-2 59, though has had no hypoglycemic episodes. She reports she is taking 14 units of the Lantus twice daily and doing some short acting when her blood sugar is too high. greater than 250. Patient appears a good spirits, does appear to be more healthy, making better eye contact, may have even gained some weight. She does appear hydrated. Past Medical History: Hypertension, high cholesterol, emphysema, lung cancer, MCI, type 2 diabetes, hypothyroidism, GERD, hiatal hernia, chronic diarrhea alternating with chronic constipation, pancreatitis, hepatitis, cholelithiasis, incontinence, nocturia, frequency, glaucoma, dental implants, depression, anxiety, bipolar disorder, osteoarthritis, psoriasis Past surgical history includes cholecystectomy, hiatal hernia repair Port-A-Cath placement 03/06, left rotator cuff repair, , tonsillectomy/adenectomy, wedge resection for lung cancer Social History - Living Situation Living arrangement: At home Living Situation: Alone Support System: Patient is in new apartment, caregiver reports have unpacked most of the boxes. She continues to be upset with her noisy and rude neighbors, but denies feeling unsafe. She does have increased caregiving hours though caregivers still continue to provide more than allotted. She is estranged from her 2 children, she does have her DPOA in place and paperwork completed. She is followed by [facility] with Hanane as her [facility] worker, currently she is not meeting with psychiatry but is receiving medications. Medications/Allergies - Medications Home Medications: Ambulatory Orders Medication Instructions Recorded Confirmed Simvastatin 20 mg PO QPM 01/19/13 07/30/21 Topiramate 200 mg PO BID 03/23/16 07/30/21 lamoTRIgine [LaMICtal] 200 mg PO DAILY 09/06/17 07/30/21 Empagliflozin [Jardiance] 25 mg PO DAILY 10/09/20 07/30/21 Sertraline HCl 150 mg PO DAILY 01/24/21 07/30/21 Lidocaine/Prilocain 2.5% Cream 5 applic TOP UD #1 gm 02/11/21 07/30/21 [Emla 2.5% Cream] ondansetron HCL [Zofran] 4 mg PO Q6HR PRN #30 tab 02/11/21 07/30/21 Acetaminophen [Acetaminophen Extra 1,000 mg PO TID PRN 02/20/21 07/30/21 Strength] Alendronate Sodium 35 mg PO .WEEKLY 02/20/21 07/30/21 Levothyroxine Sodium 50 mcg PO DAILY 02/20/21 07/30/21 [Levothyroxine] Insulin Glargine [Lantus Solostar] 14 unit SQ BID 03/26/21 07/30/21 QUEtiapine [SEROquel] 400 mg PO QPM 03/31/21 07/30/21 oxyCODONE [Roxicodone] 5 mg PO QPM 04/09/21 07/30/21 Gabapentin [Neurontin] 900 mg PO TID 30 Days #180 tablet 06/18/21 07/30/21 Insulin Lispro [Humalog Kwikpen 4 units SUBQ TID PRN MDD > 250 BS 07/09/21 07/30/21 U-100] Meloxicam [Mobic] 15 mg PO DAILY 07/30/21 07/30/21 - Allergies Allergies/Adverse Reactions: Allergies Allergy/AdvReac Type Severity Reaction Status Date / Time hydromorphone HCl * Allergy Intermediate Edema Verified 03/31/21 11:06 [From Dilaudid] metformin Allergy Intermediate vomiting Verified 03/31/21 11:06 and diarrhea Penicillins Allergy Intermediate Rash Verified 03/31/21 11:06 Sulfa (Sulfonamide Allergy Intermediate Rash Verified 03/31/21 11:06 Antibiotics) carbamazepine [From Tegretol] Allergy Mild Rash Verified 03/31/21 11:06 amoxicillin [Amoxicillin] Allergy Rash Verified 03/31/21 11:06 Review of Systems - Constitutional Constitutional: reports: Fatigue, Weakness, Weight loss - Eyes Eyes: reports: Vision loss - Ears, Nose & Throat Ears, Nose & Throat: reports: Dry mouth - Cardiovascular Cardiovascular: reports: Decr. exercise tolerance - Respiratory Respiratory: reports: Cough, SOB with exertion - Gastrointestinal Gastrointestinal: reports: Constipation, Diarrhea (alternates but more diarrhea lately last 2 days), Early satiety, Other (fast food choices). denies: Nausea - Genitourinary Genitourinary: reports: Incontinence. denies: Dysuria - Musculoskeletal Musculoskeletal: reports: Stiffness, Muscle weakness, Joint pain (worsening now with multiple joints). denies: Assistive devices (walker lost in recent move---Taya is following up with [employer] regarding this), Transfer issues - Integumentary Integumentary: reports: Dryness, Nail changes, Hair changes - Neurological Neurological: reports: General weakness, Numbness, Memory problems (very much in the moment; poor recall; difficulty with multiple unfortuante events) - Psychiatric Psychiatric: reports: Depression, Anxiety - Endocrine Endocrine: reports: Diabetes type 2 (got sensor etc. fixed), Hypothyroidism, Intolerance to cold - Hematologic/Lymphatic Hematologic/Lymph: reports: Anemia (7.7 expected to receive 2 units PRBCs) - All Other Systems All Other Systems: reports: Other (limited by patient STM deficits and supplemented by caregiver, Lizzete today) Physical Exam - Vital Signs Pulse Rate: 82 Respiratory Rate: 18 O2 Saturation: 99 (ra @ rest) Blood Pressure: 122/68 - Physical Exam General Appearance: positive: Alert, Mild distress, Anxious, Cachetic Eyes Bilateral: positive: Normal inspection ENT: positive: No signs of dehydration Neck: positive: Trachea midline Respiratory: positive: Diminished throughout Abdomen: positive: Non-tender, Soft Skin: positive: Pallor, Bruising Extremities: positive: Joint swelling Neurologic/Psychiatric: positive: Oriented x3, Weakness, Depressed mood/affect, Flat affect, Other Palliative Care - POLST Patient has POLST: Yes POLST Status: DNR, Selective Treatment Pain: Pain worsening, Location (multiple joints; right shoulder), Severity (7- 8/10) Tiredness/Fatigue: Severe (7-10) Nausea: Moderate (4-6) Dyspnea: Moderate (4-6), Comment (reports increased cough/not productive - with activity) Anxiety: Severe (7-10) Feelings of wellbeing/Perceived Quality of Life: Fair, Acceptable, Worsening Sleep: Sleeps poorly Constipation: Yes, Unmanaged (alternates with diarrhea) Performance Status: Patient's functional status has improved off of chemotherapy, though remains quite limited both by her pain and dyspnea. She does need frequent rests, is independent in her apartment. She does have equipment to assist with bathing. Her catherine caregivers provide transportation and oversight as well as assist with shopping and patient likes fast food, often obtaining takeout. - Palliative Care Discussion: Discussion centered on how patient is doing, she did ask me about hospice. Reports Dr. Mayes offered her hospice, she was thinking that is where you just go to a [facility] and . We discussed that hospice happens at the time that they are no longer treatment options available or if the treatment is no longer working, that just as myself it is important that she get to know the hospice team sooner not just when she is transitioning to end-of-life. We did discuss this in the context they know that her goals are to in her apartment, but would need to have an appropriate care team to be able to support her, and sometimes at end-of-life we do need to transition people either to another setting which may include an [facility], but this would not be until she was imminently transitioning are unable to take care of herself. Allowed patient asked questions, as well as provided information, patient does have high anxiety regarding end-of-life though is becoming more realistic in the context of her expected decline in the future. Patient does have an identified DPOA now currently Cherelle garcia [phone] as well as a backup Michelle Velasco [phone], He also has a POLST with DN ARDNI and selective treatments. Results - Lab Results Lab results reviewed: Yes Impression and Recommendations - Palliative Care Impression: This is an anxious 60-year-old woman with metastatic non-small cell lung cancer stage IV, neuroendocrine type, with known progressive liver mets and disease. She does remain on active palliative treatment, no further chemotherapy at this time. She is feeling better, more ambulatory though remains quite cachectic and having fluctuating symptoms. She does have exacerbation most likely side effect of her immunotherapy of musculoskeletal pain and discomfort particular in her joints. She continues to struggle with medication adherence, has complex social situation. Palliative care continues to provide support regarding medication adherence, symptom management, care coordination and anticipatory guidance Recommendations/Counseling Done: 1. Multiple joint pain. This most likely is multifactorial, including side effect of her immunotherapy. She is having difficulty with severe osteoarthritis pain in her hands, as well as bilateral knees and hips. She is on gabapentin for her neuropathic peripheral neuropathy pain, oxycodone at bedtime, but does not address joint pain. We will go ahead as her kidney function is good to add meloxicam 15 mg daily, and see if this is of help. Will trial for 2 weeks, if effective, will to her list from [place] for [facility]. 2. Peripheral neuropathy. Patient continues on 900 gabapentin 3 times daily, continues with hot burning pain of her hands and feet, though reports she is compliant with her medications. We did discuss adding topical lidocaine, at this point she would like to wait. 3. Diabetes type 2. Patient's continuous monitor and sensor has been replaced, she is having some wide swings from 69-2 59 per her report. She is still being compliant though with the Lantus 14 units twice daily, reports she has been managing and the lows have only been intermittent. We will leave at current dosing, continue to monitor. 4. Anxiety. Patient continues with complex social situation has minimal support. Her caregivers are both providing both physical and psychosocial support but have limitations as far as time in their own families. Patient is home by herself most the time, she feels like she is doing okay at this time. Lives that her caregiver reports they have gotten most things impacted this time. Patient is having difficulty adjusting to her new apartment with son more difficult neighbors. She does not feel unsafe and it is better than living hotel, but remains challenging for patient. 5. Metastatic lung cancer with progression of disease. Patient was able to hear different options which included hospice from the oncologist, at this point in time because of "mixed response" they will continue immunotherapy for short- term interval follow-up with CT. She may have some other options, and is doing better off the chemotherapy. We will continue to monitor. 6. Advanced care planning. Patient does have POLST in place as DN AR/DNI selective treatments. She does have her paperwork for her DPOA completed and on record. Patient's goals are to remain independent as long as possible though this remains quite complex in the limitations of mental illness and limited social support. We will continue to provide support though recognize patient is at high risk for hospitalization. Would recommend early hospice referral if indicated to allow establishment of rapport and end-of-life planning. Counseling provided regarding hospice, transition to hospice and what hospice provides, patient had many misconceptions. 45 minutes review of chart, oncology notes, labs, imaging [id number] with patient regarding symptom management coordination of care with caregivers and oncology team.
== END 2021-07-30 10:16 | disposition home or self-care (01) ==
LOC: PC 10:15
PROVIDERS: ATTEND Nurse Practitioner Adult Health
DX: Z51.5 Encounter for palliative care (principal); E11.42 Type 2 diabetes mellitus with diabetic polyneuropathy; M15.9 Polyosteoarthritis, unspecified; M25.50 Pain in unspecified joint; T45.1X5A Adverse effect of antineoplastic and immunosuppressive drugs, initial encounter; F41.9 Anxiety disorder, unspecified; C7B.8 Other secondary neuroendocrine tumors; C7A.8 Other malignant neuroendocrine tumors; Z79.4 Long term (current) use of insulin; Z79.899 Other long term (current) drug therapy; Z79.891 Long term (current) use of opiate analgesic; Z63.8 Other specified problems related to primary support group; Z74.1 Need for assistance with personal care; Z92.21 Personal history of antineoplastic chemotherapy; Z66 Do not resuscitate
CPT/HCPCS: 99215

== ENCOUNTER 2021-08-07 12:00 | Outpatient (CLI) | payer MEDICAID ==
--- NOTE | 2021-08-07 20:33 | CONSULTATION NOTE ---
Palliative Care Follow Up - Referral Referring Provider: Eri Flores PA-C Time of Visit: Referral setting: Home Referral Reason: Left hip wound/Met Lung Ca/weight loss - Information Sources Records reviewed: Previous records reviewed History/Review of Systems obtained from: Patient, Caregiver (Taya) Exam limitations: Clinical condition (mild STM difficulties) - History of Present Illness Update Brief HPI Update: This is an anxious 61-year-old woman with stage IV non-small cell lung cancer, large endocrine type currently receiving palliative treatment of immunotherapy. She continues with worsening musculoskeletal side effects, with joint discomfort, stiffness, and what she describes as a flare. I am visiting her today though because of complaints of a severe pain in wound on her left upper thigh, on examination it is indurated about 3 x 5 inches, with an open area of 1 inch that looks like a healing blister, with shallow moist intact skin underneath.Patient denies any injury, it appears almost like a burn, but is quite painful and pink. We will go ahead and treat with antibiotics, cleansed with normal saline and placed a Mepilex for protection. Patient is instructed to offload, had originally thought maybe it was a pressure wound, is not in the correct place, patient does have any other skin issues, as it also could be a side effect of immunotherapy, no pruritus, no other wounds noted. Unclear etiology, patient with such poor memory, does not remember other than it showed up about a day and a half ago. Patient is taking her 14 units of Lantus twice daily, has not been taking short acting, has been below 250, was able to show me the pens of the short acting, have not been open. She does not always remember to take it 3 times a day, does appear though she is staying within an acceptable range. She continues to look quite thin and cachectic, though reports she has not lost any weight. They did do birthday democrat for her and she is quite pleased with this. She remains quite anxious, continues to eat fairly fast food items and convenience, but is staying hydrated. Past Medical History: Hypertension, high cholesterol, emphysema, lung cancer MCI, type 2 diabetes, hypothyroidism, GERD, hiatal hernia, chronic diarrhea alternating with chronic constipation, pancreatitis, hepatitis, cholelithiasis, incontinence, nocturia, frequency, glaucoma, dental implants, depression, anxiety, bipolar disorder, osteoarthritis, psoriasis Past surgical history includes cholecystectomy, hiatal hernia repair Port-A-Cath placement 03/06, left rotator cuff repair, , tonsillectomy/adenectomy, wedge resection for lung cancer Social History - Living Situation Living arrangement: At home Living Situation: Alone Support System: Patient is in her new apartment, they have impacted most of the boxes she is getting organized, she continues to be upset with her noisy and rude neighbors, but denies feeling unsafe. She does have increased caregiving hours, she is estranged from her 2 children. She does have a DPOA in place and paperwork completed. She is followed by [facility] with Hanane as her [facility] worker. Currently her [employer] manager case management Layla is retiring. Medications/Allergies - Medications Home Medications: Ambulatory Orders Medication Instructions Recorded Confirmed Simvastatin 20 mg PO QPM 01/19/13 08/08/21 Topiramate 200 mg PO BID 03/23/16 08/08/21 lamoTRIgine [LaMICtal] 200 mg PO DAILY 09/06/17 08/08/21 Empagliflozin [Jardiance] 25 mg PO DAILY 10/09/20 08/08/21 Sertraline HCl 150 mg PO DAILY 01/24/21 08/08/21 Lidocaine/Prilocain 2.5% Cream 5 applic TOP UD #1 gm 02/11/21 08/08/21 [Emla 2.5% Cream] ondansetron HCL [Zofran] 4 mg PO Q6HR PRN #30 tab 02/11/21 08/08/21 Acetaminophen [Acetaminophen Extra 1,000 mg PO TID PRN 02/20/21 08/08/21 Strength] Alendronate Sodium 35 mg PO .WEEKLY 02/20/21 08/08/21 Levothyroxine Sodium 50 mcg PO DAILY 02/20/21 08/08/21 [Levothyroxine] Insulin Glargine [Lantus Solostar] 14 unit SQ BID 03/26/21 08/08/21 QUEtiapine [SEROquel] 400 mg PO QPM 03/31/21 08/08/21 oxyCODONE [Roxicodone] 5 mg PO QPM 04/09/21 08/08/21 Gabapentin [Neurontin] 900 mg PO TID 30 Days #180 tablet 06/18/21 08/08/21 Insulin Lispro [Humalog Kwikpen 4 units SUBQ TID PRN MDD > 250 BS 07/09/21 08/08/21 U-100] Meloxicam [Mobic] 15 mg PO DAILY 07/30/21 08/08/21 cephALEXin [Keflex] 500 mg PO TID MDD 7 days 08/08/21 08/08/21 - Allergies Allergies/Adverse Reactions: Allergies Allergy/AdvReac Type Severity Reaction Status Date / Time hydromorphone HCl * Allergy Intermediate Edema Verified 03/31/21 11:06 [From Dilaudid] metformin Allergy Intermediate vomiting Verified 03/31/21 11:06 and diarrhea Penicillins Allergy Intermediate Rash Verified 03/31/21 11:06 Sulfa (Sulfonamide Allergy Intermediate Rash Verified 03/31/21 11:06 Antibiotics) carbamazepine [From Tegretol] Allergy Mild Rash Verified 03/31/21 11:06 amoxicillin [Amoxicillin] Allergy Rash Verified 03/31/21 11:06 Review of Systems - Constitutional Constitutional: reports: Fatigue, Weakness, Weight stable - Eyes Eyes: reports: Vision loss - Ears, Nose & Throat Ears, Nose & Throat: reports: Nasal congestion, Dry mouth - Cardiovascular Cardiovascular: reports: Exertional dyspnea, Decr. exercise tolerance - Respiratory Respiratory: reports: Cough, SOB with exertion - Gastrointestinal Gastrointestinal: reports: Constipation, Diarrhea (alternates but more diarrhea lately last 2 days), Early satiety, Other (fast food choices). denies: Nausea - Genitourinary Genitourinary: reports: Incontinence. denies: Dysuria - Musculoskeletal Musculoskeletal: reports: Stiffness, Muscle weakness, Joint pain (worsening now with multiple joints; some improvement with meloxican). denies: Assistive devices (walker lost in recent move---Taya is following up with [employer] regarding this), Transfer issues - Integumentary Integumentary: reports: Dryness, Nail changes, Hair changes - Neurological Neurological: reports: General weakness, Numbness, Memory problems (very much in the moment; poor recall; difficulty with multiple unfortuante events) - Psychiatric Psychiatric: reports: Depression, Anxiety - Endocrine Endocrine: reports: Diabetes type 2 (got sensor etc. fixed), Hypothyroidism, Intolerance to cold - Hematologic/Lymphatic Hematologic/Lymph: reports: Anemia - All Other Systems All Other Systems: reports: Other (limited by patient STM deficits and supplemented by caregiver, Monseolivia today) Physical Exam - Vital Signs Temperature: 97.4 C Pulse Rate: 99 Respiratory Rate: 18 O2 Saturation: 99 Blood Pressure: 122/64 - Physical Exam General Appearance: positive: Alert, Mild distress (with pain in leg), Anxious, Cachetic Eyes Bilateral: positive: Normal inspection ENT: positive: No signs of dehydration Neck: positive: Trachea midline Cardiovascular: positive: Tachycardia Respiratory: positive: No respiratory distress, Diminished throughout Abdomen: positive: Non-tender, Soft Skin: positive: Pallor, Bruising, Wound (see HPI) Extremities: positive: Joint swelling Neurologic/Psychiatric: positive: Oriented x3, Weakness, Depressed mood/affect, Flat affect Palliative Care - POLST Patient has POLST: Yes POLST Status: DNR, Selective Treatment Pain: Pain unchanged, Pain worsening (left thigh pain acute; worse with sitting or touch) Feelings of wellbeing/Perceived Quality of Life: Fair, Acceptable, Worsening Sleep: Sleeps poorly (worse with wound pain), Variable sleep pattern Constipation: Yes, Intermittent constipation Performance Status: Patient continues to be quite weak, though is ambulatory and somewhat of a "energizer bunny". She likes to be out and about, gets very anxious if she is in the apartment by herself and to longer periods, caregivers take her on errands and "shopping". Patient does report some dizziness and lightheadedness. They do provide support and oversight with bathing. Patient does tend to do instant and fast food meals, is challenged by her short-term memory deficits. Has been using her Mediset well, and is able to show me her medications that she uses that are not connected to this. - Palliative Care Discussion: Patient continues to have multiple questions, and discussed again hospice. Clarified questions that Taya and patient had, big picture question really is at end-of-life who is going to be able to be her caregiving team, and may include a placement. But we did discuss hospice can support her in her home setting for as long as possible, which would be a good reason to have them involved sooner than later. At this point in time she is still receiving treatment and interested in continue treatment as long as she is feeling well and able to be independent. Patient does continue to have high anxiety regarding end-of-life, but is continue to process some of the decisions regarding this. Patient does have an identified DPOA now currently Cherelle garcia [phone] and has a POLST form with DN AR/DNI as selective treatments. Impression and Recommendations - Palliative Care Impression: This is an anxious 61-year-old woman with metastatic non-small cell lung cancer, neuroendocrine type with known progressive liver mets and disease. She remains on active palliative treatment, and is due for staging scan next Wednesday. She does remain quite cachectic and have fluctuating symptoms, she does have most likely as a result of her immunotherapy musculoskeletal pain and joint discomfort. She has had some response to meloxicam. She continues to struggle with medication adherence. Today she presents with a new left thigh wound, of unknown etiology but does appear to be cellulitic in nature. Palliative care continue provide support regarding pain and symptom management, care coordination and anticipatory guidance. Recommendations/Counseling Done: 1. Left thigh wound. This is located on the back fairly large in size, 3 x 5 indurated and painful to touch, with center open, appears almost like a burn blister that has opened. Is red and tender, clear drainage. We will go ahead and treat with Keflex 500 mg 3 times daily, cleansed wound and placed Mepilex. Instructed leave on for 2 or 3 days, if healed may leave off or replace with dressing left. 2. Multiple joint pain. This is most likely multifactorial, suspect side effect of her immunotherapy. She is having increased pain in her hands bilateral knees and hips, did add meloxicam with some improvement, though still has is severe pain in her right middle knuckle. If continues effective and kidney function in good stead, will send to general for Mediset. 3. Peripheral neuropathy. Patient continues on gabapentin 900 mg 3 times daily, she reports she is compliant with her medications. Unclear how effective this is, patient often complains in the moment. She is able to show me where her medications are, and has approximately what you would expect given her current usage. She did run out early last time. 4. Diabetes type 2. Patient reports has been running between 145 and less than 250, she is compliant with her 14 units twice daily and has not been using her fast acting, unclear if this is not checking on a regular basis or if has not needed. She continues to deny any signs or symptoms of hypoglycemia or low blood sugars. 5. Anxiety. Patient continues with complex social situation with minimal support. Her caregivers are providing both physical and psychosocial support but limitations as far as time available. They do call frequently and help her remember to be compliant with medications. She is home by herself most of the time but does feel safe and feels like this is still acceptable. We will continue to monitor. 6. Metastatic lung cancer with progression of disease. Patient has heard multiple options including hospice from oncologist, she is due for another scan on Wednesday, she has been fairly treatment oriented though remains quite fragile and at high risk for complications. We will continue to monitor plan of care. 7. Advanced care planning. Patient does have POLST in place is DN AR/DNI and selective treatments. DPOA is completing on record, goals remain to stay as independent as long as possible but this does remain quite complex in the limitations of her mental illness, short-term memory and social support. Counseling provided regarding hospice, transition to hospice and what hospice provides patient continues with multiple misconceptions caregivers are attempting to try and help decrease her anxiety by reinforcing and learning about options as well. 45 minutes with greater than 50% of this done in counseling regarding goals of care, review of symptom management, follow-up on wound and wound care, and anticipatory guidance.
== END 2021-08-07 12:01 | disposition home or self-care (01) ==
LOC: PC 12:00
PROVIDERS: ATTEND Nurse Practitioner Adult Health
DX: Z51.5 Encounter for palliative care (principal); S71.102A Unspecified open wound, left thigh, initial encounter; M25.542 Pain in joints of left hand; M25.541 Pain in joints of right hand; M25.552 Pain in left hip; M25.551 Pain in right hip; M25.562 Pain in left knee; M25.561 Pain in right knee; R63.4 Abnormal weight loss; R53.1 Weakness; R42 Dizziness and giddiness; G62.9 Polyneuropathy, unspecified; F41.9 Anxiety disorder, unspecified; C7A.8 Other malignant neuroendocrine tumors; C7B.8 Other secondary neuroendocrine tumors; Z91.14 Patient's other noncompliance with medication regimen; Z79.899 Other long term (current) drug therapy; Z79.4 Long term (current) use of insulin; Z79.891 Long term (current) use of opiate analgesic; Z66 Do not resuscitate
CPT/HCPCS: 99349

== ENCOUNTER 2021-08-15 14:07 | Outpatient (CLI) | payer MEDICAID ==
--- NOTE | 2021-08-15 18:12 | CONSULTATION NOTE ---
Palliative Care Follow Up - Referral Referring Provider: Eri Flores PA-C Time of Visit: [id number] Referral setting: Home Referral Reason: Right posterior thigh wound/Pain - Information Sources Records reviewed: Previous records reviewed History/Review of Systems obtained from: Patient, Caregiver (Taya) Exam limitations: Clinical condition (+mild STM deficits) - History of Present Illness Update Brief HPI Update: This is a 61-year-old female who was seen and evaluated in her apartment for follow-up regarding the wound to her right posterior thigh in the setting of stage IV nonsmall cell lung cancer, large endocrine type currently receiving palliative treatment on immunotherapy with her caregiver, Taya present. Provider wore N95 mask. In late July 2021 the patient reports that she felt discomfort to her right posterior thigh that was a sore. It was fluid-filled and eventually burst and she made her primary palliative HEALTH AIDE aware who evaluated the site and started her on a course of cephalexin. However, during the course of cephalexin her caregiver noted increasing redness and warmth to the site and she presented to the emergency department on 08/12 where she was evaluated. There was no evidence of an abscess on evaluation and she was given doxycycline to be administered in addition to her completion of cephalexin. She was also given a prescription for bacitracin to be applied to the site. The patient's caregivers have been applying the ointment to the wound on an almost daily basis. Due to reports of pain and discomfort to the site the patient has been applying her EMLA cream prior to dressing changes. She continues to report that it is uncomfortable for her to sit for long periods of time and was given a prescription for hydrocodone/acetaminophen 5 mg / 325 mg taking 1 tablet every 6 hours as needed for pain and this has been more effective than oxycodone for pain relief and therefore patient the present time we will continue forward with hydrocodone/acetaminophen and is aware to place oxycodone on hold and did not take congruently. Past Medical History: Hypertension, high cholesterol, emphysema, lung cancer, MCI, type 2 diabetes, hypothyroidism, GERD, hiatal hernia, chronic diarrhea alternating with chronic constipation, pancreatitis, hepatitis, cholelithiasis, incontinence, nocturia, frequency, glaucoma, dental implants, depression, anxiety, bipolar disorder, osteoarthritis, osteoarthritis psoriasis, fatigue past surgical history includes cholecystectomy, hiatal hernia repair, Port-A-Cath placement 02/14/2021 left rotator cuff repair, , tonsillectomy/adenectomy, wedge resection Social History - Living Situation Living arrangement: At home Living Situation: Alone Support System: Hypertension, high cholesterol, emphysema, lung cancer, MCI, type 2 diabetes, hypothyroidism, GERD, hiatal hernia, chronic diarrhea alternating with chronic Patient is living in her new apartment with majority of the boxes removed and things are more organized. She has increased caregiving hours. Her caregiver, Taya also acts as a friend. She has a DPOA in place. She is estranged from her two children. She is followed by [facility] and Hanane is her [facility] worker and fills her medication wheel every 2 weeks. On [facility] program. She remains vulnerable and frail but fiercely independent. Medications/Allergies - Medications Home Medications: Ambulatory Orders Medication Instructions Recorded Confirmed Simvastatin 20 mg PO QPM 01/19/13 08/08/21 Topiramate 200 mg PO BID 03/23/16 08/08/21 lamoTRIgine [LaMICtal] 200 mg PO DAILY 09/06/17 08/08/21 Empagliflozin [Jardiance] 25 mg PO DAILY 10/09/20 08/08/21 Sertraline HCl 150 mg PO DAILY 01/24/21 08/08/21 Lidocaine/Prilocain 2.5% Cream 5 applic TOP UD #1 gm 02/11/21 08/08/21 [Emla 2.5% Cream] ondansetron HCL [Zofran] 4 mg PO Q6HR PRN #30 tab 02/11/21 08/08/21 Acetaminophen [Acetaminophen Extra 1,000 mg PO TID PRN 02/20/21 08/08/21 Strength] Alendronate Sodium 35 mg PO .WEEKLY 02/20/21 08/08/21 Levothyroxine Sodium 50 mcg PO DAILY 02/20/21 08/08/21 [Levothyroxine] Insulin Glargine [Lantus Solostar] 14 unit SQ BID 03/26/21 08/08/21 QUEtiapine [SEROquel] 400 mg PO QPM 03/31/21 08/08/21 oxyCODONE [Roxicodone] 5 mg PO QPM 04/09/21 08/08/21 Gabapentin [Neurontin] 900 mg PO TID 30 Days #180 tablet 06/18/21 08/08/21 Insulin Lispro [Humalog Kwikpen 4 units SUBQ TID PRN MDD > 250 BS 07/09/21 08/08/21 U-100] Meloxicam [Mobic] 15 mg PO DAILY 07/30/21 08/08/21 cephALEXin [Keflex] 500 mg PO TID MDD 7 days 08/08/21 08/08/21 Bacitracin Zinc Oint 1 applic TOP BID #1 gm 08/12/21 Doxycycline Monohydrate 100 mg PO BID #14 cap 08/12/21 HYDROcod/ACETAM 5/325 [[place] 5/325] 1 tablet PO Q6H PRN 08/16/21 Lidocaine Jelly 2% [Xylocaine 1 applic TP DAILY 08/16/21 08/16/21 Jelly 2%] - Allergies Allergies/Adverse Reactions: Allergies Allergy/AdvReac Type Severity Reaction Status Date / Time hydromorphone HCl * Allergy Intermediate Edema Verified 08/12/21 15:16 [From Dilaudid] metformin Allergy Intermediate vomiting Verified 08/12/21 15:16 and diarrhea Penicillins Allergy Intermediate Rash Verified 08/12/21 15:16 Sulfa (Sulfonamide Allergy Intermediate Rash Verified 08/12/21 15:16 Antibiotics) carbamazepine [From Tegretol] Allergy Mild Rash Verified 08/12/21 15:16 amoxicillin [Amoxicillin] Allergy Rash Verified 08/12/21 15:16 Review of Systems - Constitutional Constitutional: reports: Weakness, Weight stable. denies: Fever - Eyes Eyes: reports: Vision loss - Cardiovascular Cardiovascular: denies: Edema - Gastrointestinal Gastrointestinal: reports: Constipation, Diarrhea (alternates), Early satiety. denies: Nausea - Genitourinary Genitourinary: reports: Incontinence. denies: Dysuria - Musculoskeletal Musculoskeletal: reports: Stiffness, Muscle weakness, Joint pain ( multiple joints--taking meloxicam). denies: Assistive devices (walker lost in recent move---Taya is following up with [employer] regarding this), Transfer issues - Integumentary Integumentary: reports: Dryness, Nail changes, Hair changes, Other (wound to right posterior thigh) - Neurological Neurological: reports: General weakness, Numbness, Memory problems ( poor recall) - Psychiatric Psychiatric: reports: Depression, Anxiety - Endocrine Endocrine: reports: Diabetes type 2 (got sensor etc. fixed), Hypothyroidism - Hematologic/Lymphatic Hematologic/Lymph: reports: Anemia - All Other Systems All Other Systems: reports: Other (limited by patient STM deficits and supplemented by caregiver, Taya) Physical Exam - Vital Signs Temperature: 36.6 C Pulse Rate: 88 O2 Saturation: 98 (on RA) Blood Pressure: 110/70 - Physical Exam General Appearance: positive: Alert, Anxious, Cachetic Eyes Bilateral: positive: Normal inspection ENT: positive: No signs of dehydration Neck: positive: Trachea midline Cardiovascular: positive: Regular rate & rhythm Respiratory: positive: No respiratory distress, Diminished throughout Abdomen: positive: Non-tender, Soft, Nml bowel sounds Skin: positive: Pallor, Wound (Right posterior thigh: 4.5cm x 5cm stage II ulcer with appx 2cm yellow slough almost centrally without induration and surrounding erythema or warmth to palpation.) Extremities: positive: Joint swelling Neurologic/Psychiatric: positive: Oriented x3, Weakness, Flat affect Palliative Care - POLST Patient has POLST: Yes POLST Status: DNR, Selective Treatment Pain: Pain improved (to right posterior thigh wound improved with hydrocodone/acetaminophen useage. Patient will flip the medication bottle over when she has taken a medication.) - Palliative Care Discussion: Patient continues to have a stage II wound to her right upper posterior thigh that caregiver expresses has grown in size but there is no further evidence of cellulitis. She had is advised to complete her cephalexin and doxycycline as prescribed. She reports discomfort to the site and advised to discontinue EMLA cream and to utilize lidocaine jelly at the site and then cover with Xeroform after cleansing with normal saline on a daily basis. Given the patient's poor nutritional status due to her stage IV cancer and nutritional status would benefit from oversight from the wound care clinic at [facility] and referral will be placed. Impression and Recommendations - Palliative Care Impression: This is an anxious 61-year-old woman with metastatic non-small lung cancer, neuroendocrine type with progressive liver mets and disease who is receiving palliative treatment. She has unfortunately developed a wound to her right upper posterior thigh no longer with cellulitis but given her nutritional status warrants close attention and therefore will refer to wound care clinic. She is having pain related to the wound to her right upper posterior thigh is aware to only use hydrocodone/acetaminophen versus oxycodone at the present time. Palliative care to continue provide support regarding pain and symptom management, care coordination and anticipatory guidance. Recommendations/Counseling Done: 1. Right posterior upper thigh wounds, stage II. Unclear etiology possible folliculitis that progressed. Recent cellulitis, improved with addition of doxycycline to cephalexin. She is to complete both oral antibiotics for its entire courses. She is having localized discomfort at the site of the wound and is advised to discontinue EMLA cream to the site and utilize lidocaine jelly 2% instead. Discussed at length with patient and caregiver, Taya regarding wound care orders. To cleanse with normal saline solution, pat dry, apply lidocaine 2% jelly pea-sized amount, cover with Xeroform gauze to fit the wound and then cover with border foam gauze daily or if saturated. Provided some supplies. Discussed signs and symptoms of infection which would warrant reevaluation if after hours or on weekends at urgent care or emergency department. Referral made today for would be wound care clinic for assessment and monitoring. 2. Multiple joint pain and right wound pain. Multifactorial including the patient's immunotherapy. Hit or miss if she recalls to take her meloxicam which has provided some benefit. Discussed as she finds hydrocodone/acetaminophen more effective to use this at the present time and to "not use oxycodone." Patient is aware to only use hydrocodone/acetaminophen 5 mg / 325 mg 1 tablet every 6 hours as needed for pain. 3. Metastatic lung cancer with progression of disease. Patient presently on palliative treatment. Is fairly treatment oriented and remains quite fragile and at high risk for complications. Continue to monitor and be followed by oncologist. Total time spent 40 minutes with greater than 50% of the spent in counseling coronation care with the patient and caregiver, Taya; evaluation of wound and wound care provided with dressing; examination of patient; setting expectations and review of signs and symptoms of infection; symptom management; and anticipatory guidance. Disclaimer: The chart note was formulated using voice recognition technology and unfortunately sound alike errors may occur.
== END 2021-08-15 14:08 | disposition home or self-care (01) ==
LOC: PC 14:07
PROVIDERS: ATTEND Nurse Practitioner Family
DX: Z51.5 Encounter for palliative care (principal); S71.101A Unspecified open wound, right thigh, initial encounter; M79.651 Pain in right thigh; M25.50 Pain in unspecified joint; Z79.891 Long term (current) use of opiate analgesic; Z79.899 Other long term (current) drug therapy; C7A.8 Other malignant neuroendocrine tumors; C7B.8 Other secondary neuroendocrine tumors; Z66 Do not resuscitate
CPT/HCPCS: 99349

== ENCOUNTER 2021-08-27 14:00 | Outpatient (CLI) | payer MEDICAID ==
--- NOTE | 2021-08-27 16:02 | CONSULTATION NOTE ---
Palliative Care Follow Up - Referral Referring Provider: Eri Flores PA-C Time of Visit: [id number] Referral setting: Home Referral Reason: Acute on Chronic Pain/Met Lung CA/Left thigh wound - Information Sources Records reviewed: Previous records reviewed History/Review of Systems obtained from: Patient, Caregiver (Taya present) Exam limitations: Clinical condition (patient with poor STM issues) - History of Present Illness Update Brief HPI Update: This is a 61-year-old woman with stage IV non-small cell lung cancer, large endocrine type, currently receiving palliative treatment. She has recently discontinued immunotherapy on 08/20/2021 due to progression of disease, and is pending lurbinectedin, an injection every 21 days. Patient has continued to have fluctuating symptom burden, she has persistent peripheral neuropathy long-term, exacerbated by her chemotherapy, complains of intermittent dizziness, longstanding diabetes type 2 insulin-dependent, moderately controlled in the context of patient's limitations because of memory and follow-through.Patient continued complains of anorexia, though has not had weight loss. Patient does present today with a rounded belly, unclear if this may indicate ascites, are noted with weight gain. Patient's most problematic issue currently has been presentation of a wound, originally thought to be a burn or pressure area, had continued to deteriorate it is on her right posterior thigh, at this point in time it is considered most likely a spider bite as underlying etiology. It is continue to worsen, now presents with a dark blackened eschar area, is working with wound care and hoping to heal. She has completed all of her antibiotics. She does not present with any systemic symptoms at this point in time. Fortunately this is very painful, given patient's history of misuse of medications in the past, has been receiving 28 hydrocodone 5 mg/8 acetaminophen 325 mg weekly, has been managing to stay within that time. Though feels like it is "not working" though does seem to be managing her pain overall. Patient does live alone, has complex soc ial situation, hesitant to put any more opioids in the picture. Patient has also had some exacerbation of her mental health issues, with increased irritability, intermittent signs and symptoms of paranoia, and intermittent confusion. She is supported by [facility], though her psychiatrist recently retired, she does have a counselor Hanane from this, is coming tomorrow. Encouraged to get follow-up psychiatry support, may need medications adjusted. Other challenging issue is patient's management of her blood sugars, if she gets a low, she drinks soda and eats high calories switching it to a high, then she will medicate herself with short acting and get low again so kind of does a chasing action. She had been doing fairly well for a while on the Lantus 14 units twice daily. Will decrease her short acting to 2 units, as this is when she is identified her lows happen when she medicates for a blood sugar greater than 250. Unfortunately patient has very bad short-term memory, and has had more difficulty managing overall but has not had any bad outcomes thus far. She continues to complain of anorexia, kind of grazes through the day. Tends to eat lots of quiche, protein shakes, and soda. Past Medical History: Hypertension, hypercholesteremia, emphysema, lung cancer, MCI, type 2 diabetes, hypothyroidism, GERD, hiatal hernia, chronic diarrhea alternating with chronic constipation, IBS, pancreatitis, hepatitis, cholelithiasis, incontinence, nocturia, frequency, glaucoma, dental implants, depression, anxiety, bipolar disorder, osteoarthritis, psoriasis, fatigue, past surgical history includes cholecystectomy, hiatal hernia repair, Port-A-Cath placement 03/06, left rotator cuff repair, , tonsillectomy/adenectomy, wedge resection for original lung cancer. Social History - Living Situation Living arrangement: At home Living Situation: Alone Support System: [facility]. Is supported by her [employer] worker, Taya tends to be the main person who also advocates and oversees her care. She is very dependent on her. She does have increased caregiving hours but continues not to have enough. She is estranged from her 2 children. She is followed by [facility] as her [facility] worker and fills her medication well every 2 weeks. She is on [facility] with new case therapist Xi.It is very important for her to remain in her apartment independent, but safety remains a high concern. Medications/Allergies - Medications Home Medications: Ambulatory Orders Medication Instructions Recorded Confirmed Simvastatin 20 mg PO QPM 01/19/13 08/27/21 Topiramate 200 mg PO BID 03/23/16 08/27/21 lamoTRIgine [LaMICtal] 200 mg PO DAILY 09/06/17 08/27/21 Empagliflozin [Jardiance] 25 mg PO DAILY 10/09/20 08/27/21 Sertraline HCl 150 mg PO DAILY 01/24/21 08/27/21 Lidocaine/Prilocain 2.5% Cream 5 applic TOP UD #1 gm 02/11/21 08/27/21 [Emla 2.5% Cream] ondansetron HCL [Zofran] 4 mg PO Q6HR PRN #30 tab 02/11/21 08/27/21 Acetaminophen [Acetaminophen Extra 1,000 mg PO TID PRN MDD 3000 02/20/21 08/27/21 Strength] Alendronate Sodium 35 mg PO .WEEKLY 02/20/21 08/27/21 Levothyroxine Sodium 50 mcg PO DAILY 02/20/21 08/27/21 [Levothyroxine] Insulin Glargine [Lantus Solostar] 14 unit SQ BID 03/26/21 08/27/21 QUEtiapine [SEROquel] 400 mg PO QPM 03/31/21 08/27/21 Gabapentin [Neurontin] 900 mg PO TID 30 Days #180 tablet 06/18/21 08/27/21 Insulin Lispro [Humalog Kwikpen 2 units SUBQ TID PRN MDD > 250 BS 07/09/21 08/27/21 U-100] Meloxicam [Mobic] 15 mg PO DAILY 07/30/21 08/27/21 Bacitracin Zinc Oint 1 applic TOP BID #1 gm 08/12/21 08/27/21 HYDROcod/ACETAM 5/325 [Pierson 5/325] 1 tablet PO Q6H PRN 08/16/21 08/27/21 Lidocaine Jelly 2% [Xylocaine 1 applic TP DAILY 08/16/21 08/27/21 Jelly 2%] metFORMIN [Glucophage] 250 mg PO BID 08/20/21 08/27/21 Senna [Senokot] 8.6 mg PO DAILY MDD 4 tabs 08/27/21 08/27/21 - Allergies Allergies/Adverse Reactions: Allergies Allergy/AdvReac Type Severity Reaction Status Date / Time hydromorphone HCl * Allergy Intermediate Edema Verified 08/12/21 15:16 [From Dilaudid] metformin Allergy Intermediate vomiting Verified 08/12/21 15:16 and diarrhea Penicillins Allergy Intermediate Rash Verified 08/12/21 15:16 Sulfa (Sulfonamide Allergy Intermediate Rash Verified 08/12/21 15:16 Antibiotics) carbamazepine [From Tegretol] Allergy Mild Rash Verified 08/12/21 15:16 amoxicillin [Amoxicillin] Allergy Rash Verified 08/12/21 15:16 Review of Systems - Constitutional Constitutional: reports: Fatigue, Weakness, Weight gain. denies: Fever - Eyes Eyes: reports: Vision loss - Ears, Nose & Throat Ears, Nose & Throat: reports: Dry mouth - Cardiovascular Cardiovascular: reports: Lightheadedness, Exertional dyspnea. denies: Edema - Respiratory Respiratory: reports: Cough (minimum), SOB with exertion - Gastrointestinal Gastrointestinal: reports: Constipation (reports using senna 1 tab with success), Diarrhea (alternates), Early satiety. denies: Nausea - Genitourinary Genitourinary: reports: Incontinence. denies: Dysuria - Musculoskeletal Musculoskeletal: reports: Stiffness, Muscle weakness, Joint pain ( multiple joints--taking meloxicam). denies: Assistive devices (walker lost in recent move---Taya is following up with [facility] regarding this), Transfer issues - Integumentary Integumentary: reports: Dryness, Nail changes, Hair changes, Other (wound to right posterior thigh) - Neurological Neurological: reports: General weakness, Numbness, Memory problems ( poor recall) - Psychiatric Psychiatric: reports: Depression, Anxiety, Other (noted irritabililty and paranoia in behaviors described by caregivers) - Endocrine Endocrine: reports: Diabetes type 2 (got sensor etc. fixed; still wide fluctuations per her report [id number]), Hypothyroidism - Hematologic/Lymphatic Hematologic/Lymph: reports: Anemia (9.8) - All Other Systems All Other Systems: reports: Other (limited by patient STM deficits and supplemented by caregiver, Taya) Physical Exam - Vital Signs Temperature: 98.1 C Pulse Rate: 84 Respiratory Rate: 18 O2 Saturation: 97 Blood Pressure: 122/72 - Physical Exam General Appearance: positive: Alert, Anxious, Cachetic Eyes Bilateral: positive: Normal inspection ENT: positive: No signs of dehydration Neck: positive: Trachea midline Cardiovascular: positive: Regular rate & rhythm Respiratory: positive: No respiratory distress, Diminished throughout. negative: Wheezes Abdomen: positive: Non-tender, Soft, Nml bowel sounds Skin: positive: Pallor, Wound (Right posterior thigh: pic is dark black area of tissue in center of wound) Extremities: positive: Joint swelling Neurologic/Psychiatric: positive: Oriented x3, Weakness, Flat affect Palliative Care - POLST Patient has POLST: Yes POLST Status: DNR, Selective Treatment Pain: Pain worsening, Location (right posterior thigh), Severity ("bad") Tiredness/Fatigue: Moderate (4-6) Drowsiness/Sedation: None Nausea: Mild (1-3) Anorexia: Moderate (4-6) Dyspnea: Moderate (4-6) Depression: Mild (1-3) Anxiety: Moderate (4-6) Feelings of wellbeing/Perceived Quality of Life: Fair, Acceptable, Worsening Sleep: Sleeps poorly, Variable sleep pattern Constipation: Yes, Opoid induced, Intermittent constipation Performance Status: Patient continues to be quite active, she catherine by going places and shopping.She is ambulatory, though does need to pace herself and gets quite fatigued. She does need supervision and assistance with bathing, her caregivers are overseeing and providing support for her wound care. She does not do well with meal prep or tracking things. She is able to eat without difficulty. - Palliative Care Discussion: Patient continues with a litany of complaints and concerns regarding all the things that have been happening, but overall appears to be having some exacerbation of her behaviors, described an experience from her descriptions is some paranoia, increased irritability, and worsening short-term memory. She is quite complex in the context of her social situation, is receiving support, but caregivers are trying to put more limits on their time and interventions.Patient continues to be anxious about the future, but feels overall other than pain from wound managing. Impression and Recommendations - Palliative Care Impression: This is an anxious 61-year-old woman with metastatic non-small cell lung cancer, neuroendocrine type with progressive liver mets and disease. She is awaiting her next round of treatment, pending approval. This will be an injection every 3 weeks. Unfortunately she has a wound to her right upper posterior thigh, noted at this point in time most likely be a spider bite. She is being followed by wound care clinic, continues to have challenges keeping dressing on given her activity and incontinence. Patient does have acute pain related to wound, is using hydrocodone/acetaminophen 1 tab 4 times a day, did complete in accepted time. This time. Patient though does complain of increased anorexia, and intermittent dizziness. Palliative care continue provide support regarding pain and symptom management, care coordination, and anticipatory guidance. Recommendations/Counseling Done: 1. Right posterior upper thigh wound,. Now at this time appears most likely underlying etiology may be a spider bite, patient has completed antibiotics with no worsening signs or symptoms of cellulitis or infection. She is having severe discomfort at the site, is using topical lidocaine jelly, as well as [place] codon 5 mg / 325 mg up to 4 times a day. Wound care is directing wound care. They will be adjusting wound care orders as patient is needing frequent dressing changes secondary to drainage and incontinence. 2. Multiple joint pain. Multifactorial, including patient's having of immunotherapy, she does have meloxicam which has provided some benefit. Unclear if patient being compliant in taking on regular basis. 3. Metastatic lung cancer with progression of disease. Patient presently on palliative treatment, has not started her new medication. She remains quite fragile and high risk for complications. Continue to monitor and is followed by oncology. 4. Diabetes type 2. Patient has always been challenged to manage, she "chases her blood sugars,". Have encouraged her to eat regularly 3 times a day, though does tend to graze and snack through the day. She is to replace with a protein shake if she does not eat a meal. Will decrease her Humalog to 2 units, as she does describe decreased blood sugars to 64. It is hard to get accurate picture on this for sure. She does have wide fluctuating blood sugars mostly because she will drink soda in chasing her BS. 5. Fatigue. This is multifactorial, patient continues to engage in multiple activities, very hyper and looks for distraction.Been outEncouraged to continue to pace herself, patient does enjoy about, encouraged to take short frequent trips versus longer prolonged trips. 6. Bipolar disorder. Patient is having some increased neuropsychiatric behaviors of paranoia, agitation and irritability. Suspect some of this is exacerbated by patient's opioid use. Patient in acute pain, will titrate as wound heals.Has been instructed to follow-up with her [facility] case therapist, to get telehealth with new psychiatrist. Would like to be able to have conversation with him about titrating medications and support. 7. Advanced care planning. Patient does have DPOA assigned, patient still able to participate in her decision making, though is often directed in her care by her friends/caregivers to be able to manage her complex social situation and meet her ongoing medical needs. Will bring in DPOA when patient starts to deteriorate and looking at further end-of-life planning. Patient doing fairly well at this point in time. 45 minutes with greater than 50% of this done in counseling for pain and symptom management, coordination of care, review for medication adherence, and anticipatory guidance.
== END 2021-08-27 14:01 | disposition home or self-care (01) ==
LOC: PC 14:00
PROVIDERS: ATTEND Nurse Practitioner Adult Health
DX: Z51.5 Encounter for palliative care (principal); L98.8 Other specified disorders of the skin and subcutaneous tissue; M25.50 Pain in unspecified joint; C80.1 Malignant (primary) neoplasm, unspecified; C78.7 Secondary malignant neoplasm of liver and intrahepatic bile duct; E11.9 Type 2 diabetes mellitus without complications; Z79.84 Long term (current) use of oral hypoglycemic drugs; R53.83 Other fatigue; F31.9 Bipolar disorder, unspecified; Z66 Do not resuscitate
CPT/HCPCS: 99349

== ENCOUNTER 2021-09-18 10:40 | Outpatient (CLI) | payer MEDICAID ==
--- NOTE | 2021-09-18 17:37 | CONSULTATION NOTE ---
Palliative Care Follow Up - Referral Referring Provider: Eri Flores PA-C Referral setting: Home Referral Reason: Met Lug Ca/Right posterior thigh wound - Information Sources Records reviewed: Previous records reviewed History/Review of Systems obtained from: Patient, Caregiver (Taya) Exam limitations: Clinical condition (STM impairment) - History of Present Illness Update Brief HPI Update: This is a 61-year-old female with stage IV non-small cell lung cancer, large endocrine type currently receiving palliative treatment. She has also developed a wound to her right posterior thigh and continued has pain regarding this and is followed by the wound care center at [facility]. Seen with her caregiver, Taya present. The patient reports an overall improvement in her appetite. This is partly due to her increased cooking. She reports that she has gained weight and is quite pleased regarding this. She did express concerns that she is now off of immunotherapy as of 08/20/2021 due to disease progression and is pending coverage and approval for lurbinectedin. On last evaluation her primary palliative R DEVELOPER reduced her Humalog coverage to 2 units and caregiver reports there has been less wide fluctuations in her blood sugars. The patient was unable to provide records for this R DEVELOPER to review during visit. She continues to remain in good spirits despite continued issues with the [employer] company that assisted her moving. She developed a wound to her Right posterior thigh and is presently being followed by wound care. She has completed antibiotic courses and continues to report that the site is very painful and remains on hydrocodone/acetaminophen 5 mg / 325 mg for pain. Recent prescription for refill was sent in for 1 week supply earlier this week. Past Medical History: Hypertension, high cholesterol, emphysema, lung cancer, MCI, type 2 diabetes, hypothyroidism, GERD, hiatal hernia, chronic diarrhea alternating with chronic constipation, pancreatitis, hepatitis, cholelithiasis, incontinence, nocturia, frequency, glaucoma, dental implants, depression, anxiety, bipolar disorder, osteoarthritis, osteoarthritis psoriasis, fatigue past surgical history includes cholecystectomy, hiatal hernia repair, Port-A-Cath placement 02/14/2021 left rotator cuff repair, , tonsillectomy/adenectomy, wedge resection Social History - Living Situation Living arrangement: At home Living Situation: Alone Support System: Patient is living in her new apartment with majority of the boxes removed and things are more organized. She has increased caregiving hours. Her caregiver, Taya also acts as a friend. She has a DPOA in place. She is estranged from her two children. She is followed by [facility] and Hanane is her [facility] worker and fills her medication wheel every 2 weeks. On [facility] program. She remains vulnerable and frail but fiercely independent. Her safety Attachment continues to break and someone is to come next week to evaluate. She and her caregiver, Taya are getting out and about more regularly and this is uplifting the patient's mood when she is able to go shopping and be social and out in the community. She and her caregivers typically will go to [employer] and have lunch and this is a outing that the patient looks forward to. Steph will be off October 23-. Medications/Allergies - Medications Home Medications: Ambulatory Orders Medication Instructions Recorded Confirmed Simvastatin 20 mg PO QPM 01/19/13 09/10/21 Topiramate 200 mg PO BID 03/23/16 09/10/21 lamoTRIgine [LaMICtal] 200 mg PO DAILY 09/06/17 09/10/21 Empagliflozin [Jardiance] 25 mg PO DAILY 10/09/20 09/10/21 Sertraline HCl 150 mg PO DAILY 01/24/21 09/10/21 Lidocaine/Prilocain 2.5% Cream 5 applic TOP UD #1 gm 02/11/21 09/10/21 [Emla 2.5% Cream] ondansetron HCL [Zofran] 4 mg PO Q6HR PRN #30 tab 02/11/21 09/10/21 Acetaminophen [Acetaminophen Extra 1,000 mg PO TID PRN MDD 3000 02/20/21 09/10/21 Strength] Alendronate Sodium 35 mg PO .WEEKLY 02/20/21 09/10/21 Levothyroxine Sodium 50 mcg PO DAILY 02/20/21 09/10/21 [Levothyroxine] Insulin Glargine [Lantus Solostar] 14 unit SQ BID 03/26/21 09/10/21 QUEtiapine [SEROquel] 400 mg PO QPM 03/31/21 09/10/21 Gabapentin [Neurontin] 900 mg PO TID 30 Days #180 tablet 06/18/21 09/10/21 Insulin Lispro [Humalog Kwikpen 2 units SUBQ TID PRN MDD > 250 BS 07/09/21 09/10/21 U-100] Meloxicam [Mobic] 15 mg PO DAILY 07/30/21 09/10/21 Bacitracin Zinc Oint 1 applic TOP BID #1 gm 08/12/21 09/10/21 HYDROcod/ACETAM 5/325 [[place] 5/325] 1 tablet PO Q6H PRN 08/16/21 09/10/21 Lidocaine Jelly 2% [Xylocaine 1 applic TP DAILY 08/16/21 09/10/21 Jelly 2%] metFORMIN [Glucophage] 250 mg PO BID 08/20/21 09/10/21 Senna [Senokot] 8.6 mg PO DAILY MDD 4 tabs 08/27/21 09/10/21 - Allergies Allergies/Adverse Reactions: Allergies Allergy/AdvReac Type Severity Reaction Status Date / Time hydromorphone HCl * Allergy Intermediate Edema Verified 08/12/21 15:16 [From Dilaudid] metformin Allergy Intermediate vomiting Verified 08/12/21 15:16 and diarrhea Penicillins Allergy Intermediate Rash Verified 08/12/21 15:16 Sulfa (Sulfonamide Allergy Intermediate Rash Verified 08/12/21 15:16 Antibiotics) carbamazepine [From Tegretol] Allergy Mild Rash Verified 08/12/21 15:16 amoxicillin [Amoxicillin] Allergy Rash Verified 08/12/21 15:16 Review of Systems - Constitutional Constitutional: reports: Fatigue, Weakness, Weight gain. denies: Fever - Eyes Eyes: reports: Vision loss - Cardiovascular Cardiovascular: denies: Chest pain - Respiratory Respiratory: reports: SOB with exertion - Gastrointestinal Gastrointestinal: reports: Constipation (presently controlled per patient report), Diarrhea (alternates), Early satiety, Other (Improved appetite). denies: Nausea - Genitourinary Genitourinary: reports: Incontinence. denies: Dysuria - Musculoskeletal Musculoskeletal: reports: Stiffness, Muscle weakness, Joint pain ( multiple joints--taking meloxicam). denies: Transfer issues - Integumentary Integumentary: reports: Dryness, Nail changes, Hair changes, Other (wound to right posterior thigh--did not attend wound care clinic visit on Wednesday this week and supplies provided to caregiver today to change on 09/19) - Neurological Neurological: reports: General weakness, Numbness, Memory problems ( poor recall) - Psychiatric Psychiatric: reports: Depression, Anxiety, Other - Endocrine Endocrine: reports: Diabetes type 2 (see HPI), Hypothyroidism - Hematologic/Lymphatic Hematologic/Lymph: reports: Anemia - All Other Systems All Other Systems: reports: Other (limited by patient STM deficits and supplemented by caregiver, Taya) Physical Exam - Vital Signs Temperature: 37.1 C Pulse Rate: 91 O2 Saturation: 97 (on RA) Blood Pressure: 116/74 - Physical Exam General Appearance: positive: Alert, Anxious, Cachetic Eyes Bilateral: positive: Normal inspection ENT: positive: No signs of dehydration Neck: positive: Trachea midline Cardiovascular: positive: Regular rate & rhythm Respiratory: positive: No respiratory distress, Breath sounds nml Abdomen: positive: Non-tender, Soft, Nml bowel sounds Skin: positive: Pallor, Wound (Right posterior thigh: pic is dark black area of tissue in center of wound that is a well circumcribed wound) Extremities: positive: No pedal edema Neurologic/Psychiatric: positive: Oriented x3, Weakness, Other (Upbeat and energentic today) Palliative Care - POLST Patient has POLST: Yes POLST Status: DNR, Selective Treatment Pain: Pain unchanged (right posterior thigh wound) - Palliative Care Discussion: Patient continues to have a wound to her right posterior thigh that is contributing to discomfort and her ability to sit comfortably. She is followed by the wound care clinic and unfortunately, denies attend her wound care appointment this week due to staffing issues and therefore, this air entry brought wound care supplies to the caregiver to change on 09/19. The patient's remains energetic and often has a list of complaints of things that are going wrong including her recent move to her new apartment as well as pending approval for her next option and line of therapy. Impression and Recommendations - Palliative Care Impression: This is a 61-year-old female with metastatic non-small cell lung cancer, neuroendocrine type with progressive liver mets and disease. She is waiting for her next treatment pending approval. She continues to have a wound to her right upper posterior thigh thought to be due to a spider bite and being followed by the wound care clinic and has acute pain related to this using oxycodone/acetaminophen. No alterations in plan today. Palliative care to continue to support through care coordination, pain and symptom management as well as anticipatory guidance. Recommendations/Counseling Done: 1. Right posterior upper thigh wound. Thought to be due to a spider bite as etiology. S/p oral antibiotics. Using lidocaine jelly 2% jelly for discomfort. Provided dressing supplies. supplies. Using hydrocodone/acetaminophen 5mg/325mg as needed for pain. Followed by [facility] care clinic at [facility]. 2. Multiple joint pain and right wound pain. Multifactorial. Hit or miss if she recalls to take her meloxicam which has provided some benefit. Patient is aware to only use hydrocodone/acetaminophen 5 mg / 325 mg 1 tablet every 6 hours as needed for pain. No longer using oxycodone for pain. 3. Anorexia. Encouraged small frequent meals throughout the day. Continue her protein shake at least daily. 4. Metastatic lung cancer with progression of disease. Patient presently is on palliative treatment path. Next line of therapy is pending approval. Caregiver, Maninder would be willing to drive the patient to [place] if that was needed for lurbinectedin. Is fairly treatment oriented and remains quite fra gile and at high risk for complications. Continue to monitor and be followed by oncologist. Total time spent 30 minutes with greater than 50% was spent in counseling and coordination of care, review of plan of care, symptom management and anticipatory guidance with patient and caregiver. Disclaimer: The chart note was formulated using voice recognition technology and unfortunately sound alike errors may occur.
== END 2021-09-18 10:41 | disposition home or self-care (01) ==
LOC: PC 10:40
PROVIDERS: ATTEND Nurse Practitioner Family
DX: Z51.5 Encounter for palliative care (principal); C7A.8 Other malignant neuroendocrine tumors; C7B.8 Other secondary neuroendocrine tumors; S71.101A Unspecified open wound, right thigh, initial encounter; M79.651 Pain in right thigh; R63.0 Anorexia; M25.50 Pain in unspecified joint; E11.9 Type 2 diabetes mellitus without complications; R41.3 Other amnesia; Z79.899 Other long term (current) drug therapy; Z79.4 Long term (current) use of insulin; Z79.84 Long term (current) use of oral hypoglycemic drugs; Z66 Do not resuscitate
CPT/HCPCS: 99348

== ENCOUNTER 2021-10-09 08:00 | Outpatient (CLI) | payer MEDICAID ==
[2021-10-09 15:46] LABS: ALBUMIN 3.9 g/dL (3.2-5.5); BUN - BLOOD UREA NITROGEN 24 mg/dL (6-20); CALCIUM 9.3 mg/dL (8.5-10.3); CARBON DIOXIDE - CO2 22 mmol/L (21-32); CHLORIDE 101 mmol/L (101-111); CHOL/HDL RATIO 3.3 (<4.4); CHOLESTEROL 144 mg/dL; CREATININE 0.7 mg/dL (0.4-1.0); GFR - MDRD 85 (>89); GLUCOSE 127 mg/dL (70-100); HDL CHOLESTEROL 43 mg/dL; LDL CHOLESTEROL,CALCULATED 83 mg/dL; LDL/HDL RATIO 1.9 (<4.4); PHOSPHORUS 3.3 mg/dL (2.5-4.6); SODIUM 136 mmol/L (135-145); TRIGLYCERIDES 92 mg/dL; VLDL CHOLESTEROL 18 mg/dL
[2021-10-09 20:11] LABS: ESTIMATED AVERAGE GLUCOSE 157 mg/dL (70-100); HEMOGLOBIN A1c% 7.1 % (4.27-6.07)
== END 2021-10-09 23:59 | disposition home or self-care (01) ==
LOC: LAB.R 08:00
PROVIDERS: ATTEND Student in an Organized Health Care Education/Training Program
DX: E11.69 Type 2 diabetes mellitus with other specified complication (principal)
CPT/HCPCS: 80061; 80069; 83036; 83721

== ENCOUNTER 2021-12-13 07:25 | Outpatient (CLI) | payer MEDICAID | END 2021-12-13 07:26 | disposition critical access hospital (66) | LOC: EMS 07:25 | DX: R10.9 Unspecified abdominal pain (principal); R07.9 Chest pain, unspecified; M54.9 Dorsalgia, unspecified; C22.9 Malignant neoplasm of liver, not specified as primary or secondary | CPT/HCPCS: A0425; A0429; A0999 ==

== ENCOUNTER 2021-12-13 07:43 | Emergency (ER) | payer MEDICAID ==
[2021-12-13] MEDS ORDERED: SODIUM CHLORIDE 0.9% 1,000 ML IV STA (08:03)
[2021-12-13] MEDS ORDERED: fentaNYL 100 MCG/2 ML VIAL IVP STA ×2 (08:05→09:56)
[2021-12-13] MEDS ORDERED: KETOROLAC 15 MG/ML VIAL IVP STA (08:05)
[2021-12-13 08:12] LABS: BASOPHILS % (AUTO) 0.5 %; EOSINOPHILS # (AUTO) 0.1 10^3/uL (0.0-0.7); EOSINOPHILS % (AUTO) 1.9 %; HCT - HEMATOCRIT 28.4 % (37.0-47.0); HGB - HEMOGLOBIN 8.9 g/dL (12.0-16.0); LYMPHOCYTES # (AUTO) 0.4 10^3/uL (1.5-3.5); LYMPHOCYTES % (AUTO) 11.7 %; MEAN CORPUSCULAR HGB CONC 31.3 g/dL (32.0-36.0); MEAN CORPUSCULAR VOLUME 105.2 fL (81.0-99.0); MONOCYTES # (AUTO) 0.4 10^3/uL (0.0-1.0); MONOCYTES % (AUTO) 11.9 %; NEUTROPHILS # (AUTO) 2.7 10^3/uL (1.5-6.6); NEUTROPHILS % (AUTO) 73.7 %; PLT - PLATELET COUNT 198 10^3/uL (130-450); RED CELL DISTRIBUTION WIDTH 18.8 % (12.0-15.0); WHITE BLOOD COUNT 3.7 x10^3/uL (4.8-10.8)
[2021-12-13 08:25] LABS: ALBUMIN 3.3 g/dL (3.2-5.5); ALBUMIN/GLOBULIN RATIO 0.8 (1.0-2.2); BILIRUBIN,TOTAL 0.5 mg/dL (0.2-1.0); CALCIUM 8.9 mg/dL (8.5-10.3); CREATININE 0.7 mg/dL (0.4-1.0); POTASSIUM 4.2 mmol/L (3.5-5.0); TOTAL PROTEIN 7.4 g/dL (6.7-8.2)
--- NOTE | 2021-12-13 08:36 | XRAY Report ---
PROCEDURE: Chest 1 View X-Ray INDICATIONS: chest pain TECHNIQUE: One view of the chest was acquired. COMPARISON: 08/13/2021 FINDINGS: Surgical changes and devices: Left portacatheter terminates in the mid SVC. Lungs and pleura: As before, elevation of the right hemidiaphragm. Small right pleural effusion. Suspected emphysema Trace basilar and lower perihilar opacities could represent bronchitis/aspiration or atelectasis. Mediastinum: Mediastinal contours appear normal. Heart size is normal. Bones and chest wall: No suspicious bony lesions. Overlying soft tissues appear unremarkable. IMPRESSION: Trace basilar and lower perihilar opacities, representing bronchitis, aspiration, and/or atelectasis. Left portacatheter in place terminating in the mid SVC. Reviewed by: Trenton Bhatt MD on 12/13/2021 8:34 AM PDT Approved by: Trenton Bhatt MD on 12/13/2021 8:34 AM PDT Station ID: [id number]
[2021-12-13] MEDS ORDERED: MORPHINE ER 15 MG TABLET PO STA (09:56)
[2021-12-13] MEDS ORDERED: MORPHINE SULFATE ER 30 MG TABLET PO STA (10:04)
--- NOTE | 2021-12-13 10:16 | ED Physician Documentation ---
PD HPI ABD PAIN - Stated complaint Stated Complaint: ABD PX - Chief complaint Chief Complaint: Abd Pain - History obtained from History obtained from: Patient, EMS - History of Present Illness Timing - onset: How many days ago (has had increased back/abd and chest pain over baseline for several days, but has been increasing some for weeks and had taken extra of her pain meds, she states to me, so out of meds for few days now.) Timing - duration: Days Timing - details: Gradual onset, Still present, Waxing and waning Quality: Aching, Sharp, Pain Radiation: Other Improved by: No: Eating, Laying still Worsened by: Moving. No: Eating Associated symptoms: Nausea, Constipation, Chest pain. No: Fever, Vomiting, Diarrhea, Dysuria Similar symptoms before: Diagnosis (lung cancer with spread and has ongoing pain due to that.) Recently seen: Emergency Dept, Other (seen at her home by Sarah [facility] 3 days ago. See her recent care note.) Review of Systems Constitutional: denies: Fever, Chills Nose: denies: Rhinorrhea / runny nose, Congestion Throat: denies: Sore throat Cardiac: reports: Chest pain / pressure. denies: Palpitations Respiratory: reports: Dyspnea. denies: Cough GI: reports: Abdominal Pain, Nausea, Constipation. denies: Vomiting, Diarrhea Skin: denies: Rash PD PAST MEDICAL HISTORY - Past Medical History Past Medical History: Yes Cardiovascular: Hypertension, High cholesterol Respiratory: Emphysema, Shortness of breath, Other (lung cancer) Neuro: Peripheral neuropathy, Seizure disorder Endocrine/Autoimmune: Type 2 diabetes, HyPOthyroidism GI: GERD, Hiatal hernia, Chronic diarrhea, Chronic constipation, Pancreatitis, Hepatitis, Cholelithiasis, Other : Incontinence, Nocturia, Frequency HEENT: Glaucoma, Dental implants, Other Psych: Depression, Anxiety, Bipolar disorder Musculoskeletal: Osteoarthritis Derm: None Other Past Medical History: stage 4 liver cancer - Past Surgical History Past Surgical History: Yes General: Cholecystectomy, Hiatal hernia repair 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 Cardiovascular:  HEENT: Tonsil/Adenoidectomy - Present Medications Home Medications: Ambulatory Orders Medication Instructions Recorded Confirmed Simvastatin 20 mg PO QPM 01/19/13 11/19/21 Topiramate 200 mg PO BID 03/23/16 11/19/21 lamoTRIgine [LaMICtal] 200 mg PO DAILY 09/06/17 11/19/21 Empagliflozin [Jardiance] 25 mg PO DAILY 10/09/20 11/19/21 Sertraline HCl 150 mg PO DAILY 01/24/21 11/19/21 Lidocaine/Prilocain 2.5% Cream 5 applic TOP UD #1 gm 02/11/21 11/19/21 [Emla 2.5% Cream] ondansetron HCL [Zofran] 4 mg PO Q6HR PRN #30 tab 02/11/21 11/19/21 Acetaminophen [Acetaminophen Extra 1,000 mg PO TID PRN MDD 3000 02/20/21 11/19/21 Strength] Alendronate Sodium 35 mg PO .WEEKLY 02/20/21 11/19/21 Levothyroxine Sodium 50 mcg PO DAILY 02/20/21 11/19/21 [Levothyroxine] Insulin Glargine [Lantus Solostar] 14 unit SQ BID 03/26/21 11/19/21 QUEtiapine [SEROquel] 400 mg PO QPM 03/31/21 11/19/21 Gabapentin [Neurontin] 900 mg PO TID 30 Days #180 tablet 06/18/21 11/19/21 Insulin Lispro [Humalog Kwikpen 2 units SUBQ TID PRN MDD > 250 BS 07/09/21 11/19/21 U-100] Meloxicam [Mobic] 15 mg PO DAILY 07/30/21 11/19/21 Bacitracin Zinc Oint 1 applic TOP BID #1 gm 08/12/21 11/19/21 HYDROcod/ACETAM 5/325 [[place] 5/325] 1 tablet PO Q6H PRN 08/16/21 11/19/21 Lidocaine Jelly 2% [Xylocaine 1 applic TP DAILY 08/16/21 11/19/21 Jelly 2%] metFORMIN [Glucophage] 250 mg PO BID 08/20/21 11/19/21 Senna [Senokot] 8.6 mg PO DAILY MDD 4 tabs 08/27/21 11/19/21 Cyclobenzaprine HCl 5 mg PO TID PRN 09/29/21 11/19/21 Gentamicin Sulfate 15 gm TP DAILY #1 tu 10/15/21 11/19/21 Docusate Sodium 250Mg Capsule 250 mg PO DAILY #20 cap 11/07/21 11/19/21 [Colace 250Mg Capsule] HYDROcod/ACETAM 5/325 [[place] 5/325] 1 ea PO Q6H PRN #18 tablet 11/07/21 11/19/21 Ondansetron Odt [Zofran] 4 mg TL Q6H PRN #15 tablet 11/07/21 11/19/21 Morphine ER [Morphine Sulfate ER] 15 mg PO Q12H #8 tablet 12/13/21 - Allergies Allergies/Adverse Reactions: Allergies Allergy/AdvReac Type Severity Reaction Status Date / Time hydromorphone HCl * Allergy Intermediate Edema Verified 12/13/21 07:51 [From Dilaudid] metformin Allergy Intermediate vomiting Verified 12/13/21 07:51 and diarrhea Penicillins Allergy Intermediate Rash Verified 12/13/21 07:51 Sulfa (Sulfonamide Allergy Intermediate Rash Verified 12/13/21 07:51 Antibiotics) carbamazepine [From Tegretol] Allergy Mild Rash Verified 12/13/21 07:51 amoxicillin [Amoxicillin] Allergy Rash Verified 12/13/21 07:51 - Social History Does the pt smoke?: Yes Smoking Status: Current every day smoker Does the pt drink ETOH?: No Does the pt have substance abuse?: Yes Substance Use and Type: Marijuana - Immunizations Immunizations are current?: Yes - POLST Patient has POLST: Yes PD ED PE NORMAL - Vitals Vital signs reviewed: Yes - General General: Alert and oriented X 3, No acute distress, Well developed/nourished - HEENT HEENT: Atraumatic - Neck Neck: Supple, no meningeal sign, No adenopathy - Cardiac Cardiac: RRR, No murmur - Respiratory Respiratory: Clear bilaterally - Abdomen Abdomen: Soft, Non distended, Other (tender upper abd centrally. No guarding nor percussion tender. ) - Derm Derm: Normal color, Warm and dry - Extremities Extremities: No edema, No calf tenderness / cord - Neuro Neuro: Alert and oriented X 3, No motor deficit, Normal speech, Other (poor short term recall. ) Results - Vitals Vitals: Vital Signs - 24 hr 12/13/21 12/13/21 12/13/21 07:51 08:06 09:33 Temperature 36.7 C Heart Rate 91 91 84 Respiratory 28 H 22 25 H Rate Blood Pressure 127/75 122/70 119/70 O2 Saturation 98 96 95 12/13/21 11:14 Temperature Heart Rate 81 Respiratory 22 Rate Blood Pressure 122/66 O2 Saturation 96 Oxygen O2 Source Room air - Labs Labs: Laboratory Tests 12/13/21 12/13/21 08:06 08:06 WBC 3.7 L RBC 2.70 L Hgb 8.9 L Hct 28.4 L MCV 105.2 H MCH 33.0 H MCHC 31.3 L RDW 18.8 H Plt Count 198 MPV 10.0 Neut # (Auto) 2.7 Lymph # (Auto) 0.4 L [place] # (Auto) 0.4 Eos # (Auto) 0.1 Baso # (Auto) 0.0 Absolute Nucleated RBC 0.00 Nucleated RBC % 0.0 Sodium 139 Potassium 4.2 Chloride 105 Carbon Dioxide 23 Anion Gap 11.0 BUN 28 H Creatinine 0.7 Estimated GFR (MDRD) 85 L Glucose 117 H Calcium 8.9 Magnesium 2.0 Total Bilirubin 0.5 AST 47 H ALT 27 Alkaline Phosphatase 197 H Total Protein 7.4 Albumin 3.3 Globulin 4.1 Albumin/Globulin Ratio 0.8 L Lipase 25 PD MEDICAL DECISION MAKING - ED course Complexity details: reviewed old records (I read the palliative care note from this past week from Sarah Tinsley that talked about concerns for the patient over taking her medicines or hiding them. The patient currently states she does not have the pain medicines. Check of the controlled substance validation showed a refill on 11/20/2021.), considered differential (ongoing pain, without apparent acute abd exam and normal CXR. seems like her ongoing pain. She says she is out of her home meds. Her story is a bit inconsistent but seems related to cognitive issue and not purposeful. She may have overtaken her meds last week, which she admits to, and is now out. ), d/w patient, d/w vm[employer] consultant (I tried consulting one of the palliative care providers but nobody was on-call today. So in the interim I will prescribe her 4 days of her medicines until she can talk with them this coming week.) ED course: main issue might be out of pain meds for 2-3 days due to overuse through the prior week. Can give short term meds for pain and defer then to Palliative care. Tried to call /talk with them but no one neonatologist per [employer]. Departure - Departure Disposition: 01 Home, Self Care Clinical Impression: Chronic chest pain Condition: Stable Record reviewed to determine appropriate education?: Yes Follow-Up: Sarah Tinsley ARNP [Provider Admit Priv/Credential] - Prescriptions: Morphine ER [Morphine Sulfate ER] 15 mg PO Q12H #8 tablet Comments: I wrote you for 4 days of your morphine 15 mg extended release twice daily until you are able to talk with palliative care Sarah Tinsley this coming week regarding further pain treatment. Continue with your other usual medications. I sent this to your [facility]. Discharge Date/Time: 12/13/21 12:05
[2021-12-13 11:15] VITALS: BP 122/66
== END 2021-12-13 12:05 | disposition home or self-care (01) ==
LOC: EDUNIT# → ED 07:43
DX: R07.9 Chest pain, unspecified (principal); G89.29 Other chronic pain; E11.9 Type 2 diabetes mellitus without complications; Z79.899 Other long term (current) drug therapy; Z79.4 Long term (current) use of insulin; I10 Essential (primary) hypertension; F17.200 Nicotine dependence, unspecified, uncomplicated
CPT/HCPCS: 36415; 71045; 80053; 83690; 83735; 85025; 93005; 96374; 96375; 96376; 99283; 99284; A9270